=== PATIENT | female | born 1985 | race Asian ===

== ENCOUNTER 2017-05-01 14:06 | Inpatient (IN) | payer OTHER ==
[~2017-05-01] VITALS: Ht 180.3 cm; Wt 81.4 kg
[~2017-05-01 14:06] MED LIST: AGM875T PO; BUTA1TAB55 PO; CARV25TA PO; DIVA250T2 PO; FLT05NA16 NSEACH; LISI20TA PO; LISI40TA PO; METH4TAB PO; TRAM50TA2 PO
--- NOTE | 2017-05-01 14:46 | Physical Therapy Evaluation ---
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 Prior/Core FIM Prior Level of Function Functional [place] Measure 0=Not Assessed/NA 4=Minimal Assistance 1=Total Assistance 5=Supervision or Setup 2=Maximal Assistance 6=Modified [place] 3=Moderate Assistance 7=Complete [place] Bed Mobility: 7 Transfers (B,C,W/C) (FIM): 7 Gait: 7 Medical record indicates that she was indep with all mobility at [facility]. PT Evaluation-Current Subjective Whispers. Agrees to PT. Does report that she is tired. Denies pain. Limited conversation this visit. Pain Numeric Pain Scale: 0-No Pain Location: No Pain Reported Objective Patient Orientation: Person, Confused Problem Solving: Fair difficult to understand; unsure of her orientation at this time; her answers were inconsistent at times. ROM/Strength ROM Lower Extremities Left LE AROM is WNL Right LE AAROM is WNL. Strenght Lower Extremities Left LE strength is 5/5 throughout Right LE: hip flexion 2/5, hip ext 2/5, quads 2/5, hamstrings 2/5; DF 1/5; hip abd 2/5, hip add 2/5 Integumentary/Posture Integumentary Refer to nursing notes. Bowel Incontinence: Yes Bladder Incontinence: Yes Posture Normal and symmetrical Neuromuscular (Tone, Coordination, Reflexes) No noted increased tone at this time; coordination is impaired; unable to elicit reflexes. All on the L LE Right LE is WNL> Sensory Hearing: Functional Hand Dominance: Right Sensation Right Lower Extremit: Impaired Sensation Left Lower Extremity: Intact Transfers Functional [place] Measure 0=Not Assessed/NA 4=Minimal Assistance 1=Total Assistance 5=Supervision or Setup 2=Maximal Assistance 6=Modified [place] 3=Moderate Assistance 7=Complete IndependenceIRFPAI Quality Coding Scale 6 Independent with activity with or without an assistive device 5 Patient requires set up or clean up by helper. Patient completes activity by themselves 4 Supervision or touching assist (CGA). [place] provide cues , steadying assist 3 The helper provides less than half the effort to complete the activity 2 The helper provides more than half the effort to complete the activity 1 Dependent. The helper does all the effort to complete an activity 7 Patient refused to complete or attempt activity 9 The patient did not perform the activity before the current illness or injury 88 Not attempted due to Medical conditions or safety concerns Transfers (B, C, W/C) (FIM): 2 Scootin Rollin Roll Left to Right (QC): 3 Supine to/from Sit: 3 Sit to/from Stand: 2 bed t/f WC(FIM only if WC use): 2 Sit to Lying (QC): 2 Lying to Sitting/Side of Bed(Q: 2 Sit to Stand (QC): 2 Chair/Rcg-yt-Rtgyy Xfer(QC): 2 Car Transfer (QC): 2 Pt is slightly impulsive with transfers. She is able to use her left side effectively to participate in all transfers and is able to initiate the task. She reaches with her left hand to perform a SPT from left to right, she does minimally WB on the right LE in standing but primarily just turns her hips to sit, and is unsafe at times. Pt performed SPT to the left x 6 reps this visit. Gait Does the Patient Walk?: No and Walking Goal IS indicated Mode of Locomotion: Both Anticipated Mode of Locomotion: Walk Gait (FIM): 0 (unable at this time. ) Distance (FIM): 0=does not occure Walk 10 feet (QC): 88 (unable) Walk 50 ft with 2 Turns(QC): 88 (unable) Walk 150 ft (QC): 88 Walking 10ft/uneven surface-QC: 88 Comments/Gait Description Pt unable to advance left LE or attempt to take a step at this time. Wheelchair Training Does the Pt Use a Wheelchair?: Yes Wheelchair (FIM): 2 Wheelchair Distance (FIM): 6=431-63 ft Distance: 50 ft Wheelchair Level of Assist: 3 Wheel 50 ft with 2 turns (QC): 3 Wheel 150 ft (QC): 88 Type of Wheelchair: Manual Pt able to use her left UE to propel the wheelchair forward; needed mod assist to guide the chair. Stairs Stairs (FIM): 0 (unable ) 1 Step (curb) (QC): 88 4 Steps (QC): 88 12 Steps (QC): 88 If not tested on admit;explain Unable to take steps or stand effectively to attempt stairs. Balance Sitting Static: Fair Sitting Dynamic: Fair Standing Static: Fair Standing Dynamic: Fair Picking up an Object (QC): 88 (unsafe to attempt) Treatment Worked on functional transfers. Worked on seated balance at EOB; worked on WC mobility to maneuver in koo and in room/bathroom. Co treat with OT part of treatment, PT addressed the functional transfer and mobility as OT addressed UE positioning and placement as well as sequencing with tasks. Required 2 skilled clinicians to effectively cue and assist pt to reach optimum outcome. Assessment/Needs Post CVA with right side hemiparesis. She is able to activate her R LE and assist with transfers, but still needs much assist. She engages in therapy and does initiate transfers and mobility and able to follow cues well. She is slightly impulsive which may pose a fall risk but follows cues well and is able to change her pattern for increased safety. She is able to WB through the R LE but unable to effectively take a step to walk or to transfer. Her seated and standing balance is impaired as well but she is able to right herself with cues. She whispers to communicate and her answers do not seem reliable always. Her PLOF was indep and feel that she has potential to make functional gains. Rehab Potential: Good PT Short Term Goals Short Term Goals Time Frame: May 15, 2017 Transfers (B,C,W/C) (FIM): 4 Gait (FIM): 2 Distance (FIM): 9=337-45 ft Gait Distance Comment: 50 ft Gait Assistive Device: Walker Charly Wheelchair (FIM): 4 PT Senior Living Goals Commercial Project Manager Goals PT Senior Living Goals Time Frame: May 29, 2017 Transfers (B,C,W/C) (FIM): 6 Sit to Lying (QC): 6 Lying-Sitting on Side/Bed(QC): 6 Sit to Stand (QC): 6 Roll Left to Right (QC): 6 Chair/Jpb-my-Feehs Xfer(QC): 6 Car Transfer (QC): 6 Does the Patient Walk: No and Walking Goal NOT indicated Gait (FIM): 6 Gait distance (FIM): 3=150 ft Walk 10 feet (QC): 6 Walk 10ft-Uneven Surface(QC): 6 Walk 50ft with 2 Turns (QC): 6 Walk 150 ft (QC): 6 Gait Level of Assist: 6 Gait Assistive Device: Walker Charly Does the Pt use WC or Scooter?: Yes Wheelchair (FIM): 6 Wheelchair distance (FIM): 3=150 ft Wheel 50 feet with 2 turns (QC: 6 Stairs (FIM): 5 # of Steps: 8 1 Step (curb) (QC): 5 4 Steps (QC): 5 12 Steps (QC): 88 Picking up an Object (QC): 4 PT Plan Problem List Problem List: Activity Tolerance, Functional Strength, Safety, Balance, Gait, Transfer, Bed Mobility Treatment/Plan Treatment Plan: Continue Plan of Care Treatment Plan: Bed Mobility, Education, Functional Activity Masoud, Functional Strength, Group Therapy, Gait, Safety, Therapeutic Exercise, Transfers, Other Treatment Duration: May 22, 2017 Frequency: Modified Program (IRF) Estimated Hrs Per Day: 1.5 hours per day Patient and/or Family Agrees t: Yes Safety Risks/Education Patient Education: Safety Issues Teaching Recipient: Patient Teaching Methods: Discussion Response to Teaching: Reinforcement Needed Time/GCodes Time In: 1455 Time Out: 1505 (1505 to 1540 co [id number] to 1550 treat indiv) Total Billed Treatment Time: 55 Total Billed Treatment visit EVM 10 Co treat 2521-2590 (35 FA) individual treat [id number] (FA) MARIAN VALENCIA PT May 01, 2017 14:46
[2017-05-01 15:02] VITALS: BP 101/69
--- NOTE | 2017-05-01 16:04 | Occupational Therapy Eval ---
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 Unsure of living situation. ADL-Prior Level of Function ADL PLOF Comments Pt has difficulty providing information regarding PLOF. Provides inconsistent answers. Pt does state she was independent prior to CVA OT Current Status Subjective Pt agreeable to therapy this pm. No c/o pain. Pt whispers and speech is difficult to understand at times. Pt does state that she is fatigued this pm Mental Status/Objective Patient Orientation: Person Current Glasses/Contacts: No Hearing Aids: No Hand Dominance: Right Upper Extremity ROM Right UE PROM is functional Left UE WFL Upper Extremity Coordination Impaired right UE Left UE grossly WFL Upper Extremity Sensation Impaired right UE Upper Extremity Strength Right UE. Pt has trace elevation, but no other active movement noted. Left UE Grossly functional ADL-Treatment ADL-Current Pt in bed, was incontinent of urine. Total assist for hygiene and to change brief. Pt rolled with mod assist for task. Supine to sit with mod assist to right side. Pt sat EOB with fair balance. Pt able to stand with max assist. Unable to advance right LE to take steps at this time. Stand pivot transfer to left side with max assist. Pt impulsive with transfers and requires cues for safety. Pt used left UE to perform w/c mobility. Requires mod assist. Pt sat at sink to complete grooming tasks. Pt requires assist to open toothpaste and place on toothbrush. Pt then able to brush teeth using left UE. Pt washes face with SBA using left UE. Functional [place] Measure 0=Not Assessed/NA 4=Minimal Assistance 1=Total Assistance 5=Supervision or Setup 2=Maximal Assistance 6=Modified [place] 3=Moderate Assistance 7=Complete IndependenceIRFPAI Quality Coding Scale 6 Independent with activity with or without an assistive device 5 Patient requires set up or clean up by helper. Patient completes activity by themselves 4 Supervision or touching assist (CGA). [place] provide cues , steadying assist 3 The helper provides less than half the effort to complete the activity 2 The helper provides more than half the effort to complete the activity 1 Dependent. The helper does all the effort to complete an activity 7 Patient refused to complete or attempt activity 9 The patient did not perform the activity before the current illness or injury 88 Not attempted due to Medical conditions or safety concerns Co-treat with PT this pm. OT focusing on ADLs, right UE management and safety. PT focusing on transfers, LE management and safety. Education OT Patient Education: Rehab process Teaching Recipient: Patient Teaching Methods: Discussion OT Short Term Goals Short Term Goals Time Frame: May 15, 2017 Grooming(FIM): 5 Upper Body Dressing(FIM): 4 Lower Body Dressing(FIM): 3 Toileting(FIM): 3 Toilet/Commode Transfer(FIM): 4 Shower Transfer(FIM): 3 Additional Short Term Goals: 2-Verbalize Understanding, 3-ImproveStrength/Masoud 1=Demonstrate adherence to instructed precautions during ADL tasks. 2=Patient will verbalize/demonstrate understanding of assistive devices/ modifications for ADL. 3=Patient will improve strength/tolerance for activity to enable patient to perform ADL's. OT Group Home Goals Airfield Engineer Officer Goals Time Frame: May 29, 2017 Eating (FIM): 6 Eating (QC): 6 Groomin Oral Hygiene (QC): 6 Bathing(FIM): 5 Shower/Bathe Self (QC): 5 Upper Body Dressing(FIM): 6 Upper Body Dressing (QC): 6 Lower Body Dressing(FIM): 5 Lower Body Dressing (QC): 5 On/Off Footwear (QC): 5 Toileting(FIM): 6 Toileting Hygiene (QC): 6 Toilet/Commode Transfer(FIM): 6 Toilet/Commode Transfer (QC): 6 Shower Transfer(FIM): 5 Additional Goals: 2-Verbalize Understanding, 3-ImproveStrength/Masoud 1=Demonstrate adherence to instructed precautions during ADL tasks. 2=Patient will verbalize/demonstrate understanding of assistive devices/ modifications for ADL. 3=Patient will improve strength/tolerance for activity to enable patient to perform ADL's. OT Education/Plan Problem List/Assessment Assessment: Decreased Activ Tolerance, Decreased UE Strength, Dependent Transfers, Impaired Bed Mobility, Impaired Coordination, Impaired Funct Balance , Impaired I ADL's, Impaired Self-Care Skills, Restricted Funct UE ROM Pt s/p CVA with right side deficits. Pt demonstrates decreased mobility, strength, coordination, activity tolerance, and ADL functioning. Pt to benefit from skilled OT intervention for ADL training, transfers, strengthening, and safety education to increase level of independence and allow safe discharge plan. Discharge Recommendations Plan/Recommendations: Continue POC Treatment Plan/Plan of Care Treatment,Training & Education: Yes Patient would benefit from OT for education, treatment and training to promote independence in ADL's, mobility, safety and/or upper extremity function for ADL' s. Plan of Care: ADL Retraining, Functional Mobility, Group Exercise/Act as Ind, UE Funct Exercise/Act, UE Neuromus Re-Ed/Coord Treatment Duration: May 29, 2017 Frequency: Modified Program (IRF) (15/09) Estimated Hrs Per Day: 1.5 hours per day Agreement: Yes Rehab Potential: Good Time/GCodes Start Time: 14:45 Stop Time: 14:55 Total Time Billed (hr/min): 45 Billed Treatment Time 1, visit EVM(10minutes) [id number] ADL(15minutes), FA(20minutes) Co-treat with PT [id number] CELSO MIGUEL OT May 01, 2017 16:04
--- OUTSIDE RECORDS SUMMARY | 2017-05-01 16:05 | XMS REPORT | Continuity of Care Document ---
Author Author [facility] Address Unknown Phone Unavailable Allergies Active Description Code Type Severity Reaction Onset Reported/Identified Relationship to Patient Clinical Status Yes No Known Drug Allergies [id number] Drug Allergy Unknown N/A 02/12/2011 Medications There is no data. Problems Date Dx Coded Attending Type Code Diagnosis Diagnosed By 02/05/2011 PETEY RIOS MD 300.00 ANXIETY STATE UNSPECIFIED 02/05/2011 PETEY RIOS MD 346.90 MIGRAINE UNSPECIFIED WITHOUT MENTION OF INTRACTABLE MIGRAINE WITHOUT MENTION OF STATUS MIGRAINOSUS 02/05/2011 PETEY RIOS MD 401.1 HYPERTENSION, BENIGN ESSENTIAL 02/05/2011 PETEY RIOS MD V58.69 LONG-TERM (CURRENT) USE OF OTHER MEDICATIONS 02/12/2011 Ot 784.0 02/26/2011 Ot 461.9 02/26/2011 Ot 786.2 05/21/2011 Ot 346.90 05/21/2011 Ot 784.0 07/21/2011 Ot 784.0 09/24/2013 PETEY RIOS MD Ot 346.90 09/24/2013 PETEY RIOS MD Ot 401.9 Procedures There is no data. Results There is no data. Encounters ACCT No. Visit Date/Time Discharge Status Pt. Type Provider Facility Loc./Unit Complaint [id number] 02/12/2011 14:17:00 02/12/2011 23:59:59 CLS Outpatient PETEY RIOS MD [id number] 03/07/2014 14:35:00 03/07/2014 15:58:00 DIS Emergency SANDOR LINO MD [facility] [id number] 09/23/2013 22:14:00 09/24/2013 00:41:00 DIS Emergency PETEY RIOS MD [facility] [id number] 07/20/2011 23:38:00 Document Registration [id number] 05/21/2011 17:55:00 Document Registration [id number] 02/26/2011 11:54:00 Document Registration [id number] 02/12/2011 18:58:00 Document Registration
--- OUTSIDE RECORDS SUMMARY | 2017-05-01 16:05 | XMS REPORT | Continuity of Care Document ---
Author Author [employer] [facility] Address Unknown Phone Unavailable Care Team Providers Care Branch Specialist Name Role Phone [employer] Unavailable Unavailable Problems Medications Allergies, Adverse Reactions, Alerts Immunizations Results Vital Signs Encounters Location Location Details Encounter Type Encounter Number Reason For Visit Attending Provider ADM Date DC Date Status Source O 04/19/2017 04/19/2017 Active [facility] INPATIENT [id number] [facility] 04/19/20172017 Active [facility] Procedures Plan of Care Social History Assessment and Plan Family History Advance Directives Functional Status
--- NOTE | 2017-05-01 16:21 | ST Cognitive Linguistic Eval ---
Speech Evaluation-General Medical Diagnosis CVA- Right Thalamic Hemorrhagic Onset Date: Apr 19, 2017 Therapy Diagnosis Therapy Diagnosis: Severe Expressive Aphasia- Broca's Type Precautions Precautions/Isolations: Aspiration, Fall Prevention, Standard Precautions Referral Referring Physician: Dr. Marin Bo Reason for Referral: Evaluation/Treatment Speech and Language Evaluation Medical History Pertinent Medical History: HTN Reviewed History: Yes Social History Current Living Status: Friend Speech PLF-Current Status Prior Level of Function The patient was unable to provide prior level of function information due to severe aphasia. Subjective The patient was laying in bed upon entrance. The patient made eye contact with the clinician upon entrance and was able to state her name. Language Eval: Auditory Comprehends Simple Yes/No Ques: Moderate (The patient responds well and accurately to simple, personal yes and no questions. The patient's accuracy decreases significantly with fatigue, as well as, with complexity. The patient will self-correct and demonstrate frustration with an erroneous answer.) Indent/Objects Multiple Guevara: Functional Ident/Pics in Multiple Guevara: Functional Follows 1-Step Commands: Functional Follows Complex Directions: Moderate Follows General Conversations: Moderate Language Eval: Verbal Language Completes Spontaneous Greeting: Functional Produces Auto, Serial Info: Moderate (The patient states name and city. The patient continues to state the wrong .) Imitates Simple Words/Phrases: Functional Word Finding: Severe Requests Basic Needs: Moderate States Basic Personal Info: Moderate Expresses Complex Ideas: Severe Language Evaluation: Reading Comprehends Single Nouns: Functional Language Evaluation: Writing Writes Personal Information: Mild (First name, only.) Cognitive Patient Orientation The patient was able to state her name. The patient was unable to state the month or year. The patient was unable to identify the month of year with yes and no responses. Objective Cognitive Domain Due to lack of functional communication, the patient's cognition level was unable to assess at this time. Objective Oral Motor/Speech Production The patient demonstrates a left facial droop at rest. Lingual protrusion at midline. Impression The patient demonstrated moderate to severe expressive aphasia, however, comprehension appears mostly intact. At this time, the patient demonstrates whole word and single syllable paraphasia. Communication/Social Cognition Comprehension: 3 Expression: 1 Social Interaction: 3 Speech Patient Assess Expression of Ideas/Wants: Rarely/Never (1) Understanding [place] Content: Usually Understands (3) Brief Interview-Mental Status: Yes Repetition of Three Words: Three (3) Temporal Orientation: Year: No answer (0) Temporal Orientation: Month: No answer (0) Temporal Orientation: Day: Incorrect or No Answer(0) Recall : Wear to say "Sock": No, could not recall (0) Recall : Color: No, could not recall (0) Recall : Bed: No, could not recall (0) Speech Short Term Goals Short Term Goals Short Term Goals 1. The patient will demonstrate 70% accuracy with confrontational naming of ADL objects with minimal clinician cueing. 2. The patient will repeat short phrases with 70% accuracy and mild clinician verbal cueing. 3. The patient will respond to yes and now questions with 80% accuracy, independently. 4. The patient will be demonstrate simple orientation information with 100% accuracy. Time Frame-STG: Two Weeks Speech Filling [place] Goals Long-Term Goals 1. The patient will demonstrate improved expressive and receptive communication for increased safety and function with ADL's. Time Frame: Six Weeks Comprehension: 4 Expression: 3 Social Interaction: 4 Speech-Plan Treatment Plan Speech Therapy Treatment Plan: Continue Plan of Care Continue skilled speech pathology to target functional expressive communication. Treatment Duration: Jun 13, 2017 Frequency: 5 times per week Estimated Hrs Per Day: .5 hour per day Rehab Potential: Guarded Safety Risks/Education Teaching Recipient: Patient Teaching Methods: Discussion Response to Teaching: Reinforcement Needed Education Topics Provided: Results, Recommendations, Plan of Care Time Speech Therapy Time In: 15:50 Speech Therapy Time Out: 16:08 Total Billed Time: 18 Billed Treatment Time 1, JJ WELSHSAULO ST May 01, 2017 16:21
--- NOTE | 2017-05-01 17:14 | PM&R Post Admission Assessment ---
Post Admission Physician Asses The preadmission screen agrees with the post admission assessment that the patient is a good candidate for inpatient rehabilitation. The patient will have a comprehensive program of inpatient rehabilitation with a goal of maximizing level of functional independence prior to discharge home with roommate and HHC. The patient will have PT/OT ninety minutes per day, each discipline, five days a week for gait, strengthening, conditioning, balance , ADLs, any patient/family/caregiver training as necessary. Speech therapy to do cognitive,sppech and swallow assessment and treat as indicated 3-5 times a week for 30-45 min per session for 2 weeks. Rehabilitation nursing to assist with bowel, bladder, skin, medication administration, pain management. Buncher Operator to assist with discharge planning, community reentry and f/u re Medicaid [place]. SCD's for DVT prophylaxis. She appears to be well motivated to participate in three hours of therapy a day. She should be able to tolerate three hours of therapy a day from a medical standpoint. She should benefit from the three hours of therapy a day. She has a reasonable discharge plan, reasonable discharge rehabilitation goals and a supportive family. She has various comorbidities that need to be closely monitored with medications and treatments adjusted on a daily basis as needed. These include: HTN Illicit drug use Barriers to discharge for this patient who had been independent prior to this are for her to be modified independent to supervision for ADLs and mobility skills prior to discharge home with roommate and HHC, so as to lessen the burden of the caregivers. Risks for this patient include: 1. Fall 2. Fracture 3. DVT 4. Pulmonary embolism 5. Poorly controlled HTN 6. Skin breakdown 7. Contractures 8. Poorly controlled pain 9. Urinary retention 10. UTI 11. Respiratory infection 12. Aspiration 13. Reactive depression Estimated Length of Stay: 21 days Prognosis: Rehab prognosis appears good for goal of discharge home with roommate and HHC supervision to min assist for ADLs and mobility skills. MARGO MALIK MD May 01, 2017 17:14
--- NOTE | 2017-05-01 17:58 | HISTORY AND PHYSICAL ---
DATE OF SERVICE: CHIEF COMPLAINT: Difficulty with walking. HISTORY OF PRESENT ILLNESS: The patient is a 31-year-old female with past medical history significant for substance abuse who was admitted to [facility] due to hypertensive crisis associated with subcortical hemorrhage of the left cerebral hemisphere. Blood pressure was brought under control. The patient was initially evaluated outside facility. She had been independent and living with a friend in [place], but I believe she is unemployed and has no medical insurance. Currently, she has right hemiparesis. She is on a mechanical soft diet. She is quite fatigued. Speech therapy notes that she was unable to answer simple yes/no questions earlier today. She had some incontinence of urine. She is total assist for hygiene and to change brief. She is mod to max assist for bed mobility, max assist for stand pivot transfers to the left side. She has some impulsivity. She is mod to max assist for transfers from wheelchair to bed. She is nonambulatory at this time. She is mod assist for wheelchair propulsion. She fatigues easily. She has limited endurance. PAST MEDICAL HISTORY: Substance abuse, methamphetamine, ecstasy, hypertension. PAST SURGICAL HISTORY: Noncontributory. ALLERGIES: No known medication allergies. FAMILY HISTORY: Noncontributory. SOCIAL HISTORY: Essentially as per above. [facility] is listed as her primary care provider. REVIEW OF SYSTEMS: A 10-point review of systems is significant for fatigue, right-sided weakness. MEDICATIONS: Norvasc 5 mg p.o. daily, Prozac 20 mg p.o. daily, lisinopril 40 mg p.o. daily, Coreg 25 mg p.o. b.i.d. PHYSICAL EXAMINATION: GENERAL: Significant for a female appearing her stated age, lying in bed, somewhat somnolent, in no acute distress. VITAL SIGNS: She is afebrile, pulse is 74, respirations 18, blood pressure 101/69, O2 sat 97% on room air. HEENT: Vision, speech, hearing appear grossly intact. She has a mild dysphagia and on modified diet as per above. No oral lesion is noted. NECK: Supple without mass. HEART: Regular rhythm. CHEST: Clear. ABDOMEN: Soft, nontender, bowel sounds present. EXTREMITIES: No leg edema noted. No calf tenderness. MUSCULOSKELETAL: She has functional passive range of motion of all 4 extremities. NEUROLOGIC: She is able to squeeze my hand with her left hand. Follows simple command, but again somewhat fatigued, She has trace movement in the right upper limb. Sensation is impaired to touch on the right. Strength, left lower extremity is 5/5. Right lower extremity at the hip 2/5, quads 2/5, Hamstrings 2/5, dorsiflexors 1/5. Coordination is impaired on the right. IMPRESSION: 1. Ambulatory dysfunction secondary to hypertensive crisis associated with nontraumatic subcortical hemorrhage with left cerebral hemorrhage with resulting RT HP. 2. Hypertension, controlled with medication. 3. Illicit drug use, currently abstaining. PLAN: The patient will have a comprehensive program of inpatient rehabilitation with goal of maximizing level of function independence prior to discharge home hopefully with home health care and her roommate. Social work to assist with discharge planning, community reentry and follow up regarding the status of her Medicaid application. The patient will have PT, OT 90 minutes per day each discipline, 5 days a week 90 minutes per session for gait, strengthening, conditioning, balance, ADLs, any patient family caregiver training necessary, adaptive equipment training necessary. Speech therapy to do cognitive, swallow, and speech assessment and treat as indicated 3 to 5 times a week for 30 to 45 minutes per day for 2 weeks. Rehabilitation nursing assist with bowel, bladder, skin care, medication administration, pain management. [facility] to see and followup as per their schedule. Recheck admission labs. Therapy with cardiac and fall precautions. ESTIMATED LENGTH OF STAY: 21 days. PROGNOSIS: Rehab prognosis appears fair for goal of discharging home with home health and roommate, hopefully at min assist to supervision or better for ADLs and mobility skills. DIET: Mechanical soft with thin liquids. CODE STATUS: Full code. Job ID: [id number] DocumentID: [id number] Dictated Date: 05/01/2017 17:10:13 Rn Picu Date: 05/01/2017 17:57:43 Dictated By: MARGO MALIK MD [facility]
[2017-05-01 18:22] VITALS: BP 99/58
[2017-05-01 20:50] VITALS: BP 86/58
[2017-05-01] MEDS: CARVEDILOL 12.5 MG (COREG) TABLET PO SCH (21:12)
[2017-05-01 23:45] VITALS: BP 87/55
[2017-05-02 05:32] VITALS: BP 90/55
[2017-05-02 05:41] LABS: BASOPHILS % (AUTO) 0 % (0-10); EOSINOPHILS # (AUTO) 0.2 10^3/uL (0.0-0.3); EOSINOPHILS % (AUTO) 2 % (0-10); HEMATOCRIT 41 % (35-52); HEMOGLOBIN 13.4 G/DL (11.5-16.0); LYMPHOCYTES # (AUTO) 1.8 X 10^3 (1.0-4.0); LYMPHOCYTES % (AUTO) 17 % (12-44); MEAN CORPUSCULAR HEMOGLOBIN 30 PG (25-34); MEAN CORPUSCULAR HGB CONC 33 G/DL (32-36); MEAN CORPUSCULAR VOLUME 91 FL (80-99); MEAN PLATELET VOLUME 11.2 FL (7.4-10.4); MONOCYTES # (AUTO) 1.4 X 10^3 (0.0-1.0); MONOCYTES % (AUTO) 13 % (0-12); NEUTROPHILS # (AUTO) 7.2 X 10^3 (1.8-7.8); NEUTROPHILS % (AUTO) 68 % (42-75); PLATELET COUNT 412 10^3/uL (130-400); RED BLOOD COUNT 4.44 10^6/uL (4.35-5.85); RED CELL DISTRIBUTION WIDTH 13.3 % (10.0-14.5); WHITE BLOOD COUNT 10.6 10^3/uL (4.3-11.0)
[2017-05-02 06:07] LABS: ALBUMIN 3.8 GM/DL (3.2-4.5); BILIRUBIN,TOTAL 0.5 MG/DL (0.1-1.0); CALCIUM 9.6 MG/DL (8.5-10.1); CREATININE SERUM 1.06 MG/DL (0.60-1.30); TOTAL PROTEIN 7.2 GM/DL (6.4-8.2)
[2017-05-02] MEDS ORDERED: INFLUENZA TRIvalent 2017-2018 0.5 ML/45 MCG SYR IM ONE (07:15)
[2017-05-02] MEDS: FLUoxetine HCL 20 MG (PROzac) CAP PO SCH (09:02)
[2017-05-02] MEDS: CARVEDILOL 12.5 MG (COREG) TABLET PO SCH ×2 (09:04→19:55)
[2017-05-02] MEDS: amLODIPine 5 MG (NORVASC) TAB PO SCH (09:04)
[2017-05-02] MEDS: lisINopril 20 MG (PRINIVIL) TABLET PO SCH (09:05)
[2017-05-02 09:06] VITALS: BP 90/55
--- NOTE | 2017-05-02 09:33 | PM & R (SOAP) Progress Note ---
Subjective Time Seen by Provider: 07:40 Subjective/Events-last exam Patient was seen in her room this AM with her roommate Discussed case with RN last evening and this AM Blood pressure runiing low Antihypertensives on hold.Adjusting weel to unit,Patient Mod to max assist for transfers.Current labs norted Objective Exam Last Set of Vital Signs Vital Signs Date Time Temp Pulse Resp B/P (MAP) Pulse Ox O2 Delivery O2 Flow Rate FiO2 05/02/17 09:06 75 90/55 (67) 05/02/17 05:32 97.4 16 96 Room Air Capillary Refill : I&O Intake and Output 05/02/17 00:00 Intake Total 200 ml Balance 200 ml Intake Oral 200 ml # Urine Diapers 1 Daily Weight Change Unsure General: Alert, Oriented X3, Cooperative, No Acute Distress HEENT: Atraumatic, PERRLA, EOMI Neck: Supple, No JVD Lungs: Clear to Auscultation Heart: Regular Rate Abdomen: Normal Bowel Sounds, Soft, No Tenderness Extremities: No Edema Neuro: Other (RT HP with impaired sensation to touch) Results Lab Laboratory Tests 05/02/17 05:15: White Blood Count 10.6, Red Blood Count 4.44, Hemoglobin 13.4, Hematocrit 41, Mean Corpuscular Volume 91, Mean Corpuscular Hemoglobin 30, Mean Corpuscular Hemoglobin Concent 33, Red Cell Distribution Width 13.3, Platelet Count 412H, Mean Platelet Volume 11.2H, Neutrophils (%) (Auto) 68, Lymphocytes (%) (Auto) 17 , Monocytes (%) (Auto) 13H, Eosinophils (%) (Auto) 2, Basophils (%) (Auto) 0, Neutrophils # (Auto) 7.2, Lymphocytes # (Auto) 1.8, Monocytes # (Auto) 1.4H, Eosinophils # (Auto) 0.2, Basophils # (Auto) 0.0, Sodium Level 137, Potassium Level 5.0, Chloride Level 101, Carbon Dioxide Level 21, Anion Gap 15H, Blood Urea Nitrogen 51H, Creatinine 1.06, Estimat Glomerular Filtration Rate 60, BUN/ Creatinine Ratio 48, Glucose Level 101, Calcium Level 9.6, Total Bilirubin 0.5, Aspartate Amino Transf (AST/SGOT) 18, Alanine Aminotransferase (ALT/SGPT) 67H, Alkaline Phosphatase 92, Total Protein 7.2, Albumin 3.8 Assessment/Plan Assessment Left ICB due to hypertensive crisis most likely due to substance abuse with resulting RT HP and dysphagia-ST assessment pending Hypotension -Antihypertensives on hold Substance abuse currently abstaining Plan Continue PT/OT/ST [facility] Physician to see Hold antihypertensives for now and monitor for orthostasis SW to followup re status of [place] Fele[place] at some point MARGO MALIK MD May 02, 2017 09:32
--- NOTE | 2017-05-02 11:29 | Individualized Plan of Care ---
Individualized Plan of Care Rehab Nursing IPOC Order Admission Date May 01, 2017 at 15:58 Current Orders Orders Follow-Up Appointment (05/01/17 14:38) Dys2 Mechanically Altered (05/01/17 Lunch) Amlodipine Tablet (Norvasc Tablet) (05/02/17 09:00) Carvedilol Tablet (Coreg Tablet) (05/01/17 21:00) Fluoxetine Capsule (Prozac Capsule) (05/02/17 09:00) Lisinopril Tablet (Zestril Tablet) (05/02/17 09:00) Admission (Physician Order) (05/01/17 15:51) Code/Resuscitation (05/01/17 15:51) Initiate Admission Nursing Pro .admission (05/01/17 15:51) Isolation Central Supply Req (05/01/17 15:51) Patient Visit (05/01/17 ) Pt Eval Moderate Complexity (05/01/17 ) Functional Activities, Ea 15 (05/01/17 ) Patient Visit (05/01/17 ) Speech Sound Lang Comp (05/01/17 ) Admission-Acute Rehab Unit (05/01/17 16:47) Vital Signs: Routine 08,16,00 (05/01/17 16:47) Sequential Compression Device 08,20 (05/01/17 16:47) Metal Forger'S Assistant-Inpt Rehab (05/01/17 16:47) Rehab Nursing Orders-Ipoc (05/01/17 16:47) Physical Therapy Rehab Orders (05/01/17 16:47) Occupational Therapy Rehab Ord (05/01/17 16:47) Speech Therapy Rehab Orders (05/01/17 16:47) Turn And Reposition Q2HR (05/01/17 16:47) Intake & Output 06,14,22 (05/01/17 16:47) Precautions (Aru) (05/01/17 16:47) Weekly Weight (Lbs) WEEK (05/01/17 16:47) Cbc With Automated Diff (05/02/17 06:00) Comprehensive Metabolic Panel (05/02/17 06:00) Ambulate TID (05/01/17 17:19) Sequential Compression Device 08,20 (05/01/17 17:19) Dvt/Vte Risk - Notifiy Physici 08 (05/01/17 17:19) Automatic Tray (05/01/17 19:39) Influenza Trivalent [id number] (Afluria (05/02/17 07:15) Consult Physician (05/02/17 10:30) Rehab Nursing Orders: Diseage Management, Edu in Press Rel Techn, Hydration Management, Nutrition Management, Pain Management Patient Education On: Monitor for any signs or symptoms of swallow disorder Other Nursing Orders: Monitor for urinary retention and constipation PT IPOC Problem List: Activity Tolerance, Functional Strength, Safety, Balance, Gait, Transfer, Bed Mobility Treatment Plan: Continue Plan of Care Bed Mobility, Education, Functional Activity Masoud, Functional Strength, Group Therapy, Gait, Safety, Therapeutic Exercise, Transfers, Other Treatment Duration: May 22, 2017 Frequency: Modified Program (IRF) Estimated Hrs Per Day: 1.5 hours per day OT IPOC Problems: Decreased Activ Tolerance, Decreased UE Strength, Dependent Transfers , Impaired Bed Mobility, Impaired Coordination, Impaired Funct Balance, Impaired I ADL's, Impaired Self-Care Skills, Restricted Funct UE ROM OT Treatment, Training and Edu: Yes OT Problems Pt s/p CVA with right side deficits. Pt demonstrates decreased mobility, strength, coordination, activity tolerance, and ADL functioning. Pt to benefit from skilled OT intervention for ADL training, transfers, strengthening, and safety education to increase level of independence and allow safe discharge plan. Plan of Care: ADL Retraining, Functional Mobility, Group Exercise/Act as Ind, UE Funct Exercise/Act, UE Neuromus Re-Ed/Coord Treatment Duration: May 29, 2017 Frequency: Modified Program (IRF) (15/09) Estimated Hrs Per Day: 1.[address] IPOC Speech Therapy Treatment Plan: Continue Plan of Care Treatment Duration: Jun 13, 2017 Frequency: 5 times per week Estimated Hrs Per Day: .5 hour per day Metal Forger'S Assistant/Case Mgmt Metal Forger'S Assistant/Case Managemen: Discharge Planning, Patient/Family Counseling ( Sw to f/u re status of [place] medicaid beatriz as patient has no Medical insurance at this time) Physician IPOC Medical Issues being managed closely and that require the 24 hour availability of a physician: Medical Issues: Bowel/Bladder Function, DVT Prophylaxis, Falls Precautions, Fluid/Electrolyte/Nutrition Balance, Infection Protection, Pain Management, Swallowing Precautions, Other (List) Brief Synthesis of Preadmission Screen, Post-Admission Evaluation, and Therapy Evaluations: 31 yo female who had a hypertensive crisis as a result of Substance abue with resulting ICB with RT HP and dysphagia and expressive aphasia ,Antihypertensive meds currently on hold due to Hypotension Patient referred to IRU here from [facility] as she lives in [place] with a roommate No Current Medical Insurance SW to f/u re [place] Medicaid [facility] has declined patient Will ask Dr lazo to see re medical concerns while on IRU.Consult [facility] re substance abuse-Patient on Prozac.Had been Independent prior to this [facility] CODE 01.2 Etiologic DX Non traumatic Subcortical hemorrhage of left cerebral hemisphere Medical Prognosis: Good Anticipated Length of Stay: 18 Rehab Goals Maximize level of functional [place] prior to discharge to home with room mate who presents to unit this AM Anticipated discharge destinat: Home with C, roommate and friend if possible MARGO MALIK MD May 02, 2017 11:29
--- NOTE | 2017-05-02 11:34 | Occupational Ther Daily Note ---
OT Current Status-Daily Note Subjective Pt seen in room, up in bed, agreeable to OT. No pain mentioned. Appearance Sleepy but easily awakened. Softspoken. Mental Status/Objective Functional [place]aines Measure 0=Not Assessed/NA 4=Minimal Assistance 1=Total Assistance 5=Supervision or Setup 2=Maximal Assistance 6=Modified Gaines 3=Moderate Assistance 7=Complete Gaines ADL-Treatment Pt was incontinent of urine and needed total assist to change paper briefs. Sponge bath done in bed and at EOB. Foot splint applied at end of tx. Pt tends top externally rotate R hip so leg positioned in extension, with pillow supporting neutral position. Pt left in bed with 4 rails up, all needs met Functional Gaines Measure 0=Not Assessed/NA 4=Minimal Assistance 1=Total Assistance 5=Supervision or Setup 2=Maximal Assistance 6=Modified Gaines 3=Moderate Assistance 7=Complete IndependenceIRFPAI Quality Coding Scale 6 Independent with activity with or without an assistive device 5 Patient requires set up or clean up by helper. Patient completes activity by themselves 4 Supervision or touching assist (CGA). [place] provide cues , steadying assist 3 The helper provides less than half the effort to complete the activity 2 The helper provides more than half the effort to complete the activity 1 Dependent. The helper does all the effort to complete an activity 7 Patient refused to complete or attempt activity 9 The patient did not perform the activity before the current illness or injury 88 Not attempted due to Medical conditions or safety concerns Eating (FIM): 4 (Per nursing, pt needs setup and occasional skilled cues or assist to feed herself. Is on mechanical soft diet. Nursing reported that she was able to find food on the right side of her tray) Eating (QC): 3 Grooming (FIM): 3 (Max assist to brush hair (it is heavily tangled in back but she did not attempt to brush it out). Setup to brush teeth, seated at EOB. Able to rinse mouth with min assist to hold basin. Washed face with setup. Washed R hand with cues, unable to wash L hand. ) Oral Hygiene (QC): 3 (min assist) Bathing (FIM): 3 (Sponge bath done in bed. Pt was able to wash [place] in front with initiation cues. Sat EOB with close supervision and occas CGA. ) Bathing Location: R Arm (cues), L Upper Leg, L Lower Leg (including foot), Chest, Abdomen, Perineal Area Shower/Bathe Self (QC): 3 Upper Body (FIM): 3 (Mod assist, help with dressing R arm, pulling shirt down) Upper Body Dressing (QC): 3 Lower Body Dressing (FIM): 2 (Mod assist to roll side to side. Pt helped bridge and pulled pants up over hips on L side. Dressed in bed, supine) Lower Body Dressing (QC): 2 On/Off Footwear (QC): 2 (Helped pull sock up on L once started) Toileting (FIM): 1 (Total care for hygiene and clothing management. She is incontinent of urine and stool and, according to nursing, does not seem aware of need to toilet) Toileting Hygiene (QC): 1 Toilet/Commode Transfer (FIM): 0 (Pt has been incontinent and not doig toilet transfers) Toilet Transfer (QC): 88 (Unsafe on BSC) Pt needed mod assist to sit to edge of bed but was able to maintain sitting without loss of balance. She also needed mod assist to get back into bed and was able to assist with pulling herself up in bed. Education OT Patient Education: Modified ADL techniques, Progress toward Goal/Update tx plan, Purpose of tx/functional activities, Safety issues Teaching Recipient: Patient Teaching Methods: Demonstration, Discussion Response to Teaching: Return Demonstration, Reinforcement Needed OT Short Term Goals Short Term Goals Time Frame: May 15, 2017 Grooming(FIM): 5 Upper Body Dressing(FIM): 4 Lower Body Dressing(FIM): 3 Toileting(FIM): 3 Transfers (B,C,W/C) (FIM): 4 Toilet/Commode Transfer(FIM): 4 Shower Transfer(FIM): 3 Additional Short Term Goals: 2-Verbalize Understanding, 3-ImproveStrength/Masoud 1=Demonstrate adherence to instructed precautions during ADL tasks. 2=Patient will verbalize/demonstrate understanding of assistive devices/ modifications for ADL. 3=Patient will improve strength/tolerance for activity to enable patient to perform ADL's. OT [facility] Goals [facility] Goals Time Frame: May 29, 2017 Eating (FIM): 6 Eating (QC): 6 Groomin Oral Hygiene (QC): 6 Bathing(FIM): 5 Shower/Bathe Self (QC): 5 Upper Body Dressing(FIM): 6 Upper Body Dressing (QC): 6 Lower Body Dressing(FIM): 5 Lower Body Dressing (QC): 5 On/Off Footwear (QC): 5 Toileting(FIM): 6 Toileting Hygiene (QC): 6 Toilet/Commode Transfer(FIM): 6 Toilet/Commode Transfer (QC): 6 Shower Transfer(FIM): 5 Comprehension(FIM): 4 Expression (FIM): 3 Social Interaction(FIM): 4 Additional Goals: 2-Verbalize Understanding, 3-ImproveStrength/Masoud 1=Demonstrate adherence to instructed precautions during ADL tasks. 2=Patient will verbalize/demonstrate understanding of assistive devices/ modifications for ADL. 3=Patient will improve strength/tolerance for activity to enable patient to perform ADL's. OT Education/Plan Problem List/Assessment Pt s/p CVA with right side deficits. Pt demonstrates decreased mobility, strength, coordination, activity tolerance, and ADL functioning. Pt to benefit from skilled OT intervention for ADL training, transfers, strengthening, and safety education to increase level of independence and allow safe discharge plan. Discharge Recommendations Plan/Recommendations: Continue POC Treatment Plan/Plan of Care Patient would benefit from OT for education, treatment and training to promote independence in ADL's, mobility, safety and/or upper extremity function for ADL' s. Plan of Care: ADL Retraining, Functional Mobility, Group Exercise/Act as Ind, UE Funct Exercise/Act, UE Neuromus Re-Ed/Coord Treatment Duration: May 29, 2017 Frequency: Modified Program (IRF) (15/09) Estimated Hrs Per Day: 1.5 hours per day Agreement: Yes Rehab Potential: Guarded Time/GCodes Start Time: 10:30 Stop Time: 11:25 Total Time Billed (hr/min): 55 Billed Treatment Time visit, 55 minutes ADL SOPHIA CERVANTES OT May 02, 2017 11:34
--- NOTE | 2017-05-02 11:40 | Speech Therapy Daily Note ---
Speech Daily Progress Note Subjective Date Seen by Provider: May 02, 2017 Time Seen by Provider: 09:00 The patient was laying in bed upon entrance. The patient made eye contact with the clinician and was agreeable to participation in the speech and language treatment. To note, the patient remained involved in treatment for approximately 15 minutes. Following 15 minutes, the patient did appear to lose interest or become less participatory. The patient's significant other was seated at bedside. Objective The patient was able to state her name. The patient was unable to identify the month or year with yes and no responses. Per patient, she is unable to read the white-board in the room without her glasses, therefore, the clinician requested her significant other bring her glasses to aid in recall of orientation information. Yes/No: The patient demonstrated increased inconsistency with yes and no questions (simple) on this date. The patient seems to demonstrate self- awareness of errors, as she frequently shakes her head and says "no" after an wrong answer. Aphonia: The patient continues to demonstrate aphonia. Due to the patient's extended intubation, the clinician will request a referral to ENT for further evaluation of vocal fold function. Confrontational Naming: The patient demonstrated high accuracy with confrontational naming, however, did demonstrate paraphasia (whole word). With initial phone cueing, the patient was able to improve response accuracy. Assessment Assessment Current Status: Fair Progress Treatment Plan Continue Plan of Care Communication Comprehension: 3 Expression: 1 Social Cognition Social Interaction: 3 Problem Solvin Memory: 1 Speech Short Term Goals Short Term Goals Short Term Goals 1. The patient will demonstrate 70% accuracy with confrontational naming of ADL objects with minimal clinician cueing. 2. The patient will repeat short phrases with 70% accuracy and mild clinician verbal cueing. 3. The patient will respond to yes and now questions with 80% accuracy, independently. 4. The patient will be demonstrate simple orientation information with 100% accuracy. Time Frame-STG: Two Weeks Speech Alf Goals Alf Goals 1. The patient will demonstrate improved expressive and receptive communication for increased safety and function with ADL's. Time Frame: Six Weeks Comprehension: 4 Expression: 3 Social Interaction: 4 Speech-Plan Treatment Plan Speech Therapy Treatment Plan: Continue Plan of Care Continue skilled speech pathology to target functional expressive communication. Treatment Duration: Jun 13, 2017 Frequency: 5 times per week Estimated Hrs Per Day: .5 hour per day Rehab Potential: Guarded Safety Risks/Education Teaching Recipient: Patient, Significant Other Teaching Methods: Discussion Response to Teaching: Verbalize Understanding (Significant Other) Education Topics Provided: Practice Exercises, Language Immersion, Importance of Repetition, Education re: Aphasia Time Speech Therapy Time In: 09:00 Speech Therapy Time Out: 09:30 Total Billed Time: 30 Billed Treatment Time 1ADRIANA ELIZABETH May 02, 2017 11:40
--- NOTE | 2017-05-02 12:45 | Physical Therapy Daily Note ---
PT Daily Note-Current Subjective Pt laying Supine in bed upon arrival. Pt has friend that answers a lot for pt since she is vocalizing minimally. Pt agrees to PT. Pain Location: No Pain Reported Mental Status Patient Orientation: Person Attachments: Other-See Comments (R foot boot to prevent foot drop) Transfers Functional [place] Measure 0=Not Assessed/NA 4=Minimal Assistance 1=Total Assistance 5=Supervision or Setup 2=Maximal Assistance 6=Modified [place] 3=Moderate Assistance 7=Complete IndependenceIRFPAI Quality Coding Scale 6 Independent with activity with or without an assistive device 5 Patient requires set up or clean up by helper. Patient completes activity by themselves 4 Supervision or touching assist (CGA). [place] provide cues , steadying assist 3 The helper provides less than half the effort to complete the activity 2 The helper provides more than half the effort to complete the activity 1 Dependent. The helper does all the effort to complete an activity 7 Patient refused to complete or attempt activity 9 The patient did not perform the activity before the current illness or injury 88 Not attempted due to Medical conditions or safety concerns Scootin Rollin Roll Left to Right (QC): 2 Supine to/from Sit: 2 Sit to Lying (QC): 2 Sit to Stand (QC): 2 Weight Bearing Right Lower Extremity: Right Weight Bearing/Tolerated Left Lower Extremity: Left Full Weight Bearing Exercises Supine Ex: Ankle pumps, Quad Set, Heel Slides, Straight leg raise, Hip abd/add Supine Reps: 15 Seated Therapy Exercises: Long arc quads, Hip flexion, Kicking activity Seated Reps: 10 (All were PROM-AAR completed to work on sitting balance.) Treatments Pt completes Supine Ex in bed with RLE completed at [facility]. Pt has several rest breaks. Pt transfers to EOB at Mod-Max A to work on Static Seated Balance then completes Seated Ex at EOB with [facility] PROM for Dynamic Seated Balance. Pt returns to Supine in bed to rest at Mod-Max A. Pt resting at end of tx with all needs met. Assessment Current Status: Good Progress Pt has no feeling (pressure, pain, etc) in RLE. Pt gets slight movement to assist with some Supine Ex at this time. Pt is very fatigued. PT Short Term Goals Short Term Goals Time Frame: May 15, 2017 Transfers (B,C,W/C) (FIM): 4 Gait (FIM): 2 Distance (FIM): 6=458-27 ft Gait Distance Comment: 50 ft Gait Assistive Device: Walker Charly Wheelchair (FIM): 4 Wheelchair Distance: 50 ft PT Exchange Operator Goals Exchange Operator Goals PT Exchange Operator Goals Time Frame: May 29, 2017 Transfers (B,C,W/C) (FIM): 6 Sit to Lying (QC): 6 Lying-Sitting on Side/Bed(QC): 6 Sit to Stand (QC): 6 Rollin Roll Left to Right (QC): 6 Chair/Sio-sc-Sdwcg Xfer(QC): 6 Car Transfer (QC): 6 Does the Patient Walk: No and Walking Goal NOT indicated Gait (FIM): 6 Gait distance (FIM): 3=150 ft Walk 10 feet (QC): 6 Walk 10ft-Uneven Surface(QC): 6 Walk 50ft with 2 Turns (QC): 6 Walk 150 ft (QC): 6 Gait Level of Assist: 6 Gait Assistive Device: Walker Charly Does the Pt use WC or Scooter?: Yes Wheelchair (FIM): 6 Wheelchair distance (FIM): 3=150 ft Wheel 50 feet with 2 turns (QC: 6 Stairs (FIM): 5 # of Steps: 8 1 Step (curb) (QC): 5 4 Steps (QC): 5 12 Steps (QC): 88 Picking up an Object (QC): 4 PT Plan Problem List Problem List: Activity Tolerance, Functional Strength, Safety, Balance, Gait, Transfer, Bed Mobility, ROM Treatment/Plan Treatment Plan: Continue Plan of Care Treatment Plan: Bed Mobility, Education, Functional Activity Masoud, Functional Strength, Group Therapy, Gait, Safety, Therapeutic Exercise, Transfers, Other Treatment Duration: May 22, 2017 Frequency: Modified Program (IRF) Estimated Hrs Per Day: 1.5 hours per day Patient and/or Family Agrees t: Yes Safety Risks/Education Patient Education: Transfer Techniques, Correct Positioning, Disease Process, Safety Issues Teaching Recipient: Patient Teaching Methods: Discussion Response to Teaching: Verbalize Understanding Time/GCodes Time In: 815 Time Out: 900 Total Billed Treatment Time: 45 Total Billed Treatment 1, FA (15m) & EX x2 (30m) LI TA PTA May 02, 2017 12:45
--- NOTE | 2017-05-02 16:03 | Occupational Ther Daily Note ---
OT Current Status-Daily Note Subjective Pt seen inroom, up in bed, agreeable to OT. No pain mentioned Appearance Drowsy but easily awakened Mental Status/Objective Functional [place] Measure 0=Not Assessed/NA 4=Minimal Assistance 1=Total Assistance 5=Supervision or Setup 2=Maximal Assistance 6=Modified [place] 3=Moderate Assistance 7=Complete [place] ADL-Treatment Functional [place] Measure 0=Not Assessed/NA 4=Minimal Assistance 1=Total Assistance 5=Supervision or Setup 2=Maximal Assistance 6=Modified [place] 3=Moderate Assistance 7=Complete IndependenceIRFPAI Quality Coding Scale 6 Independent with activity with or without an assistive device 5 Patient requires set up or clean up by helper. Patient completes activity by themselves 4 Supervision or touching assist (CGA). [place] provide cues , steadying assist 3 The helper provides less than half the effort to complete the activity 2 The helper provides more than half the effort to complete the activity 1 Dependent. The helper does all the effort to complete an activity 7 Patient refused to complete or attempt activity 9 The patient did not perform the activity before the current illness or injury 88 Not attempted due to Medical conditions or safety concerns Other Treatment Pt sat up in bed long sitting and needed less help to swing R leg over to sit EOB. She was able to maintain sitting for entire treatment, with no LOB. Skilled facilitation techniques and cues used for weight bearing and working on functional movement of R UE. Pt demonstrated R shoulder elevation, a little retraction, some depression, a little internal rotation. She was able to lift r hand from side of bed to place it on thigh with mod assistance. Almost no elbow flex and ext on request or with gravity eliminated but elbow flex noted when lifting hand. She demonstrated visible finger flex, umberto in ring and little fingers, when asked to "squeeze my finger" but not able to do it to request to "make a fist". Pt pleased with progress. Able to assist in getting back into bed and helped pull herself part fo the way up in bed. pt left up in bed, foot splint on and leg positioned in extension and neutral rotation, 4 rails up, all needs met. Education OT Patient Education: Purpose of tx/functional activities Teaching Recipient: Patient Teaching Methods: Demonstration, Discussion Response to Teaching: Return Demonstration OT Short Term Goals Short Term Goals Time Frame: May 15, 2017 Grooming(FIM): 5 Upper Body Dressing(FIM): 4 Lower Body Dressing(FIM): 3 Toileting(FIM): 3 Transfers (B,C,W/C) (FIM): 4 Toilet/Commode Transfer(FIM): 4 Shower Transfer(FIM): 3 Additional Short Term Goals: 2-Verbalize Understanding, 3-ImproveStrength/Masoud 1=Demonstrate adherence to instructed precautions during ADL tasks. 2=Patient will verbalize/demonstrate understanding of assistive devices/ modifications for ADL. 3=Patient will improve strength/tolerance for activity to enable patient to perform ADL's. OT Pegger Dobby Looms Goals Pegger Dobby Looms Goals Time Frame: May 29, 2017 Eating (FIM): 6 Eating (QC): 6 Groomin Oral Hygiene (QC): 6 Bathing(FIM): 5 Shower/Bathe Self (QC): 5 Upper Body Dressing(FIM): 6 Upper Body Dressing (QC): 6 Lower Body Dressing(FIM): 5 Lower Body Dressing (QC): 5 On/Off Footwear (QC): 5 Toileting(FIM): 6 Toileting Hygiene (QC): 6 Toilet/Commode Transfer(FIM): 6 Toilet/Commode Transfer (QC): 6 Shower Transfer(FIM): 5 Comprehension(FIM): 4 Expression (FIM): 3 Social Interaction(FIM): 4 Additional Goals: 2-Verbalize Understanding, 3-ImproveStrength/Masoud 1=Demonstrate adherence to instructed precautions during ADL tasks. 2=Patient will verbalize/demonstrate understanding of assistive devices/ modifications for ADL. 3=Patient will improve strength/tolerance for activity to enable patient to perform ADL's. OT Education/Plan Problem List/Assessment Pt s/p CVA with right side deficits. Pt demonstrates decreased mobility, strength, coordination, activity tolerance, and ADL functioning. Pt to benefit from skilled OT intervention for ADL training, transfers, strengthening, and safety education to increase level of independence and allow safe discharge plan. Discharge Recommendations Plan/Recommendations: Continue POC Treatment Plan/Plan of Care Patient would benefit from OT for education, treatment and training to promote independence in ADL's, mobility, safety and/or upper extremity function for ADL' s. Plan of Care: ADL Retraining, Functional Mobility, Group Exercise/Act as Ind, UE Funct Exercise/Act, UE Neuromus Re-Ed/Coord Treatment Duration: May 29, 2017 Frequency: Modified Program (IRF) (15/09) Estimated Hrs Per Day: 1.5 hours per day Agreement: Yes Rehab Potential: Guarded Time/GCodes Start Time: 13:45 Stop Time: 14:20 Total Time Billed (hr/min): 35 Billed Treatment Time visit, 35 minutes neuromotor SOPHIA CERVANTES OT May 02, 2017 16:03
--- NOTE | 2017-05-02 16:32 | Physical Therapy Daily Note ---
PT Daily Note-Current Subjective Pt laying Supine in bed upon arrival. Pt agrees to PT. Pain Location: No Pain Reported Mental Status Patient Orientation: Person, Place Attachments: Other-See Comments Transfers Functional [place] Measure 0=Not Assessed/NA 4=Minimal Assistance 1=Total Assistance 5=Supervision or Setup 2=Maximal Assistance 6=Modified [place] 3=Moderate Assistance 7=Complete IndependenceIRFPAI Quality Coding Scale 6 Independent with activity with or without an assistive device 5 Patient requires set up or clean up by helper. Patient completes activity by themselves 4 Supervision or touching assist (CGA). [place] provide cues , steadying assist 3 The helper provides less than half the effort to complete the activity 2 The helper provides more than half the effort to complete the activity 1 Dependent. The helper does all the effort to complete an activity 7 Patient refused to complete or attempt activity 9 The patient did not perform the activity before the current illness or injury 88 Not attempted due to Medical conditions or safety concerns Rollin Roll Left to Right (QC): 2 Weight Bearing Right Lower Extremity: Right Weight Bearing/Tolerated Left Lower Extremity: Left Full Weight Bearing Exercises Supine Ex: Ankle pumps, Quad Set, Glut sets, Heel Slides, Straight leg raise, Hip abd/add Treatments Pt completes Supine Ex in bed (15 reps of each with several short rest breaks). Pt completes Supine Ex at AAROM-PROM on RLE & AROM on LLE. Pt needs brief change so Nurse & PARKING LOT SUPERVISOR assist pt in rolling back and forth to don & doff brief and shorts. Pt rests at end of tx with all needs met. Assessment Current Status: Fair Progress Pt has limited movement on RLE. PT Short Term Goals Short Term Goals Time Frame: May 15, 2017 Transfers (B,C,W/C) (FIM): 4 Gait (FIM): 2 Distance (FIM): 3=070-85 ft Gait Distance Comment: 50 ft Gait Assistive Device: Walker Charly Wheelchair (FIM): 4 Wheelchair Distance: 50 ft PT Architectural Engineer Goals Architectural Engineer Goals PT Group Home Goals Time Frame: May 29, 2017 Transfers (B,C,W/C) (FIM): 6 Sit to Lying (QC): 6 Lying-Sitting on Side/Bed(QC): 6 Sit to Stand (QC): 6 Rollin Roll Left to Right (QC): 6 Chair/Uod-mx-Dgzgq Xfer(QC): 6 Car Transfer (QC): 6 Does the Patient Walk: No and Walking Goal NOT indicated Gait (FIM): 6 Gait distance (FIM): 3=150 ft Walk 10 feet (QC): 6 Walk 10ft-Uneven Surface(QC): 6 Walk 50ft with 2 Turns (QC): 6 Walk 150 ft (QC): 6 Gait Level of Assist: 6 Gait Assistive Device: Walker Charly Does the Pt use WC or Scooter?: Yes Wheelchair (FIM): 6 Wheelchair distance (FIM): 3=150 ft Wheel 50 feet with 2 turns (QC: 6 Stairs (FIM): 5 # of Steps: 8 1 Step (curb) (QC): 5 4 Steps (QC): 5 12 Steps (QC): 88 Picking up an Object (QC): 4 PT Plan Problem List Problem List: Activity Tolerance, Functional Strength, Safety, Balance, Gait, Transfer, Bed Mobility, ROM Treatment/Plan Treatment Plan: Continue Plan of Care Treatment Plan: Bed Mobility, Education, Functional Activity Masoud, Functional Strength, Group Therapy, Gait, Safety, Therapeutic Exercise, Transfers, Other Treatment Duration: May 22, 2017 Frequency: Modified Program (IRF) Estimated Hrs Per Day: 1.5 hours per day Patient and/or Family Agrees t: Yes Safety Risks/Education Patient Education: Transfer Techniques, Correct Positioning, Safety Issues Teaching Methods: Discussion Response to Teaching: Reinforcement Needed Time/GCodes Time In: 1245 Time Out: 1330 Total Billed Treatment Time: 45 Total Billed Treatment 1, EX (20m) & FA x2 (25m) LI TA PTA May 02, 2017 16:32
[2017-05-02 18:04] VITALS: BP 114/78
[2017-05-03 05:15] VITALS: BP 124/82
--- NOTE | 2017-05-03 07:54 | Consultation ---
History of Present Illness History of Present Illness Patient Consulted On(eulalio/time) 05/03/17 07:50 Time Seen by Provider: 07:45 History of Present Illness Patient does not know the veterinary virus serum inspector or the year. Patient does not know where she is at. Patient doesn't know what 2+2 is. Patient had a stroke on the right side. Patient had hemiparesis. Patient has a history of substance abuse with methylphenidate to see. Patient is able to move her right leg. Patient denies having any surgeries. Allergies and Home Medications Allergies Coded Allergies: No Known Drug Allergies (Unverified , 02/12/11) Home Medications No Active Prescriptions or Reported Meds Patient Home Medication List Home Medication List Reviewed: Yes Past Ohhsfuc-Qrdkdw-Zhiakm Hx Patient Social History Alcohol Use: Past History Recreational Drug Use: Yes Drug of Choice: Drug screen positive for Amphetamines andEcstacy Smoking Status: Unknown if Ever Smoked Recent Foreign Travel: No Contact w/Someone Who Travel: No Recent Infectious Disease Expo: No Cardiovascular History of Cardiac Disorders: Yes Cardiac Disorders: Hypertension Neurological Neurological Disorders: Headaches /Migraines Review of Systems-General Constitutional: weakness EENTM: no symptoms reported Respiratory: no symptoms reported Cardiovascular: no symptoms reported Gastrointestinal: no symptoms reported Genitourinary: no symptoms reported Physical Exam-General Problems Physical Exam Vital Signs Vital Signs - First Documented 05/01/17 15:02 Temp 98.7 Pulse 74 Resp 18 B/P (MAP) 101/69 (80) Pulse Ox 97 O2 Delivery Room Air Capillary Refill : General Appearance: WD/WN, other (Unable to move right side of body. Can move right leg) Eyes: Bilateral Eye Normal Inspection HEENT: other (Drooping right side of mouth) Neck: non-tender, full range of motion, normal inspection Respiratory: chest non-tender, lungs clear, no respiratory distress, no accessory muscle use Cardiovascular: regular rate, rhythm, no murmur Gastrointestinal: non tender, soft Assessment/Plan Assessment/Plan Admission Diagnosis/Plan CVA on right. History of meth abuse. Decrease cognitive function Clinical Quality Measures DVT/VTE Risk/Contraindication: Risk Factor Score Per Nursin RFS Level Per Nursing on Admit: 2=Moderate FLACO RUIZ DO May 03, 2017 07:54
[2017-05-03] MEDS: amLODIPine 5 MG (NORVASC) TAB PO SCH (08:58)
[2017-05-03] MEDS: CARVEDILOL 12.5 MG (COREG) TABLET PO SCH ×2 (08:58→19:57)
[2017-05-03] MEDS: FLUoxetine HCL 20 MG (PROzac) CAP PO SCH (08:58)
[2017-05-03] MEDS: lisINopril 20 MG (PRINIVIL) TABLET PO SCH (08:58)
--- NOTE | 2017-05-03 11:03 | Occupational Ther Daily Note ---
OT Current Status-Daily Note Subjective Pt seen in room, up in bed, agreeable to OT. No pain mentioned. Appearance Alert, cooperative Mental Status/Objective Functional [place] Measure 0=Not Assessed/NA 4=Minimal Assistance 1=Total Assistance 5=Supervision or Setup 2=Maximal Assistance 6=Modified [place] 3=Moderate Assistance 7=Complete [place] ADL-Treatment Co-tx with PT for shower and dressing, with PT working on LE function, balance, transfers and OT working on R UE function, ADL techniques. Pt has matting in hair on back of head and most of it came out with using conditioner and washing her hair. Pt continues incontinent and shook her head that she didn't know when she needed to go to the bathroom. Functional [place] Measure 0=Not Assessed/NA 4=Minimal Assistance 1=Total Assistance 5=Supervision or Setup 2=Maximal Assistance 6=Modified [place] 3=Moderate Assistance 7=Complete IndependenceIRFPAI Quality Coding Scale 6 Independent with activity with or without an assistive device 5 Patient requires set up or clean up by helper. Patient completes activity by themselves 4 Supervision or touching assist (CGA). [place] provide cues , steadying assist 3 The helper provides less than half the effort to complete the activity 2 The helper provides more than half the effort to complete the activity 1 Dependent. The helper does all the effort to complete an activity 7 Patient refused to complete or attempt activity 9 The patient did not perform the activity before the current illness or injury 88 Not attempted due to Medical conditions or safety concerns Bathing (FIM): 3 (Using shower chair, hand held shower.) Bathing Location: R Arm (with assist), L Upper Leg, R Upper Leg, Chest, Abdomen , Perineal Area Upper Body (FIM): 3 (More neglect of R UE observed during UE dressing. Pt educ modified technique) Lower Body Dressing (FIM): 2 (Pt was able to crab picker both feet to place them in pants and roll side to side to pull them up over hips on both sides. Dependant with putting on tape-on briefs. Helped pull sock up on L side) Shower Transfer(FIM): 1 (Two person max assist transfer from bed to R side into wheeled shower chair. transported to shower room) Education OT Patient Education: Modified ADL techniques, Purpose of tx/functional activities, Transfer techniques Teaching Recipient: Patient Teaching Methods: Demonstration, Discussion Response to Teaching: Reinforcement Needed OT Short Term Goals Short Term Goals Time Frame: May 15, 2017 Grooming(FIM): 5 Upper Body Dressing(FIM): 4 Lower Body Dressing(FIM): 3 Toileting(FIM): 3 Transfers (B,C,W/C) (FIM): 4 Toilet/Commode Transfer(FIM): 4 Shower Transfer(FIM): 3 Additional Short Term Goals: 2-Verbalize Understanding, 3-ImproveStrength/[place] 1=Demonstrate adherence to instructed precautions during ADL tasks. 2=Patient will verbalize/demonstrate understanding of assistive devices/ modifications for ADL. 3=Patient will improve strength/tolerance for activity to enable patient to perform ADL's. OT Fdc Goals Clean Room Technician Goals Time Frame: May 29, 2017 Eating (FIM): 6 Eating (QC): 6 Groomin Oral Hygiene (QC): 6 Bathing(FIM): 5 Shower/Bathe Self (QC): 5 Upper Body Dressing(FIM): 6 Upper Body Dressing (QC): 6 Lower Body Dressing(FIM): 5 Lower Body Dressing (QC): 5 On/Off Footwear (QC): 5 Toileting(FIM): 6 Toileting Hygiene (QC): 6 Toilet/Commode Transfer(FIM): 6 Toilet/Commode Transfer (QC): 6 Shower Transfer(FIM): 5 Comprehension(FIM): 4 Expression (FIM): 3 Social Interaction(FIM): 4 Additional Goals: 2-Verbalize Understanding, 3-ImproveStrength/Masoud 1=Demonstrate adherence to instructed precautions during ADL tasks. 2=Patient will verbalize/demonstrate understanding of assistive devices/ modifications for ADL. 3=Patient will improve strength/tolerance for activity to enable patient to perform ADL's. OT Education/Plan Problem List/Assessment Pt s/p CVA with right side deficits. Pt demonstrates decreased mobility, strength, coordination, activity tolerance, and ADL functioning. Pt to benefit from skilled OT intervention for ADL training, transfers, strengthening, and safety education to increase level of independence and allow safe discharge plan. Discharge Recommendations Plan/Recommendations: Continue POC Treatment Plan/Plan of Care Patient would benefit from OT for education, treatment and training to promote independence in ADL's, mobility, safety and/or upper extremity function for ADL' s. Plan of Care: ADL Retraining, Functional Mobility, Group Exercise/Act as Ind, UE Funct Exercise/Act, UE Neuromus Re-Ed/Coord Treatment Duration: May 29, 2017 Frequency: Modified Program (IRF) (15/09) Estimated Hrs Per Day: 1.5 hours per day Agreement: Yes Rehab Potential: Guarded Time/GCodes Start Time: 09:30 Stop Time: 10:30 Total Time Billed (hr/min): 60 Billed Treatment Time visit, 60 minutes ADL co-tx with PT SOPHIA CERVANTES OT May 03, 2017 11:03
--- NOTE | 2017-05-03 13:09 | Speech Therapy Daily Note ---
Speech Daily Progress Note Subjective Date Seen by Provider: May 03, 2017 Time Seen by Provider: 09:00 The patient was laying in bed, with significant other, sleeping upon entrance. The patient was difficult to rouse, as she kept closing her eyes, yawning and turning away from the clinician. The clinician requested the patient open eyes, sit up, and participate. Following third prompt, the patient's significant other removed herself from the bed and helped encourage the patient's participation. Objective To note, the patient requires prompting throughout the session to participate. Confrontational Naming: The patient presents with less than 50% accuracy with confrontational naming, displaying consistent paraphasia throughout the task. The patient's accuracy increases (however, remains less than 50%) with initial phoneme prompting. Reading Aloud: The patient was able to read a children's story book aloud with increased accuracy. The patient continues to demonstrate paraphasia throughout reading, however, consistently catches her error, shakes head, and re-corrects ( accurately). Assessment Assessment Current Status: Fair Progress Treatment Plan Continue Plan of Care Communication Comprehension: 3 Expression: 1 Social Cognition Social Interaction: 3 Problem Solvin Memory: 1 Speech Short Term Goals Short Term Goals Short Term Goals 1. The patient will demonstrate 70% accuracy with confrontational naming of ADL objects with minimal clinician cueing. 2. The patient will repeat short phrases with 70% accuracy and mild clinician verbal cueing. 3. The patient will respond to yes and now questions with 80% accuracy, independently. 4. The patient will be demonstrate simple orientation information with 100% accuracy. Time Frame-STG: Two Weeks Speech Rice Farmer Goals Mcc Goals 1. The patient will demonstrate improved expressive and receptive communication for increased safety and function with ADL's. Time Frame: Six Weeks Comprehension: 4 Expression: 3 Social Interaction: 4 Speech-Plan Treatment Plan Speech Therapy Treatment Plan: Continue Plan of Care Continue skilled speech pathology to target functional expressive communication. Treatment Duration: Jun 13, 2017 Frequency: 5 times per week Estimated Hrs Per Day: .5 hour per day Rehab Potential: Guarded Safety Risks/Education Teaching Recipient: Patient Teaching Methods: Discussion Response to Teaching: Reinforcement Needed Education Topics Provided: Importance of Participation and Repetition Time Speech Therapy Time In: 09:00 Speech Therapy Time Out: 09:30 Total Billed Time: 30 Billed Treatment Time 1, SAULO HOWELL May 03, 2017 13:09
--- NOTE | 2017-05-03 15:01 | Physical Therapy Daily Note ---
PT Daily Note-Current Subjective Pt. in bed upon arrival. Co Rx with OT for TRF, balance and ADL safety. Pt. does communicate with nods and whispers and is appropriate , seems fatigued and listless. Pain Numeric Pain Scale: 0-No Pain Mental Status Patient Orientation: Eyes Open, Mumbles (whispers), Listless Transfers Functional [place] Measure 0=Not Assessed/NA 4=Minimal Assistance 1=Total Assistance 5=Supervision or Setup 2=Maximal Assistance 6=Modified [place] 3=Moderate Assistance 7=Complete IndependenceIRFPAI Quality Coding Scale 6 Independent with activity with or without an assistive device 5 Patient requires set up or clean up by helper. Patient completes activity by themselves 4 Supervision or touching assist (CGA). [place] provide cues , steadying assist 3 The helper provides less than half the effort to complete the activity 2 The helper provides more than half the effort to complete the activity 1 Dependent. The helper does all the effort to complete an activity 7 Patient refused to complete or attempt activity 9 The patient did not perform the activity before the current illness or injury 88 Not attempted due to Medical conditions or safety concerns Transfers (B, C, W/C) (FIM): 3 Scootin Rollin Supine to/from Sit: 3 Sit to/from Stand: 3 Weight Bearing Right Lower Extremity: Right Weight Bearing/Tolerated Left Lower Extremity: Left Full Weight Bearing Gait Training Does the Patient Walk?: No and Walking Goal IS indicated pt. takes 3-4 side step scoots left Exercises Supine Ex: Bridging, Ankle pumps, Quad Set, Rolling, Glut sets, Heel Slides, Short Arc Quads, Scooting, Straight leg raise (assist), Hip abd/add Supine Reps: 12 Seated Therapy Exercises: Ankle pumps, Sit to stand, Long arc quads, Hip flexion Seated Reps: 10 Treatments co RX w OT for bath/shower, TRF to from, facilitating seated scooting for safety while wet in shower Assessment Current Status: Good Progress spoke at length with pt. RE: giving full effort and utilizing her time with therapies PT Short Term Goals Short Term Goals Time Frame: May 15, 2017 Transfers (B,C,W/C) (FIM): 4 Gait (FIM): 2 Distance (FIM): 8=154-38 ft Gait Distance Comment: 50 ft Gait Assistive Device: Walker Charly Wheelchair (FIM): 4 Wheelchair Distance: 50 ft PT Correction Goals Correction Goals PT Correction Goals Time Frame: May 29, 2017 Transfers (B,C,W/C) (FIM): 6 Sit to Lying (QC): 6 Lying-Sitting on Side/Bed(QC): 6 Sit to Stand (QC): 6 Rollin Roll Left to Right (QC): 6 Chair/Bzh-xp-Ukvgv Xfer(QC): 6 Car Transfer (QC): 6 Does the Patient Walk: No and Walking Goal NOT indicated Gait (FIM): 6 Gait distance (FIM): 3=150 ft Walk 10 feet (QC): 6 Walk 10ft-Uneven Surface(QC): 6 Walk 50ft with 2 Turns (QC): 6 Walk 150 ft (QC): 6 Gait Level of Assist: 6 Gait Assistive Device: Walker Charly Does the Pt use WC or Scooter?: Yes Wheelchair (FIM): 6 Wheelchair distance (FIM): 3=150 ft Wheel 50 feet with 2 turns (QC: 6 Stairs (FIM): 5 # of Steps: 8 1 Step (curb) (QC): 5 4 Steps (QC): 5 12 Steps (QC): 88 Picking up an Object (QC): 4 PT Plan Treatment/Plan Treatment Plan: Continue Plan of Care Treatment Plan: Bed Mobility, Education, Functional Activity Masoud, Functional Strength, Group Therapy, Gait, Safety, Therapeutic Exercise, Transfers, Other Treatment Duration: May 22, 2017 Frequency: Modified Program (IRF) Estimated Hrs Per Day: 1.5 hours per day Patient and/or Family Agrees t: Yes Safety Risks/Education Patient Education: Transfer Techniques, Correct Positioning, W/C Management, Disease Process, Safety Issues Teaching Recipient: Patient Teaching Methods: Demonstration, Discussion Response to Teaching: Unable to Return Demonstration, Reinforcement Needed Time/GCodes Time In: 930 Time Out: 1030 Total Billed Treatment Time: 60 Total Billed Treatment 1,EX20m,FA40m G Codes Necessary: EDGARD Sheehan PHOTOGRAPHIC ENGINEER May 03, 2017 15:01
--- NOTE | 2017-05-03 15:16 | Therapy Group Daily Note ---
Therapy Daily Group Note Patient Education Topic Other List Below (memory strategies) Exercises LE Seated Exercise, UE Exercise Other/Notes Pt. attended group PT OT session this date. Pt. came and went via w/c and required assist several times during group to maintain good sitting in w/c as pt. slumps low in chair. Pt. introduced self with assistance as she whispers and enjoyed jokes told by others. Pts. enjoyed a display of "punny toys" ( wooden toys with funny pun meanings). Pts. each identified various object apraxia situations via a photo image they were shown. Importance of memory and ways to facilitate lasting memory were shared. Pts. all participated in image matching memory game. Pt. to room after group via w/c and mod to max assist to bed . monica at hand, visitor present Start Time: 13:00 Stop Time: 14:30 Total Billed Treatment Time: 90 Total Billed Treatment 1,GRP EDGARD SÁNCHEZ [employer] ARCHITECT May 03, 2017 15:16
[2017-05-03 18:02] VITALS: BP 131/87
[2017-05-04 06:02] VITALS: BP 114/69
[2017-05-04] MEDS: FLUoxetine HCL 20 MG (PROzac) CAP PO SCH (09:49)
[2017-05-04] MEDS: amLODIPine 5 MG (NORVASC) TAB PO SCH (09:49)
[2017-05-04] MEDS: CARVEDILOL 12.5 MG (COREG) TABLET PO SCH ×2 (09:49→21:51)
[2017-05-04] MEDS: lisINopril 20 MG (PRINIVIL) TABLET PO SCH (09:49)
--- NOTE | 2017-05-04 09:50 | Physical Therapy Daily Note ---
PT Daily Note-Current Subjective Pt. in bed upon arrival. Appears she has eaten approx 75% of breakfast. Minimal response when asked questions. Appears to ignore this SUPERVISOR URANIUM PROCESSING. Discussed with pt. that therapies are her chance to et better. This SUPERVISOR URANIUM PROCESSING encouraging pt. to participate Pain Location: No Pain Reported Mental Status Patient Orientation: Eyes Open Transfers Functional [place] Measure 0=Not Assessed/NA 4=Minimal Assistance 1=Total Assistance 5=Supervision or Setup 2=Maximal Assistance 6=Modified [place] 3=Moderate Assistance 7=Complete IndependenceIRFPAI Quality Coding Scale 6 Independent with activity with or without an assistive device 5 Patient requires set up or clean up by helper. Patient completes activity by themselves 4 Supervision or touching assist (CGA). [place] provide cues , steadying assist 3 The helper provides less than half the effort to complete the activity 2 The helper provides more than half the effort to complete the activity 1 Dependent. The helper does all the effort to complete an activity 7 Patient refused to complete or attempt activity 9 The patient did not perform the activity before the current illness or injury 88 Not attempted due to Medical conditions or safety concerns Transfers (B, C, W/C) (FIM): 3 Scootin Rollin (to left) Supine to/from Sit: 5 Sit to/from Stand: 3 Bed to/from Chair: 3 SPTs improving Weight Bearing Right Lower Extremity: Right Weight Bearing/Tolerated Left Lower Extremity: Left Full Weight Bearing Exercises Supine Ex: Bridging, Ankle pumps (HC stretch x 20 s x3), Quad Set, Rolling, Glut sets, Heel Slides, Short Arc Quads, Scooting, Straight leg raise (assist), Hip abd/add Supine Reps: 12 Seated Therapy Exercises: Sit to stand, Long arc quads Seated Reps: 12 Treatments up in w/c with pillow support for arm and leg rest insitu, anderson at left hand Assessment Current Status: Good Progress PT Short Term Goals Short Term Goals Time Frame: May 15, 2017 Transfers (B,C,W/C) (FIM): 4 Gait (FIM): 2 Distance (FIM): 5=597-02 ft Gait Distance Comment: 50 ft Gait Assistive Device: Walker Charly Wheelchair (FIM): 4 Wheelchair Distance: 50 ft PT Child Care Assistant Goals Residential Goals PT Child Care Assistant Goals Time Frame: May 29, 2017 Transfers (B,C,W/C) (FIM): 6 Sit to Lying (QC): 6 Lying-Sitting on Side/Bed(QC): 6 Sit to Stand (QC): 6 Rollin Roll Left to Right (QC): 6 Chair/Bix-wu-Ojnws Xfer(QC): 6 Car Transfer (QC): 6 Does the Patient Walk: No and Walking Goal NOT indicated Gait (FIM): 6 Gait distance (FIM): 3=150 ft Walk 10 feet (QC): 6 Walk 10ft-Uneven Surface(QC): 6 Walk 50ft with 2 Turns (QC): 6 Walk 150 ft (QC): 6 Gait Level of Assist: 6 Gait Assistive Device: Walker Charly Does the Pt use WC or Scooter?: Yes Wheelchair (FIM): 6 Wheelchair distance (FIM): 3=150 ft Wheel 50 feet with 2 turns (QC: 6 Stairs (FIM): 5 # of Steps: 8 1 Step (curb) (QC): 5 4 Steps (QC): 5 12 Steps (QC): 88 Picking up an Object (QC): 4 PT Plan Treatment/Plan Treatment Plan: Continue Plan of Care Treatment Plan: Bed Mobility, Education, Functional Activity Masoud, Functional Strength, Group Therapy, Gait, Safety, Therapeutic Exercise, Transfers, Other Treatment Duration: May 22, 2017 Frequency: Modified Program (IRF) Estimated Hrs Per Day: 1.5 hours per day Patient and/or Family Agrees t: Yes Safety Risks/Education Patient Education: Transfer Techniques, Correct Positioning, Safety Issues Teaching Recipient: Patient Teaching Methods: Demonstration, Discussion Response to Teaching: Verbalize Understanding, Return Demonstration, Reinforcement Needed Time/GCodes Time In: 815 Time Out: 835 Total Billed Treatment Time: 20 Total Billed Treatment 1,FA20m G Codes Necessary: EDGARD Sheehna PTA May 04, 2017 09:50
[2017-05-04 10:08] VITALS: BP 129/85
[2017-05-04 11:15] VITALS: BP 121/78
[2017-05-04 19:17] VITALS: BP 98/63
[2017-05-05 04:10] VITALS: BP 101/62
[2017-05-05 10:11] VITALS: BP 98/63
[2017-05-05] MEDS: amLODIPine 5 MG (NORVASC) TAB PO SCH (10:13)
[2017-05-05] MEDS: lisINopril 20 MG (PRINIVIL) TABLET PO SCH (10:13)
[2017-05-05] MEDS: CARVEDILOL 12.5 MG (COREG) TABLET PO SCH ×2 (10:14→20:36)
[2017-05-05] MEDS: FLUoxetine HCL 20 MG (PROzac) CAP PO SCH (10:17)
[2017-05-05 18:55] VITALS: BP 105/67
[2017-05-06 05:27] VITALS: BP 114/76
[2017-05-06 08:00] VITALS: BP 121/83
[2017-05-06] MEDS: FLUoxetine HCL 20 MG (PROzac) CAP PO SCH (08:14)
[2017-05-06] MEDS: lisINopril 20 MG (PRINIVIL) TABLET PO SCH (08:14)
[2017-05-06] MEDS: CARVEDILOL 12.5 MG (COREG) TABLET PO SCH ×2 (08:15→19:56)
[2017-05-06] MEDS: amLODIPine 5 MG (NORVASC) TAB PO SCH (08:15)
[2017-05-06 08:16] VITALS: BP 121/83
--- NOTE | 2017-05-06 08:44 | Progress Note (SOAP) ---
Subjective Time Seen by Provider: 08:40 Subjective/Events-last exam Patient wants to eat. Patient moving her right leg. Speech is improving. CVA Objective Exam Vital Signs Date Time Temp Pulse Resp B/P (MAP) Pulse Ox O2 Delivery O2 Flow Rate FiO2 05/06/17 08:16 98.1 72 18 121/83 (96) 98 Room Air 05/06/17 05:27 98.0 78 18 114/76 (89) 98 Room Air 05/05/17 20:20 Room Air 05/05/17 18:55 98.1 68 18 105/67 (80) 98 Room Air 05/05/17 10:11 98.6 73 18 98/63 (75) 99 Room Air 05/05/17 08:41 Room Air I & O 05/06/17 07:00 Intake Total 1360 ml Balance 1360 ml Capillary Refill : General Appearance: No Apparent Distress, WD/WN Assessment/Plan Assessment/Plan Assess & Plan/Chief Complaint CVA on right. History of meth abuse. Decrease cognitive function. . 05/06/17. CVA on right. Aphasia. Patient wants to eat food. Clinical Quality Measures DVT/VTE Risk/Contraindication: Risk Factor Score Per Nursin RFS Level Per Nursing on Admit: 2=Moderate FLACO RUIZ DO May 06, 2017 08:44
--- NOTE | 2017-05-06 11:00 | Physical Therapy Daily Note ---
PT Daily Note-Current Subjective Smiles; agrees to PT. Whispers when she talks but answers questions appropriately. Pain Numeric Pain Scale: 0-No Pain Location: No Pain Reported Transfers Functional [place] Measure 0=Not Assessed/NA 4=Minimal Assistance 1=Total Assistance 5=Supervision or Setup 2=Maximal Assistance 6=Modified [place] 3=Moderate Assistance 7=Complete IndependenceIRFPAI Quality Coding Scale 6 Independent with activity with or without an assistive device 5 Patient requires set up or clean up by helper. Patient completes activity by themselves 4 Supervision or touching assist (CGA). [place] provide cues , steadying assist 3 The helper provides less than half the effort to complete the activity 2 The helper provides more than half the effort to complete the activity 1 Dependent. The helper does all the effort to complete an activity 7 Patient refused to complete or attempt activity 9 The patient did not perform the activity before the current illness or injury 88 Not attempted due to Medical conditions or safety concerns Transfers (B, C, W/C) (FIM): 3 Rollin Roll Left to Right (QC): 3 (SBa to roll to her right and and mod assist to roll to her left. ) Supine to/from Sit: 3 (mod assit to sit up) Sit to Stand (QC): 4 Chair/Pub-wp-Skgdg Xfer(QC): 3 (blocking of her right LE) Pt requires skilled cues to sequence and problem solve the transfer the first attempt but has good carryover of the instruction. Weight Bearing Right Lower Extremity: Right Weight Bearing/Tolerated Left Lower Extremity: Left Full Weight Bearing Gait Training Gait (FIM): 2 6 ft x 4 in // bars with mod assist. Initially, needed assist to advance R LE but then was able to do so herself; decreased coordinated movement but effective with taking steps. AFO in place for gait. Prior to ambulation, worked on weight shift left and right as well and TKE on the right. Wheelchair Training Does the Pt Use a Wheelchair?: Yes Wheelchair (FIM): 4 Type of Wheelchair: Manual 150 ft x 2 and 50 ft x 2; able to maneuver in room and into the gym. 1 episode of right neglect and ran into the door frame, after cueing and education, did not do this again. Exercises Seated Therapy Exercises: Long arc quads, Hip flexion, Hamstring Curls Seated Reps: 10 Assessment Current Status: Good Progress Pt was incont of bowel when this PT initiated treatment. Pt able to participate in bed mobility and transfers effectively and amb in // bars this visit and did very well. Right UE still limited mm activity and unable to hold the bar on the right. But, able to advance her right LE during walking. PT Short Term Goals Short Term Goals Time Frame: May 15, 2017 Transfers (B,C,W/C) (FIM): 4 Gait (FIM): 2 Distance (FIM): 4=068-61 ft Gait Distance Comment: 50 ft Gait Assistive Device: Walker Charly Wheelchair (FIM): 4 Wheelchair Distance: 50 ft PT Master Black Belt Goals Master Black Belt Goals PT Group Home Goals Time Frame: May 29, 2017 Transfers (B,C,W/C) (FIM): 6 Sit to Lying (QC): 6 Lying-Sitting on Side/Bed(QC): 6 Sit to Stand (QC): 6 Rollin (to left) Roll Left to Right (QC): 6 Chair/Pbq-zi-Lcwqo Xfer(QC): 6 Car Transfer (QC): 6 Does the Patient Walk: No and Walking Goal NOT indicated Gait (FIM): 6 Gait distance (FIM): 3=150 ft Walk 10 feet (QC): 6 Walk 10ft-Uneven Surface(QC): 6 Walk 50ft with 2 Turns (QC): 6 Walk 150 ft (QC): 6 Gait Level of Assist: 6 Gait Assistive Device: Walker Charly Does the Pt use WC or Scooter?: Yes Wheelchair (FIM): 6 Wheelchair distance (FIM): 3=150 ft Wheel 50 feet with 2 turns (QC: 6 Stairs (FIM): 5 # of Steps: 8 1 Step (curb) (QC): 5 4 Steps (QC): 5 12 Steps (QC): 88 Picking up an Object (QC): 4 PT Plan Problem List Problem List: Activity Tolerance, Functional Strength, Safety, Balance, Gait, Transfer, Bed Mobility Treatment/Plan Treatment Plan: Continue Plan of Care Treatment Plan: Bed Mobility, Education, Functional Activity Masoud, Functional Strength, Group Therapy, Gait, Safety, Therapeutic Exercise, Transfers, Other Treatment Duration: May 22, 2017 Frequency: Modified Program (IRF) Estimated Hrs Per Day: 1.5 hours per day Patient and/or Family Agrees t: Yes Safety Risks/Education Patient Education: Gait Training, Transfer Techniques, Safety Issues Teaching Recipient: Patient Teaching Methods: Demonstration, Discussion Response to Teaching: Return Demonstration, Reinforcement Needed Time/GCodes Time In: 920 Time Out: 1020 Total Billed Treatment Time: 60 Total Billed Treatment visit GT 25 FA 15 WC 20 MARIAN VAELNCIA PT May 06, 2017 11:00
--- NOTE | 2017-05-06 11:34 | ST Dysphagia Evaluation ---
Speech Evaluation-General Medical Diagnosis CVA- Right Thalamic Hemorrhagic Onset Date: Apr 19, 2017 Therapy Diagnosis Therapy Diagnosis: Oropharyngeal Swallow WNL Precautions Precautions/Isolations: Seizure, Fall Prevention, Standard Precautions Referral Referring Physician: Dr. Knowles Reason for Referral: Evaluation/Treatment Clinical Bedside Swallowing Medical History Pertinent Medical History: HTN Reviewed History: Yes Social History Current Living Status: Friend Speech PLF/Current-Dysphagia Prior Level of Function The patient denied swallowing difficulties prior to her CVA. Per patient, she consumed a regular diet with thin liquids at home. Subjective The patient was seated upright in bed. The patient requested an evaluation of her swallowing function to see if she would be able to advance to solid consistencies. The patient's significant other stated the patient was placed on a mechanical soft diet at the outside facility due to discomfort she experienced while swallowing post intubation (odynophagia). Due to the patient' s request, the physician would like a formal evaluation prior to upgrading. Cognitive Status Patient Orientation: Person, Place, Time, Situation Oral Motor Skills Dentition: Natural Current Food Consistancy: Mechanical Soft, Thin Liquids Ability to Follow Directions: Good Oral Expression Ability: Moderate Impairment Voice Voice Phonatory-Based Quality: [place]ph[place] Voice Pitch: Normal Voice Loudness: Severely Soft/Quiet Face Facial Symmetry: Asymmetrical (Right facial droop.) Oral-Facial Assessment Oral-Facial Dentition: Normal Labial Seal Description: Droops Right Smile: Droops Right Puff Cheeks: Reduced Strength (Right.) Lingual Protrusion: Normal Lingual ROM: Normal Lingual Strength: Normal Pharynx Velopharyngeal Move.: Normal Volitional Dry Swallow: Yes Voluntary Cough: Yes Can Clear Throat Volitionally: Yes Productive Cough: Yes Productive Throat Clear: Yes Dysphagia Evaluation Consistencies Presented: Regular, Thin Liquid - No oral phase impairments were noted throughout the evaluation. - No pharyngeal impairments were noted throughout the evaluation. - No signs/symptoms of aspiration were demonstrated throughout the evaluation. The patient's vocal quality remained aphonic, however, clear. Dietary Recommendations: Regular Liquid Recommendations: Thin Swallowing Precautions: Small Bites and Sips, Sitting Upright 90 Degrees Dysphagia Evaluation Summary The patient demonstrated an oropharyngeal swallow function WNL. Speech Short Term Goals Short Term Goals Short Term Goals 1. The patient will demonstrate 70% accuracy with confrontational naming of ADL objects with minimal clinician cueing. 2. The patient will repeat short phrases with 70% accuracy and mild clinician verbal cueing. 3. The patient will respond to yes and now questions with 80% accuracy, independently. 4. The patient will be demonstrate simple orientation information with 100% accuracy. Time Frame-STG: Two Weeks Speech Crew Attendant Goals Crew Attendant Goals 1. The patient will demonstrate improved expressive and receptive communication for increased safety and function with ADL's. Time Frame: Six Weeks Comprehension: 4 Expression: 3 Social Interaction: 4 Speech-Plan Treatment Plan Speech Therapy Treatment Plan: Discontinue ST Evaluation, only. The patient will continue to receive speech and language services. Treatment Duration: Jun 13, 2017 Frequency: 5 times per week Estimated Hrs Per Day: .5 hour per day Rehab Potential: Guarded Safety Risks/Education Teaching Recipient: Patient Teaching Methods: Discussion Response to Teaching: Verbalize Understanding Education Topics Provided: Results, Recommendations, Plan of Care Time Speech Therapy Time In: 08:30 Speech Therapy Time Out: 08:45 Total Billed Time: 15 Billed Treatment Time 1, SAULO AUGUST May 06, 2017 11:34
--- NOTE | 2017-05-06 11:40 | Speech Therapy Daily Note ---
Speech Daily Progress Note Subjective Date Seen by Provider: May 06, 2017 Time Seen by Provider: 08:45 The patient was laying in bed upon entrance. The patient greeted the clinician via eye contact and was agreeable to participation in speech and language therapy. Objective Confrontational Naming: The patient demonstrated 100% accuracy with confrontational naming of ADL objects on this date. This is a large improvement to her previous session, where the patient demonstrated less than 50% accuracy. One-Step Directions: The patient demonstrated 100% accuracy with one-step directions, independently. Orientation: The patient demonstrated fair accuracy with orientation information , requiring moderate verbal prompting to identify month and year. Automatics: The patient stated the months of the year, the days of the week, and counted to 10. The patient required one initial phoneme prompt to initiate the days of the week accurately. To note, the patient demonstrated increased participation and motivation on this date. Additionally, the patient's conversational exchanges with the clinician improved through yes and no questions, as well as, smiling and laughing. Assessment Assessment Current Status: Good Progress Treatment Plan Continue Plan of Care Communication Comprehension: 3 Expression: 2 Social Cognition Social Interaction: 4 Problem Solvin Memory: 3 Speech Short Term Goals Short Term Goals Short Term Goals 1. The patient will demonstrate 70% accuracy with confrontational naming of ADL objects with minimal clinician cueing. 2. The patient will repeat short phrases with 70% accuracy and mild clinician verbal cueing. 3. The patient will respond to yes and now questions with 80% accuracy, independently. 4. The patient will be demonstrate simple orientation information with 100% accuracy. Time Frame-STG: Two Weeks Speech Care Home Goals Meteorological Equipment Repairer Goals 1. The patient will demonstrate improved expressive and receptive communication for increased safety and function with ADL's. Time Frame: Six Weeks Comprehension: 4 Expression: 3 Social Interaction: 4 Speech-Plan Treatment Plan Speech Therapy Treatment Plan: Continue Plan of Care Continue skilled speech pathology to target functional expressive communication. Treatment Duration: Jun 13, 2017 Frequency: 5 times per week Estimated Hrs Per Day: .5 hour per day Rehab Potential: Guarded Safety Risks/Education Teaching Recipient: Patient Teaching Methods: Discussion Response to Teaching: Verbalize Understanding Education Topics Provided: Object Naming, Reading Aloud (Recommendations for Language Practice) Time Speech Therapy Time In: 08:45 Speech Therapy Time Out: 09:00 Total Billed Time: 15 Billed Treatment Time 1, SAULO HOWELL May 06, 2017 11:40
--- NOTE | 2017-05-06 13:00 | Occupational Ther Daily Note ---
OT Current Status-Daily Note Subjective Pt seen in room, up in recliner, agreeable to OT. No pain mentioned. Appearance Alert, cooperative, more verbal today but still soft-spoken Mental Status/Objective Functional [place] Measure 0=Not Assessed/NA 4=Minimal Assistance 1=Total Assistance 5=Supervision or Setup 2=Maximal Assistance 6=Modified [place] 3=Moderate Assistance 7=Complete [place] ADL-Treatment Diet had been increased today to regular diet. Pt was able to feed herself a hamburger, chips and get drink from glass, with setup. Appeared to chew food adequately and no choking observed. Pt was able to find food on the right side of her tray. Pt also worked on dressing. Skilled cues need to take shirt off and to undress R UE. Assist needed to put R arm in shirt, pull it up on R side and pull shirt down in back. Dressed impulsively. Cues to dress R LE and help to get L leg in pants. Help to pull pants up to thighs. One person assist sit to stand with valente walker for balance, with OT pulling pants up over hips. Help to put shoes on and tie them. Functional [place] Measure 0=Not Assessed/NA 4=Minimal Assistance 1=Total Assistance 5=Supervision or Setup 2=Maximal Assistance 6=Modified [place] 3=Moderate Assistance 7=Complete IndependenceIRFPAI Quality Coding Scale 6 Independent with activity with or without an assistive device 5 Patient requires set up or clean up by helper. Patient completes activity by themselves 4 Supervision or touching assist (CGA). [place] provide cues , steadying assist 3 The helper provides less than half the effort to complete the activity 2 The helper provides more than half the effort to complete the activity 1 Dependent. The helper does all the effort to complete an activity 7 Patient refused to complete or attempt activity 9 The patient did not perform the activity before the current illness or injury 88 Not attempted due to Medical conditions or safety concerns Other Treatment In recliner, used skilled facilitation techniques to work on R UE movement. Pt demonstrated fair R scapular retraction and trace R shoulder elevation. Pt was able to lift R hand from beside her thigh to on her thigh with assistance but no other shoulder, elbow, forearm or wrist movement elicited. She showed a little R gross finger flexion x 2 sets but was unable to duplicate movement. pt left up in recliner, chair alarm on, all needs met. Education OT Patient Education: Modified ADL techniques, Progress toward Goal/Update tx plan, Purpose of tx/functional activities, Safety issues, Transfer techniques, Use of adapted equipment Teaching Recipient: Patient Teaching Methods: Demonstration, Discussion Response to Teaching: Verbalize Understanding, Reinforcement Needed OT Short Term Goals Short Term Goals Time Frame: May 15, 2017 Grooming(FIM): 5 Upper Body Dressing(FIM): 4 Lower Body Dressing(FIM): 3 Toileting(FIM): 3 Transfers (B,C,W/C) (FIM): 4 Toilet/Commode Transfer(FIM): 4 Shower Transfer(FIM): 3 Additional Short Term Goals: 2-Verbalize Understanding, 3-ImproveStrength/Masoud 1=Demonstrate adherence to instructed precautions during ADL tasks. 2=Patient will verbalize/demonstrate understanding of assistive devices/ modifications for ADL. 3=Patient will improve strength/tolerance for activity to enable patient to perform ADL's. OT Court Security Officer Goals Court Security Officer Goals Time Frame: May 29, 2017 Eating (FIM): 6 Eating (QC): 6 Groomin Oral Hygiene (QC): 6 Bathing(FIM): 5 Shower/Bathe Self (QC): 5 Upper Body Dressing(FIM): 6 Upper Body Dressing (QC): 6 Lower Body Dressing(FIM): 5 Lower Body Dressing (QC): 5 On/Off Footwear (QC): 5 Toileting(FIM): 6 Toileting Hygiene (QC): 6 Toilet/Commode Transfer(FIM): 6 Toilet/Commode Transfer (QC): 6 Shower Transfer(FIM): 5 Comprehension(FIM): 4 Expression (FIM): 3 Social Interaction(FIM): 4 Additional Goals: 2-Verbalize Understanding, 3-ImproveStrength/Masoud 1=Demonstrate adherence to instructed precautions during ADL tasks. 2=Patient will verbalize/demonstrate understanding of assistive devices/ modifications for ADL. 3=Patient will improve strength/tolerance for activity to enable patient to perform ADL's. OT Education/Plan Problem List/Assessment Pt s/p CVA with right side deficits. Pt demonstrates decreased mobility, strength, coordination, activity tolerance, and ADL functioning. Pt to benefit from skilled OT intervention for ADL training, transfers, strengthening, and safety education to increase level of independence and allow safe discharge plan. Discharge Recommendations Plan/Recommendations: Continue POC Treatment Plan/Plan of Care Patient would benefit from OT for education, treatment and training to promote independence in ADL's, mobility, safety and/or upper extremity function for ADL' s. Plan of Care: ADL Retraining, Functional Mobility, Group Exercise/Act as Ind, UE Funct Exercise/Act, UE Neuromus Re-Ed/Coord Treatment Duration: May 29, 2017 Frequency: Modified Program (IRF) (15/09) Estimated Hrs Per Day: 1.5 hours per day Agreement: Yes Rehab Potential: Guarded Time/GCodes Start Time: 11:30 Stop Time: 12:15 Total Time Billed (hr/min): 45 Billed Treatment Time visit, 25 minutes ADL, 20 minutes neuromotor SOPHIA CERVANTES OT May 06, 2017 13:00
--- NOTE | 2017-05-06 14:31 | Therapy Group Daily Note ---
Therapy Daily Group Note Patient Education Topic Home Safety Exercises LE Seated Exercise, UE Exercise Other/Notes Pt transported via w/c to therapy gym for OT/PT group. Group consisted of introductions (name, place living, favorite word), socialization, seated UE/LE exercises, home safety education and home safety jeopardy. Pt was able to appropriately introduce self and actively listened to peers. Voice is getting stronger since last group session. Pt listened to education and was able to answer questions about home safety. Pt described ways that she would use safety techniques in her home. Pt was able to answer questions on home safety jeopardy quiz. Pt was able to complete R UE/LE seated exercises without difficulty. After group, pt transported with w/c to room. Pt transferred to bed with mod A, call light/phone in reach. All needs met in room. Start Time: 13:00 Stop Time: 14:10 Total Billed Treatment Time: 70 Total Billed Treatment 1-GRP MARIAN LUONG May 06, 2017 14:31
[2017-05-06] MEDS ORDERED: LIDOCAINE TOPICAL 4% 50 ML BTL TP NR (15:30)
[2017-05-06] MEDS ORDERED: PHENYLEPHRINE 0.5% NASAL SPR (NEO-SYNEPHRINE) REG NR (15:30)
--- NOTE | 2017-05-06 17:36 | Consultation ---
History of Present Illness History of Present Illness Patient Consulted On(eulalio/time) 05/06/17 17:29 Date Seen by Provider: May 06, 2017 Time Seen by Provider: 17:29 Reason for Visit: decreased voice projection after intubation History of Present Illness 31 yo female that is currently in rehab unit after hypertensive crisis and subcortical hemorrhage of the left cerebral hemisphere. Speech Therapy requested consult due to pt voice whisper now after intubation at Allergies and Home Medications Allergies Coded Allergies: No Known Drug Allergies (Unverified , 02/12/11) Home Medications No Active Prescriptions or Reported Meds Patient Home Medication List Home Medication List Reviewed: Yes Past Mkciikw-Pfmdfv-Eiveqd Hx Patient Social History Alcohol Use: Past History Recreational Drug Use: Yes Drug of Choice: Drug screen positive for Amphetamines andEcstacy Smoking Status: Unknown if Ever Smoked Recent Foreign Travel: No Contact w/Someone Who Travel: No Recent Infectious Disease Expo: No Cardiovascular History of Cardiac Disorders: Yes Cardiac Disorders: Hypertension Neurological Neurological Disorders: Headaches /Migraines Review of Systems-General EENTM: hoarseness Physical Exam-General Problems Physical Exam Vital Signs Vital Signs - First Documented 05/01/17 15:02 Temp 98.7 Pulse 74 Resp 18 B/P (MAP) 101/69 (80) Pulse Ox 97 O2 Delivery Room Air Capillary Refill : HEENT: other (nasopharynx and larynx eval with fiberoptic scope after lidocaine and beto-synephrine spray administered to both nares. scope advanced through the left nare. no masses or lesion seen in nasopharynx, vocal cords with slight swelling but no nodules or masses, vocal cords with good movment meeting midline. no pooling of secretion. epiglotis, base of tongue normal without masses or lesions. Pt tolerated well discussed with pt and Ludy RN nothing to eat or drink for 20 -30 minutes due to decreased gag reflex and to keep in upright sitting position they both verbalized understanding ) Assessment/Plan Assessment/Plan Admission Diagnosis/Plan DX: change in voice quality / hoarseness post intubation at Plan: Nasopharynx and Larynx examined with fiber optic scope vocal cords had good movement and normal exam, slight swelling noted Prednisone Taper : Prednisone 10mg 3 tabs daily qam x 3 days then 2 tabs daily qam x 3 days then 1 tab daily qam x 3 days could be ordered by attending physician to help with swelling around vocal cords to see if this may help voice quality if not contraindicated Continue Speech Therapy Admission Status: Inpatient Order (span 2 midnights) Clinical Quality Measures DVT/VTE Risk/Contraindication: Risk Factor Score Per Nursin RFS Level Per Nursing on Admit: 2=Moderate LIONEL LI CATERING ATTENDANT May 06, 2017 17:36
[2017-05-06 17:38] VITALS: BP 107/72
[2017-05-07 05:05] VITALS: BP 102/68
[2017-05-07] MEDS: amLODIPine 5 MG (NORVASC) TAB PO SCH (08:18)
[2017-05-07] MEDS: FLUoxetine HCL 20 MG (PROzac) CAP PO SCH (08:18)
[2017-05-07] MEDS: CARVEDILOL 12.5 MG (COREG) TABLET PO SCH ×2 (08:18→21:16)
[2017-05-07] MEDS: lisINopril 20 MG (PRINIVIL) TABLET PO SCH (08:19)
--- NOTE | 2017-05-07 08:27 | Progress Note (SOAP) ---
Subjective Time Seen by Provider: 08:25 Subjective/Events-last exam CVA. Patient speaking better. Recreational drugs Objective Exam Vital Signs Date Time Temp Pulse Resp B/P (MAP) Pulse Ox O2 Delivery O2 Flow Rate FiO2 05/07/17 05:05 97.1 63 20 102/68 (79) 99 Room Air 05/06/17 21:00 Room Air 05/06/17 17:38 97.6 74 18 107/72 (84) 97 Room Air 05/06/17 09:00 Room Air I & O 05/07/17 07:00 Intake Total 800 ml Balance 800 ml Capillary Refill : General Appearance: No Apparent Distress, WD/WN Assessment/Plan Assessment/Plan Assess & Plan/Chief Complaint CVA on right. History of meth abuse. Decrease cognitive function. . 05/06/17. CVA on right. Aphasia. Patient wants to eat food.. . 05/07/17. CVA in right. A fascia talking better. Patient needing foot Clinical Quality Measures DVT/VTE Risk/Contraindication: Risk Factor Score Per Nursin RFS Level Per Nursing on Admit: 2=Moderate FLACO RUIZ DO May 07, 2017 8:27 am
--- NOTE | 2017-05-07 08:38 | PM & R (SOAP) Progress Note ---
Subjective Time Seen by Provider: 08:10 Subjective/Events-last exam Patient was seen in her room this AM Appreciate ENT note re swollen vocal cords which may be contributing to hoarseness-will start low dose steroid taper Appreciate ST note Aphasia improving. Review of Systems HEENT: Other (hoarseness) Objective Exam Last Set of Vital Signs Vital Signs Date Time Temp Pulse Resp B/P (MAP) Pulse Ox O2 Delivery O2 Flow Rate FiO2 05/07/17 05:05 97.1 63 20 102/68 (79) 99 Room Air Capillary Refill : I&O Intake and Output 05/07/17 00:00 Intake Total 1050 ml Balance 1050 ml Intake Oral 1050 ml # Urine Diapers 8 # Bowel Movements 2 General: Alert, Oriented X3, Cooperative, No Acute Distress HEENT: Atraumatic, PERRLA, EOMI Neck: Supple, No JVD Lungs: Clear to Auscultation Heart: Regular Rate Abdomen: Normal Bowel Sounds, Soft, No Tenderness Extremities: No Edema Neuro: Other (RT HP with impaired sensation to touch) Assessment/Plan Assessment Left ICB due to hypertensive crisis most likely due to substance abuse with resulting RT HP and dysphagia-ST assessment pending Hypotension -Antihypertensives on hold Substance abuse currently abstaining Aphasia improving Hoarseness Plan Continue PT/OT/ST [facility] Physician declined patient Dr lazo assisting Hold antihypertensives for now and monitor for orthostasis SW to followup re status of [place] at some point Appreciate ENT note and recs See orders Team Conference tomorrow 05-08-17 MARGO MALIK MD May 07, 2017 08:38
[2017-05-07] MEDS: predniSONE 10 MG TAB PO SCH (09:35)
--- NOTE | 2017-05-07 10:43 | Physical Therapy Daily Note ---
PT Daily Note-Current Subjective Smiles, greets this therapist. Ready for PT. Significant other present throughout treatment and encourages along the way. Pain Numeric Pain Scale: 0-No Pain Location: No Pain Reported Transfers Functional [place] Measure 0=Not Assessed/NA 4=Minimal Assistance 1=Total Assistance 5=Supervision or Setup 2=Maximal Assistance 6=Modified [place] 3=Moderate Assistance 7=Complete IndependenceIRFPAI Quality Coding Scale 6 Independent with activity with or without an assistive device 5 Patient requires set up or clean up by helper. Patient completes activity by themselves 4 Supervision or touching assist (CGA). [place] provide cues , steadying assist 3 The helper provides less than half the effort to complete the activity 2 The helper provides more than half the effort to complete the activity 1 Dependent. The helper does all the effort to complete an activity 7 Patient refused to complete or attempt activity 9 The patient did not perform the activity before the current illness or injury 88 Not attempted due to Medical conditions or safety concerns Transfers (B, C, W/C) (FIM): 4 Roll Left to Right (QC): 4 Sit to Lying (QC): 4 (from hospital bed and from mat in the gym) Sit to Stand (QC): 4 (CGA and cues for safety) Chair/Meo-ie-Qduoe Xfer(QC): 4 (to the left and reaches with her left hand. Twists and pivots) SPT performed multiple times during the treatment. Weight Bearing Right Lower Extremity: Right Weight Bearing/Tolerated Left Lower Extremity: Left Full Weight Bearing Gait Training Does the Patient Walk?: Yes Gait (FIM): 2 6 ft x 1 in // bars with min assist. 20 ft x 5 in koo holding rail with min assist. Pt able to advance right LE, some coordination deficits but did not need placement assist. AFO used for gait. Wheelchair Training Does the Pt Use a Wheelchair?: Yes Wheelchair (FIM): 5 (cues to attend to the right, she does tend to run into obstacles on the right; corrects with cues. uses left U/LE) Stair Training Stair Training: Handrails/: 1 handrail Stairs (FIM): 2 #of Steps: 4 UP/down 4 steps with skilled cues for sequencing and mod assist to complete. Exercises Supine Ex: Bridging, Ankle pumps, Quad Set, Glut sets, Heel Slides, Short Arc Quads, Straight leg raise, Hip abd/add Supine Reps: 15 (Right; to facilitate LE control and functional strength for gait and transfer progression. ) Assessment Current Status: Good Progress Pt progressing well. Her transfers and gait are improving. She is slightly impulsive but corrects easily and has carryover with her skills. PT Short Term Goals Short Term Goals Time Frame: May 15, 2017 Transfers (B,C,W/C) (FIM): 4 (met) Gait (FIM): 2 Distance (FIM): 0=876-87 ft Gait Distance Comment: 50 ft Gait Assistive Device: Walker Charly Wheelchair (FIM): 4 Wheelchair Distance: 50 ft PT Senior Care Goals Agency Trainer Goals PT Senior Care Goals Time Frame: May 29, 2017 Transfers (B,C,W/C) (FIM): 6 Sit to Lying (QC): 6 Lying-Sitting on Side/Bed(QC): 6 Sit to Stand (QC): 6 Rollin Roll Left to Right (QC): 6 Chair/Ghp-xf-Dijxh Xfer(QC): 6 Car Transfer (QC): 6 Does the Patient Walk: No and Walking Goal NOT indicated Gait (FIM): 6 Gait distance (FIM): 3=150 ft Walk 10 feet (QC): 6 Walk 10ft-Uneven Surface(QC): 6 Walk 50ft with 2 Turns (QC): 6 Walk 150 ft (QC): 6 Gait Level of Assist: 6 Gait Assistive Device: Walker Charly Does the Pt use WC or Scooter?: Yes Wheelchair (FIM): 6 Wheelchair distance (FIM): 3=150 ft Wheel 50 feet with 2 turns (QC: 6 Stairs (FIM): 5 # of Steps: 8 1 Step (curb) (QC): 5 4 Steps (QC): 5 12 Steps (QC): 88 Picking up an Object (QC): 4 PT Plan Problem List Problem List: Activity Tolerance, Functional Strength, Safety, Balance, Gait, Transfer, Bed Mobility Treatment/Plan Treatment Plan: Continue Plan of Care Treatment Plan: Bed Mobility, Education, Functional Activity Masoud, Functional Strength, Group Therapy, Gait, Safety, Therapeutic Exercise, Transfers, Other Treatment Duration: May 22, 2017 Frequency: Modified Program (IRF) Estimated Hrs Per Day: 1.5 hours per day Patient and/or Family Agrees t: Yes Safety Risks/Education Patient Education: Transfer Techniques, Safety Issues Teaching Recipient: Patient, Significant Other Teaching Methods: Demonstration, Discussion Response to Teaching: Verbalize Understanding, Return Demonstration, Reinforcement Needed Time/GCodes Time In: 830 Time Out: 930 Total Billed Treatment Time: 60 Total Billed Treatment visit 10 GT 30 EX 20 MARIAN VALENCIA PT May 07, 2017 10:43
--- NOTE | 2017-05-07 11:11 | Speech Therapy Daily Note ---
Speech Daily Progress Note Subjective Date Seen by Provider: May 07, 2017 Time Seen by Provider: 10:30 The patient was seated upright in recliner upon entrance. The patient greeted the clinician appropriately and was agreeable to participation in the speech and language treatment session. The patient's significant other was present at bedside. Objective Yes/No Reliability: The session on this date focused on reliability of yes and no responses, as the patient frequently communicates in this fashion. The patient demonstrated 72% accuracy with simple yes and no responses. When prompted to re-assess her response, the patient consistently corrected to the accurate response. The patient was asked to spend additional time thinking of responses prior to verbalizations. Orientation: The patient used the in-room white board to provide the clinician with the day of week, month, day of week (paraphasia resulted in statement of "14th," however, the patient self-corrected to 6), and year. The patient's glasses are now present. The clinician encouraged the patient to wear glasses for each therapy. Assessment Assessment Current Status: Good Progress Treatment Plan Continue Plan of Care Communication Comprehension: 3 Expression: 2 Social Cognition Social Interaction: 4 Problem Solvin Memory: 3 Speech Short Term Goals Short Term Goals Short Term Goals 1. The patient will demonstrate 70% accuracy with confrontational naming of ADL objects with minimal clinician cueing. 2. The patient will repeat short phrases with 70% accuracy and mild clinician verbal cueing. 3. The patient will respond to yes and now questions with 80% accuracy, independently. 4. The patient will be demonstrate simple orientation information with 100% accuracy. Time Frame-STG: Two Weeks Speech Senior Living Goals Senior Living Goals 1. The patient will demonstrate improved expressive and receptive communication for increased safety and function with ADL's. Time Frame: Six Weeks Comprehension: 4 Expression: 3 Social Interaction: 4 Speech-Plan Treatment Plan Speech Therapy Treatment Plan: Continue Plan of Care Continue skilled speech pathology to target functional expressive communication. Treatment Duration: Jun 13, 2017 Frequency: 5 times per week Estimated Hrs Per Day: .5 hour per day Rehab Potential: Guarded Safety Risks/Education Teaching Recipient: Patient Teaching Methods: Discussion Response to Teaching: Verbalize Understanding Education Topics Provided: Yes/No Reliability Time Speech Therapy Time In: 10:30 Speech Therapy Time Out: 11:00 Total Billed Time: 30 Billed Treatment Time JoseADRIANA ELIZABETH ST May 07, 2017 11:11
--- NOTE | 2017-05-07 11:52 | Occupational Ther Daily Note ---
OT Current Status-Daily Note Subjective Pt seen in room, up in w/c after PT, agreeable to OT. No pain mentioned. Pt indicated that she wanted to shower. Appearance Alert, cooperative Mental Status/Objective Functional [place] Measure 0=Not Assessed/NA 4=Minimal Assistance 1=Total Assistance 5=Supervision or Setup 2=Maximal Assistance 6=Modified [place] 3=Moderate Assistance 7=Complete [place] ADL-Treatment W/c was positioned by shower bench for transfer. Min assist transferring to her L side, mod assist transferring to R side, using grab bar for pulling up and pivoting. Assist for positioning feet for transfer. Pt was able to maintain her balance on bench for entire shower. Once back in w/c, she dressed and transferred mod assist to her L from w/c to recliner, having to clear recliner arm. Pt left up in recliner, all needs met, friend present, chair alarm on. Friend participated in ADLs, with patient permission, since she will be helping with care on discharge. Functional [place] Measure 0=Not Assessed/NA 4=Minimal Assistance 1=Total Assistance 5=Supervision or Setup 2=Maximal Assistance 6=Modified [place] 3=Moderate Assistance 7=Complete IndependenceIRFPAI Quality Coding Scale 6 Independent with activity with or without an assistive device 5 Patient requires set up or clean up by helper. Patient completes activity by themselves 4 Supervision or touching assist (CGA). [place] provide cues , steadying assist 3 The helper provides less than half the effort to complete the activity 2 The helper provides more than half the effort to complete the activity 1 Dependent. The helper does all the effort to complete an activity 7 Patient refused to complete or attempt activity 9 The patient did not perform the activity before the current illness or injury 88 Not attempted due to Medical conditions or safety concerns Bathing (FIM): 3 (60%. Pt needed skilled cues to wash and dry different parts and for thoroughness. help to position R leg and hold R arm for washing/drying. CGA to mainain stnding to wash bottom. Shower bench, grab bars, hand held shower. Assist to wash hair. her friend braided hair to keep it fom getting tangled) Bathing Location: R Arm (with assistnace and cues), L Upper Leg, R Upper Leg, L Lower Leg (including foot), R Lower Leg (including foot) (with assistance and cues), Chest, Abdomen, Perineal Area Upper Body (FIM): 3 (Pt educ on modified technique. Help to dress R arm and pull shirt down over R shoulder and in back) Lower Body Dressing (FIM): 1 (Two people needed to stand her and pull pants up because she is using tape-on briefs. Pt educ modifid technique for dressing. Assisted pt to get feet into pants, she helped pull them up to thighs. Min-mod assist to stand, balancing with valente walker on L side. pt able to get socks on but help needed for shoes) Transfers (B, C, W/C) (FIM): 3 Education OT Patient Education: Modified ADL techniques, Progress toward Goal/Update tx plan, Purpose of tx/functional activities, Safety issues, Transfer techniques Teaching Recipient: Patient, Significant Other Teaching Methods: Demonstration, Discussion Response to Teaching: Verbalize Understanding, Return Demonstration, Reinforcement Needed OT Short Term Goals Short Term Goals Time Frame: May 15, 2017 Grooming(FIM): 5 Upper Body Dressing(FIM): 4 Lower Body Dressing(FIM): 3 Toileting(FIM): 3 Transfers (B,C,W/C) (FIM): 4 Toilet/Commode Transfer(FIM): 4 Shower Transfer(FIM): 3 Additional Short Term Goals: 2-Verbalize Understanding, 3-ImproveStrength/Masoud 1=Demonstrate adherence to instructed precautions during ADL tasks. 2=Patient will verbalize/demonstrate understanding of assistive devices/ modifications for ADL. 3=Patient will improve strength/tolerance for activity to enable patient to perform ADL's. OT Warehouse Laborer Goals Warehouse Laborer Goals Time Frame: May 29, 2017 Eating (FIM): 6 Eating (QC): 6 Groomin Oral Hygiene (QC): 6 Bathing(FIM): 5 Shower/Bathe Self (QC): 5 Upper Body Dressing(FIM): 6 Upper Body Dressing (QC): 6 Lower Body Dressing(FIM): 5 Lower Body Dressing (QC): 5 On/Off Footwear (QC): 5 Toileting(FIM): 6 Toileting Hygiene (QC): 6 Toilet/Commode Transfer(FIM): 6 Toilet/Commode Transfer (QC): 6 Shower Transfer(FIM): 5 Comprehension(FIM): 4 Expression (FIM): 3 Social Interaction(FIM): 4 Additional Goals: 2-Verbalize Understanding, 3-ImproveStrength/Masoud 1=Demonstrate adherence to instructed precautions during ADL tasks. 2=Patient will verbalize/demonstrate understanding of assistive devices/ modifications for ADL. 3=Patient will improve strength/tolerance for activity to enable patient to perform ADL's. OT Education/Plan Problem List/Assessment Pt s/p CVA with right side deficits. Pt demonstrates decreased mobility, strength, coordination, activity tolerance, and ADL functioning. Pt to benefit from skilled OT intervention for ADL training, transfers, strengthening, and safety education to increase level of independence and allow safe discharge plan. Discharge Recommendations Plan/Recommendations: Continue POC Treatment Plan/Plan of Care Patient would benefit from OT for education, treatment and training to promote independence in ADL's, mobility, safety and/or upper extremity function for ADL' s. Plan of Care: ADL Retraining, Functional Mobility, Group Exercise/Act as Ind, UE Funct Exercise/Act, UE Neuromus Re-Ed/Coord Treatment Duration: May 29, 2017 Frequency: Modified Program (IRF) (15/09) Estimated Hrs Per Day: 1.5 hours per day Agreement: Yes Rehab Potential: Guarded Time/GCodes Start Time: 09:30 Stop Time: 10:30 Total Time Billed (hr/min): 60 Billed Treatment Time visit, 60 minutes ADL SOPHIA CERVANTES OT May 07, 2017 11:52
--- NOTE | 2017-05-07 12:19 | Physical Therapy Daily Note ---
PT Daily Note-Current Subjective Agreeable. no complaints. Denies pain Pain Numeric Pain Scale: 0-No Pain Location: No Pain Reported Transfers Functional [place] Measure 0=Not Assessed/NA 4=Minimal Assistance 1=Total Assistance 5=Supervision or Setup 2=Maximal Assistance 6=Modified [place] 3=Moderate Assistance 7=Complete IndependenceIRFPAI Quality Coding Scale 6 Independent with activity with or without an assistive device 5 Patient requires set up or clean up by helper. Patient completes activity by themselves 4 Supervision or touching assist (CGA). [place] provide cues , steadying assist 3 The helper provides less than half the effort to complete the activity 2 The helper provides more than half the effort to complete the activity 1 Dependent. The helper does all the effort to complete an activity 7 Patient refused to complete or attempt activity 9 The patient did not perform the activity before the current illness or injury 88 Not attempted due to Medical conditions or safety concerns Weight Bearing Right Lower Extremity: Right Weight Bearing/Tolerated Left Lower Extremity: Left Full Weight Bearing Treatments SPT x 4 reps to the left each time with min assist. Pt rode Nu Step with leg supported on level 4 x 10 minutes to address CV function and functional act tolerance. Pt in room in chair with chair alarm activiated after treatment with needs met. Assessment Tolerated treatment well. Engaged in treatement. PT Short Term Goals Short Term Goals Time Frame: May 15, 2017 Transfers (B,C,W/C) (FIM): 4 Gait (FIM): 2 Distance (FIM): 7=511-09 ft Gait Distance Comment: 50 ft Gait Assistive Device: Walker Charly Wheelchair (FIM): 4 Wheelchair Distance: 50 ft PT Fpc Goals Fpc Goals PT Vest Maker Goals Time Frame: May 29, 2017 Transfers (B,C,W/C) (FIM): 6 Sit to Lying (QC): 6 Lying-Sitting on Side/Bed(QC): 6 Sit to Stand (QC): 6 Rollin Roll Left to Right (QC): 6 Chair/Kwy-xj-Tmmcm Xfer(QC): 6 Car Transfer (QC): 6 Does the Patient Walk: No and Walking Goal NOT indicated Gait (FIM): 6 Gait distance (FIM): 3=150 ft Walk 10 feet (QC): 6 Walk 10ft-Uneven Surface(QC): 6 Walk 50ft with 2 Turns (QC): 6 Walk 150 ft (QC): 6 Gait Level of Assist: 6 Gait Assistive Device: Walker Charly Does the Pt use WC or Scooter?: Yes Wheelchair (FIM): 6 Wheelchair distance (FIM): 3=150 ft Wheel 50 feet with 2 turns (QC: 6 Stairs (FIM): 5 # of Steps: 8 1 Step (curb) (QC): 5 4 Steps (QC): 5 12 Steps (QC): 88 Picking up an Object (QC): 4 PT Plan Problem List Problem List: Activity Tolerance, Functional Strength, Safety Treatment/Plan Treatment Plan: Continue Plan of Care Treatment Plan: Bed Mobility, Education, Functional Activity Masoud, Functional Strength, Group Therapy, Gait, Safety, Therapeutic Exercise, Transfers, Other Treatment Duration: May 22, 2017 Frequency: Modified Program (IRF) Estimated Hrs Per Day: 1.5 hours per day Patient and/or Family Agrees t: Yes Time/GCodes Time In: 1152 Time Out: 1215 Total Billed Treatment Time: 23 Total Billed Treatment visit EX 10 FA 13 MARIAN VALENCIA PT May 07, 2017 12:19
--- NOTE | 2017-05-07 13:31 | Occupational Ther Daily Note ---
OT Current Status-Daily Note Subjective Pt seen in room, up in recliner, agreeable to OT. No pain mentioned. Appearance Alert, cooperative Mental Status/Objective Functional [place] Measure 0=Not Assessed/NA 4=Minimal Assistance 1=Total Assistance 5=Supervision or Setup 2=Maximal Assistance 6=Modified [place] 3=Moderate Assistance 7=Complete [place] ADL-Treatment Functional [place] Measure 0=Not Assessed/NA 4=Minimal Assistance 1=Total Assistance 5=Supervision or Setup 2=Maximal Assistance 6=Modified [place] 3=Moderate Assistance 7=Complete IndependenceIRFPAI Quality Coding Scale 6 Independent with activity with or without an assistive device 5 Patient requires set up or clean up by helper. Patient completes activity by themselves 4 Supervision or touching assist (CGA). [place] provide cues , steadying assist 3 The helper provides less than half the effort to complete the activity 2 The helper provides more than half the effort to complete the activity 1 Dependent. The helper does all the effort to complete an activity 7 Patient refused to complete or attempt activity 9 The patient did not perform the activity before the current illness or injury 88 Not attempted due to Medical conditions or safety concerns Other Treatment Pt was sliding down in recliner and unable to push herself back up. Two person assist required. Chair alarm was in place. Recommended to nursing for staff to check on her periodically because she has done this before. Skilled facilitation techniques used to increase functional use R UE. Worked on grasping and placing cones and trace movement observable and palpable at R shoulder and elbow. After tx, pt left up in recliner, chair alarm on, nursing notified Education OT Patient Education: Purpose of tx/functional activities, Safety issues Teaching Recipient: Patient Teaching Methods: Discussion Response to Teaching: Verbalize Understanding OT Short Term Goals Short Term Goals Time Frame: May 15, 2017 Grooming(FIM): 5 Upper Body Dressing(FIM): 4 Lower Body Dressing(FIM): 3 Toileting(FIM): 3 Transfers (B,C,W/C) (FIM): 4 Toilet/Commode Transfer(FIM): 4 Shower Transfer(FIM): 3 Additional Short Term Goals: 2-Verbalize Understanding, 3-ImproveStrength/[place] 1=Demonstrate adherence to instructed precautions during ADL tasks. 2=Patient will verbalize/demonstrate understanding of assistive devices/ modifications for ADL. 3=Patient will improve strength/tolerance for activity to enable patient to perform ADL's. OT Care Home Goals Director Visual Goals Time Frame: May 29, 2017 Eating (FIM): 6 Eating (QC): 6 Groomin Oral Hygiene (QC): 6 Bathing(FIM): 5 Shower/Bathe Self (QC): 5 Upper Body Dressing(FIM): 6 Upper Body Dressing (QC): 6 Lower Body Dressing(FIM): 5 Lower Body Dressing (QC): 5 On/Off Footwear (QC): 5 Toileting(FIM): 6 Toileting Hygiene (QC): 6 Toilet/Commode Transfer(FIM): 6 Toilet/Commode Transfer (QC): 6 Shower Transfer(FIM): 5 Comprehension(FIM): 4 Expression (FIM): 3 Social Interaction(FIM): 4 Additional Goals: 2-Verbalize Understanding, 3-ImproveStrength/[place] 1=Demonstrate adherence to instructed precautions during ADL tasks. 2=Patient will verbalize/demonstrate understanding of assistive devices/ modifications for ADL. 3=Patient will improve strength/tolerance for activity to enable patient to perform ADL's. OT Education/Plan Problem List/Assessment Pt s/p CVA with right side deficits. Pt demonstrates decreased mobility, strength, coordination, activity tolerance, and ADL functioning. Pt to benefit from skilled OT intervention for ADL training, transfers, strengthening, and safety education to increase level of independence and allow safe discharge plan. Discharge Recommendations Plan/Recommendations: Continue POC Treatment Plan/Plan of Care Patient would benefit from OT for education, treatment and training to promote independence in ADL's, mobility, safety and/or upper extremity function for ADL' s. Plan of Care: ADL Retraining, Functional Mobility, Group Exercise/Act as Ind, UE Funct Exercise/Act, UE Neuromus Re-Ed/Coord Treatment Duration: May 29, 2017 Frequency: Modified Program (IRF) (15/09) Estimated Hrs Per Day: 1.5 hours per day Agreement: Yes Rehab Potential: Guarded Time/GCodes Start Time: 13:00 Stop Time: 13:16 Total Time Billed (hr/min): 16 Billed Treatment Time visit, 16 minutes neuromotor SPOHIA CERVANTES OT May 07, 2017 13:30
[2017-05-07 18:21] VITALS: BP 114/72
[2017-05-07 21:10] VITALS: BP 111/63
[2017-05-08 06:00] VITALS: BP 114/78
[2017-05-08] MEDS: predniSONE 10 MG TAB PO SCH (07:26)
--- NOTE | 2017-05-08 08:23 | Progress Note (SOAP) ---
Subjective Time Seen by Provider: 08:20 Subjective/Events-last exam CVA. A fascia. Meth history. Patient talking better and speaking slightly louder Objective Exam Vital Signs Date Time Temp Pulse Resp B/P (MAP) Pulse Ox O2 Delivery O2 Flow Rate FiO2 05/08/17 06:00 96.9 68 16 114/78 (90) 96 Room Air 05/07/17 21:10 111/63 (79) 05/07/17 20:15 Room Air 05/07/17 18:21 97.6 77 16 114/72 (86) 98 Room Air 05/07/17 09:00 Room Air I & O 05/08/17 07:00 Intake Total 780 ml Balance 780 ml Capillary Refill : General Appearance: No Apparent Distress, WD/WN Assessment/Plan Assessment/Plan Assess & Plan/Chief Complaint CVA on right. History of meth abuse. Decrease cognitive function. . 05/06/17. CVA on right. Aphasia. Patient wants to eat food.. . 05/07/17. CVA in right. A fascia talking better. Patient needing foot. . 05/08/17. CVA in right. Aphasia talking better. Patient on prednisone Clinical Quality Measures DVT/VTE Risk/Contraindication: Risk Factor Score Per Nursin RFS Level Per Nursing on Admit: 2=Moderate FLACO RUIZ DO May 08, 2017 08:23
[2017-05-08] MEDS: CARVEDILOL 12.5 MG (COREG) TABLET PO SCH ×2 (08:35→20:26)
[2017-05-08] MEDS: FLUoxetine HCL 20 MG (PROzac) CAP PO SCH (08:35)
[2017-05-08] MEDS: lisINopril 20 MG (PRINIVIL) TABLET PO SCH (08:35)
[2017-05-08] MEDS: amLODIPine 5 MG (NORVASC) TAB PO SCH (08:35)
--- NOTE | 2017-05-08 09:32 | PM & R (SOAP) Progress Note ---
Subjective Time Seen by Provider: 08:30 Subjective/Events-last exam Patient was seen on unit this AM Patient self propels w/c with supervision.Toleeeerating Prednisone for treatment of hoarsness with mildly swollen Vocal cords Objective Exam Last Set of Vital Signs Vital Signs Date Time Temp Pulse Resp B/P (MAP) Pulse Ox O2 Delivery O2 Flow Rate FiO2 05/08/17 06:00 96.9 68 16 114/78 (90) 96 Room Air Capillary Refill : I&O Intake and Output 05/08/17 00:00 Intake Total 980 ml Balance 980 ml Intake Oral 980 ml # Voids 1 # Urine Diapers 3 General: Alert, Oriented X3, Cooperative, No Acute Distress HEENT: Atraumatic, PERRLA, EOMI Neck: Supple, No JVD Lungs: Clear to Auscultation Heart: Regular Rate Abdomen: Normal Bowel Sounds, Soft, No Tenderness Extremities: No Edema Neuro: Other (RT HP with impaired sensation to touch) Assessment/Plan Assessment Left ICB due to hypertensive crisis most likely due to substance abuse with resulting RT HP and dysphagia-ST assessment pending Hypotension -Antihypertensives on hold Substance abuse currently abstaining Aphasia improving Hoarseness Plan Continue PT/OT/ST [facility] Physician declined patient Dr lazo assisting Hold antihypertensives for now and monitor for orthostasis SW to followup re status of [place] at some point Appreciate ENT note and recs See orders-patient tolerating well Team Conference later today-See report for full functional update and POC and MARGO PINEDA MD May 08, 2017 09:32
--- NOTE | 2017-05-08 09:59 | Physical Therapy Daily Note ---
PT Daily Note-Current Subjective Agreeable to PT. Has just ordered breakfast. Agreeable to start therapy and will break for breakfast and then return. Smiling. Transfers Functional [place] Measure 0=Not Assessed/NA 4=Minimal Assistance 1=Total Assistance 5=Supervision or Setup 2=Maximal Assistance 6=Modified [place] 3=Moderate Assistance 7=Complete IndependenceIRFPAI Quality Coding Scale 6 Independent with activity with or without an assistive device 5 Patient requires set up or clean up by helper. Patient completes activity by themselves 4 Supervision or touching assist (CGA). [place] provide cues , steadying assist 3 The helper provides less than half the effort to complete the activity 2 The helper provides more than half the effort to complete the activity 1 Dependent. The helper does all the effort to complete an activity 7 Patient refused to complete or attempt activity 9 The patient did not perform the activity before the current illness or injury 88 Not attempted due to Medical conditions or safety concerns Transfers (B, C, W/C) (FIM): 4 Supine to/from Sit: 4 Sit to Stand (QC): 4 Pt able to transfer supine to EOB with bed rail and she used technique to hook her right leg with her left. Sat EOB with fair (+) balance while shoes and socks donned. Sit to stand with charly walker to pull her pants up. Pt performed SPT x 2 with min assist using charly walker. Sit to stand training reps in // bars with focus on pushing up and reaching back as well as controlled descent to sit x 5 reps. Weight Bearing Right Lower Extremity: Right Weight Bearing/Tolerated Left Lower Extremity: Left Full Weight Bearing Gait Training Does the Patient Walk?: Yes Gait (FIM): 2 Distance (FIM): 1=up to 49 ft 20 ft at koo handrail with min assist; 15 ft and 25 ft with hemiwalker with mod assist. Pt able to advance her right LE and had AFO in place. Tends to lean forward and would fall without mod assist. She does have a balance response when she does lose her balance. Wheelchair Training Does the Pt Use a Wheelchair?: Yes Wheelchair (FIM): 4 Wheelchair Distance: 3=150 ft Type of Wheelchair: Manual Improved awareness of obstacles, working on mobility in room that entails turning and backing, still has some difficulty in small spaces. Does well in the the open. Also working on use of the brakes and placed a brake tube turner on the right. Exercises Seated Therapy Exercises: Sit to stand, Long arc quads, Hip flexion, Hamstring Curls Seated Reps: 20 Assessment Current Status: Good Progress Unsteady with hemiwalker gait but able to do so. Expect she will progress quickly. Seated balance improved as well and continues to carry over previously learned techniques. PT Short Term Goals Short Term Goals Time Frame: May 15, 2017 Transfers (B,C,W/C) (FIM): 4 Gait (FIM): 2 Distance (FIM): 3=820-60 ft Gait Distance Comment: 50 ft Gait Assistive Device: Walker Charly Wheelchair (FIM): 4 Wheelchair Distance: 50 ft PT Deputy Insurance Commissioner Goals Halfway Goals PT Deputy Insurance Commissioner Goals Time Frame: May 29, 2017 Transfers (B,C,W/C) (FIM): 6 Sit to Lying (QC): 6 Lying-Sitting on Side/Bed(QC): 6 Sit to Stand (QC): 6 Rollin Roll Left to Right (QC): 6 Chair/Ccv-cm-Ttsbf Xfer(QC): 6 Car Transfer (QC): 6 Does the Patient Walk: No and Walking Goal NOT indicated Gait (FIM): 6 Gait distance (FIM): 3=150 ft Walk 10 feet (QC): 6 Walk 10ft-Uneven Surface(QC): 6 Walk 50ft with 2 Turns (QC): 6 Walk 150 ft (QC): 6 Gait Level of Assist: 6 Gait Assistive Device: Walker Charly Does the Pt use WC or Scooter?: Yes Wheelchair (FIM): 6 Wheelchair distance (FIM): 3=150 ft Wheel 50 feet with 2 turns (QC: 6 Stairs (FIM): 5 # of Steps: 8 1 Step (curb) (QC): 5 4 Steps (QC): 5 12 Steps (QC): 88 Picking up an Object (QC): 4 PT Plan Problem List Problem List: Activity Tolerance, Functional Strength, Safety, Balance, Gait, Transfer, Bed Mobility Treatment/Plan Treatment Plan: Continue Plan of Care Treatment Plan: Bed Mobility, Education, Functional Activity Mas[place], Functional Strength, Group Therapy, Gait, Safety, Therapeutic Exercise, Transfers, Other Treatment Duration: May 22, 2017 Frequency: Modified Program (IRF) Estimated Hrs Per Day: 1.5 hours per day Patient and/or Family Agrees t: Yes Safety Risks/Education Patient Education: Safety Issues Teaching Recipient: Patient Teaching Methods: Discussion Response to Teaching: Reinforcement Needed Time/GCodes Time In: 830 (900) Time Out: 853 (930) Total Billed Treatment Time: 53 Total Billed Treatment visit FA 18 GT 25 EX 10 MARIAN VALENCIA PT May 08, 2017 09:59
--- NOTE | 2017-05-08 10:49 | Speech Therapy Daily Note ---
Speech Daily Progress Note Subjective Date Seen by Provider: May 08, 2017 Time Seen by Provider: 10:15 The patient was seated upright in wheelchair upon entrance. The patient greeted the clinician and was agreeable to participation in the speech and language treatment session. Objective Orientation: The patient was able to state the day of the week, the month, and year with the use of the in-room white board. - Yes/No: The patient demonstrated a slight improved of yes and no responses on this date, displaying 77% accuracy in comparison to 72% accuracy the day prior. The patient self-corrected two times and was able to provide the accurate answer with self-correction. - Confrontational Naming (Black and White Photographs): The patient demonstrated 25% accuracy with confrontational naming of black and white photographs. Moderate clinician cueing was provided. The patient's accuracy increased with initial phoneme prompts. Assessment Assessment Current Status: Fair Progress Treatment Plan Continue Plan of Care Communication Comprehension: 3 Expression: 1 Social Cognition Social Interaction: 4 Problem Solvin Memory: 2 Speech Short Term Goals Short Term Goals Short Term Goals 1. The patient will demonstrate 70% accuracy with confrontational naming of ADL objects with minimal clinician cueing. 2. The patient will repeat short phrases with 70% accuracy and mild clinician verbal cueing. 3. The patient will respond to yes and now questions with 80% accuracy, independently. 4. The patient will be demonstrate simple orientation information with 100% accuracy. Time Frame-STG: Two Weeks Speech Senior Data Warehouse Architect Goals Prison Goals 1. The patient will demonstrate improved expressive and receptive communication for increased safety and function with ADL's. Time Frame: Six Weeks Comprehension: 4 Expression: 3 Social Interaction: 4 Speech-Plan Treatment Plan Speech Therapy Treatment Plan: Continue Plan of Care Continue skilled speech pathology to target functional expressive communication. Treatment Duration: Jun 13, 2017 Frequency: 5 times per week Estimated Hrs Per Day: .5 hour per day Rehab Potential: Guarded Safety Risks/Education Teaching Recipient: Patient Teaching Methods: Discussion Response to Teaching: Verbalize Understanding Education Topics Provided: Confrontational Naming of Objects Time Speech Therapy Time In: 10:15 Speech Therapy Time Out: 10:45 Total Billed Time: 30 Billed Treatment Time ADRIANA Garcia [facility] May 08, 2017 10:49
--- NOTE | 2017-05-08 11:55 | Occupational Ther Daily Note ---
OT Current Status-Daily Note Subjective Pt seen in room, up in w/c, agreeable to OT. No pain mentioned. Appearance Alert, cooperative Mental Status/Objective Functional [place] Measure 0=Not Assessed/NA 4=Minimal Assistance 1=Total Assistance 5=Supervision or Setup 2=Maximal Assistance 6=Modified [place] 3=Moderate Assistance 7=Complete [place] ADL-Treatment Functional [place] Measure 0=Not Assessed/NA 4=Minimal Assistance 1=Total Assistance 5=Supervision or Setup 2=Maximal Assistance 6=Modified [place] 3=Moderate Assistance 7=Complete IndependenceIRFPAI Quality Coding Scale 6 Independent with activity with or without an assistive device 5 Patient requires set up or clean up by helper. Patient completes activity by themselves 4 Supervision or touching assist (CGA). [place] provide cues , steadying assist 3 The helper provides less than half the effort to complete the activity 2 The helper provides more than half the effort to complete the activity 1 Dependent. The helper does all the effort to complete an activity 7 Patient refused to complete or attempt activity 9 The patient did not perform the activity before the current illness or injury 88 Not attempted due to Medical conditions or safety concerns Other Treatment Pt declined ADLs. Pt was transported to gym per w/c. Skilled facilitation techniques used, including e-stim, to work on R wrist extension, R finger flexion and R elbow extension, to help with transfers and ADLs. She responded well to e-stim. pt also demonstrated some increase tone R UE this morning, moving int flexor pattern when yawning. No active movement observed during and after facilitation pt seemed pleased with progress. Pt returned to room, left up in w/c, per her request, all needs met. Education OT Patient Education: Progress toward Goal/Update tx plan, Purpose of tx/ functional activities, Other (facililtation techniques) Teaching Recipient: Patient Teaching Methods: Discussion Response to Teaching: Verbalize Understanding OT Short Term Goals Short Term Goals Time Frame: May 15, 2017 Grooming(FIM): 5 Upper Body Dressing(FIM): 4 Lower Body Dressing(FIM): 3 Toileting(FIM): 3 Transfers (B,C,W/C) (FIM): 4 Toilet/Commode Transfer(FIM): 4 Shower Transfer(FIM): 3 Additional Short Term Goals: 2-Verbalize Understanding, 3-ImproveStrength/[place] 1=Demonstrate adherence to instructed precautions during ADL tasks. 2=Patient will verbalize/demonstrate understanding of assistive devices/ modifications for ADL. 3=Patient will improve strength/tolerance for activity to enable patient to perform ADL's. OT Residential Goals Sand Mill Operator Goals Time Frame: May 29, 2017 Eating (FIM): 6 Eating (QC): 6 Groomin Oral Hygiene (QC): 6 Bathing(FIM): 5 Shower/Bathe Self (QC): 5 Upper Body Dressing(FIM): 6 Upper Body Dressing (QC): 6 Lower Body Dressing(FIM): 5 Lower Body Dressing (QC): 5 On/Off Footwear (QC): 5 Toileting(FIM): 6 Toileting Hygiene (QC): 6 Toilet/Commode Transfer(FIM): 6 Toilet/Commode Transfer (QC): 6 Shower Transfer(FIM): 5 Comprehension(FIM): 4 Expression (FIM): 3 Social Interaction(FIM): 4 Additional Goals: 2-Verbalize Understanding, 3-ImproveStrength/[place] 1=Demonstrate adherence to instructed precautions during ADL tasks. 2=Patient will verbalize/demonstrate understanding of assistive devices/ modifications for ADL. 3=Patient will improve strength/tolerance for activity to enable patient to perform ADL's. OT Education/Plan Problem List/Assessment Pt s/p CVA with right side deficits. Pt demonstrates decreased mobility, strength, coordination, activity tolerance, and ADL functioning. Pt to benefit from skilled OT intervention for ADL training, transfers, strengthening, and safety education to increase level of independence and allow safe discharge plan. Discharge Recommendations Plan/Recommendations: Continue POC Treatment Plan/Plan of Care Patient would benefit from OT for education, treatment and training to promote independence in ADL's, mobility, safety and/or upper extremity function for ADL' s. Plan of Care: ADL Retraining, Functional Mobility, Group Exercise/Act as Ind, UE Funct Exercise/Act, UE Neuromus Re-Ed/Coord Treatment Duration: May 29, 2017 Frequency: Modified Program (IRF) (15/09) Estimated Hrs Per Day: 1.5 hours per day Agreement: Yes Rehab Potential: Guarded Time/GCodes Start Time: 09:30 Stop Time: 10:15 Total Time Billed (hr/min): 45 Billed Treatment Time visit, 45 minutes neuromotor SOPHIA CERVANTES OT May 08, 2017 11:55
--- NOTE | 2017-05-08 15:14 | Therapy Group Daily Note ---
Therapy Daily Group Note Patient Education Topic Other List Below (nutrition) Exercises LE Seated Exercise, UE Exercise Other/Notes Pt transported via w/c to OT/PT group. Group consisted of introductions (name, place living, favorite food), socialization, education for healthy eating and UE /LE seated exercises. Pt voice continues to improve. Pt introduced self appropriately and actively listened to peers introduce themselves. Pt was able to complete UE/LE seated exercises, LE's without difficulty, used self ROM technique for UE's. Pt attentively listened to educational topic of healthy eating and was able to answer questions and give examples. Pt contributed to conversation and discussed with peers. After therapy, pt transported via w/c to room. All needs met. Start Time: 13:00 Stop Time: 14:15 Total Billed Treatment Time: 75 Total Billed Treatment 1-MARIAN MAJANO May 08, 2017 15:14
[2017-05-08 18:17] VITALS: BP 117/72
[2017-05-09 05:12] VITALS: BP 119/79
[2017-05-09] MEDS: predniSONE 10 MG TAB PO SCH (06:41)
[2017-05-09 08:06] VITALS: BP 103/48
[2017-05-09] MEDS: amLODIPine 5 MG (NORVASC) TAB PO SCH (08:07)
[2017-05-09] MEDS: FLUoxetine HCL 20 MG (PROzac) CAP PO SCH (08:07)
[2017-05-09] MEDS: CARVEDILOL 12.5 MG (COREG) TABLET PO SCH ×3 (08:07→20:41)
[2017-05-09] MEDS: lisINopril 20 MG (PRINIVIL) TABLET PO SCH (08:07)
--- NOTE | 2017-05-09 08:34 | Progress Note (SOAP) ---
Subjective Time Seen by Provider: 08:32 Subjective/Events-last exam Patient has no complaints. Patient talking louder. No aphasia. Patient improving with the right leg but no with the right arm area Patient not complaining of anything Objective Exam Vital Signs Date Time Temp Pulse Resp B/P (MAP) Pulse Ox O2 Delivery O2 Flow Rate FiO2 05/09/17 08:06 78 103/48 (66) 05/09/17 05:12 98.1 64 16 119/79 (92) 100 Room Air 05/08/17 20:15 Room Air 05/08/17 18:17 97.5 88 14 117/72 (87) 96 Room Air 05/08/17 09:00 Room Air I & O 05/09/17 07:00 Intake Total 1140 ml Balance 1140 ml Capillary Refill : General Appearance: No Apparent Distress, WD/WN Assessment/Plan Assessment/Plan Assess & Plan/Chief Complaint CVA on right. History of meth abuse. Decrease cognitive function. . 05/06/17. CVA on right. Aphasia. Patient wants to eat food.. . 05/07/17. CVA in right. A fascia talking better. Patient needing foot. . 05/08/17. CVA in right. Aphasia talking better. Patient on prednisone. . . CVA on right. A fascia talking better. Clinical Quality Measures DVT/VTE Risk/Contraindication: Risk Factor Score Per Nursin RFS Level Per Nursing on Admit: 2=Moderate FLACO RUIZ DO May 09, 2017 08:34
--- NOTE | 2017-05-09 09:02 | PM & R (SOAP) Progress Note ---
Subjective Time Seen by Provider: 08:05 Subjective/Events-last exam Patient was seen in her room this AM Hoarseness improving with steroids po Patient dependent for Lower body dressing Mod assist for upper body dressing and transfers Patient has a very supportive SO. Objective Exam Last Set of Vital Signs Vital Signs Date Time Temp Pulse Resp B/P (MAP) Pulse Ox O2 Delivery O2 Flow Rate FiO2 05/09/17 08:06 78 103/48 (66) 05/09/17 05:12 98.1 16 100 Room Air Capillary Refill : I&O Intake and Output 05/09/17 00:00 Intake Total 700 ml Balance 700 ml Intake Oral 700 ml # Urine Diapers 2 General: Alert, Oriented X3, Cooperative, No Acute Distress HEENT: Atraumatic, PERRLA, EOMI Neck: Supple, No JVD Lungs: Clear to Auscultation Heart: Regular Rate Abdomen: Normal Bowel Sounds, Soft, No Tenderness Extremities: No Edema Neuro: Other (RT HP with impaired sensation to touch) Assessment/Plan Assessment Left ICB due to hypertensive crisis most likely due to substance abuse with resulting RT HP and dysphagia-ST assessment pending Hypotension -Antihypertensives on hold Substance abuse currently abstaining Aphasia improving Hoarseness Plan Continue PT/OT/ST [facility] Physician declined patient Dr lazo assisting Hold antihypertensives for now and monitor for orthostasis SW to followup re status of [place] at some point Appreciate ENT note and recs See orders-patient tolerating steroid taper well Team Conference held yesterday-See report for full functional update and POC and MARGO PINEDA MD May 09, 2017 09:01
--- NOTE | 2017-05-09 09:18 | Physical Therapy Daily Note ---
PT Daily Note-Current Subjective Agreeable to PT. Smiles often. Asks about a day pass sometime soon. Pain Numeric Pain Scale: 0-No Pain Location: No Pain Reported Transfers Functional [place] Measure 0=Not Assessed/NA 4=Minimal Assistance 1=Total Assistance 5=Supervision or Setup 2=Maximal Assistance 6=Modified [place] 3=Moderate Assistance 7=Complete IndependenceIRFPAI Quality Coding Scale 6 Independent with activity with or without an assistive device 5 Patient requires set up or clean up by helper. Patient completes activity by themselves 4 Supervision or touching assist (CGA). [place] provide cues , steadying assist 3 The helper provides less than half the effort to complete the activity 2 The helper provides more than half the effort to complete the activity 1 Dependent. The helper does all the effort to complete an activity 7 Patient refused to complete or attempt activity 9 The patient did not perform the activity before the current illness or injury 88 Not attempted due to Medical conditions or safety concerns Transfers (B, C, W/C) (FIM): 4 Supine to/from Sit: 4 Sit to/from Stand: 4 Bed to/from Chair: 4 (with the hemiwalker and with reaching acrosss.) She is impulsive at times and drops into her chair 50% of the time. Weight Bearing Right Lower Extremity: Right Weight Bearing/Tolerated Left Lower Extremity: Left Full Weight Bearing Gait Training Does the Patient Walk?: Yes Gait (FIM): 2 Distance: 48 ft and 50 ft Gait Assistive Device: Walker Charly min assist for the first 48 ft; then required mod assist for the 50 ft; more difficulty advancing R LE the second bout and increased toe drag. Wheelchair Training Does the Pt Use a Wheelchair?: Yes Wheelchair (FIM): 5 Wheelchair Distance: 3=150 ft Distance: 150 ft x 3 Wheelchair Level of Assist: 5 Type of Wheelchair: Manual Stair Training Stair Training: Handrails/: 1 handrail Stairs: Pattern: Step to up/down 4 steps using handrail for her left UE; requires min-mod assist for balance and skilled cues for sequencing. Exercises Supine Ex: Bridging, Ankle pumps (tactile facilitation), Heel Slides, Short Arc Quads, Straight leg raise, Hip abd/add Supine Reps: 15 (for LE strength to improve transfers and gait. ) Assessment Current Status: Good Progress Pt continues to make good functional progress and her gait is improveing. Transfers improving as well, but still unsafe at times. PT Short Term Goals Short Term Goals Time Frame: May 15, 2017 Transfers (B,C,W/C) (FIM): 4 Gait (FIM): 2 Distance (FIM): 6=671-19 ft Gait Distance Comment: 50 ft Gait Assistive Device: Walker Charly Wheelchair (FIM): 4 Wheelchair Distance: 50 ft PT Skilled Nursing Goals Oil And Gas Superintendent Goals PT Oil And Gas Superintendent Goals Time Frame: May 29, 2017 Transfers (B,C,W/C) (FIM): 6 Sit to Lying (QC): 6 Lying-Sitting on Side/Bed(QC): 6 Sit to Stand (QC): 6 Rollin Roll Left to Right (QC): 6 Chair/Spo-jg-Ndhxh Xfer(QC): 6 Car Transfer (QC): 6 Does the Patient Walk: No and Walking Goal NOT indicated Gait (FIM): 6 Gait distance (FIM): 3=150 ft Walk 10 feet (QC): 6 Walk 10ft-Uneven Surface(QC): 6 Walk 50ft with 2 Turns (QC): 6 Walk 150 ft (QC): 6 Gait Level of Assist: 6 Gait Assistive Device: Walker Charly Does the Pt use WC or Scooter?: Yes Wheelchair (FIM): 6 Wheelchair distance (FIM): 3=150 ft Wheel 50 feet with 2 turns (QC: 6 Stairs (FIM): 5 # of Steps: 8 1 Step (curb) (QC): 5 4 Steps (QC): 5 12 Steps (QC): 88 Picking up an Object (QC): 4 PT Plan Problem List Problem List: Activity Tolerance, Functional Strength, Safety, Balance, Gait, Transfer, Bed Mobility Treatment/Plan Treatment Plan: Continue Plan of Care Treatment Plan: Bed Mobility, Education, Functional Activity Masoud, Functional Strength, Group Therapy, Gait, Safety, Therapeutic Exercise, Transfers, Other Treatment Duration: May 22, 2017 Frequency: Modified Program (IRF) Estimated Hrs Per Day: 1.5 hours per day Patient and/or Family Agrees t: Yes Safety Risks/Education Patient Education: Safety Issues Teaching Recipient: Patient, Significant Other Teaching Methods: Demonstration, Discussion Response to Teaching: Verbalize Understanding, Reinforcement Needed Time/GCodes Time In: 810 Time Out: 910 Total Billed Treatment Time: 60 Total Billed Treatment visit FA 35 EX 25 MARIAN VALENCIA PT May 09, 2017 09:18
--- NOTE | 2017-05-09 10:50 | Speech Therapy Daily Note ---
Speech Daily Progress Note Subjective Date Seen by Provider: May 09, 2017 Time Seen by Provider: 09:15 The patient was seated upright in wheelchair upon entrance. The patient's significant other is at bedside. The patient was agreeable to participation in the speech and language treatment session. The patient stated, "I want to go home" at the initiation of the session. Per patient's significant other, the patient is to discharge "next Saturday." To provide clarification, the clinician asked if she would be discharged or re- evaluated. The patient responded with re-evaluated. The process of re- evaluation was discussed, as well as, the recommendation from therapy (and potential recommendation following re-evaluation next Saturday) for the patient to remain in ARU for continued therapy due to the intensive nature ARU can provide. With this information, the patient stated, "I want to go home." The clinician additionally clarified if the patient wanted to "go home" regardless of the recommendation from ARU staff to remain in attempt to provide increased function and safety prior to returning home. The patient stated, "yes , I'm ready to go home." The patient's significant other appeared hesitant with the patient's request to go home and was initially agreeing with the clinician. However, following the patient's multiple requests to "go home" the significant other agreed to begin conversations towards transitioning home. Due to this, social work was updated with the above information. Objective - Confrontational Naming: Due to the patient's difficulty with confrontational naming of black and white photographs the day prior, the clinician reduced difficulty to objects on this date. The patient demonstrated 80% accuracy with confrontational naming of objects, with one self-corrected response. - Text Messaging (Functional Communication): The patient stated she communicates mostly through text. As the patient is requesting to return home, the clinician would like to address possible barriers to this return, most notably, emergency communication. The patient was asked to open phone, locate messages, and send a message to her significant other. The patient was able to enter her pass code, locate messages, and initiate a message. While the patient could type a brief message, "hi," the patient struggled with more complex messages (requesting something from the store). The patient's documented right neglect may be negatively impacting this ability as she slightly misses the letter she intends to use to the left. With increased time, the patient was able to construct a message. The patient was encouraged to practice this function as a means to communicate swiftly and efficiently in emergency situations. Assessment Assessment Current Status: Good Progress Treatment Plan Continue Plan of Care Communication Comprehension: 3 Expression: 2 Social Cognition Social Interaction: 4 Problem Solvin Memory: 2 Speech Short Term Goals Short Term Goals Short Term Goals 1. The patient will demonstrate 70% accuracy with confrontational naming of ADL objects with minimal clinician cueing. 2. The patient will repeat short phrases with 70% accuracy and mild clinician verbal cueing. 3. The patient will respond to yes and now questions with 80% accuracy, independently. 4. The patient will be demonstrate simple orientation information with 100% accuracy. Time Frame-STG: Two Weeks Speech Custodial Goals Analytical Consultant Goals 1. The patient will demonstrate improved expressive and receptive communication for increased safety and function with ADL's. Time Frame: Six Weeks Comprehension: 4 Expression: 3 Social Interaction: 4 Speech-Plan Treatment Plan Speech Therapy Treatment Plan: Continue Plan of Care Continue skilled speech pathology to target functional expressive communication. Treatment Duration: Jun 13, 2017 Frequency: 5 times per week Estimated Hrs Per Day: .5 hour per day Rehab Potential: Guarded Safety Risks/Education Teaching Recipient: Patient, Significant Other Teaching Methods: Discussion Response to Teaching: Reinforcement Needed Education Topics Provided: Therapy Recommendations of ARU Stay, Texting Homework (functional practice) Time Speech Therapy Time In: 09:15 Speech Therapy Time Out: 09:45 Total Billed Time: 30 Billed Treatment Time 1, SAULO HOWELL May 09, 2017 10:50
--- NOTE | 2017-05-09 12:27 | Physical Therapy Daily Note ---
PT Daily Note-Current Subjective Agreeable. Pt smiles at this therapist when it is brought up that she is insistent on leaving next Saturday. Transfers Functional [place] Measure 0=Not Assessed/NA 4=Minimal Assistance 1=Total Assistance 5=Supervision or Setup 2=Maximal Assistance 6=Modified [place] 3=Moderate Assistance 7=Complete IndependenceIRFPAI Quality Coding Scale 6 Independent with activity with or without an assistive device 5 Patient requires set up or clean up by helper. Patient completes activity by themselves 4 Supervision or touching assist (CGA). [place] provide cues , steadying assist 3 The helper provides less than half the effort to complete the activity 2 The helper provides more than half the effort to complete the activity 1 Dependent. The helper does all the effort to complete an activity 7 Patient refused to complete or attempt activity 9 The patient did not perform the activity before the current illness or injury 88 Not attempted due to Medical conditions or safety concerns Weight Bearing Right Lower Extremity: Right Weight Bearing/Tolerated Left Lower Extremity: Left Full Weight Bearing Treatments Pt propels self to from the gym in wheelchair with SBA. SPT x 3 reps to the right each time with CG-min assist and skilled cues for sequencing and safety. Nu step x 15 minutes on level 5 to promote CV endurance and functional LE strength. Pt in room in recliner with legs elevated and chair alarm activitate after treatmeht. Assessment Upon arrival to pt room she was in bed with her right leg out of the bed and foot on the floor, looked as though she could easily slide out. Decreased functional safety awareness noted. Pt's transfers are improving but still needs light assist and cues. PT Short Term Goals Short Term Goals Time Frame: May 15, 2017 Transfers (B,C,W/C) (FIM): 4 Gait (FIM): 2 Distance (FIM): 8=455-69 ft Gait Distance Comment: 50 ft Gait Assistive Device: Walker Charly Wheelchair (FIM): 4 Wheelchair Distance: 150 ft x 3 PT Side Piece Coverer Goals Longterm Goals PT Longterm Goals Time Frame: May 29, 2017 Transfers (B,C,W/C) (FIM): 6 Sit to Lying (QC): 6 Lying-Sitting on Side/Bed(QC): 6 Sit to Stand (QC): 6 Rollin Roll Left to Right (QC): 6 Chair/Hvy-ty-Hregg Xfer(QC): 6 Car Transfer (QC): 6 Does the Patient Walk: No and Walking Goal NOT indicated Gait (FIM): 6 Gait distance (FIM): 3=150 ft Walk 10 feet (QC): 6 Walk 10ft-Uneven Surface(QC): 6 Walk 50ft with 2 Turns (QC): 6 Walk 150 ft (QC): 6 Gait Level of Assist: 6 Gait Assistive Device: Walker Charly Does the Pt use WC or Scooter?: Yes Wheelchair (FIM): 6 Wheelchair distance (FIM): 3=150 ft Wheel 50 feet with 2 turns (QC: 6 Stairs (FIM): 5 # of Steps: 8 1 Step (curb) (QC): 5 4 Steps (QC): 5 12 Steps (QC): 88 Picking up an Object (QC): 4 PT Plan Problem List Problem List: Activity Tolerance, Functional Strength, Safety Treatment/Plan Treatment Plan: Continue Plan of Care Treatment Plan: Bed Mobility, Education, Functional Activity Masoud, Functional Strength, Group Therapy, Gait, Safety, Therapeutic Exercise, Transfers, Other Treatment Duration: May 22, 2017 Frequency: Modified Program (IRF) Estimated Hrs Per Day: 1.5 hours per day Patient and/or Family Agrees t: Yes Safety Risks/Education Patient Education: Safety Issues Teaching Recipient: Patient Teaching Methods: Discussion Response to Teaching: Reinforcement Needed Discussed the benefits of staying longer versus shorter on ARU. She acknowledges the benefit but is hesistant to agree to longer stay. She does say it is "negotiable". Time/GCodes Time In: 1145 Time Out: 1210 Total Billed Treatment Time: 25 Total Billed Treatment visit FA 10 EX 15 MARIAN VALENCIA PT May 09, 2017 12:27
--- NOTE | 2017-05-09 12:58 | Occupational Ther Daily Note ---
OT Current Status-Daily Note Subjective Pt seen in room, up in bed, agreeable to OT. She had slid down in bed and attempted to get up to EOB while bed rail was up. No pain mentioned Appearance Alert, cooperative Mental Status/Objective Functional [place] Measure 0=Not Assessed/NA 4=Minimal Assistance 1=Total Assistance 5=Supervision or Setup 2=Maximal Assistance 6=Modified [place] 3=Moderate Assistance 7=Complete [place] ADL-Treatment Pt did not need help to sit EOB and was able to scoot to edge of bed. She transferred with min-CGA with SPT to w/c, moving to her L side. She propelled w/ c to bathroom for ADLs and needed skilled cues to attend to R foot on the floor. She needed help to position w/c for shower transfer and is impulsive, attempting to transfer before w/c brakes were locked. Shower transfer min assist to L, more mod assist coming back to R side. She also had more difficulty scooting to her R side on the bench. She maintained her balance well during shower. After bathing, she dressed in w/c and was left up in chair, all needs met, waiting for speech therapy. Functional [place] Measure 0=Not Assessed/NA 4=Minimal Assistance 1=Total Assistance 5=Supervision or Setup 2=Maximal Assistance 6=Modified [place] 3=Moderate Assistance 7=Complete IndependenceIRFPAI Quality Coding Scale 6 Independent with activity with or without an assistive device 5 Patient requires set up or clean up by helper. Patient completes activity by themselves 4 Supervision or touching assist (CGA). [place] provide cues , steadying assist 3 The helper provides less than half the effort to complete the activity 2 The helper provides more than half the effort to complete the activity 1 Dependent. The helper does all the effort to complete an activity 7 Patient refused to complete or attempt activity 9 The patient did not perform the activity before the current illness or injury 88 Not attempted due to Medical conditions or safety concerns Grooming (FIM): 5 (SHe brushed her teeth, sitting in w/c at sink. She was able to put toothpaste on toothbrush herself. Washed face and hands in shower) Bathing (FIM): 3 (70%. Shower bench, grab bars, hand held shower. Help to wash back and assist to hold R arm up for washing) Bathing Location: R Arm (with help), L Upper Leg, R Upper Leg, L Lower Leg ( including foot), R Lower Leg (including foot), Chest, Abdomen, Perineal Area Upper Body (FIM): 4 (Skilled cues and min assist to dress R arm. Cues to pull shirt down in back and over shoulder) Lower Body Dressing (FIM): 3 (Help to get feet into pullup briefs and pants, then she pulled pants up to thighs. Min assist sit to stand and help to pull pants up over hips, using grab bar for support. She doffed and donned slipper socks with setup) Shower Transfer(FIM): 3 (Shower bench, grab bars) Pt's partner reported that they are planning on going home next Saturday Education OT Patient Education: Modified ADL techniques, Progress toward Goal/Update tx plan, Purpose of tx/functional activities Teaching Recipient: Patient Teaching Methods: Discussion Response to Teaching: Verbalize Understanding, Return Demonstration, Reinforcement Needed OT Short Term Goals Short Term Goals Time Frame: May 15, 2017 Grooming(FIM): 5 Upper Body Dressing(FIM): 4 Lower Body Dressing(FIM): 3 Toileting(FIM): 3 Transfers (B,C,W/C) (FIM): 4 Toilet/Commode Transfer(FIM): 4 Shower Transfer(FIM): 3 Additional Short Term Goals: 2-Verbalize Understanding, 3-ImproveStrength/[place] 1=Demonstrate adherence to instructed precautions during ADL tasks. 2=Patient will verbalize/demonstrate understanding of assistive devices/ modifications for ADL. 3=Patient will improve strength/tolerance for activity to enable patient to perform ADL's. OT Jazz Singer Goals Correction Goals Time Frame: May 29, 2017 Eating (FIM): 6 Eating (QC): 6 Groomin Oral Hygiene (QC): 6 Bathing(FIM): 5 Shower/Bathe Self (QC): 5 Upper Body Dressing(FIM): 6 Upper Body Dressing (QC): 6 Lower Body Dressing(FIM): 5 Lower Body Dressing (QC): 5 On/Off Footwear (QC): 5 Toileting(FIM): 6 Toileting Hygiene (QC): 6 Toilet/Commode Transfer(FIM): 6 Toilet/Commode Transfer (QC): 6 Shower Transfer(FIM): 5 Comprehension(FIM): 4 Expression (FIM): 3 Social Interaction(FIM): 4 Additional Goals: 2-Verbalize Understanding, 3-ImproveStrength/[place] 1=Demonstrate adherence to instructed precautions during ADL tasks. 2=Patient will verbalize/demonstrate understanding of assistive devices/ modifications for ADL. 3=Patient will improve strength/tolerance for activity to enable patient to perform ADL's. OT Education/Plan Problem List/Assessment Pt s/p CVA with right side deficits. Pt demonstrates decreased mobility, strength, coordination, activity tolerance, and ADL functioning. Pt to benefit from skilled OT intervention for ADL training, transfers, strengthening, and safety education to increase level of independence and allow safe discharge plan. Discharge Recommendations Plan/Recommendations: Continue POC Treatment Plan/Plan of Care Patient would benefit from OT for education, treatment and training to promote independence in ADL's, mobility, safety and/or upper extremity function for ADL' s. Plan of Care: ADL Retraining, Functional Mobility, Group Exercise/Act as Ind, UE Funct Exercise/Act, UE Neuromus Re-Ed/Coord Treatment Duration: May 29, 2017 Frequency: Modified Program (IRF) (15/09) Estimated Hrs Per Day: 1.5 hours per day Agreement: Yes Rehab Potential: Guarded Time/GCodes Start Time: 10:30 Stop Time: 11:25 Total Time Billed (hr/min): 55 Billed Treatment Time visit, 55 minutes ADL SOPHIA CERVANTES OT May 09, 2017 12:58
--- NOTE | 2017-05-09 16:39 | Occupational Ther Daily Note ---
OT Current Status-Daily Note Subjective Pt seen inroom, up in recliner, agreeable to OT. Pt had slid down and needed two person assist to get back up, although she helped with her L leg. Mental Status/Objective Functional [place] Measure 0=Not Assessed/NA 4=Minimal Assistance 1=Total Assistance 5=Supervision or Setup 2=Maximal Assistance 6=Modified [place] 3=Moderate Assistance 7=Complete [place] ADL-Treatment Functional [place] Measure 0=Not Assessed/NA 4=Minimal Assistance 1=Total Assistance 5=Supervision or Setup 2=Maximal Assistance 6=Modified [place] 3=Moderate Assistance 7=Complete IndependenceIRFPAI Quality Coding Scale 6 Independent with activity with or without an assistive device 5 Patient requires set up or clean up by helper. Patient completes activity by themselves 4 Supervision or touching assist (CGA). [place] provide cues , steadying assist 3 The helper provides less than half the effort to complete the activity 2 The helper provides more than half the effort to complete the activity 1 Dependent. The helper does all the effort to complete an activity 7 Patient refused to complete or attempt activity 9 The patient did not perform the activity before the current illness or injury 88 Not attempted due to Medical conditions or safety concerns Other Treatment Skilled facilitation techniques used to increase functional use R UE. E stip was helpful for eliciting R wrist and finger extension and R wrist and finger flexion. After facilitation techniques, she was able to actively flex R elbow in mid range to lift forearm on to thigh and bring it across her lap. Pt pleased with progress. Pt left up in recliner, partner present, all needs met. Education OT Patient Education: Progress toward Goal/Update tx plan, Purpose of tx/ functional activities Teaching Recipient: Patient, Significant Other Teaching Methods: Demonstration Response to Teaching: Verbalize Understanding, Return Demonstration OT Short Term Goals Short Term Goals Time Frame: May 15, 2017 Grooming(FIM): 5 Upper Body Dressing(FIM): 4 Lower Body Dressing(FIM): 3 Toileting(FIM): 3 Transfers (B,C,W/C) (FIM): 4 Toilet/Commode Transfer(FIM): 4 Shower Transfer(FIM): 3 Additional Short Term Goals: 2-Verbalize Understanding, 3-ImproveStrength/[place] 1=Demonstrate adherence to instructed precautions during ADL tasks. 2=Patient will verbalize/demonstrate understanding of assistive devices/ modifications for ADL. 3=Patient will improve strength/tolerance for activity to enable patient to perform ADL's. OT Half-Way Goals Forestry Technical Officer Goals Time Frame: May 29, 2017 Eating (FIM): 6 Eating (QC): 6 Groomin Oral Hygiene (QC): 6 Bathing(FIM): 5 Shower/Bathe Self (QC): 5 Upper Body Dressing(FIM): 6 Upper Body Dressing (QC): 6 Lower Body Dressing(FIM): 5 Lower Body Dressing (QC): 5 On/Off Footwear (QC): 5 Toileting(FIM): 6 Toileting Hygiene (QC): 6 Toilet/Commode Transfer(FIM): 6 Toilet/Commode Transfer (QC): 6 Shower Transfer(FIM): 5 Comprehension(FIM): 4 Expression (FIM): 3 Social Interaction(FIM): 4 Additional Goals: 2-Verbalize Understanding, 3-ImproveStrength/[place] 1=Demonstrate adherence to instructed precautions during ADL tasks. 2=Patient will verbalize/demonstrate understanding of assistive devices/ modifications for ADL. 3=Patient will improve strength/tolerance for activity to enable patient to perform ADL's. OT Education/Plan Problem List/Assessment Pt s/p CVA with right side deficits. Pt demonstrates decreased mobility, strength, coordination, activity tolerance, and ADL functioning. Pt to benefit from skilled OT intervention for ADL training, transfers, strengthening, and safety education to increase level of independence and allow safe discharge plan. Discharge Recommendations Plan/Recommendations: Continue POC Treatment Plan/Plan of Care Patient would benefit from OT for education, treatment and training to promote independence in ADL's, mobility, safety and/or upper extremity function for ADL' s. Plan of Care: ADL Retraining, Functional Mobility, Group Exercise/Act as Ind, UE Funct Exercise/Act, UE Neuromus Re-Ed/Coord Treatment Duration: May 29, 2017 Frequency: Modified Program (IRF) (15/09) Estimated Hrs Per Day: 1.5 hours per day Agreement: Yes Rehab Potential: Guarded Time/GCodes Start Time: 14:00 Stop Time: 14:30 Total Time Billed (hr/min): 30 Billed Treatment Time visit, 30 minutes neuromotor SOPHIA CERVANTES OT May 09, 2017 16:39
[2017-05-09 18:00] VITALS: BP 110/69
[2017-05-10 05:05] VITALS: BP 111/71
[2017-05-10] MEDS: predniSONE 10 MG TAB PO SCH (06:27)
--- NOTE | 2017-05-10 08:58 | Physical Therapy Daily Note ---
PT Daily Note-Current Subjective Patient in bed pre tx, agrees to PT, no complaints of pain. Patient needs to get dressed lowers, which she does with max assist. Appearance Patient in recliner post tx with nurse call, phone, tray, all needs met. Visitor in the room with her. Mental Status Patient Orientation: Person, Place, Situation Transfers Functional [place] Measure 0=Not Assessed/NA 4=Minimal Assistance 1=Total Assistance 5=Supervision or Setup 2=Maximal Assistance 6=Modified [place] 3=Moderate Assistance 7=Complete IndependenceIRFPAI Quality Coding Scale 6 Independent with activity with or without an assistive device 5 Patient requires set up or clean up by helper. Patient completes activity by themselves 4 Supervision or touching assist (CGA). [place] provide cues , steadying assist 3 The helper provides less than half the effort to complete the activity 2 The helper provides more than half the effort to complete the activity 1 Dependent. The helper does all the effort to complete an activity 7 Patient refused to complete or attempt activity 9 The patient did not perform the activity before the current illness or injury 88 Not attempted due to Medical conditions or safety concerns Transfers (B, C, W/C) (FIM): 4 Scootin Sit to/from Stand: 4 Bed to/from Chair: 4 Car Transfer (QC): 4 Patient performs a stand pivot transfer with CGA to the left and min assist to the right side. She performs a car transfer with min assist to both sides and cues for positioning, more assist going to the right but not mod assist. Weight Bearing Right Lower Extremity: Right Weight Bearing/Tolerated Left Lower Extremity: Left Full Weight Bearing Gait Training Gait (FIM): 2 Distance: 70', 50' Gait Level of Assist: 4 Gait Persons Needed: 1 Gait Assistive Device: Walker Charly Patient needs min assist for weight shifting and trunk control, she is able to advance her right leg without assist if she has assist with her weight shifting. Patient uses a right AFO. Exercises NuStep Minutes: 15 NuStep Workload: 5 Treatments bed mobility and transfers, dressing, ambulation, functional strengthening Assessment Current Status: Fair Progress improving endurance and ambulation PT Short Term Goals Short Term Goals Time Frame: May 15, 2017 Transfers (B,C,W/C) (FIM): 4 Gait (FIM): 2 Distance (FIM): 6=655-65 ft Gait Distance Comment: 50 ft Gait Assistive Device: Walker Charly Wheelchair (FIM): 4 Wheelchair Distance: 150 ft x 3 PT Light Armored Vehicle Officer Goals Light Armored Vehicle Officer Goals PT Light Armored Vehicle Officer Goals Time Frame: May 29, 2017 Transfers (B,C,W/C) (FIM): 6 Sit to Lying (QC): 6 Lying-Sitting on Side/Bed(QC): 6 Sit to Stand (QC): 6 Rollin Roll Left to Right (QC): 6 Chair/Ztc-or-Lnqeg Xfer(QC): 6 Car Transfer (QC): 6 Does the Patient Walk: No and Walking Goal NOT indicated Gait (FIM): 6 Gait distance (FIM): 3=150 ft Walk 10 feet (QC): 6 Walk 10ft-Uneven Surface(QC): 6 Walk 50ft with 2 Turns (QC): 6 Walk 150 ft (QC): 6 Gait Level of Assist: 6 Gait Assistive Device: Walker Charly Does the Pt use WC or Scooter?: Yes Wheelchair (FIM): 6 Wheelchair distance (FIM): 3=150 ft Wheel 50 feet with 2 turns (QC: 6 Stairs (FIM): 5 # of Steps: 8 1 Step (curb) (QC): 5 4 Steps (QC): 5 12 Steps (QC): 88 Picking up an Object (QC): 4 PT Plan Problem List Problem List: Activity Tolerance, Functional Strength, Safety, Balance, Gait, Transfer, Bed Mobility Treatment/Plan Treatment Plan: Continue Plan of Care Treatment Plan: Bed Mobility, Education, Functional Activity Mas[place], Functional Strength, Group Therapy, Gait, Safety, Therapeutic Exercise, Transfers, Other Treatment Duration: May 22, 2017 Frequency: Modified Program (IRF) Estimated Hrs Per Day: 1.5 hours per day Patient and/or Family Agrees t: Yes Safety Risks/Education Patient Education: Gait Training, Transfer Techniques, Correct Positioning, Reviewed Don/Doff Brace, Safety Issues Teaching Recipient: Patient Teaching Methods: Demonstration, Discussion Response to Teaching: Reinforcement Needed Time/GCodes Time In: 800 Time Out: 900 Total Billed Treatment Time: 60 Total Billed Treatment 1 visit GT 30' EX 15' FA 15' GAETANO FRANK PT May 10, 2017 08:58
[2017-05-10 09:03] VITALS: BP 126/80
[2017-05-10] MEDS: lisINopril 40 MG (PRINIVIL) TABLET PO SCH (09:04)
[2017-05-10] MEDS: FLUoxetine HCL 20 MG (PROzac) CAP PO SCH (09:04)
[2017-05-10] MEDS: CARVEDILOL 12.5 MG (COREG) TABLET PO SCH ×2 (09:04→20:36)
[2017-05-10] MEDS: amLODIPine 5 MG (NORVASC) TAB PO SCH (09:04)
--- NOTE | 2017-05-10 11:13 | Speech Therapy Daily Note ---
Speech Daily Progress Note Subjective Date Seen by Provider: May 10, 2017 Time Seen by Provider: 09:00 The patient was sitting upright in recliner upon entrance. The patient greeted the clinician and was agreeable to participation in the speech and language evaluation. The patient is extremely excited regarding his day-pass for Saturday. The patient was encouraged to evaluate her home environment over the weekend and attempt to problem solve ways to modify her home environment to make it safer and more functional for use. Objective - Yes and No: The patient demonstrates 100% accuracy with yes and no questions, independently. - Phrase Completion: The patient demonstrates 100% accuracy with phrase completion on this date, independently. - Confrontational Naming (Black and White Photographs): The patient demonstrated 70% accuracy with confrontational naming of black and white photographs. The patient continues to demonstrate whole word paraphasias and require moderate clinician cueing in the form of initial phoneme prompt. The patient communicated appropriate responses (verbally) in correlation to conversational exchanges and questions (informal). Assessment Assessment Current Status: Good Progress Treatment Plan Continue Plan of Care Communication Comprehension: 3 Expression: 2 Social Cognition Social Interaction: 4 Problem Solvin Memory: 2 Speech Short Term Goals Short Term Goals Short Term Goals 1. The patient will demonstrate 70% accuracy with confrontational naming of ADL objects with minimal clinician cueing. 2. The patient will repeat short phrases with 70% accuracy and mild clinician verbal cueing. 3. The patient will respond to yes and now questions with 80% accuracy, independently. 4. The patient will be demonstrate simple orientation information with 100% accuracy. Time Frame-STG: Two Weeks Speech Alf Goals Dinkey Engineer Goals 1. The patient will demonstrate improved expressive and receptive communication for increased safety and function with ADL's. Time Frame: Six Weeks Comprehension: 4 Expression: 3 Social Interaction: 4 Speech-Plan Treatment Plan Speech Therapy Treatment Plan: Continue Plan of Care Continue skilled speech pathology to target functional expressive communication. Treatment Duration: Jun 13, 2017 Frequency: 5 times per week Estimated Hrs Per Day: .5 hour per day Rehab Potential: Guarded Safety Risks/Education Teaching Recipient: Patient, Significant Other Teaching Methods: Discussion Response to Teaching: Verbalize Understanding Education Topics Provided: Confrontational Naming of Pictures, Picture Description Time Speech Therapy Time In: 09:00 Speech Therapy Time Out: 09:30 Total Billed Time: 30 Billed Treatment Time 1ADRIANA ELIZABETH ST May 10, 2017 11:13
--- NOTE | 2017-05-10 11:37 | Occupational Ther Daily Note ---
OT Current Status-Daily Note Subjective Pt seen in room, up in bed, agreeable to OT. No pain mentioned. Appearance Alert, cooperative Mental Status/Objective Functional [place] Measure 0=Not Assessed/NA 4=Minimal Assistance 1=Total Assistance 5=Supervision or Setup 2=Maximal Assistance 6=Modified [place] 3=Moderate Assistance 7=Complete [place] ADL-Treatment Pt taken back to room and agreed to toilet transfer. She said she was last changed about half hour before tx and did not feel as if she needed to go. Sit to stand with grab bar and transfer to L side onto toilet with min assist. Mod assist transferring back to w/c to her right side - R leg appeared to buckle a little. Help needed to manage clothing. Pt transferred to recliner with CGA, chair alarm on, all needs met. Functional [place] Measure 0=Not Assessed/NA 4=Minimal Assistance 1=Total Assistance 5=Supervision or Setup 2=Maximal Assistance 6=Modified [place] 3=Moderate Assistance 7=Complete IndependenceIRFPAI Quality Coding Scale 6 Independent with activity with or without an assistive device 5 Patient requires set up or clean up by helper. Patient completes activity by themselves 4 Supervision or touching assist (CGA). [place] provide cues , steadying assist 3 The helper provides less than half the effort to complete the activity 2 The helper provides more than half the effort to complete the activity 1 Dependent. The helper does all the effort to complete an activity 7 Patient refused to complete or attempt activity 9 The patient did not perform the activity before the current illness or injury 88 Not attempted due to Medical conditions or safety concerns Toilet/Commode Transfer (FIM): 3 Other Treatment Pt transferred from bed to w/c with CGA, transferring to L side. She propelled chair to gym and locked brakes safely. Skilled facilitation techniques including e-stim to work on increasing functional use R UE. Worked on wrist extension and finger extension, finger flex, elbow extension. pt was able to slowly picker / packer R hand from side and placed it on her lap, with min assist. On tabletop, she was able to demonstrate elbow flexion and trace extension, shoulder movement to move a cone on tabletop. Unable to grasp cone intentionally. Cont with flexion synergy when yawning. Education OT Patient Education: Modified ADL techniques, Purpose of tx/functional activities, Transfer techniques Teaching Recipient: Patient Teaching Methods: Demonstration, Discussion Response to Teaching: Reinforcement Needed OT Short Term Goals Short Term Goals Time Frame: May 15, 2017 Grooming(FIM): 5 Upper Body Dressing(FIM): 4 Lower Body Dressing(FIM): 3 Toileting(FIM): 3 Transfers (B,C,W/C) (FIM): 4 Toilet/Commode Transfer(FIM): 4 Shower Transfer(FIM): 3 Additional Short Term Goals: 2-Verbalize Understanding, 3-ImproveStrength/[place] 1=Demonstrate adherence to instructed precautions during ADL tasks. 2=Patient will verbalize/demonstrate understanding of assistive devices/ modifications for ADL. 3=Patient will improve strength/tolerance for activity to enable patient to perform ADL's. OT Loading Unit Operator Goals Loading Unit Operator Goals Time Frame: May 29, 2017 Eating (FIM): 6 Eating (QC): 6 Groomin Oral Hygiene (QC): 6 Bathing(FIM): 5 Shower/Bathe Self (QC): 5 Upper Body Dressing(FIM): 6 Upper Body Dressing (QC): 6 Lower Body Dressing(FIM): 5 Lower Body Dressing (QC): 5 On/Off Footwear (QC): 5 Toileting(FIM): 6 Toileting Hygiene (QC): 6 Toilet/Commode Transfer(FIM): 6 Toilet/Commode Transfer (QC): 6 Shower Transfer(FIM): 5 Comprehension(FIM): 4 Expression (FIM): 3 Social Interaction(FIM): 4 Additional Goals: 2-Verbalize Understanding, 3-ImproveStrength/[place] 1=Demonstrate adherence to instructed precautions during ADL tasks. 2=Patient will verbalize/demonstrate understanding of assistive devices/ modifications for ADL. 3=Patient will improve strength/tolerance for activity to enable patient to perform ADL's. OT Education/Plan Problem List/Assessment Pt s/p CVA with right side deficits. Pt demonstrates decreased mobility, strength, coordination, activity tolerance, and ADL functioning. Pt to benefit from skilled OT intervention for ADL training, transfers, strengthening, and safety education to increase level of independence and allow safe discharge plan. Discharge Recommendations Plan/Recommendations: Continue POC Treatment Plan/Plan of Care Patient would benefit from OT for education, treatment and training to promote independence in ADL's, mobility, safety and/or upper extremity function for ADL' s. Plan of Care: ADL Retraining, Functional Mobility, Group Exercise/Act as Ind, UE Funct Exercise/Act, UE Neuromus Re-Ed/Coord Treatment Duration: May 29, 2017 Frequency: Modified Program (IRF) (15/09) Estimated Hrs Per Day: 1.5 hours per day Agreement: Yes Rehab Potential: Guarded Time/GCodes Start Time: 10:40 Stop Time: 11:30 Total Time Billed (hr/min): 50 Billed Treatment Time visit, 40 minutes neuromotor, 10 minutes ADL SOPHIA CERVANTES OT May 10, 2017 11:37
--- NOTE | 2017-05-10 12:47 | Progress Note (SOAP) ---
Subjective Time Seen by Provider: 12:46 Subjective/Events-last exam CVA. Aphagia. Patient doing better. Patient talking better Objective Exam Vital Signs Date Time Temp Pulse Resp B/P (MAP) Pulse Ox O2 Delivery O2 Flow Rate FiO2 05/10/17 09:03 73 126/80 (95) 05/10/17 09:00 Room Air 05/10/17 05:05 98.5 63 18 111/71 (84) 98 Room Air 05/09/17 20:50 Room Air 05/09/17 18:00 97.8 73 17 110/69 (83) 99 Room Air I & O 05/10/17 07:00 Intake Total 850 ml Balance 850 ml Capillary Refill : General Appearance: No Apparent Distress, WD/WN Assessment/Plan Assessment/Plan Assess & Plan/Chief Complaint CVA on right. History of meth abuse. Decrease cognitive function. . 05/06/17. CVA on right. Aphasia. Patient wants to eat food.. . 05/07/17. CVA in right. A fascia talking better. Patient needing foot. . 05/08/17. CVA in right. Aphasia talking better. Patient on prednisone. . . CVA on right. A fascia talking better. . 05/10/17 CVA on right. Talking better. Patient seems happy Clinical Quality Measures DVT/VTE Risk/Contraindication: Risk Factor Score Per Nursin RFS Level Per Nursing on Admit: 2=Moderate FLACO RUIZ DO May 10, 2017 12:47
--- NOTE | 2017-05-10 14:24 | Therapy Group Daily Note ---
Therapy Daily Group Note Patient Education Topic Other List Below (balance and fall prevention) Exercises LE Seated Exercise, UE Exercise Other/Notes Pt maneuvered w/c to OT/PT group. Group consisted of introductions (name, place living, best date), socialization, UE/LE seated exercises and education on balance and fall prevention. Pt was able to appropriately introduce self and actively listen to peers introduce themselves. Pt voice continues to get stronger. Pt then demonstrated cognitive ability to read exercises card and lead group in exercises. Pt listened attentively to education and gave examples that demonstrated knowledge and understanding of educational topic. Pt maneuvered w/c to room and attempted to transfer self to bed. Pt lying on stomach on bed, VILLA assisted pt to positioned. Safety measures in place, nrsg notified. Call light/phone in reach. All needs met in room. Start Time: 13:00 Stop Time: 14:00 Total Billed Treatment Time: 60 Total Billed Treatment 1-GRP MARIAN LUONG May 10, 2017 14:24
[2017-05-10 18:02] VITALS: BP 114/68
[2017-05-11 06:08] VITALS: BP 119/77
[2017-05-11] MEDS: predniSONE 10 MG TAB PO SCH (06:08)
[2017-05-11 08:21] VITALS: BP 119/74
[2017-05-11] MEDS: amLODIPine 5 MG (NORVASC) TAB PO SCH (08:22)
[2017-05-11] MEDS: CARVEDILOL 12.5 MG (COREG) TABLET PO SCH (08:22)
[2017-05-11] MEDS: lisINopril 40 MG (PRINIVIL) TABLET PO SCH (08:22)
[2017-05-11] MEDS: FLUoxetine HCL 20 MG (PROzac) CAP PO SCH (08:22)
--- NOTE | 2017-05-11 13:04 | Physical Therapy Daily Note ---
PT Daily Note-Current Subjective Pt agreeable to work with PT. Transfers Functional [place] Measure 0=Not Assessed/NA 4=Minimal Assistance 1=Total Assistance 5=Supervision or Setup 2=Maximal Assistance 6=Modified [place] 3=Moderate Assistance 7=Complete IndependenceIRFPAI Quality Coding Scale 6 Independent with activity with or without an assistive device 5 Patient requires set up or clean up by helper. Patient completes activity by themselves 4 Supervision or touching assist (CGA). [place] provide cues , steadying assist 3 The helper provides less than half the effort to complete the activity 2 The helper provides more than half the effort to complete the activity 1 Dependent. The helper does all the effort to complete an activity 7 Patient refused to complete or attempt activity 9 The patient did not perform the activity before the current illness or injury 88 Not attempted due to Medical conditions or safety concerns Weight Bearing Right Lower Extremity: Right Weight Bearing/Tolerated Left Lower Extremity: Left Full Weight Bearing Gait Training Gait (FIM): 2 Distance (FIM): 4=426-87 ft Distance: 100 Gait Level of Assist: 4 Gait Persons Needed: 1 Gait Assistive Device: Walker Charly series of short walks using a hemiwalker with education on sequence and device placement. Worked approach to chairs with right and left hand 180 deg turns to sit. Pt has tendency to have excessive forward lean during gait. Exercises utilized right arm and leg attachment on nustep to allow reciprocal motion in the upper and lower extremities. Encouraged pushoff with right leg. NuStep Minutes: 10 NuStep Workload: 5 PT Short Term Goals Short Term Goals Time Frame: May 15, 2017 Transfers (B,C,W/C) (FIM): 4 Gait (FIM): 2 Distance (FIM): 2=650-07 ft Gait Distance Comment: 50 ft Gait Assistive Device: Walker Charly Wheelchair (FIM): 4 Wheelchair Distance: 150 ft x 3 PT Halfway Goals Academic Guidance Specialist Goals PT Halfway Goals Time Frame: May 29, 2017 Transfers (B,C,W/C) (FIM): 6 Sit to Lying (QC): 6 Lying-Sitting on Side/Bed(QC): 6 Sit to Stand (QC): 6 Rollin Roll Left to Right (QC): 6 Chair/Hqp-bn-Viejg Xfer(QC): 6 Car Transfer (QC): 6 Does the Patient Walk: No and Walking Goal NOT indicated Gait (FIM): 6 Gait distance (FIM): 3=150 ft Walk 10 feet (QC): 6 Walk 10ft-Uneven Surface(QC): 6 Walk 50ft with 2 Turns (QC): 6 Walk 150 ft (QC): 6 Gait Level of Assist: 6 Gait Assistive Device: Walker Charly Does the Pt use WC or Scooter?: Yes Wheelchair (FIM): 6 Wheelchair distance (FIM): 3=150 ft Wheel 50 feet with 2 turns (QC: 6 Stairs (FIM): 5 # of Steps: 8 1 Step (curb) (QC): 5 4 Steps (QC): 5 12 Steps (QC): 88 Picking up an Object (QC): 4 PT Plan Treatment/Plan Treatment Plan: Continue Plan of Care Treatment Plan: Bed Mobility, Education, Functional Activity Masoud, Functional Strength, Group Therapy, Gait, Safety, Therapeutic Exercise, Transfers, Other Treatment Duration: May 22, 2017 Frequency: Modified Program (IRF) Estimated Hrs Per Day: 1.5 hours per day Patient and/or Family Agrees t: Yes Time/GCodes Time In: 1235 Time Out: 1310 Total Billed Treatment Time: 30 Total Billed Treatment visit, gait 20min, ex 10 min ALON CHU PT May 11, 2017 13:04
[2017-05-12 00:10] VITALS: BP 158/95
[2017-05-12] MEDS: CARVEDILOL 12.5 MG (COREG) TABLET PO SCH ×3 (00:15→20:18)
[2017-05-12 06:00] VITALS: BP 121/78
[2017-05-12] MEDS: predniSONE 10 MG TAB PO SCH (06:29)
--- NOTE | 2017-05-12 06:54 | Progress Note-Standard ---
Standard Progress Note Progress Notes/Assess & Plan Date Seen by Provider: May 12, 2017 Time Seen by Provider: 06:30 Progress/Assessment & Plan ENT-Joseph Patient not available when past to see her on sat If there are further or continuing speech concerns please call our office and we will be happy to see again review fo the speech notes showed proression in her sppech Let us know if we can do anything else or need to follow up and we shi arrange it thanks AMANDA FAN MD May 12, 2017 6:54 am
[2017-05-12 08:37] VITALS: BP 134/83
[2017-05-12] MEDS: FLUoxetine HCL 20 MG (PROzac) CAP PO SCH (08:37)
[2017-05-12] MEDS: amLODIPine 5 MG (NORVASC) TAB PO SCH (08:38)
[2017-05-12] MEDS: lisINopril 40 MG (PRINIVIL) TABLET PO SCH (08:38)
[2017-05-12 17:00] VITALS: BP 112/53
[2017-05-13 05:39] VITALS: BP 116/74
[2017-05-13] MEDS: predniSONE 10 MG TAB PO SCH (06:03)
[2017-05-13 08:16] VITALS: BP 132/83
[2017-05-13] MEDS: lisINopril 40 MG (PRINIVIL) TABLET PO SCH (08:16)
[2017-05-13] MEDS: CARVEDILOL 12.5 MG (COREG) TABLET PO SCH ×2 (08:17→20:14)
[2017-05-13] MEDS: amLODIPine 5 MG (NORVASC) TAB PO SCH (08:17)
[2017-05-13] MEDS: FLUoxetine HCL 20 MG (PROzac) CAP PO SCH (08:17)
--- NOTE | 2017-05-13 10:35 | Speech Therapy Daily Note ---
Speech Daily Progress Note Subjective Date Seen by Provider: May 13, 2017 Time Seen by Provider: 09:15 The patient was seated upright in recliner upon entrance. The patient greeted the clinician upon entrance. The patient was agreeable to participation in the speech and language session. The patient demonstrates improved vocal quality on this date. While the patient' s quality remains somewhat breathy, she is able to increase vocal intensity at this time. Objective As the patient's language improves, the speech pathologist is interested in assessing cognitive function. Due to this, the [place] Cognitive Assessment was provided with the following results: - Naming: The patient demonstrated 100% accuracy with naming black and white photographs. While the patient stated one occurrence of paraphasia, she was able to self-correct to an accurate response. - Attention: The patient demonstrated difficulty with backwards repetition and serial subtraction. The patient was able to identify a specific letter in a string of letters. - Language: The patient was able to repeat short phrases, however, could not complete word finding or find similarities between two items. - Memory: The patient was able to recall five items immediately and zero items following five minutes. - Orientation: The patient was oriented to date, month, year, day, and city ( independently). The patient demonstrated a result of +13/25 correlating to a moderate cognitive deficit. Assessment Assessment Current Status: Fair Progress Treatment Plan Continue Plan of Care Communication Comprehension: 3 Expression: 2 Social Cognition Social Interaction: 4 Problem Solvin Memory: 2 Speech Short Term Goals Short Term Goals Short Term Goals 1. The patient will demonstrate 70% accuracy with confrontational naming of ADL objects with minimal clinician cueing. 2. The patient will repeat short phrases with 70% accuracy and mild clinician verbal cueing. 3. The patient will respond to yes and now questions with 80% accuracy, independently. 4. The patient will be demonstrate simple orientation information with 100% accuracy. Time Frame-STG: Two Weeks Speech Cadastral Surveyor Goals Cadastral Surveyor Goals 1. The patient will demonstrate improved expressive and receptive communication for increased safety and function with ADL's. Time Frame: Six Weeks Comprehension: 4 Expression: 3 Social Interaction: 4 Speech-Plan Treatment Plan Speech Therapy Treatment Plan: Continue Plan of Care Continue skilled speech pathology to target functional expressive communication. Treatment Duration: Jun 13, 2017 Frequency: 5 times per week Estimated Hrs Per Day: .5 hour per day Rehab Potential: Guarded Safety Risks/Education Teaching Recipient: Patient Teaching Methods: Discussion Response to Teaching: Verbalize Understanding Education Topics Provided: Word Finding Strategies Time Speech Therapy Time In: 09:15 Speech Therapy Time Out: 09:45 Total Billed Time: 30 Billed Treatment Time 1ADRIANA ELIZABETH ST May 13, 2017 10:35
--- NOTE | 2017-05-13 11:35 | Physical Therapy Daily Note ---
PT Daily Note-Current Subjective Pt waves and says gabrielle as this therapist enters the door. Reports she went on a home pass this weekend and it went well. Reports she is willing to stay a bit longer to get stronger and safer. Mental Status Patient Orientation: Person, Place, Time, Situation Transfers Functional [place] Measure 0=Not Assessed/NA 4=Minimal Assistance 1=Total Assistance 5=Supervision or Setup 2=Maximal Assistance 6=Modified [place] 3=Moderate Assistance 7=Complete IndependenceIRFPAI Quality Coding Scale 6 Independent with activity with or without an assistive device 5 Patient requires set up or clean up by helper. Patient completes activity by themselves 4 Supervision or touching assist (CGA). [place] provide cues , steadying assist 3 The helper provides less than half the effort to complete the activity 2 The helper provides more than half the effort to complete the activity 1 Dependent. The helper does all the effort to complete an activity 7 Patient refused to complete or attempt activity 9 The patient did not perform the activity before the current illness or injury 88 Not attempted due to Medical conditions or safety concerns Transfers (B, C, W/C) (FIM): 4 Supine to/from Sit: 5 Sit to/from Stand: 4 (CGA for safety) Sit to Lying (QC): 5 Sit to Stand (QC): 4 Chair/Dct-pu-Onjtg Xfer(QC): 4 (skilled cues for hand placement and positioning. ) Weight Bearing Right Lower Extremity: Right Weight Bearing/Tolerated Left Lower Extremity: Left Full Weight Bearing Gait Training Does the Patient Walk?: Yes Gait (FIM): 4 Distance (FIM): 3=150 ft Distance: 150 ft x 2 and 75 ft x 2 Walk 10 feet (QC): 4 Walk 50 ft with 2 Turns(QC): 4 Walk 150 ft (QC): 4 Gait Assistive Device: Walker Charly Pt used AFO part of the time and did not use it part of th etime. Her toe clearance is the same with/without the AFO but it also provided ankle stability as her foot wants to invert but as she steps she is able to activitly control and hit foot flat. Feel for training and ankle strengthening purposes, will try to walk without the AFO in a controlled situation. However, if she has trouble with it rolling will use the AFO. Wheelchair Training Does the Pt Use a Wheelchair?: Yes Wheelchair (FIM): 5 Wheelchair Distance: 3=150 ft Type of Wheelchair: Manual Stair Training Stair Training: Handrails/: 1 handrail Stairs (FIM): 2 #of Steps: 8 1 Step (curb) (QC): 4 4 Steps (QC): 4 Stairs: Pattern: Step to Education and rationale provided as to why the sequencing is important. She voiced understanding. Exercises Supine Ex: Bridging, Ankle pumps, Quad Set, Glut sets, Heel Slides, Short Arc Quads, Straight leg raise, Hip abd/add Supine Reps: 15 (LE strength for improved gait and transfers. ) Assessment Current Status: Good Progress Gait and transfers continue to improve. As she fatigues, her balance diminishes and may need steadying assist but no noted LOB this visit. Pt reports her home visit went well. Pt continues to make significant gains and will beneift from continued skilled Intervention to progress her indep at home. PT Short Term Goals Short Term Goals Time Frame: May 15, 2017 Transfers (B,C,W/C) (FIM): 4 Gait (FIM): 2 (me) Distance (FIM): 7=183-62 ft Gait Distance Comment: 50 ft Gait Assistive Device: Walker Charly Wheelchair (FIM): 4 (met) Wheelchair Distance: 150 ft x 3 PT Half-Way Goals Half-Way Goals PT Half-Way Goals Time Frame: May 29, 2017 Transfers (B,C,W/C) (FIM): 6 Sit to Lying (QC): 6 Lying-Sitting on Side/Bed(QC): 6 Sit to Stand (QC): 6 Rollin Roll Left to Right (QC): 6 Chair/Zrx-hv-Lgbyh Xfer(QC): 6 Car Transfer (QC): 6 Does the Patient Walk: No and Walking Goal NOT indicated Gait (FIM): 6 Gait distance (FIM): 3=150 ft Walk 10 feet (QC): 6 Walk 10ft-Uneven Surface(QC): 6 Walk 50ft with 2 Turns (QC): 6 Walk 150 ft (QC): 6 Gait Level of Assist: 6 Gait Assistive Device: Walker Charly Does the Pt use WC or Scooter?: Yes Wheelchair (FIM): 6 Wheelchair distance (FIM): 3=150 ft Wheel 50 feet with 2 turns (QC: 6 Stairs (FIM): 5 # of Steps: 8 1 Step (curb) (QC): 5 4 Steps (QC): 5 12 Steps (QC): 88 Picking up an Object (QC): 4 PT Plan Problem List Problem List: Activity Tolerance, Functional Strength, Safety, Balance, Gait, Transfer, Bed Mobility Treatment/Plan Treatment Plan: Continue Plan of Care Treatment Plan: Bed Mobility, Education, Functional Activity Masoud, Functional Strength, Group Therapy, Gait, Safety, Therapeutic Exercise, Transfers, Other Treatment Duration: May 22, 2017 Frequency: Modified Program (IRF) Estimated Hrs Per Day: 1.5 hours per day Patient and/or Family Agrees t: Yes Safety Risks/Education Patient Education: Safety Issues Teaching Recipient: Patient Teaching Methods: Demonstration, Discussion Response to Teaching: Reinforcement Needed Time/GCodes Time In: 815 Time Out: 915 Total Billed Treatment Time: 60 Total Billed Treatment visit EX 15 GT 30 WC 15 MARIAN VALENCIA PT May 13, 2017 11:35
--- NOTE | 2017-05-13 13:03 | Occupational Ther Daily Note ---
OT Current Status-Daily Note Subjective Pt seen in room, up in recliner, agreeable to OT. Said pass went well except for toileting. Appearance Alert, cooperative. Mental Status/Objective Functional [place] Measure 0=Not Assessed/NA 4=Minimal Assistance 1=Total Assistance 5=Supervision or Setup 2=Maximal Assistance 6=Modified [place] 3=Moderate Assistance 7=Complete [place] ADL-Treatment Pt transferred to w/c to her L with CGA. She propelled herself to bathroom and positioned w/c for shower transfer, with cues to lock brakes. Transfer to L to shower bench with CGA, using grab bar, skilled cues to check R foot placement. Pt was unable to shower due to unavailability of hot enough water but did do sponge bath in shower. transferred with min assist back to w/c to her R side. Pt used grab bars by toilet for standing for lower body dressing. For both dressing and shower transfers, R hand placed on grab bar to be in position to help with stability. Unable to grasp bar and hold on without help. Pt transferred to bed at end of tx, 4 rails up, all needs met. Functional [place] Measure 0=Not Assessed/NA 4=Minimal Assistance 1=Total Assistance 5=Supervision or Setup 2=Maximal Assistance 6=Modified [place] 3=Moderate Assistance 7=Complete IndependenceIRFPAI Quality Coding Scale 6 Independent with activity with or without an assistive device 5 Patient requires set up or clean up by helper. Patient completes activity by themselves 4 Supervision or touching assist (CGA). [place] provide cues , steadying assist 3 The helper provides less than half the effort to complete the activity 2 The helper provides more than half the effort to complete the activity 1 Dependent. The helper does all the effort to complete an activity 7 Patient refused to complete or attempt activity 9 The patient did not perform the activity before the current illness or injury 88 Not attempted due to Medical conditions or safety concerns Grooming (FIM): 5 (brushed teeth with setup at sink, w/c level. ) Bathing (FIM): 4 (Shower bench, grab bar.) Bathing Location: L Arm, L Upper Leg, R Upper Leg, L Lower Leg (including foot) , R Lower Leg (including foot), Chest, Abdomen, Perineal Area Upper Body (FIM): 4 (Recalled modified technique. A little help to get R hand in shirt but she got it over her head and pulled down) Lower Body Dressing (FIM): 3 (Able to get feet into briefs but a little help needed with pants. Min assist to stand, wth OT pulling pants up. She could put socks on but needed help with shoes. pt interested in elastic shoe laces for shoes) Transfers (B, C, W/C) (FIM): 4 Shower Transfer(FIM): 4 Pt is interested in staying longer and not discharging on Saturday, which would be helpful to her Education OT Patient Education: Modified ADL techniques, Progress toward Goal/Update tx plan, Purpose of tx/functional activities, Safety issues, Transfer techniques Teaching Recipient: Patient Teaching Methods: Demonstration, Discussion Response to Teaching: Verbalize Understanding, Return Demonstration, Reinforcement Needed OT Short Term Goals Short Term Goals Time Frame: May 15, 2017 Grooming(FIM): 5 Upper Body Dressing(FIM): 4 Lower Body Dressing(FIM): 3 Toileting(FIM): 3 Transfers (B,C,W/C) (FIM): 4 Toilet/Commode Transfer(FIM): 4 Shower Transfer(FIM): 3 Additional Short Term Goals: 2-Verbalize Understanding, 3-ImproveStrength/Masoud 1=Demonstrate adherence to instructed precautions during ADL tasks. 2=Patient will verbalize/demonstrate understanding of assistive devices/ modifications for ADL. 3=Patient will improve strength/tolerance for activity to enable patient to perform ADL's. OT Mcc Goals Mcc Goals Time Frame: May 29, 2017 Eating (FIM): 6 Eating (QC): 6 Groomin Oral Hygiene (QC): 6 Bathing(FIM): 5 Shower/Bathe Self (QC): 5 Upper Body Dressing(FIM): 6 Upper Body Dressing (QC): 6 Lower Body Dressing(FIM): 5 Lower Body Dressing (QC): 5 On/Off Footwear (QC): 5 Toileting(FIM): 6 Toileting Hygiene (QC): 6 Toilet/Commode Transfer(FIM): 6 Toilet/Commode Transfer (QC): 6 Shower Transfer(FIM): 5 Comprehension(FIM): 4 Expression (FIM): 3 Social Interaction(FIM): 4 Additional Goals: 2-Verbalize Understanding, 3-ImproveStrength/Masoud 1=Demonstrate adherence to instructed precautions during ADL tasks. 2=Patient will verbalize/demonstrate understanding of assistive devices/ modifications for ADL. 3=Patient will improve strength/tolerance for activity to enable patient to perform ADL's. OT Education/Plan Problem List/Assessment Pt s/p CVA with right side deficits. Pt demonstrates decreased mobility, strength, coordination, activity tolerance, and ADL functioning. Pt to benefit from skilled OT intervention for ADL training, transfers, strengthening, and safety education to increase level of independence and allow safe discharge plan. Discharge Recommendations Plan/Recommendations: Continue POC Treatment Plan/Plan of Care Patient would benefit from OT for education, treatment and training to promote independence in ADL's, mobility, safety and/or upper extremity function for ADL' s. Plan of Care: ADL Retraining, Functional Mobility, Group Exercise/Act as Ind, UE Funct Exercise/Act, UE Neuromus Re-Ed/Coord Treatment Duration: May 29, 2017 Frequency: Modified Program (IRF) (15/09) Estimated Hrs Per Day: 1.5 hours per day Agreement: Yes Rehab Potential: Guarded Time/GCodes Start Time: 10:00 Stop Time: 10:45 Total Time Billed (hr/min): 30 Billed Treatment Time visit, 45 minutes ADL SOPHIA CERVANTES OT May 13, 2017 13:03
--- NOTE | 2017-05-13 14:59 | Physical Therapy Daily Note ---
PT Daily Note-Current Subjective Agrees. No complaints. Transfers Functional [place] Measure 0=Not Assessed/NA 4=Minimal Assistance 1=Total Assistance 5=Supervision or Setup 2=Maximal Assistance 6=Modified [place] 3=Moderate Assistance 7=Complete IndependenceIRFPAI Quality Coding Scale 6 Independent with activity with or without an assistive device 5 Patient requires set up or clean up by helper. Patient completes activity by themselves 4 Supervision or touching assist (CGA). [place] provide cues , steadying assist 3 The helper provides less than half the effort to complete the activity 2 The helper provides more than half the effort to complete the activity 1 Dependent. The helper does all the effort to complete an activity 7 Patient refused to complete or attempt activity 9 The patient did not perform the activity before the current illness or injury 88 Not attempted due to Medical conditions or safety concerns Weight Bearing Right Lower Extremity: Right Weight Bearing/Tolerated Left Lower Extremity: Left Full Weight Bearing Treatments Supine to sit EOB with SBA. Pt ambulated 10 ft x 5 reps with hemiwalker with CGA. Transferred on/off Nu step with CGA. Nu step x 15 minutes for LE strength and CV activitiy tolerance. Assessment Current Status: Good Progress Progressing with functional mobility. PT Short Term Goals Short Term Goals Time Frame: May 15, 2017 Transfers (B,C,W/C) (FIM): 4 Gait (FIM): 2 (me) Distance (FIM): 2=568-02 ft Gait Distance Comment: 50 ft Gait Assistive Device: Walker Charly Wheelchair (FIM): 4 (met) Wheelchair Distance: 150 ft x 3 PT Water Fitness Instructor Goals Halfway Goals PT Halfway Goals Time Frame: May 29, 2017 Transfers (B,C,W/C) (FIM): 6 Sit to Lying (QC): 6 Lying-Sitting on Side/Bed(QC): 6 Sit to Stand (QC): 6 Rollin Roll Left to Right (QC): 6 Chair/Gxv-kx-Thncw Xfer(QC): 6 Car Transfer (QC): 6 Does the Patient Walk: No and Walking Goal NOT indicated Gait (FIM): 6 Gait distance (FIM): 3=150 ft Walk 10 feet (QC): 6 Walk 10ft-Uneven Surface(QC): 6 Walk 50ft with 2 Turns (QC): 6 Walk 150 ft (QC): 6 Gait Level of Assist: 6 Gait Assistive Device: Walker Charly Does the Pt use WC or Scooter?: Yes Wheelchair (FIM): 6 Wheelchair distance (FIM): 3=150 ft Wheel 50 feet with 2 turns (QC: 6 Stairs (FIM): 5 # of Steps: 8 1 Step (curb) (QC): 5 4 Steps (QC): 5 12 Steps (QC): 88 Picking up an Object (QC): 4 PT Plan Problem List Problem List: Activity Tolerance, Functional Strength, Safety Treatment/Plan Treatment Plan: Continue Plan of Care Treatment Plan: Bed Mobility, Education, Functional Activity Masoud, Functional Strength, Group Therapy, Gait, Safety, Therapeutic Exercise, Transfers, Other Treatment Duration: May 22, 2017 Frequency: Modified Program (IRF) Estimated Hrs Per Day: 1.5 hours per day Patient and/or Family Agrees t: Yes Safety Risks/Education Patient Education: Transfer Techniques Teaching Recipient: Patient Teaching Methods: Discussion Response to Teaching: Return Demonstration Time/GCodes Time In: 1300 Time Out: 1325 Total Billed Treatment Time: 25 Total Billed Treatment visit EX 15 FA 10 MARIAN VALENCIA PT May 13, 2017 14:59
--- NOTE | 2017-05-13 16:32 | Occupational Ther Daily Note ---
OT Current Status-Daily Note Subjective Pt seen in room, up in recliner, agreeable to OT. SO discussed difficulty with pt standing at home for toileting, over weekend Mental Status/Objective Functional [place] Measure 0=Not Assessed/NA 4=Minimal Assistance 1=Total Assistance 5=Supervision or Setup 2=Maximal Assistance 6=Modified [place] 3=Moderate Assistance 7=Complete [place] ADL-Treatment Functional [place] Measure 0=Not Assessed/NA 4=Minimal Assistance 1=Total Assistance 5=Supervision or Setup 2=Maximal Assistance 6=Modified [place] 3=Moderate Assistance 7=Complete IndependenceIRFPAI Quality Coding Scale 6 Independent with activity with or without an assistive device 5 Patient requires set up or clean up by helper. Patient completes activity by themselves 4 Supervision or touching assist (CGA). [place] provide cues , steadying assist 3 The helper provides less than half the effort to complete the activity 2 The helper provides more than half the effort to complete the activity 1 Dependent. The helper does all the effort to complete an activity 7 Patient refused to complete or attempt activity 9 The patient did not perform the activity before the current illness or injury 88 Not attempted due to Medical conditions or safety concerns Other Treatment Pt demonstrating sit to stand with CGA and maintaining balance, using valente walker with L UE so that someone might assist her with managing clothing for toileting. SO verbalized understanding. pt transferred with CGA to L side to recliner. She propelled w/c to gym, needing skilled cues every 3-4 feet to move R foot to help with propelling. In gym, she was able to lift R hand from her side to place it on her lap. Trace finger flex observed. Skilled facilitation techniques including e stim to work on functional use R UE, especially wrist extension and finger flexion. Pt pleased with progress. Pt returned to room, transferred to bed CGA, 4 rails up, all needs met. Education OT Patient Education: Progress toward Goal/Update tx plan, Purpose of tx/ functional activities Teaching Recipient: Patient, Significant Other Teaching Methods: Demonstration, Discussion Response to Teaching: Verbalize Understanding, Return Demonstration, Reinforcement Needed OT Short Term Goals Short Term Goals Time Frame: May 15, 2017 Grooming(FIM): 5 Upper Body Dressing(FIM): 4 Lower Body Dressing(FIM): 3 Toileting(FIM): 3 Transfers (B,C,W/C) (FIM): 4 Toilet/Commode Transfer(FIM): 4 Shower Transfer(FIM): 3 Additional Short Term Goals: 2-Verbalize Understanding, 3-ImproveStrength/Masoud 1=Demonstrate adherence to instructed precautions during ADL tasks. 2=Patient will verbalize/demonstrate understanding of assistive devices/ modifications for ADL. 3=Patient will improve strength/tolerance for activity to enable patient to perform ADL's. OT Pulp Grinder And Blender Goals Usp Goals Time Frame: May 29, 2017 Eating (FIM): 6 Eating (QC): 6 Groomin Oral Hygiene (QC): 6 Bathing(FIM): 5 Shower/Bathe Self (QC): 5 Upper Body Dressing(FIM): 6 Upper Body Dressing (QC): 6 Lower Body Dressing(FIM): 5 Lower Body Dressing (QC): 5 On/Off Footwear (QC): 5 Toileting(FIM): 6 Toileting Hygiene (QC): 6 Toilet/Commode Transfer(FIM): 6 Toilet/Commode Transfer (QC): 6 Shower Transfer(FIM): 5 Comprehension(FIM): 4 Expression (FIM): 3 Social Interaction(FIM): 4 Additional Goals: 2-Verbalize Understanding, 3-ImproveStrength/Mas[place] 1=Demonstrate adherence to instructed precautions during ADL tasks. 2=Patient will verbalize/demonstrate understanding of assistive devices/ modifications for ADL. 3=Patient will improve strength/tolerance for activity to enable patient to perform ADL's. OT Education/Plan Problem List/Assessment Pt s/p CVA with right side deficits. Pt demonstrates decreased mobility, strength, coordination, activity tolerance, and ADL functioning. Pt to benefit from skilled OT intervention for ADL training, transfers, strengthening, and safety education to increase level of independence and allow safe discharge plan. Discharge Recommendations Plan/Recommendations: Continue POC Treatment Plan/Plan of Care Patient would benefit from OT for education, treatment and training to promote independence in ADL's, mobility, safety and/or upper extremity function for ADL' s. Plan of Care: ADL Retraining, Functional Mobility, Group Exercise/Act as Ind, UE Funct Exercise/Act, UE Neuromus Re-Ed/Coord Treatment Duration: May 29, 2017 Frequency: Modified Program (IRF) (15/09) Estimated Hrs Per Day: 1.5 hours per day Agreement: Yes Rehab Potential: Guarded Time/GCodes Start Time: 14:10 Stop Time: 14:40 Total Time Billed (hr/min): 30 Billed Treatment Time visit, 30 minutes neuromotor SOPHIA CERVANTES OT May 13, 2017 16:32
[2017-05-13 17:47] VITALS: BP 121/74
--- NOTE | 2017-05-13 18:02 | Progress Note (SOAP) ---
Subjective Time Seen by Provider: 18:00 Subjective/Events-last exam CVA. Meth use. Patient speaking clearly and better and louder Focused Exam Respiratory: Chest Non Tender, Normal Breath Sounds, No Accessory Muscle Use, No Respiratory Distress Cardiovascular: Regular Rate, Rhythm, No Murmur Objective Exam Vital Signs Date Time Temp Pulse Resp B/P (MAP) Pulse Ox O2 Delivery O2 Flow Rate FiO2 05/13/17 17:47 96.9 71 16 121/74 (90) 99 Room Air 05/13/17 09:00 Room Air 05/13/17 08:16 70 132/83 (99) 05/13/17 05:39 98.5 65 16 116/74 (88) 100 Room Air 05/12/17 20:20 Room Air I & O 05/13/17 07:00 Intake Total 982 ml Balance 982 ml Capillary Refill : General Appearance: No Apparent Distress, WD/WN HEENT: Normal ENT Inspection Neck: Full Range of Motion Respiratory: Chest Non Tender, No Accessory Muscle Use, No Respiratory Distress Cardiovascular: Regular Rate, Rhythm Gastrointestinal: non tender, soft Assessment/Plan Assessment/Plan Assess & Plan/Chief Complaint CVA on right. History of meth abuse. Decrease cognitive function. . 05/06/17. CVA on right. Aphasia. Patient wants to eat food.. . 05/07/17. CVA in right. A fascia talking better. Patient needing foot. . 05/08/17. CVA in right. Aphasia talking better. Patient on prednisone. . . CVA on right. A fascia talking better. . 05/10/17 CVA on right. Talking better. Patient seems happy. . 05/13/17. CVA on right. Patient talking better and latter. Right hand still a problem. Right leg improving Clinical Quality Measures DVT/VTE Risk/Contraindication: Risk Factor Score Per Nursin RFS Level Per Nursing on Admit: 2=Moderate FLACO RUIZ DO May 13, 2017 18:02
[2017-05-14 06:13] VITALS: BP 123/80
[2017-05-14] MEDS: predniSONE 10 MG TAB PO SCH (06:25)
[2017-05-14] MEDS: lisINopril 40 MG (PRINIVIL) TABLET PO SCH (08:14)
[2017-05-14] MEDS: FLUoxetine HCL 20 MG (PROzac) CAP PO SCH (08:14)
[2017-05-14] MEDS: CARVEDILOL 12.5 MG (COREG) TABLET PO SCH ×2 (08:14→20:22)
[2017-05-14] MEDS: amLODIPine 5 MG (NORVASC) TAB PO SCH (08:14)
--- NOTE | 2017-05-14 09:02 | Physical Therapy Daily Note ---
PT Daily Note-Current Subjective Patient in bed pre tx, agrees to PT, no complaints of pain. Patient needs to have her brief changed and dressed lowers before treatment. Appearance Patient in recliner with legs elevated post tx, has nurse call, phone, tray, chair alarm, visitor in the room. Mental Status Patient Orientation: Person, Place, Situation Transfers Functional [place] Measure 0=Not Assessed/NA 4=Minimal Assistance 1=Total Assistance 5=Supervision or Setup 2=Maximal Assistance 6=Modified [place] 3=Moderate Assistance 7=Complete IndependenceIRFPAI Quality Coding Scale 6 Independent with activity with or without an assistive device 5 Patient requires set up or clean up by helper. Patient completes activity by themselves 4 Supervision or touching assist (CGA). [place] provide cues , steadying assist 3 The helper provides less than half the effort to complete the activity 2 The helper provides more than half the effort to complete the activity 1 Dependent. The helper does all the effort to complete an activity 7 Patient refused to complete or attempt activity 9 The patient did not perform the activity before the current illness or injury 88 Not attempted due to Medical conditions or safety concerns Transfers (B, C, W/C) (FIM): 4 Scootin Rollin Supine to/from Sit: 5 Sit to/from Stand: 4 Bed to/from Chair: 4 CGA for sit to stand and transfers, needs cues when turning to the right and for hand placement and positioning. Weight Bearing Right Lower Extremity: Right Weight Bearing/Tolerated Left Lower Extremity: Left Full Weight Bearing Gait Training Gait (FIM): 4 Distance: 150'x2 Gait Level of Assist: 4 Gait Persons Needed: 1 Gait Assistive Device: Walker Charly min A, occasional assist for balance but was able to perform weight shifting much better. She ambulated without an AFO and her right ankle inverts but it did not roll with stepping. Exercises LAQ for 5 min right side with 2# ankle weight, balance activity stepping on cone x10, lunges in parallel bars right side [id number], step downs x10 Treatments dressing, changing brief, transfers, ambulation, functional strengthening, balance training Assessment Current Status: Fair Progress improving balance and weight shifting PT Short Term Goals Short Term Goals Time Frame: May 15, 2017 Transfers (B,C,W/C) (FIM): 4 Gait (FIM): 2 (me) Distance (FIM): 6=956-35 ft Gait Distance Comment: 50 ft Gait Assistive Device: Walker Charly Wheelchair (FIM): 4 (met) Wheelchair Distance: 150 ft x 3 PT Long-Term Goals Blood Bank Order Control Clerk Goals PT Long-Term Goals Time Frame: May 29, 2017 Transfers (B,C,W/C) (FIM): 6 Sit to Lying (QC): 6 Lying-Sitting on Side/Bed(QC): 6 Sit to Stand (QC): 6 Rollin Roll Left to Right (QC): 6 Chair/Ccb-fx-[id number] Xfer(QC): 6 Car Transfer (QC): 6 Does the Patient Walk: No and Walking Goal NOT indicated Gait (FIM): 6 Gait distance (FIM): 3=150 ft Walk 10 feet (QC): 6 Walk 10ft-Uneven Surface(QC): 6 Walk 50ft with 2 Turns (QC): 6 Walk 150 ft (QC): 6 Gait Level of Assist: 6 Gait Assistive Device: Walker Charly Does the Pt use WC or Scooter?: Yes Wheelchair (FIM): 6 Wheelchair distance (FIM): 3=150 ft Wheel 50 feet with 2 turns (QC: 6 Stairs (FIM): 5 # of Steps: 8 1 Step (curb) (QC): 5 4 Steps (QC): 5 12 Steps (QC): 88 Picking up an Object (QC): 4 PT Plan Problem List Problem List: Activity Tolerance, Functional Strength, Safety, Balance, Gait, Transfer, Bed Mobility, ROM Treatment/Plan Treatment Plan: Continue Plan of Care Treatment Plan: Bed Mobility, Education, Functional Activity Masoud, Functional Strength, Group Therapy, Gait, Safety, Therapeutic Exercise, Transfers, Other Treatment Duration: May 22, 2017 Frequency: Modified Program (IRF) Estimated Hrs Per Day: 1.5 hours per day Patient and/or Family Agrees t: Yes Safety Risks/Education Patient Education: Gait Training, Transfer Techniques, Correct Positioning, Safety Issues Teaching Recipient: Patient Teaching Methods: Demonstration, Discussion Response to Teaching: Reinforcement Needed Time/GCodes Time In: 800 Time Out: 900 Total Billed Treatment Time: 60 Total Billed Treatment 1 visit GT 30' EX 15' FA 15' GAETANO FRANK PT May 14, 2017 09:02
--- NOTE | 2017-05-14 09:47 | Speech Therapy Daily Note ---
Speech Daily Progress Note Subjective Date Seen by Provider: May 14, 2017 Time Seen by Provider: 09:00 The patient was seated upright in recliner upon entrance. The patient greeted the clinician appropriately and was agreeable to participation in the cognitive treatment session. While the patient continues to communicate in short phrases, with intermittent whole word paraphasias present, her ability to communicate with the clinician has improved significantly since admission. Objective Calendar Use: The patient was able to answer all calendar questions, including day of week, with 100% accuracy (independently). Analog Clock Use: The patient demonstrated ease with reading simple time on an analog clock. Once the time difficulty increased (45 minutes, 25 minutes, etc.) , the patient's accuracy reduced to 60% and the presence of paraphasias (with numbers) increased. The patient demonstrated frustration with this occurrence, therefore, a break was provided to allow the patient time to recollect her thought processes. Following the break, the patient's accuracy increased minimally. Orientation: The patient was independently oriented to self, date, and location. Assessment Assessment Current Status: Good Progress Treatment Plan Continue Plan of Care Communication Comprehension: 3 Expression: 2 Social Cognition Social Interaction: 4 Problem Solvin Memory: 2 Speech Short Term Goals Short Term Goals Short Term Goals 1. The patient will demonstrate 70% accuracy with confrontational naming of ADL objects with minimal clinician cueing. 2. The patient will repeat short phrases with 70% accuracy and mild clinician verbal cueing. 3. The patient will respond to yes and now questions with 80% accuracy, independently. 4. The patient will be demonstrate simple orientation information with 100% accuracy. Time Frame-STG: Two Weeks Speech Yarn Spooler Goals Fpc Goals 1. The patient will demonstrate improved expressive and receptive communication for increased safety and function with ADL's. Time Frame: Six Weeks Comprehension: 4 Expression: 3 Social Interaction: 4 Speech-Plan Treatment Plan Speech Therapy Treatment Plan: Continue Plan of Care Continue skilled speech pathology to target functional expressive communication. Treatment Duration: Jun 13, 2017 Frequency: 5 times per week Estimated Hrs Per Day: .5 hour per day Rehab Potential: Guarded Safety Risks/Education Teaching Recipient: Patient Teaching Methods: Handout, Discussion Response to Teaching: Verbalize Understanding Education Topics Provided: Analog Clock Practice Sheet Time Speech Therapy Time In: 09:00 Speech Therapy Time Out: 09:30 Total Billed Time: 30 Billed Treatment Time 1, SAULO HOWELL May 14, 2017 09:46
--- NOTE | 2017-05-14 10:37 | PM & R (SOAP) Progress Note ---
Subjective Time Seen by Provider: 10:30 Subjective/Events-last exam Patient was seen in her room this AM patient CGA for gait with valente-walker Strength improving meds rewumed last week for control of HTN with good results.Patient tolerating a reguolar consistency diet with thin liquids Objective Exam Last Set of Vital Signs Vital Signs Date Time Temp Pulse Resp B/P (MAP) Pulse Ox O2 Delivery O2 Flow Rate FiO2 05/14/17 08:19 Room Air 05/14/17 06:13 97.7 67 17 123/80 (94) 99 Capillary Refill : I&O Intake and Output 05/14/17 00:00 Intake Total 990 ml Balance 990 ml Intake Oral 990 ml # Urine Diapers 4 # Bowel Movements 1 General: Alert, Oriented X3, Cooperative, No Acute Distress HEENT: Atraumatic, PERRLA, EOMI Neck: Supple, No JVD Lungs: Clear to Auscultation Heart: Regular Rate Abdomen: Normal Bowel Sounds, Soft, No Tenderness Extremities: No Edema Neuro: Other (RT HP with impaired sensation to touch) Assessment/Plan Assessment Left ICB due to hypertensive crisis most likely due to substance abuse with resulting RT HP and dysphagia-ST assessment done improving in all domains Hypotension resolved HTN controlled with current meds Substance abuse currently abstaining Aphasia improving Hoarseness-improved with steroids Plan Continue PT/OT/ST [facility] Physician declined patient Dr lazo assisting Hold antihypertensives for now and monitor for orthostasis SW to followup re status of [place] at some point Appreciate ENT note and recs See orders-patient tolerating steroid taper well Next Team Conference tomorrow 05-15-17 MARGO MALIK MD May 14, 2017 10:37
--- NOTE | 2017-05-14 11:45 | Occupational Ther Daily Note ---
OT Current Status-Daily Note Subjective Pt seen in room, up in bed, agreeable to OT. No pain mentioned. Appearance Alert, cooperative Mental Status/Objective Functional [place] Measure 0=Not Assessed/NA 4=Minimal Assistance 1=Total Assistance 5=Supervision or Setup 2=Maximal Assistance 6=Modified [place] 3=Moderate Assistance 7=Complete [place] ADL-Treatment Functional [place] Measure 0=Not Assessed/NA 4=Minimal Assistance 1=Total Assistance 5=Supervision or Setup 2=Maximal Assistance 6=Modified [place] 3=Moderate Assistance 7=Complete IndependenceIRFPAI Quality Coding Scale 6 Independent with activity with or without an assistive device 5 Patient requires set up or clean up by helper. Patient completes activity by themselves 4 Supervision or touching assist (CGA). [place] provide cues , steadying assist 3 The helper provides less than half the effort to complete the activity 2 The helper provides more than half the effort to complete the activity 1 Dependent. The helper does all the effort to complete an activity 7 Patient refused to complete or attempt activity 9 The patient did not perform the activity before the current illness or injury 88 Not attempted due to Medical conditions or safety concerns Other Treatment Pt was able to get up to EOB without help and transferred to her L to w/c with CGA. Pt transported to gym and transferred to tx table with CGA. With R arm positioned in weightbearing, she was able to demonstrate R elbow extension x 20 reps and tracked counting reps herself. Used skilled facilitation techniques to work on wrist extension and finger flexion, as well as pron/sup. Pt very responsive to techniques and showed a little index flexion with tapping. Did bilat arm movements during functional activity and pt educ to place R hand to help with transferred when practical. Pt did sit to stand from w/c with R hand placed on arm rest of chair and was able to help with pushing up. Pt returned to her room and transferred to recliner, chair alarm on, all needs met. Education OT Patient Education: Progress toward Goal/Update tx plan, Purpose of tx/ functional activities, Transfer techniques Teaching Recipient: Patient Teaching Methods: Discussion Response to Teaching: Verbalize Understanding, Return Demonstration OT Short Term Goals Short Term Goals Time Frame: May 15, 2017 Grooming(FIM): 5 Upper Body Dressing(FIM): 4 Lower Body Dressing(FIM): 3 Toileting(FIM): 3 Transfers (B,C,W/C) (FIM): 4 Toilet/Commode Transfer(FIM): 4 Shower Transfer(FIM): 3 Additional Short Term Goals: 2-Verbalize Understanding, 3-ImproveStrength/[place] 1=Demonstrate adherence to instructed precautions during ADL tasks. 2=Patient will verbalize/demonstrate understanding of assistive devices/ modifications for ADL. 3=Patient will improve strength/tolerance for activity to enable patient to perform ADL's. OT Library Sales Consultant Goals Library Sales Consultant Goals Time Frame: May 29, 2017 Eating (FIM): 6 Eating (QC): 6 Groomin Oral Hygiene (QC): 6 Bathing(FIM): 5 Shower/Bathe Self (QC): 5 Upper Body Dressing(FIM): 6 Upper Body Dressing (QC): 6 Lower Body Dressing(FIM): 5 Lower Body Dressing (QC): 5 On/Off Footwear (QC): 5 Toileting(FIM): 6 Toileting Hygiene (QC): 6 Toilet/Commode Transfer(FIM): 6 Toilet/Commode Transfer (QC): 6 Shower Transfer(FIM): 5 Comprehension(FIM): 4 Expression (FIM): 3 Social Interaction(FIM): 4 Additional Goals: 2-Verbalize Understanding, 3-ImproveStrength/[place] 1=Demonstrate adherence to instructed precautions during ADL tasks. 2=Patient will verbalize/demonstrate understanding of assistive devices/ modifications for ADL. 3=Patient will improve strength/tolerance for activity to enable patient to perform ADL's. OT Education/Plan Problem List/Assessment Pt s/p CVA with right side deficits. Pt demonstrates decreased mobility, strength, coordination, activity tolerance, and ADL functioning. Pt to benefit from skilled OT intervention for ADL training, transfers, strengthening, and safety education to increase level of independence and allow safe discharge plan. Discharge Recommendations Plan/Recommendations: Continue POC Treatment Plan/Plan of Care Patient would benefit from OT for education, treatment and training to promote independence in ADL's, mobility, safety and/or upper extremity function for ADL' s. Plan of Care: ADL Retraining, Functional Mobility, Group Exercise/Act as Ind, UE Funct Exercise/Act, UE Neuromus Re-Ed/Coord Treatment Duration: May 29, 2017 Frequency: Modified Program (IRF) (15/09) Estimated Hrs Per Day: 1.5 hours per day Agreement: Yes Rehab Potential: Guarded Time/GCodes Start Time: 14:00 Stop Time: 14:30 Total Time Billed (hr/min): 30 Billed Treatment Time visit, 30 minutes neuromotor SOPHIA CERVANTES OT May 14, 2017 11:45
--- NOTE | 2017-05-14 13:24 | Physical Therapy Daily Note ---
PT Daily Note-Current Subjective Patient in bed pre tx, agrees to PT, no complaints of pain. Appearance Patient BTB post tx with nurse call, phone, tray, all needs met. Mental Status Patient Orientation: Person, Place, Situation Transfers Functional [place] Measure 0=Not Assessed/NA 4=Minimal Assistance 1=Total Assistance 5=Supervision or Setup 2=Maximal Assistance 6=Modified [place] 3=Moderate Assistance 7=Complete IndependenceIRFPAI Quality Coding Scale 6 Independent with activity with or without an assistive device 5 Patient requires set up or clean up by helper. Patient completes activity by themselves 4 Supervision or touching assist (CGA). [place] provide cues , steadying assist 3 The helper provides less than half the effort to complete the activity 2 The helper provides more than half the effort to complete the activity 1 Dependent. The helper does all the effort to complete an activity 7 Patient refused to complete or attempt activity 9 The patient did not perform the activity before the current illness or injury 88 Not attempted due to Medical conditions or safety concerns Transfers (B, C, W/C) (FIM): 4 Scootin Rollin Supine to/from Sit: 5 Sit to/from Stand: 4 Bed to/from Chair: 4 Weight Bearing Right Lower Extremity: Right Weight Bearing/Tolerated Left Lower Extremity: Left Full Weight Bearing Gait Training Gait (FIM): 4 Distance: 150'x2 Gait Level of Assist: 4 Gait Persons Needed: 1 Gait Assistive Device: Walker Charly only 1 LOB that needed therapist assist, no AFO Exercises Supine Ex: Bridging, Ankle pumps, Quad Set, Heel Slides, Short Arc Quads, Straight leg raise, Hip abd/add Supine Reps: 15 (right side) Treatments bed mobility and transfers, ambulation, functional strengthening Assessment Current Status: Fair Progress improving balance during ambulation PT Short Term Goals Short Term Goals Time Frame: May 15, 2017 Transfers (B,C,W/C) (FIM): 4 Gait (FIM): 2 (me) Distance (FIM): 3=233-33 ft Gait Distance Comment: 50 ft Gait Assistive Device: Walker Charly Wheelchair (FIM): 4 (met) Wheelchair Distance: 150 ft x 3 PT Fdc Goals Fdc Goals PT Solid Waste Management Engineer Goals Time Frame: May 29, 2017 Transfers (B,C,W/C) (FIM): 6 Sit to Lying (QC): 6 Lying-Sitting on Side/Bed(QC): 6 Sit to Stand (QC): 6 Rollin Roll Left to Right (QC): 6 Chair/Yjk-le-Nnaxz Xfer(QC): 6 Car Transfer (QC): 6 Does the Patient Walk: No and Walking Goal NOT indicated Gait (FIM): 6 Gait distance (FIM): 3=150 ft Walk 10 feet (QC): 6 Walk 10ft-Uneven Surface(QC): 6 Walk 50ft with 2 Turns (QC): 6 Walk 150 ft (QC): 6 Gait Level of Assist: 6 Gait Assistive Device: Walker Charly Does the Pt use WC or Scooter?: Yes Wheelchair (FIM): 6 Wheelchair distance (FIM): 3=150 ft Wheel 50 feet with 2 turns (QC: 6 Stairs (FIM): 5 # of Steps: 8 1 Step (curb) (QC): 5 4 Steps (QC): 5 12 Steps (QC): 88 Picking up an Object (QC): 4 PT Plan Problem List Problem List: Activity Tolerance, Functional Strength, Safety, Balance, Gait, Transfer, Bed Mobility, ROM Treatment/Plan Treatment Plan: Continue Plan of Care Treatment Plan: Bed Mobility, Education, Functional Activity [place], Functional Strength, Group Therapy, Gait, Safety, Therapeutic Exercise, Transfers, Other Treatment Duration: May 22, 2017 Frequency: Modified Program (IRF) Estimated Hrs Per Day: 1.5 hours per day Patient and/or Family Agrees t: Yes Safety Risks/Education Patient Education: Gait Training, Transfer Techniques, Correct Positioning, Safety Issues Teaching Recipient: Patient Teaching Methods: Demonstration, Discussion Response to Teaching: Reinforcement Needed Time/GCodes Time In: 1300 Time Out: 1330 Total Billed Treatment Time: 30 Total Billed Treatment 1 visit EX 15' GT 15' GAETANO FRNAK PT May 14, 2017 13:24
--- NOTE | 2017-05-14 14:47 | Occupational Ther Daily Note ---
OT Current Status-Daily Note Subjective Pt seen in room, up in bed, agreeable to OT. No pain mentioned. Appearance Alert, cooperative Mental Status/Objective Functional [place] Measure 0=Not Assessed/NA 4=Minimal Assistance 1=Total Assistance 5=Supervision or Setup 2=Maximal Assistance 6=Modified [place] 3=Moderate Assistance 7=Complete [place] ADL-Treatment Pt was able to transition from supine to sit EOB without assistance but did not use R UE to help with pushing up to sitting. Transferred to w/c with CGA and propelled self into bathroom for shower. Transferred to shower to her L with CGA and skilled cues for R foot placement and transferred back toward her R with min assist. Used grab bars for pivoting. Pt used valente walker for standing to pull pants up. Needed cues to extend R knee but she was able to maintain standing while OT pulled pants up. Pt was able to put shoes on herself once elastic shoe laces were put in her athletic shoes. Pt declined toileting but agreed that she needs to work on it for going home. Pt transferred to recliner with CGA and was left up in chair at end of tx, chair alarm on, all needs met. Functional [place] Measure 0=Not Assessed/NA 4=Minimal Assistance 1=Total Assistance 5=Supervision or Setup 2=Maximal Assistance 6=Modified [place] 3=Moderate Assistance 7=Complete IndependenceIRFPAI Quality Coding Scale 6 Independent with activity with or without an assistive device 5 Patient requires set up or clean up by helper. Patient completes activity by themselves 4 Supervision or touching assist (CGA). [place] provide cues , steadying assist 3 The helper provides less than half the effort to complete the activity 2 The helper provides more than half the effort to complete the activity 1 Dependent. The helper does all the effort to complete an activity 7 Patient refused to complete or attempt activity 9 The patient did not perform the activity before the current illness or injury 88 Not attempted due to Medical conditions or safety concerns Bathing (FIM): 4 (90% Just needed help washing and drying L arm - she was able to wash in armpit. Leaned side to side to wash bottom. Shower bench, grab bars, hand held shower. Pt helped to wash her long hair. ) Bathing Location: R Arm, L Upper Leg, R Upper Leg, L Lower Leg (including foot) , R Lower Leg (including foot), Chest, Abdomen, Buttocks, Perineal Area Upper Body (FIM): 5 (Supervision, cues for helping dress R arm and pulling shirt down but no physical assistance provided. ) Lower Body Dressing (FIM): 4 (Pt was able to recall modified technique. Donned briefs and pants over feet and pulled them up to thighs. Pt stood with valente cane while OT pulled pants up. She was able to put socks on and also athletic shoes with elastic shoe laces. ) Transfers (B, C, W/C) (FIM): 4 Shower Transfer(FIM): 4 (CGA to her left, min assist to her right, cues. Shower bench, grab bar) Education OT Patient Education: Modified ADL techniques, Progress toward Goal/Update tx plan, Purpose of tx/functional activities, Safety issues, Transfer techniques Teaching Recipient: Patient Teaching Methods: Discussion Response to Teaching: Verbalize Understanding, Return Demonstration, Reinforcement Needed OT Short Term Goals Short Term Goals Time Frame: May 15, 2017 Grooming(FIM): 5 Upper Body Dressing(FIM): 4 Lower Body Dressing(FIM): 3 Toileting(FIM): 3 Transfers (B,C,W/C) (FIM): 4 Toilet/Commode Transfer(FIM): 4 Shower Transfer(FIM): 3 Additional Short Term Goals: 2-Verbalize Understanding, 3-ImproveStrength/[place] 1=Demonstrate adherence to instructed precautions during ADL tasks. 2=Patient will verbalize/demonstrate understanding of assistive devices/ modifications for ADL. 3=Patient will improve strength/tolerance for activity to enable patient to perform ADL's. OT Long-Term Goals Long-Term Goals Time Frame: May 29, 2017 Eating (FIM): 6 Eating (QC): 6 Groomin Oral Hygiene (QC): 6 Bathing(FIM): 5 Shower/Bathe Self (QC): 5 Upper Body Dressing(FIM): 6 Upper Body Dressing (QC): 6 Lower Body Dressing(FIM): 5 Lower Body Dressing (QC): 5 On/Off Footwear (QC): 5 Toileting(FIM): 6 Toileting Hygiene (QC): 6 Toilet/Commode Transfer(FIM): 6 Toilet/Commode Transfer (QC): 6 Shower Transfer(FIM): 5 Comprehension(FIM): 4 Expression (FIM): 3 Social Interaction(FIM): 4 Additional Goals: 2-Verbalize Understanding, 3-ImproveStrength/[place] 1=Demonstrate adherence to instructed precautions during ADL tasks. 2=Patient will verbalize/demonstrate understanding of assistive devices/ modifications for ADL. 3=Patient will improve strength/tolerance for activity to enable patient to perform ADL's. OT Education/Plan Problem List/Assessment Pt s/p CVA with right side deficits. Pt demonstrates decreased mobility, strength, coordination, activity tolerance, and ADL functioning. Pt to benefit from skilled OT intervention for ADL training, transfers, strengthening, and safety education to increase level of independence and allow safe discharge plan. Discharge Recommendations Plan/Recommendations: Continue POC Treatment Plan/Plan of Care Patient would benefit from OT for education, treatment and training to promote independence in ADL's, mobility, safety and/or upper extremity function for ADL' s. Plan of Care: ADL Retraining, Functional Mobility, Group Exercise/Act as Ind, UE Funct Exercise/Act, UE Neuromus Re-Ed/Coord Treatment Duration: May 29, 2017 Frequency: Modified Program (IRF) (15/09) Estimated Hrs Per Day: 1.5 hours per day Agreement: Yes Rehab Potential: Guarded Time/GCodes Start Time: 10:40 Stop Time: 11:25 Total Time Billed (hr/min): 45 Billed Treatment Time visit, 45 minutes ADL SOPHIA CERVANTES OT May 14, 2017 14:47
[2017-05-14 17:31] VITALS: BP 129/80
[2017-05-15] MEDS: predniSONE 10 MG TAB PO SCH (06:29)
[2017-05-15 06:34] VITALS: BP 129/83
--- NOTE | 2017-05-15 09:02 | Physical Therapy Daily Note ---
PT Daily Note-Current Subjective Patient in bed pre tx, needs to get her brief changed and dressed lowers before tx. Patient has no complaints of pain. Appearance Patient in bed post tx with nurse call, phone, tray, all needs met. Mental Status Patient Orientation: Person, Place, Situation Transfers Functional [place] Measure 0=Not Assessed/NA 4=Minimal Assistance 1=Total Assistance 5=Supervision or Setup 2=Maximal Assistance 6=Modified [place] 3=Moderate Assistance 7=Complete IndependenceIRFPAI Quality Coding Scale 6 Independent with activity with or without an assistive device 5 Patient requires set up or clean up by helper. Patient completes activity by themselves 4 Supervision or touching assist (CGA). [place] provide cues , steadying assist 3 The helper provides less than half the effort to complete the activity 2 The helper provides more than half the effort to complete the activity 1 Dependent. The helper does all the effort to complete an activity 7 Patient refused to complete or attempt activity 9 The patient did not perform the activity before the current illness or injury 88 Not attempted due to Medical conditions or safety concerns Transfers (B, C, W/C) (FIM): 4 Scootin Rollin Supine to/from Sit: 5 Sit to/from Stand: 4 Bed to/from Chair: 4 Min assist transfers to the right side, cues for hand placement and safety. Weight Bearing Right Lower Extremity: Right Weight Bearing/Tolerated Left Lower Extremity: Left Full Weight Bearing Gait Training Gait (FIM): 4 Distance: 150'x3 Gait Level of Assist: 4 Gait Persons Needed: 1 Gait Assistive Device: Walker Charly Patient ambulated once with a hemiwalker with CGA/Loly and no AFO, the other 2 times she ambulated 150' with min assist using a small base quad cane. Stair Training Stair Training: Handrails/: 1 handrail Stairs (FIM): 4 #of Steps: 12 Stairs: Pattern: Step to Level of Assist: 4 min assist Balance Picking up an Object (QC): 4 (CGA) Exercises LAQ right side for 5 min with 2# ankle weights, balance activities stepping over objects and picking up cones Treatments transfers, ambulation, functional strengthening, balance training, stair training Assessment Current Status: Fair Progress improving balance, ambulation, transfers, endurance PT Short Term Goals Short Term Goals Time Frame: May 15, 2017 Transfers (B,C,W/C) (FIM): 4 Gait (FIM): 2 (me) Distance (FIM): 6=204-43 ft Gait Distance Comment: 50 ft Gait Assistive Device: Walker Charly Wheelchair (FIM): 4 (met) Wheelchair Distance: 150 ft x 3 PT Counseling Case Manager Goals Counseling Case Manager Goals PT Nursing Home Goals Time Frame: May 29, 2017 Transfers (B,C,W/C) (FIM): 6 Sit to Lying (QC): 6 Lying-Sitting on Side/Bed(QC): 6 Sit to Stand (QC): 6 Rollin Roll Left to Right (QC): 6 Chair/[id number] Xfer(QC): 6 Car Transfer (QC): 6 Does the Patient Walk: No and Walking Goal NOT indicated Gait (FIM): 6 Gait distance (FIM): 3=150 ft Walk 10 feet (QC): 6 Walk 10ft-Uneven Surface(QC): 6 Walk 50ft with 2 Turns (QC): 6 Walk 150 ft (QC): 6 Gait Level of Assist: 6 Gait Assistive Device: Walker Charly Does the Pt use WC or Scooter?: Yes Wheelchair (FIM): 6 Wheelchair distance (FIM): 3=150 ft Wheel 50 feet with 2 turns (QC: 6 Stairs (FIM): 5 # of Steps: 8 1 Step (curb) (QC): 5 4 Steps (QC): 5 12 Steps (QC): 88 Picking up an Object (QC): 4 PT Plan Problem List Problem List: Activity Tolerance, Functional Strength, Safety, Balance, Gait, Transfer, Bed Mobility Treatment/Plan Treatment Plan: Continue Plan of Care Treatment Plan: Bed Mobility, Education, Functional Activity [place], Functional Strength, Group Therapy, Gait, Safety, Therapeutic Exercise, Transfers, Other Treatment Duration: May 22, 2017 Frequency: Modified Program (IRF) Estimated Hrs Per Day: 1.5 hours per day Patient and/or Family Agrees t: Yes Safety Risks/Education Patient Education: Gait Training, Transfer Techniques, Correct Positioning, Safety Issues Teaching Recipient: Patient Teaching Methods: Demonstration, Discussion Response to Teaching: Reinforcement Needed Time/GCodes Time In: 800 Time Out: 900 Total Billed Treatment Time: 60 Total Billed Treatment 1 visit GT 30' EX 30' GAETANO FRANK PT May 15, 2017 09:02
[2017-05-15] MEDS: CARVEDILOL 12.5 MG (COREG) TABLET PO SCH ×2 (09:26→20:29)
[2017-05-15] MEDS: FLUoxetine HCL 20 MG (PROzac) CAP PO SCH (09:26)
[2017-05-15] MEDS: amLODIPine 5 MG (NORVASC) TAB PO SCH (09:26)
[2017-05-15] MEDS: lisINopril 40 MG (PRINIVIL) TABLET PO SCH (09:26)
--- NOTE | 2017-05-15 12:40 | Occupational Ther Daily Note ---
OT Current Status-Daily Note Subjective Pt seen in room, up in bed, agreeable to OT. No pain mentioned. Appearance Alert, cooperative Mental Status/Objective Functional [place] Measure 0=Not Assessed/NA 4=Minimal Assistance 1=Total Assistance 5=Supervision or Setup 2=Maximal Assistance 6=Modified [place] 3=Moderate Assistance 7=Complete [place] ADL-Treatment Pt transferred to her L side from bed to w/c with CGA. dressed in w/c. Pt declined need to toilet. Pt has quad cane in room and it is not quite as stable as valente walker to use for standing for clothing management - suggested to her that they take valente walker home for pass on weekend. After ADLs, pt helped with transporting to gym. Functional [place] Measure 0=Not Assessed/NA 4=Minimal Assistance 1=Total Assistance 5=Supervision or Setup 2=Maximal Assistance 6=Modified [place] 3=Moderate Assistance 7=Complete IndependenceIRFPAI Quality Coding Scale 6 Independent with activity with or without an assistive device 5 Patient requires set up or clean up by helper. Patient completes activity by themselves 4 Supervision or touching assist (CGA). [place] provide cues , steadying assist 3 The helper provides less than half the effort to complete the activity 2 The helper provides more than half the effort to complete the activity 1 Dependent. The helper does all the effort to complete an activity 7 Patient refused to complete or attempt activity 9 The patient did not perform the activity before the current illness or injury 88 Not attempted due to Medical conditions or safety concerns Grooming (FIM): 6 (Mod I to brush teeth and comb hair, w/c level, at sink. help to put it up in ponytail) Upper Body (FIM): 5 (Doffed and donned t shirt with setup, supervision. Skilled cues for problem-solving for sequencing) Lower Body Dressing (FIM): 4 (Min assist to stand to get pants up and down, using quad cane for balance. Skilled cues for R leg straightening during standing. Skilled cues for problem-solving for sequencing. Able to get socks and shoes on) Transfers (B, C, W/C) (FIM): 4 Other Treatment Worked on sit to stand and maintaining standing at bar, with OT placing and holding R hand on bar. Pt able to extend R elbow for weight bearing and also weight shifting. Cues for R knee extension. By end of tx, pt was able to safely stand for at least 30 seconds with R elbow and knee stability and was able to turn loose L hand as needed to help pull pants up and down (OT maintaining hand on bar and supervision) Pt demonstrated R elbow flex mid range and ext, gravity eliminated, for a few degrees. Also worked with skilled facilitation techniques including e stim for r wrist extension and finger flexion. Pt very pleased with progress. pt returned to room and up in recliner, chair alarm on, all needs met. Education OT Patient Education: Modified ADL techniques, Progress toward Goal/Update tx plan, Purpose of tx/functional activities, Safety issues, Transfer techniques Teaching Recipient: Patient Teaching Methods: Discussion Response to Teaching: Verbalize Understanding, Return Demonstration, Reinforcement Needed OT Short Term Goals Short Term Goals Time Frame: May 15, 2017 Grooming(FIM): 5 Upper Body Dressing(FIM): 4 Lower Body Dressing(FIM): 3 Toileting(FIM): 3 Transfers (B,C,W/C) (FIM): 4 Toilet/Commode Transfer(FIM): 4 Shower Transfer(FIM): 3 Additional Short Term Goals: 2-Verbalize Understanding, 3-ImproveStrength/[place] 1=Demonstrate adherence to instructed precautions during ADL tasks. 2=Patient will verbalize/demonstrate understanding of assistive devices/ modifications for ADL. 3=Patient will improve strength/tolerance for activity to enable patient to perform ADL's. OT Correction Goals Correction Goals Time Frame: May 29, 2017 Eating (FIM): 6 Eating (QC): 6 Groomin Oral Hygiene (QC): 6 Bathing(FIM): 5 Shower/Bathe Self (QC): 5 Upper Body Dressing(FIM): 6 Upper Body Dressing (QC): 6 Lower Body Dressing(FIM): 5 Lower Body Dressing (QC): 5 On/Off Footwear (QC): 5 Toileting(FIM): 6 Toileting Hygiene (QC): 6 Toilet/Commode Transfer(FIM): 6 Toilet/Commode Transfer (QC): 6 Shower Transfer(FIM): 5 Comprehension(FIM): 4 Expression (FIM): 3 Social Interaction(FIM): 4 Additional Goals: 2-Verbalize Understanding, 3-ImproveStrength/[place] 1=Demonstrate adherence to instructed precautions during ADL tasks. 2=Patient will verbalize/demonstrate understanding of assistive devices/ modifications for ADL. 3=Patient will improve strength/tolerance for activity to enable patient to perform ADL's. OT Education/Plan Problem List/Assessment Pt s/p CVA with right side deficits. Pt demonstrates decreased mobility, strength, coordination, activity tolerance, and ADL functioning. Pt to benefit from skilled OT intervention for ADL training, transfers, strengthening, and safety education to increase level of independence and allow safe discharge plan. Discharge Recommendations Plan/Recommendations: Continue POC Treatment Plan/Plan of Care Patient would benefit from OT for education, treatment and training to promote independence in ADL's, mobility, safety and/or upper extremity function for ADL' s. Plan of Care: ADL Retraining, Functional Mobility, Group Exercise/Act as Ind, UE Funct Exercise/Act, UE Neuromus Re-Ed/Coord Treatment Duration: May 29, 2017 Frequency: Modified Program (IRF) (15/09) Estimated Hrs Per Day: 1.5 hours per day Agreement: Yes Rehab Potential: Guarded Time/GCodes Start Time: 10:00 Stop Time: 11:15 Total Time Billed (hr/min): 75 Billed Treatment Time visit, 30 minutes ADL, 45 minutes neuromotor SOPHIA CERVANTES OT May 15, 2017 12:40
--- NOTE | 2017-05-15 13:28 | Physical Therapy Daily Note ---
PT Daily Note-Current Subjective Patient in recliner pre tx, agrees to PT, no complaints of pain. Appearance Patient in recliner post tx with nurse call, phone, tray, all needs met. Mental Status Patient Orientation: Person, Place, Situation Transfers Functional [place] Measure 0=Not Assessed/NA 4=Minimal Assistance 1=Total Assistance 5=Supervision or Setup 2=Maximal Assistance 6=Modified [place] 3=Moderate Assistance 7=Complete IndependenceIRFPAI Quality Coding Scale 6 Independent with activity with or without an assistive device 5 Patient requires set up or clean up by helper. Patient completes activity by themselves 4 Supervision or touching assist (CGA). [place] provide cues , steadying assist 3 The helper provides less than half the effort to complete the activity 2 The helper provides more than half the effort to complete the activity 1 Dependent. The helper does all the effort to complete an activity 7 Patient refused to complete or attempt activity 9 The patient did not perform the activity before the current illness or injury 88 Not attempted due to Medical conditions or safety concerns Transfers (B, C, W/C) (FIM): 4 Sit to/from Stand: 4 Weight Bearing Right Lower Extremity: Right Weight Bearing/Tolerated Left Lower Extremity: Left Full Weight Bearing Gait Training Gait (FIM): 4 Distance: 150'x2 Gait Level of Assist: 4 Gait Persons Needed: 1 Gait Assistive Device: Cane Small Base Quad No AFO, min assist for occasional LOB Exercises NuStep Minutes: 10 NuStep Workload: 5 Treatments transfers, ambulation, functional strengthening Assessment Current Status: Fair Progress improving ambulation and balance PT Short Term Goals Short Term Goals Time Frame: May 15, 2017 Transfers (B,C,W/C) (FIM): 4 Gait (FIM): 2 (me) Distance (FIM): 5=708-38 ft Gait Distance Comment: 50 ft Gait Assistive Device: Walker Charly Wheelchair (FIM): 4 (met) Wheelchair Distance: 150 ft x 3 PT Machine Stoppage Frequency Checker Goals Snf Goals PT Snf Goals Time Frame: May 29, 2017 Transfers (B,C,W/C) (FIM): 6 Sit to Lying (QC): 6 Lying-Sitting on Side/Bed(QC): 6 Sit to Stand (QC): 6 Rollin Roll Left to Right (QC): 6 Chair/[id number]-we-Kyvxt Xfer(QC): 6 Car Transfer (QC): 6 Does the Patient Walk: No and Walking Goal NOT indicated Gait (FIM): 6 Gait distance (FIM): 3=150 ft Walk 10 feet (QC): 6 Walk 10ft-Uneven Surface(QC): 6 Walk 50ft with 2 Turns (QC): 6 Walk 150 ft (QC): 6 Gait Level of Assist: 6 Gait Assistive Device: Walker Charly Does the Pt use WC or Scooter?: Yes Wheelchair (FIM): 6 Wheelchair distance (FIM): 3=150 ft Wheel 50 feet with 2 turns (QC: 6 Stairs (FIM): 5 # of Steps: 8 1 Step (curb) (QC): 5 4 Steps (QC): 5 12 Steps (QC): 88 Picking up an Object (QC): 4 PT Plan Problem List Problem List: Activity Tolerance, Functional Strength, Safety, Balance, Gait, Transfer, Bed Mobility Treatment/Plan Treatment Plan: Continue Plan of Care Treatment Plan: Bed Mobility, Education, Functional Activity [place], Functional Strength, Group Therapy, Gait, Safety, Therapeutic Exercise, Transfers, Other Treatment Duration: May 22, 2017 Frequency: Modified Program (IRF) Estimated Hrs Per Day: 1.5 hours per day Patient and/or Family Agrees t: Yes Safety Risks/Education Patient Education: Gait Training, Transfer Techniques, Correct Positioning, Safety Issues Teaching Recipient: Patient Teaching Methods: Demonstration, Discussion Response to Teaching: Reinforcement Needed Time/GCodes Time In: 1300 Time Out: 1330 Total Billed Treatment Time: 30 Total Billed Treatment 1 visit GT 20' EX 10' GAETANO FRANK PT May 15, 2017 13:28
--- NOTE | 2017-05-15 14:37 | Speech Therapy Daily Note ---
Speech Daily Progress Note Subjective Date Seen by Provider: May 15, 2017 Time Seen by Provider: 13:40 The patient was seated upright in recliner upon entrance. The patient greeted the clinician and was agreeable to participation in the cognitive treatment session. Objective Analog Clock Reading: The patient demonstrated improved accuracy with analog clock reading, displaying 100% accuracy following self-correction attempts. The patient would often revert to counting by fives to ensure the accurate response for the minutes. The patient's self-awareness continues to improve. Counting Money: The patient displayed no difficulty counting bills, however, displayed moderate difficulty counting coins. Each coin was initially presented by the clinician with a description of its amount. The patient was able to add small, like coins, but had difficulty adding different coins or large amounts. The patient was cued to separate like coins prior to calculating the final number. With this cue, the patient's accuracy increased. The clinician left the patient with coins to practice throughout the evening. Assessment Assessment Current Status: Good Progress Treatment Plan Continue Plan of Care Communication Comprehension: 3 Expression: 2 Social Cognition Social Interaction: 4 Problem Solvin Memory: 2 Speech Short Term Goals Short Term Goals Short Term Goals 1. The patient will demonstrate 70% accuracy with confrontational naming of ADL objects with minimal clinician cueing. 2. The patient will repeat short phrases with 70% accuracy and mild clinician verbal cueing. 3. The patient will respond to yes and now questions with 80% accuracy, independently. 4. The patient will be demonstrate simple orientation information with 100% accuracy. Time Frame-STG: Two Weeks Speech Senior Care Goals Senior Care Goals 1. The patient will demonstrate improved expressive and receptive communication for increased safety and function with ADL's. Time Frame: Six Weeks Comprehension: 4 Expression: 3 Social Interaction: 4 Speech-Plan Treatment Plan Speech Therapy Treatment Plan: Continue Plan of Care Continue skilled speech pathology to improve functional communication and cognition. Treatment Duration: Jun 13, 2017 Frequency: 5 times per week Estimated Hrs Per Day: .5 hour per day Rehab Potential: Guarded Safety Risks/Education Teaching Recipient: Patient Teaching Methods: Demonstration, Discussion Response to Teaching: Verbalize Understanding, Return Demonstration Education Topics Provided: Bill and [place] Time Speech Therapy Time In: 13:40 Speech Therapy Time Out: 14:10 Total Billed Time: 30 Billed Treatment Time JoseADRIANA ELIZABETH ST May 15, 2017 14:37
[2017-05-15 18:00] VITALS: BP 113/71
[2017-05-16 05:33] VITALS: BP 112/73
[2017-05-16] MEDS: predniSONE 10 MG TAB PO SCH (06:14)
[2017-05-16] MEDS: FLUoxetine HCL 20 MG (PROzac) CAP PO SCH (08:28)
[2017-05-16] MEDS: amLODIPine 5 MG (NORVASC) TAB PO SCH (08:28)
[2017-05-16] MEDS: CARVEDILOL 12.5 MG (COREG) TABLET PO SCH ×2 (08:28→20:23)
[2017-05-16] MEDS: lisINopril 40 MG (PRINIVIL) TABLET PO SCH (08:28)
--- NOTE | 2017-05-16 08:55 | Physical Therapy Daily Note ---
PT Daily Note-Current Subjective Patient sitting EOB with friend. Agrees to PT, no complaints of pain. Appearance Patient in recliner with legs elevated post tx, has nurse call, phone, tray, all needs met. Mental Status Patient Orientation: Person, Place, Situation Transfers Functional [place] Measure 0=Not Assessed/NA 4=Minimal Assistance 1=Total Assistance 5=Supervision or Setup 2=Maximal Assistance 6=Modified [place] 3=Moderate Assistance 7=Complete IndependenceIRFPAI Quality Coding Scale 6 Independent with activity with or without an assistive device 5 Patient requires set up or clean up by helper. Patient completes activity by themselves 4 Supervision or touching assist (CGA). [place] provide cues , steadying assist 3 The helper provides less than half the effort to complete the activity 2 The helper provides more than half the effort to complete the activity 1 Dependent. The helper does all the effort to complete an activity 7 Patient refused to complete or attempt activity 9 The patient did not perform the activity before the current illness or injury 88 Not attempted due to Medical conditions or safety concerns Transfers (B, C, W/C) (FIM): 4 Sit to/from Stand: 4 Bed to/from Chair: 4 CGA, cues for hand placement and safety Weight Bearing Right Lower Extremity: Right Weight Bearing/Tolerated Left Lower Extremity: Left Full Weight Bearing Gait Training Gait (FIM): 4 Distance: 200', 150'x2 Gait Level of Assist: 4 Gait Persons Needed: 1 Gait Assistive Device: Cane Small Base Quad Patient ambulated with a small base quad cane 150'x2, no AFO with min assist for occasional LOB or assist with weight shifting. She also ambulated 200' without an AD with min assist for the same. Exercises Standing: Hip Abduction, Hamstring curls, Heel/toe raises, Marching, Mini squats, Step-ups Standing Reps: 15 balance activities with stepping on cones, LAQ right side for 5 min Treatments transfers, ambulation, functional strengthening, balance training Assessment Current Status: Fair Progress Patient continues to improve with balance and ambulation PT Short Term Goals Short Term Goals Time Frame: May 15, 2017 Transfers (B,C,W/C) (FIM): 4 Gait (FIM): 2 (me) Distance (FIM): 0=667-09 ft Gait Distance Comment: 50 ft Gait Assistive Device: Walker Charly Wheelchair (FIM): 4 (met) Wheelchair Distance: 150 ft x 3 PT Usp Goals Usp Goals PT X Ray Service Engineer Goals Time Frame: May 29, 2017 Transfers (B,C,W/C) (FIM): 6 Sit to Lying (QC): 6 Lying-Sitting on Side/Bed(QC): 6 Sit to Stand (QC): 6 Rollin Roll Left to Right (QC): 6 Chair/Mwd-ij-Qpiyf Xfer(QC): 6 Car Transfer (QC): 6 Does the Patient Walk: No and Walking Goal NOT indicated Gait (FIM): 6 Gait distance (FIM): 3=150 ft Walk 10 feet (QC): 6 Walk 10ft-Uneven Surface(QC): 6 Walk 50ft with 2 Turns (QC): 6 Walk 150 ft (QC): 6 Gait Level of Assist: 6 Gait Assistive Device: Walker Charly Does the Pt use WC or Scooter?: Yes Wheelchair (FIM): 6 Wheelchair distance (FIM): 3=150 ft Wheel 50 feet with 2 turns (QC: 6 Stairs (FIM): 5 # of Steps: 8 1 Step (curb) (QC): 5 4 Steps (QC): 5 12 Steps (QC): 88 Picking up an Object (QC): 4 PT Plan Problem List Problem List: Activity Tolerance, Functional Strength, Safety, Balance, Gait, Transfer, Bed Mobility Treatment/Plan Treatment Plan: Continue Plan of Care Treatment Plan: Bed Mobility, Education, Functional Activity Masoud, Functional Strength, Group Therapy, Gait, Safety, Therapeutic Exercise, Transfers, Other Treatment Duration: May 22, 2017 Frequency: Modified Program (IRF) Estimated Hrs Per Day: 1.5 hours per day Patient and/or Family Agrees t: Yes Safety Risks/Education Patient Education: Gait Training, Transfer Techniques, Correct Positioning, Safety Issues Teaching Recipient: Patient Teaching Methods: Demonstration, Discussion Response to Teaching: Reinforcement Needed Time/GCodes Time In: 800 Time Out: 900 Total Billed Treatment Time: 60 Total Billed Treatment 1 visit GT 30' NM 15' EX 15' GAETANO FRANK PT May 16, 2017 08:55
--- NOTE | 2017-05-16 10:04 | PM & R (SOAP) Progress Note ---
Subjective Time Seen by Provider: 09:55 Subjective/Events-last exam Patient was seen in Gym and on unit this Am Patient min assist for gait with Hemiwalker.Patient able to self propel her w/c independently on unit. Review of Systems Neurological: Weakness Objective Exam Last Set of Vital Signs Vital Signs Date Time Temp Pulse Resp B/P (MAP) Pulse Ox O2 Delivery O2 Flow Rate FiO2 05/16/17 09:37 Room Air 05/16/17 05:33 98.9 69 18 112/73 (86) 96 Capillary Refill : I&O Intake and Output 05/16/17 00:00 Intake Total 1000 ml Balance 1000 ml Intake Oral 1000 ml # Urine Diapers 5 # Bowel Movements 1 General: Alert, Oriented X3, Cooperative, No Acute Distress HEENT: Atraumatic, PERRLA, EOMI Neck: Supple, No JVD Lungs: Clear to Auscultation Heart: Regular Rate Abdomen: Normal Bowel Sounds, Soft, No Tenderness Extremities: No Edema Neuro: Other (RT HP with impaired sensation to touch) Assessment/Plan Assessment Left ICB due to hypertensive crisis most likely due to substance abuse with resulting RT HP and dysphagia-ST assessment done improving in all domains Hypotension resolved HTN controlled with current meds Substance abuse currently abstaining Aphasia improving Hoarseness-improved with steroids Plan Continue PT/OT/ST [facility] Physician declined patient Dr lazo assisting Hold antihypertensives for now and monitor for orthostasis SW to followup re status of [place] at some point Appreciate ENT note and recs-hoarseness improved with decadron--patient tolerating steroid taper well Team Conference held yesterday 05-15-17--See report for full functional update and POC and ELOS Discharge set tentatively for 05/22/17 to home with MARGO PERALES MD May 16, 2017 10:04
--- NOTE | 2017-05-16 10:56 | Speech Therapy Daily Note ---
Speech Daily Progress Note Subjective Date Seen by Provider: May 16, 2017 Time Seen by Provider: 09:00 The patient was sitting upright in recliner upon entrance. The patient greeted the clinician and was agreeable to participation in the cognitive treatment session. The patient's conversational language and appropriateness continues to improve significantly. The patient greets the clinician and consistently converses ( informally) prior to the initiation of therapy tasks. Objective - Clock Reading: The patient displayed 100% accuracy with reading clock on an analog clock with numbers, michael numerals, and dashes. The patient intermittently displayed paraphasias with numbers, however, consistently self- corrected to the accurate response. - [place] Counting: The patient was able to state the names of each coin and bill, as well as, the amount each coin and bill were worth. The patient displayed 100 % accuracy with simple addition of coins and bills, however, did require moderate prompting with increased amounts. The patient is displaying excellent progress with this goal. - Orientation: The patient was oriented to month, year, day of week, date, and location with the use of the in-room white board (external). Assessment Assessment Current Status: Good Progress Treatment Plan Continue Plan of Care Communication Comprehension: 4 Expression: 3 Social Cognition Social Interaction: 4 Problem Solvin Memory: 3 Speech Short Term Goals Short Term Goals Short Term Goals 1. The patient will demonstrate 70% accuracy with confrontational naming of ADL objects with minimal clinician cueing. 2. The patient will repeat short phrases with 70% accuracy and mild clinician verbal cueing. 3. The patient will respond to yes and now questions with 80% accuracy, independently. 4. The patient will be demonstrate simple orientation information with 100% accuracy. Time Frame-STG: Two Weeks Speech Custodial Goals Custodial Goals 1. The patient will demonstrate improved expressive and receptive communication for increased safety and function with ADL's. Time Frame: Six Weeks Comprehension: 4 Expression: 3 Social Interaction: 4 Speech-Plan Treatment Plan Speech Therapy Treatment Plan: Continue Plan of Care Continue skilled speech pathology to target functional communication and problem solving. Treatment Duration: Jun 13, 2017 Frequency: 5 times per week Estimated Hrs Per Day: .5 hour per day Rehab Potential: Guarded Safety Risks/Education Teaching Recipient: Patient Teaching Methods: Demonstration, Discussion Response to Teaching: Verbalize Understanding, Return Demonstration Education Topics Provided: [place], Clock Reading Time Speech Therapy Time In: :00 Speech Therapy Time Out: 09:30 Total Billed Time: 30 Billed Treatment Time 1, SAULO HOWELL May 16, 2017 10:55
--- NOTE | 2017-05-16 12:55 | Occupational Ther Daily Note ---
OT Current Status-Daily Note Subjective Pt alert, sitting in recliner. Pt agreed to therapy. No c/o pain. Mental Status/Objective Patient Orientation: Person, Place, Time, Situation Functional [place] Measure 0=Not Assessed/NA 4=Minimal Assistance 1=Total Assistance 5=Supervision or Setup 2=Maximal Assistance 6=Modified [place] 3=Moderate Assistance 7=Complete [place] ADL-Treatment Pt declined taking shower or using rest room. Pt did agree to take sponge bath and change clothing. After set up, pt was able to complete upper body bathing by self. Pt stood and was able to balance to hike pants over hips with CGA. Pt was able to don/doff lower body clothing over feet after setup. Pt transferred from recliner to w/c with CGA. Mod I for grooming at w/c level. Functional [place] Measure 0=Not Assessed/NA 4=Minimal Assistance 1=Total Assistance 5=Supervision or Setup 2=Maximal Assistance 6=Modified [place] 3=Moderate Assistance 7=Complete IndependenceIRFPAI Quality Coding Scale 6 Independent with activity with or without an assistive device 5 Patient requires set up or clean up by helper. Patient completes activity by themselves 4 Supervision or touching assist (CGA). [place] provide cues , steadying assist 3 The helper provides less than half the effort to complete the activity 2 The helper provides more than half the effort to complete the activity 1 Dependent. The helper does all the effort to complete an activity 7 Patient refused to complete or attempt activity 9 The patient did not perform the activity before the current illness or injury 88 Not attempted due to Medical conditions or safety concerns Grooming (FIM): 6 Oral Hygiene (QC): 6 Upper Body (FIM): 5 Upper Body Dressing (QC): 5 Lower Body Dressing (FIM): 4 Lower Body Dressing (QC): 4 On/Off Footwear (QC): 5 Other Treatment Pt then maneuvered w/c to [facility] by self. Pt stood at tall table to complete R UE gross and fine motor tasks. Pt worked on wt bearing in standing with L UE through elbow while working on visual perceptual and cognitive tasks. Pt was able to stand for 10 min at a time leaning on L UE for stabilization without LOB. When pt sitting in w/c LUE APROM completed. Pt demonstrated minimal active movement with shldr elevation and retraction, forearm supination , bicep ext/flex and finger flexion. Pt demonstrated slight subluxation in L shldr and educated pt on exercises to strengthen shldr girdle. After therapy, pt transferred back to bed from w/c with CGA. Call light/phone in reach. All needs met in room. Safety measures in place. Education OT Patient Education: Purpose of tx/functional activities Teaching Recipient: Patient Teaching Methods: Demonstration, Discussion Response to Teaching: Return Demonstration, Reinforcement Needed OT Short Term Goals Short Term Goals Time Frame: May 15, 2017 Grooming(FIM): 5 Upper Body Dressing(FIM): 4 Lower Body Dressing(FIM): 3 Toileting(FIM): 3 Transfers (B,C,W/C) (FIM): 4 Toilet/Commode Transfer(FIM): 4 Shower Transfer(FIM): 3 Additional Short Term Goals: 2-Verbalize Understanding, 3-ImproveStrength/Masoud 1=Demonstrate adherence to instructed precautions during ADL tasks. 2=Patient will verbalize/demonstrate understanding of assistive devices/ modifications for ADL. 3=Patient will improve strength/tolerance for activity to enable patient to perform ADL's. OT Halfway Goals Halfway Goals Time Frame: May 29, 2017 Eating (FIM): 6 Eating (QC): 6 Groomin Oral Hygiene (QC): 6 Bathing(FIM): 5 Shower/Bathe Self (QC): 5 Upper Body Dressing(FIM): 6 Upper Body Dressing (QC): 6 Lower Body Dressing(FIM): 5 Lower Body Dressing (QC): 5 On/Off Footwear (QC): 5 Toileting(FIM): 6 Toileting Hygiene (QC): 6 Toilet/Commode Transfer(FIM): 6 Toilet/Commode Transfer (QC): 6 Shower Transfer(FIM): 5 Comprehension(FIM): 4 Expression (FIM): 3 Social Interaction(FIM): 4 Additional Goals: 2-Verbalize Understanding, 3-ImproveStrength/Masoud 1=Demonstrate adherence to instructed precautions during ADL tasks. 2=Patient will verbalize/demonstrate understanding of assistive devices/ modifications for ADL. 3=Patient will improve strength/tolerance for activity to enable patient to perform ADL's. OT Education/Plan Problem List/Assessment Pt s/p CVA with right side deficits. Pt demonstrates decreased mobility, strength, coordination, activity tolerance, and ADL functioning. Pt to benefit from skilled OT intervention for ADL training, transfers, strengthening, and safety education to increase level of independence and allow safe discharge plan. Discharge Recommendations Plan/Recommendations: Continue POC Treatment Plan/Plan of Care Patient would benefit from OT for education, treatment and training to promote independence in ADL's, mobility, safety and/or upper extremity function for ADL' s. Plan of Care: ADL Retraining, Functional Mobility, Group Exercise/Act as Ind, UE Funct Exercise/Act, UE Neuromus Re-Ed/Coord Treatment Duration: May 29, 2017 Frequency: Modified Program (IRF) (15/09) Estimated Hrs Per Day: 1.5 hours per day Agreement: Yes Rehab Potential: Guarded Time/GCodes Start Time: 09:30 Stop Time: 10:45 Total Time Billed (hr/min): 75 Billed Treatment Time 1 visit-ADL 3 (45 min) NM 2 (30 min) MARIAN LUONG May 16, 2017 12:55
--- NOTE | 2017-05-16 13:28 | Physical Therapy Daily Note ---
PT Daily Note-Current Subjective Patient in bed pre tx, agrees to PT, no complaints of pain. Appearance Patient in bed post tx with nurse call, phone, tray, all needs met. Mental Status Patient Orientation: Person, Place, Situation Transfers Functional [place] Measure 0=Not Assessed/NA 4=Minimal Assistance 1=Total Assistance 5=Supervision or Setup 2=Maximal Assistance 6=Modified [place] 3=Moderate Assistance 7=Complete IndependenceIRFPAI Quality Coding Scale 6 Independent with activity with or without an assistive device 5 Patient requires set up or clean up by helper. Patient completes activity by themselves 4 Supervision or touching assist (CGA). [place] provide cues , steadying assist 3 The helper provides less than half the effort to complete the activity 2 The helper provides more than half the effort to complete the activity 1 Dependent. The helper does all the effort to complete an activity 7 Patient refused to complete or attempt activity 9 The patient did not perform the activity before the current illness or injury 88 Not attempted due to Medical conditions or safety concerns Transfers (B, C, W/C) (FIM): 4 Scootin Rollin Supine to/from Sit: 5 Sit to/from Stand: 4 Bed to/from Chair: 4 Weight Bearing Right Lower Extremity: Right Weight Bearing/Tolerated Left Lower Extremity: Left Full Weight Bearing Gait Training Gait (FIM): 4 Distance: 150'x2 Gait Level of Assist: 4 Gait Persons Needed: 1 Gait Assistive Device: Cane Small Base Quad Patient did lean toward the right side but did not need assist with balance or weight shifting, CGA Exercises NuStep Minutes: 15 NuStep Workload: 5 Treatments bed mobility and transfers, ambulation, functional strengthening Assessment Current Status: Fair Progress improving balance PT Short Term Goals Short Term Goals Time Frame: May 15, 2017 Transfers (B,C,W/C) (FIM): 4 Gait (FIM): 2 (me) Distance (FIM): 6=583-13 ft Gait Distance Comment: 50 ft Gait Assistive Device: Walker Charly Wheelchair (FIM): 4 (met) Wheelchair Distance: 150 ft x 3 PT Chcf Goals Mosquito Sprayer Goals PT Mosquito Sprayer Goals Time Frame: May 29, 2017 Transfers (B,C,W/C) (FIM): 6 Sit to Lying (QC): 6 Lying-Sitting on Side/Bed(QC): 6 Sit to Stand (QC): 6 Rollin Roll Left to Right (QC): 6 Chair/Xap-wj-Hdvxv Xfer(QC): 6 Car Transfer (QC): 6 Does the Patient Walk: No and Walking Goal NOT indicated Gait (FIM): 6 Gait distance (FIM): 3=150 ft Walk 10 feet (QC): 6 Walk 10ft-Uneven Surface(QC): 6 Walk 50ft with 2 Turns (QC): 6 Walk 150 ft (QC): 6 Gait Level of Assist: 6 Gait Assistive Device: Walker Charly Does the Pt use WC or Scooter?: Yes Wheelchair (FIM): 6 Wheelchair distance (FIM): 3=150 ft Wheel 50 feet with 2 turns (QC: 6 Stairs (FIM): 5 # of Steps: 8 1 Step (curb) (QC): 5 4 Steps (QC): 5 12 Steps (QC): 88 Picking up an Object (QC): 4 PT Plan Problem List Problem List: Activity Tolerance, Functional Strength, Safety, Balance, Gait, Transfer, Bed Mobility, ROM Treatment/Plan Treatment Plan: Continue Plan of Care Treatment Plan: Bed Mobility, Education, Functional Activity Masoud, Functional Strength, Group Therapy, Gait, Safety, Therapeutic Exercise, Transfers, Other Treatment Duration: May 22, 2017 Frequency: Modified Program (IRF) Estimated Hrs Per Day: 1.5 hours per day Patient and/or Family Agrees t: Yes Safety Risks/Education Patient Education: Gait Training, Transfer Techniques, Correct Positioning, Safety Issues Teaching Recipient: Patient Teaching Methods: Demonstration, Discussion Response to Teaching: Reinforcement Needed Time/GCodes Time In: 1300 Time Out: 1330 Total Billed Treatment Time: 30 Total Billed Treatment 1 visit EX 15' GT 15' GAETANO FRANK PT May 16, 2017 13:28
[2017-05-16 16:51] VITALS: BP 117/77
[2017-05-17 05:10] VITALS: BP 116/72
[2017-05-17] MEDS: predniSONE 10 MG TAB PO SCH (06:50)
[2017-05-17] MEDS: CARVEDILOL 12.5 MG (COREG) TABLET PO SCH ×2 (08:56→20:09)
[2017-05-17] MEDS: amLODIPine 5 MG (NORVASC) TAB PO SCH (08:56)
[2017-05-17] MEDS: FLUoxetine HCL 20 MG (PROzac) CAP PO SCH (08:56)
[2017-05-17] MEDS: lisINopril 40 MG (PRINIVIL) TABLET PO SCH (08:56)
--- NOTE | 2017-05-17 09:10 | Physical Therapy Daily Note ---
PT Daily Note-Current Subjective Patient sitting EOB with friend pre tx, agrees to PT, no complaints of pain. Appearance Patient in recliner post tx with nurse call, phone, tray, all needs met. Mental Status Patient Orientation: Person, Place, Situation Transfers Functional [place] Measure 0=Not Assessed/NA 4=Minimal Assistance 1=Total Assistance 5=Supervision or Setup 2=Maximal Assistance 6=Modified [place] 3=Moderate Assistance 7=Complete IndependenceIRFPAI Quality Coding Scale 6 Independent with activity with or without an assistive device 5 Patient requires set up or clean up by helper. Patient completes activity by themselves 4 Supervision or touching assist (CGA). [place] provide cues , steadying assist 3 The helper provides less than half the effort to complete the activity 2 The helper provides more than half the effort to complete the activity 1 Dependent. The helper does all the effort to complete an activity 7 Patient refused to complete or attempt activity 9 The patient did not perform the activity before the current illness or injury 88 Not attempted due to Medical conditions or safety concerns Transfers (B, C, W/C) (FIM): 4 Sit to/from Stand: 4 Bed to/from Chair: 4 CGA, occasional cues for hand placement Weight Bearing Right Lower Extremity: Right Weight Bearing/Tolerated Left Lower Extremity: Left Full Weight Bearing Gait Training Gait (FIM): 4 Distance: 150'x2 Gait Level of Assist: 4 Gait Persons Needed: 1 Gait Assistive Device: Cane Small Base Quad min assist for occasional LOB, no AFO, patient is able to doriflex right foot but still drags a little on the floor, there is little change in this while using an AFO Exercises Supine Ex: Bridging, Ankle pumps, Quad Set, Glut sets, Heel Slides, Short Arc Quads, Straight leg raise, Hip abd/add Supine Reps: 20 LAQ for 5 min right side with 3# ankle weight NuStep Minutes: 10 NuStep Workload: 5 Neuromuscular balance activity, picking up cones Treatments transfers, ambulation, functional strengthening, balance activity Assessment Current Status: Fair Progress improving balance and ambulation PT Short Term Goals Short Term Goals Time Frame: May 15, 2017 Transfers (B,C,W/C) (FIM): 4 Gait (FIM): 2 (me) Distance (FIM): 3=153-00 ft Gait Distance Comment: 50 ft Gait Assistive Device: Walker Charly Wheelchair (FIM): 4 (met) Wheelchair Distance: 150 ft x 3 PT Pace Analyst Goals Pace Analyst Goals PT Snf Goals Time Frame: May 29, 2017 Transfers (B,C,W/C) (FIM): 6 Sit to Lying (QC): 6 Lying-Sitting on Side/Bed(QC): 6 Sit to Stand (QC): 6 Rollin Roll Left to Right (QC): 6 Chair/Oki-rw-Gjlch Xfer(QC): 6 Car Transfer (QC): 6 Does the Patient Walk: No and Walking Goal NOT indicated Gait (FIM): 6 Gait distance (FIM): 3=150 ft Walk 10 feet (QC): 6 Walk 10ft-Uneven Surface(QC): 6 Walk 50ft with 2 Turns (QC): 6 Walk 150 ft (QC): 6 Gait Level of Assist: 6 Gait Assistive Device: Walker Charly Does the Pt use WC or Scooter?: Yes Wheelchair (FIM): 6 Wheelchair distance (FIM): 3=150 ft Wheel 50 feet with 2 turns (QC: 6 Stairs (FIM): 5 # of Steps: 8 1 Step (curb) (QC): 5 4 Steps (QC): 5 12 Steps (QC): 88 Picking up an Object (QC): 4 PT Plan Problem List Problem List: Activity Tolerance, Functional Strength, Safety, Balance, Gait, Transfer Treatment/Plan Treatment Plan: Continue Plan of Care Treatment Plan: Bed Mobility, Education, Functional Activity Masoud, Functional Strength, Group Therapy, Gait, Safety, Therapeutic Exercise, Transfers, Other Treatment Duration: May 22, 2017 Frequency: Modified Program (IRF) Estimated Hrs Per Day: 1.5 hours per day Patient and/or Family Agrees t: Yes Safety Risks/Education Patient Education: Gait Training, Transfer Techniques, Correct Positioning, Safety Issues Teaching Recipient: Patient Teaching Methods: Demonstration, Discussion Response to Teaching: Reinforcement Needed Time/GCodes Time In: 800 Time Out: 845 Total Billed Treatment Time: 45 Total Billed Treatment 1 visit GT 15' EX 30' GAETANO FRANK PT May 17, 2017 09:10
--- NOTE | 2017-05-17 10:20 | Occupational Ther Daily Note ---
OT Current Status-Daily Note Subjective Pt seen in room, up in recliner, agreeable to OT. No pain mentioned. Appearance Alert, cooperative Mental Status/Objective Functional [place] Measure 0=Not Assessed/NA 4=Minimal Assistance 1=Total Assistance 5=Supervision or Setup 2=Maximal Assistance 6=Modified [place] 3=Moderate Assistance 7=Complete [place] ADL-Treatment Pt wanted to shower. Problem-solved shower transfer before she did it. Walked to bathroom with close CGA, quad cane, cues for pacing herself. Pt transferred into shower with min assist, sitting on end of shower bench and then scooting over. Stood CGA to push pants down, then completed undressing herself with SBA. Pt washed her hair and washed/dried all parts with setup, skilled cues for drying, help to wash her back. Pt walked back to recliner with CGA, quad cane. Pt educ technique for donning shirt so that R arm doesn't fall out before shirt was on. Pt able to put pants on over feet, pull them up to thighs, CGA, quad cane, skilled hues to extend R knee to stand and she helped pull pants up over hips. She donned socks and shoes. Pt left up in recliner, combing hair, all needs met, chair alarm on. Functional [place] Measure 0=Not Assessed/NA 4=Minimal Assistance 1=Total Assistance 5=Supervision or Setup 2=Maximal Assistance 6=Modified [place] 3=Moderate Assistance 7=Complete IndependenceIRFPAI Quality Coding Scale 6 Independent with activity with or without an assistive device 5 Patient requires set up or clean up by helper. Patient completes activity by themselves 4 Supervision or touching assist (CGA). [place] provide cues , steadying assist 3 The helper provides less than half the effort to complete the activity 2 The helper provides more than half the effort to complete the activity 1 Dependent. The helper does all the effort to complete an activity 7 Patient refused to complete or attempt activity 9 The patient did not perform the activity before the current illness or injury 88 Not attempted due to Medical conditions or safety concerns Bathing (FIM): 5 (Shower bench, grab bars, hand held shower) Upper Body (FIM): 5 Lower Body Dressing (FIM): 4 Lower Body Dressing (QC): 4 (CGA, help getting pants over hips) Education OT Patient Education: Modified ADL techniques, Progress toward Goal/Update tx plan, Purpose of tx/functional activities, Safety issues, Transfer techniques, Use of adapted equipment Teaching Recipient: Patient Teaching Methods: Demonstration, Discussion Response to Teaching: Verbalize Understanding, Return Demonstration, Reinforcement Needed OT Short Term Goals Short Term Goals Time Frame: May 15, 2017 Grooming(FIM): 5 Upper Body Dressing(FIM): 4 Lower Body Dressing(FIM): 3 Toileting(FIM): 3 Transfers (B,C,W/C) (FIM): 4 Toilet/Commode Transfer(FIM): 4 Shower Transfer(FIM): 3 Additional Short Term Goals: 2-Verbalize Understanding, 3-ImproveStrength/[place] 1=Demonstrate adherence to instructed precautions during ADL tasks. 2=Patient will verbalize/demonstrate understanding of assistive devices/ modifications for ADL. 3=Patient will improve strength/tolerance for activity to enable patient to perform ADL's. OT Jail Goals Fiberglass Container Winding Operator Goals Time Frame: May 29, 2017 Eating (FIM): 6 Eating (QC): 6 Groomin Oral Hygiene (QC): 6 Bathing(FIM): 5 Shower/Bathe Self (QC): 5 Upper Body Dressing(FIM): 6 Upper Body Dressing (QC): 6 Lower Body Dressing(FIM): 5 Lower Body Dressing (QC): 5 On/Off Footwear (QC): 5 Toileting(FIM): 6 Toileting Hygiene (QC): 6 Toilet/Commode Transfer(FIM): 6 Toilet/Commode Transfer (QC): 6 Shower Transfer(FIM): 5 Comprehension(FIM): 4 Expression (FIM): 3 Social Interaction(FIM): 4 Additional Goals: 2-Verbalize Understanding, 3-ImproveStrength/[place] 1=Demonstrate adherence to instructed precautions during ADL tasks. 2=Patient will verbalize/demonstrate understanding of assistive devices/ modifications for ADL. 3=Patient will improve strength/tolerance for activity to enable patient to perform ADL's. OT Education/Plan Problem List/Assessment Pt s/p CVA with right side deficits. Pt demonstrates decreased mobility, strength, coordination, activity tolerance, and ADL functioning. Pt to benefit from skilled OT intervention for ADL training, transfers, strengthening, and safety education to increase level of independence and allow safe discharge plan. Discharge Recommendations Plan/Recommendations: Continue POC Treatment Plan/Plan of Care Patient would benefit from OT for education, treatment and training to promote independence in ADL's, mobility, safety and/or upper extremity function for ADL' s. Plan of Care: ADL Retraining, Functional Mobility, Group Exercise/Act as Ind, UE Funct Exercise/Act, UE Neuromus Re-Ed/Coord Treatment Duration: May 29, 2017 Frequency: Modified Program (IRF) (15/09) Estimated Hrs Per Day: 1.5 hours per day Agreement: Yes Rehab Potential: Guarded Time/GCodes Start Time: 09:30 Stop Time: 10:15 Total Time Billed (hr/min): 45 Billed Treatment Time visit, 45 minutes ADL SOPHIA CERVANTES OT May 17, 2017 10:20
--- NOTE | 2017-05-17 11:15 | Speech Therapy Daily Note ---
Speech Daily Progress Note Subjective Date Seen by Provider: May 17, 2017 Time Seen by Provider: 09:00 The patient was seated upright in recliner upon entrance. The patient greeted the clinician and was agreeable to participation in the cognitive treatment session. To note, the patient holds and initiates appropriate conversational exchanges with the clinician with intermittent word-finding difficulty present. The patient's significant other was present at bedside. Objective - Sequencing: The patient reported to the clinician that she greatly enjoyed playing cards. When asked, the patient stated she likes and recalls the rules to Qnary, however, cannot recall the order of a specific magic trick she was thinking of. The patient shuffled the deck with her left hand and explained the rules of Qnary to the clinician. The patient sequenced the game appropriately and completed simple math throughout the session. The patient does experience intermittent word-finding errors and paraphasia, however, is consistently aware of errors and self-corrects. At time, the patient was able to use circumlocution (spontaneously) to provide a description to the clinician. Assessment Assessment Current Status: Good Progress Treatment Plan Continue Plan of Care Communication Comprehension: 4 Expression: 4 Social Cognition Social Interaction: 4 Problem Solvin Memory: 3 Speech Short Term Goals Short Term Goals Short Term Goals 1. The patient will demonstrate 70% accuracy with confrontational naming of ADL objects with minimal clinician cueing. 2. The patient will repeat short phrases with 70% accuracy and mild clinician verbal cueing. 3. The patient will respond to yes and now questions with 80% accuracy, independently. 4. The patient will be demonstrate simple orientation information with 100% accuracy. Time Frame-STG: Two Weeks Speech Halfway Goals Monkey Breeder Goals 1. The patient will demonstrate improved expressive and receptive communication for increased safety and function with ADL's. Time Frame: Six Weeks Comprehension: 4 Expression: 3 Social Interaction: 4 Speech-Plan Treatment Plan Speech Therapy Treatment Plan: Continue Plan of Care Continue skilled speech pathology to target functional communication and safety problem solving. Treatment Duration: Jun 13, 2017 Frequency: 5 times per week Estimated Hrs Per Day: .5 hour per day Rehab Potential: Guarded Safety Risks/Education Teaching Recipient: Patient, Significant Other Teaching Methods: Discussion Response to Teaching: Verbalize Understanding, Return Demonstration Education Topics Provided: Sequencing Tasks to Practice Time Speech Therapy Time In: 09:00 Speech Therapy Time Out: 09:30 Total Billed Time: 30 Billed Treatment Time 1, SAULO HOWELL May 17, 2017 11:15
--- NOTE | 2017-05-17 14:35 | Therapy Group Daily Note ---
Therapy Daily Group Note Other/Notes Each patient participated in group therapy in the common area of rehab. Each patient ambulated or was transported to the common area and everyone sat in a [place]. Each patient then had to introduce themselves, state where they were from and answer a question that involved memory and critical thinking. The group was oriented to rehab due to having a lot of new patients and each discipline was explained and the their daily rehab schedule. Then the group was educated, with encouraged patient interaction, about the senses and changes with aging and injury. Home safety and driving was also covered. Interaction between patients and therapist and other patients was encouraged. Patient performed a stereoagnosis activity at the end of therapy. Each patient then ambulated or was transported back to their room and placed in chair or bed with nurse call, phone, all needs met. Start Time: 13:00 Stop Time: 14:15 Total Billed Treatment Time: 75 Total Billed Treatment 1 visit GRP 75' GAETANO FRANK PT May 17, 2017 14:35
[2017-05-17 18:30] VITALS: BP 109/72
[2017-05-18 05:19] VITALS: BP 114/77
[2017-05-18] MEDS: predniSONE 10 MG TAB PO SCH (06:16)
[2017-05-18 08:20] VITALS: BP 111/70
[2017-05-18] MEDS: FLUoxetine HCL 20 MG (PROzac) CAP PO SCH (08:20)
[2017-05-18] MEDS: CARVEDILOL 12.5 MG (COREG) TABLET PO SCH ×2 (08:20→23:49)
[2017-05-18] MEDS: amLODIPine 5 MG (NORVASC) TAB PO SCH (08:20)
[2017-05-18] MEDS: lisINopril 40 MG (PRINIVIL) TABLET PO SCH (08:20)
--- NOTE | 2017-05-18 11:27 | Physical Therapy Daily Note ---
PT Daily Note-Current Subjective Pt. in bed , opens eyes and smiles, agrees to Rx. Very happy about her recovery. Pain Numeric Pain Scale: 0-No Pain Mental Status Patient Orientation: Normal For Age voice and communication continues to progress Transfers Functional [place] Measure 0=Not Assessed/NA 4=Minimal Assistance 1=Total Assistance 5=Supervision or Setup 2=Maximal Assistance 6=Modified [place] 3=Moderate Assistance 7=Complete IndependenceIRFPAI Quality Coding Scale 6 Independent with activity with or without an assistive device 5 Patient requires set up or clean up by helper. Patient completes activity by themselves 4 Supervision or touching assist (CGA). [place] provide cues , steadying assist 3 The helper provides less than half the effort to complete the activity 2 The helper provides more than half the effort to complete the activity 1 Dependent. The helper does all the effort to complete an activity 7 Patient refused to complete or attempt activity 9 The patient did not perform the activity before the current illness or injury 88 Not attempted due to Medical conditions or safety concerns Transfers (B, C, W/C) (FIM): 5 Scootin Rollin Supine to/from Sit: 6 Sit to/from Stand: 5 Weight Bearing Right Lower Extremity: Right Weight Bearing/Tolerated Left Lower Extremity: Left Full Weight Bearing Gait Training Does the Patient Walk?: Yes Gait (FIM): 4 Distance (FIM): 3=150 ft Gait Level of Assist: 4 Gait Persons Needed: 1 Gait Assistive Device: Cane Small Base Quad Needs many cues for DF on right, slow min to CGA Exercises Seated Therapy Exercises: Ankle pumps, Sit to stand, Long arc quads Seated Reps: 10 Assessment Current Status: Good Progress PT Short Term Goals Short Term Goals Time Frame: May 15, 2017 Transfers (B,C,W/C) (FIM): 4 Gait (FIM): 2 (me) Distance (FIM): 4=243-50 ft Gait Distance Comment: 50 ft Gait Assistive Device: Walker Charly Wheelchair (FIM): 4 (met) Wheelchair Distance: 150 ft x 3 PT [employer] Linux Administrator Goals [employer] Linux Administrator Goals PT [employer] Linux Administrator Goals Time Frame: May 29, 2017 Transfers (B,C,W/C) (FIM): 6 Sit to Lying (QC): 6 Lying-Sitting on Side/Bed(QC): 6 Sit to Stand (QC): 6 Rollin Roll Left to Right (QC): 6 Chair/Dke-at-Sgxfc Xfer(QC): 6 Car Transfer (QC): 6 Does the Patient Walk: No and Walking Goal NOT indicated Gait (FIM): 6 Gait distance (FIM): 3=150 ft Walk 10 feet (QC): 6 Walk 10ft-Uneven Surface(QC): 6 Walk 50ft with 2 Turns (QC): 6 Walk 150 ft (QC): 6 Gait Level of Assist: 6 Gait Assistive Device: Walker Charly Does the Pt use WC or Scooter?: Yes Wheelchair (FIM): 6 Wheelchair distance (FIM): 3=150 ft Wheel 50 feet with 2 turns (QC: 6 Stairs (FIM): 5 # of Steps: 8 1 Step (curb) (QC): 5 4 Steps (QC): 5 12 Steps (QC): 88 Picking up an Object (QC): 4 PT Plan Treatment/Plan Treatment Plan: Continue Plan of Care Treatment Plan: Bed Mobility, Education, Functional Activity Masoud, Functional Strength, Group Therapy, Gait, Safety, Therapeutic Exercise, Transfers, Other Treatment Duration: May 22, 2017 Frequency: Modified Program (IRF) Estimated Hrs Per Day: 1.5 hours per day Patient and/or Family Agrees t: Yes Safety Risks/Education Patient Education: Gait Training, Transfer Techniques Teaching Recipient: Patient Teaching Methods: Demonstration, Discussion Response to Teaching: Verbalize Understanding, Return Demonstration, Reinforcement Needed Time/GCodes Time In: 1015 Time Out: 1035 Total Billed Treatment Time: 20 Total Billed Treatment 1,GT20m G Codes Necessary: No EDGARD SÁNCHEZ PTA May 18, 2017 11:27
[2017-05-18 17:57] VITALS: BP 164/91
[2017-05-18 23:49] VITALS: BP 153/88
[2017-05-19 05:51] VITALS: BP 112/72
[2017-05-19] MEDS: predniSONE 10 MG TAB PO SCH (06:14)
[2017-05-19 08:17] VITALS: BP 108/68
[2017-05-19] MEDS: lisINopril 40 MG (PRINIVIL) TABLET PO SCH (08:20)
[2017-05-19] MEDS: FLUoxetine HCL 20 MG (PROzac) CAP PO SCH (08:20)
[2017-05-19] MEDS: CARVEDILOL 12.5 MG (COREG) TABLET PO SCH ×2 (08:20→23:56)
[2017-05-19] MEDS: amLODIPine 5 MG (NORVASC) TAB PO SCH (08:20)
[2017-05-20 00:07] VITALS: BP 122/74
[2017-05-20 05:16] VITALS: BP 101/66
[2017-05-20] MEDS: CARVEDILOL 12.5 MG (COREG) TABLET PO SCH ×2 (08:47→20:43)
[2017-05-20] MEDS: lisINopril 40 MG (PRINIVIL) TABLET PO SCH (08:47)
[2017-05-20] MEDS: amLODIPine 5 MG (NORVASC) TAB PO SCH (08:47)
[2017-05-20] MEDS: FLUoxetine HCL 20 MG (PROzac) CAP PO SCH (08:47)
--- NOTE | 2017-05-20 08:57 | Physical Therapy Daily Note ---
PT Daily Note-Current Subjective Patient sitting EOB pre tx, agrees to PT, no complaints of pain. Appearance Patient in recliner with legs elevated post tx with nurse call, phone, tray, all needs met. Mental Status Patient Orientation: Person, Place, Situation Transfers Functional [place] Measure 0=Not Assessed/NA 4=Minimal Assistance 1=Total Assistance 5=Supervision or Setup 2=Maximal Assistance 6=Modified [place] 3=Moderate Assistance 7=Complete IndependenceIRFPAI Quality Coding Scale 6 Independent with activity with or without an assistive device 5 Patient requires set up or clean up by helper. Patient completes activity by themselves 4 Supervision or touching assist (CGA). [place] provide cues , steadying assist 3 The helper provides less than half the effort to complete the activity 2 The helper provides more than half the effort to complete the activity 1 Dependent. The helper does all the effort to complete an activity 7 Patient refused to complete or attempt activity 9 The patient did not perform the activity before the current illness or injury 88 Not attempted due to Medical conditions or safety concerns Transfers (B, C, W/C) (FIM): 4 Sit to/from Stand: 4 Bed to/from Chair: 4 CGA, no LOB, patient performed a floor transfer with CGA, she did it easily with no LOB Weight Bearing Right Lower Extremity: Right Weight Bearing/Tolerated Left Lower Extremity: Left Full Weight Bearing Gait Training Gait (FIM): 4 Distance: 200', 150'x2 Gait Level of Assist: 4 Gait Persons Needed: 1 Gait Assistive Device: Cane Small Base Quad Patient ambulated 150'x2 with a quad cane with CGA, no LOB, her right foot drags slightly but has improved, no AFO. Patient also ambulated 200' without an assistive device with CGA, no LOB. Stair Training Stair Training: Handrails/: 1 handrail Stairs (FIM): 4 #of Steps: 12 Stairs: Pattern: Step to Level of Assist: 4 CGA, did not need cues for foot placement, no LOB Exercises LAQ with 3# ankle weight right side for 5 min NuStep Minutes: 15 NuStep Workload: 5 Treatments transfers, ambulation, functional strengthening, gait training Assessment Current Status: Fair Progress improving mobility and transfers, floor transfer PT Short Term Goals Short Term Goals Time Frame: May 15, 2017 Transfers (B,C,W/C) (FIM): 4 Gait (FIM): 2 (me) Distance (FIM): 0=016-72 ft Gait Distance Comment: 50 ft Gait Assistive Device: Walker Charly Wheelchair (FIM): 4 (met) Wheelchair Distance: 150 ft x 3 PT Skilled Nursing Goals Mechanical Handyman Goals PT Skilled Nursing Goals Time Frame: May 29, 2017 Transfers (B,C,W/C) (FIM): 6 Sit to Lying (QC): 6 Lying-Sitting on Side/Bed(QC): 6 Sit to Stand (QC): 6 Rollin Roll Left to Right (QC): 6 Chair/Usb-go-Ghrbo Xfer(QC): 6 Car Transfer (QC): 6 Does the Patient Walk: No and Walking Goal NOT indicated Gait (FIM): 6 Gait distance (FIM): 3=150 ft Walk 10 feet (QC): 6 Walk 10ft-Uneven Surface(QC): 6 Walk 50ft with 2 Turns (QC): 6 Walk 150 ft (QC): 6 Gait Level of Assist: 6 Gait Assistive Device: Walker Charly Does the Pt use WC or Scooter?: Yes Wheelchair (FIM): 6 Wheelchair distance (FIM): 3=150 ft Wheel 50 feet with 2 turns (QC: 6 Stairs (FIM): 5 # of Steps: 8 1 Step (curb) (QC): 5 4 Steps (QC): 5 12 Steps (QC): 88 Picking up an Object (QC): 4 PT Plan Problem List Problem List: Activity Tolerance, Functional Strength, Safety, Balance, Gait, Transfer Treatment/Plan Treatment Plan: Continue Plan of Care Treatment Plan: Bed Mobility, Education, Functional Activity Masoud, Functional Strength, Group Therapy, Gait, Safety, Therapeutic Exercise, Transfers, Other Treatment Duration: May 22, 2017 Frequency: Modified Program (IRF) Estimated Hrs Per Day: 1.5 hours per day Patient and/or Family Agrees t: Yes Safety Risks/Education Patient Education: Gait Training, Transfer Techniques, Correct Positioning, Safety Issues Teaching Recipient: Patient Teaching Methods: Demonstration, Discussion Response to Teaching: Reinforcement Needed Time/GCodes Time In: 800 Time Out: 900 Total Billed Treatment Time: 60 Total Billed Treatment 1 visit GT 30' EX 20' FA 10' GAETANO FRANK PT May 20, 2017 08:57
--- NOTE | 2017-05-20 09:43 | Speech Therapy Daily Note ---
Speech Daily Progress Note Subjective Date Seen by Provider: May 20, 2017 Time Seen by Provider: 09:00 The patient was seated upright in recliner upon entrance. The patient greeted the clinician appropriately and initiated a conversation. The patient's significant other was present for the close of the session. The patient is extremely excited regarding the possibility of returning home on Saturday, May 22. Due to the patient's increased mobility, the patient does not believe "much" will need to be modified in her residence. Objective The patient stated she continues to struggle with word-finding, as well as, whole word paraphasias. Due to this, the clinician discussed and reviewed word- finding strategies which included rest, synonyms, description, and returning to the topic at a later time. Structured Word Finding: The patient demonstrated good accuracy with word- finding exercises, as she was provided a specific category and letter and asked to provide a word that began with the letter and "fit into" the category. With moderate clinician cueing to implement word-finding strategies, the patient displayed 90% accuracy. Assessment Assessment Current Status: Excellent Progress Treatment Plan Continue Plan of Care Communication Comprehension: 4 Expression: 4 Social Cognition Social Interaction: 5 Problem Solvin Memory: 4 Speech Short Term Goals Short Term Goals Short Term Goals 1. The patient will demonstrate 70% accuracy with confrontational naming of ADL objects with minimal clinician cueing. 2. The patient will repeat short phrases with 70% accuracy and mild clinician verbal cueing. 3. The patient will respond to yes and now questions with 80% accuracy, independently. 4. The patient will be demonstrate simple orientation information with 100% accuracy. Time Frame-STG: Two Weeks Speech Prison Goals Pharmacy Intern Goals 1. The patient will demonstrate improved expressive and receptive communication for increased safety and function with ADL's. Time Frame: Six Weeks Comprehension: 4 Expression: 3 Social Interaction: 4 Speech-Plan Treatment Plan Speech Therapy Treatment Plan: Continue Plan of Care Continue skilled speech pathology to target functional communication and expressive language. Treatment Duration: Jun 13, 2017 Frequency: 5 times per week Estimated Hrs Per Day: .5 hour per day Rehab Potential: Guarded Safety Risks/Education Teaching Recipient: Patient, Significant Other Teaching Methods: Demonstration, Discussion Response to Teaching: Verbalize Understanding, Return Demonstration Education Topics Provided: Word-Finding Strategies Time Speech Therapy Time In: 09:00 Speech Therapy Time Out: 09:30 Total Billed Time: 30 Billed Treatment Time 1, SAULO HOWELL May 20, 2017 09:43
--- NOTE | 2017-05-20 11:34 | Occupational Ther Daily Note ---
OT Current Status-Daily Note Subjective Pt seen in room, up in recliner, agreeable to OT. Pt said passes went well over weekend and she was able to manage clothing and hygiene for toileting at home. Pt also reported that sometimes she took herself to the bathroom and she was encouraged to always have someone walk with her to prevent falls. Appearance Alert, cooperative Mental Status/Objective Functional [place] Measure 0=Not Assessed/NA 4=Minimal Assistance 1=Total Assistance 5=Supervision or Setup 2=Maximal Assistance 6=Modified [place] 3=Moderate Assistance 7=Complete [place] ADL-Treatment Functional [place] Measure 0=Not Assessed/NA 4=Minimal Assistance 1=Total Assistance 5=Supervision or Setup 2=Maximal Assistance 6=Modified [place] 3=Moderate Assistance 7=Complete IndependenceIRFPAI Quality Coding Scale 6 Independent with activity with or without an assistive device 5 Patient requires set up or clean up by helper. Patient completes activity by themselves 4 Supervision or touching assist (CGA). [place] provide cues , steadying assist 3 The helper provides less than half the effort to complete the activity 2 The helper provides more than half the effort to complete the activity 1 Dependent. The helper does all the effort to complete an activity 7 Patient refused to complete or attempt activity 9 The patient did not perform the activity before the current illness or injury 88 Not attempted due to Medical conditions or safety concerns Other Treatment Pt declined ADLs this morning. She walked to gym with CGA, quad cane, with cues to not salvador. She was able to get up and down from chair with arms with SBA. Skilled facilitation techniques used to work on R shoulder, elbow, forearm, wrist and hand function, including opening and closings hand and reaching for items in different planes. She was able to hold on to cones and stack two additional cones, with min assist, Able to make a complete fist but has difficulty extending fingers. Demonstrated thumb flex and ext but not abduction. Unable to isolate finger movements with intrinsics. Pt pleased with progress. Pt walked back to room and was left up in recliner with friend, all needs met. Education OT Patient Education: Exercise program, Progress toward Goal/Update tx plan, Purpose of tx/functional activities Teaching Recipient: Patient, Significant Other Teaching Methods: Demonstration, Discussion Response to Teaching: Verbalize Understanding, Return Demonstration, Reinforcement Needed OT Short Term Goals Short Term Goals Time Frame: May 15, 2017 Grooming(FIM): 5 Upper Body Dressing(FIM): 4 Lower Body Dressing(FIM): 3 Toileting(FIM): 3 Transfers (B,C,W/C) (FIM): 4 Toilet/Commode Transfer(FIM): 4 Shower Transfer(FIM): 3 Additional Short Term Goals: 2-Verbalize Understanding, 3-ImproveStrength/[place]oud 1=Demonstrate adherence to instructed precautions during ADL tasks. 2=Patient will verbalize/demonstrate understanding of assistive devices/ modifications for ADL. 3=Patient will improve strength/tolerance for activity to enable patient to perform ADL's. OT Kiln Firer Goals Kiln Firer Goals Time Frame: May 29, 2017 Eating (FIM): 6 Eating (QC): 6 Groomin Oral Hygiene (QC): 6 Bathing(FIM): 5 Shower/Bathe Self (QC): 5 Upper Body Dressing(FIM): 6 Upper Body Dressing (QC): 6 Lower Body Dressing(FIM): 5 Lower Body Dressing (QC): 5 On/Off Footwear (QC): 5 Toileting(FIM): 6 Toileting Hygiene (QC): 6 Toilet/Commode Transfer(FIM): 6 Toilet/Commode Transfer (QC): 6 Shower Transfer(FIM): 5 Comprehension(FIM): 4 Expression (FIM): 3 Social Interaction(FIM): 4 Additional Goals: 2-Verbalize Understanding, 3-ImproveStrength/[place] 1=Demonstrate adherence to instructed precautions during ADL tasks. 2=Patient will verbalize/demonstrate understanding of assistive devices/ modifications for ADL. 3=Patient will improve strength/tolerance for activity to enable patient to perform ADL's. OT Education/Plan Problem List/Assessment Pt s/p CVA with right side deficits. Pt demonstrates decreased mobility, strength, coordination, activity tolerance, and ADL functioning. Pt to benefit from skilled OT intervention for ADL training, transfers, strengthening, and safety education to increase level of independence and allow safe discharge plan. Discharge Recommendations Plan/Recommendations: Continue POC Treatment Plan/Plan of Care Patient would benefit from OT for education, treatment and training to promote independence in ADL's, mobility, safety and/or upper extremity function for ADL' s. Plan of Care: ADL Retraining, Functional Mobility, Group Exercise/Act as Ind, UE Funct Exercise/Act, UE Neuromus Re-Ed/Coord Treatment Duration: May 29, 2017 Frequency: Modified Program (IRF) (15/09) Estimated Hrs Per Day: 1.5 hours per day Agreement: Yes Rehab Potential: Guarded Time/GCodes Start Time: 10:45 Stop Time: 11:30 Total Time Billed (hr/min): 45 Billed Treatment Time visit, 45 minutes neuromotor SOPHIA CERVANTES OT May 20, 2017 11:34
--- NOTE | 2017-05-20 14:34 | Therapy Group Daily Note ---
Therapy Daily Group Note Other/Notes Each patient participated in group therapy in the common area of rehab. Each patient ambulated or was transported to the common area of rehab and seated in a [place]. Each patient had to introduce themselves, state where they were born and answer a question that required memory and critical thinking. The group was educated about adaptive equipment for showers, transfers, and dressing. Patients then participated in group lower extremity strengthening exercises. Each patient had to perform a car transfer and [place] performed it with CGA. Then each patient performed a matching game that involved memory, upper extremity strength, and manual dexterity. Patients were encouraged to participate and interact with each other to problem solve. Then, each patient ambulated or was transported back to their room and placed in bed or chair with nurse call, phone, and tray. Start Time: 13:00 Stop Time: 14:20 Total Billed Treatment Time: 80 Total Billed Treatment 1 visit GRP 80' GAETANO FRANK PT May 20, 2017 14:33
[2017-05-20 18:20] VITALS: BP 114/71
--- NOTE | 2017-05-20 19:15 | Progress Note (SOAP) ---
Subjective Time Seen by Provider: 19:10 Subjective/Events-last exam CVA. Meth abuse. Patient talking better. Patient feeling better. Patient moving right leg better. Patient able to move some of the right upper extremities Focused Exam Respiratory: Lungs Clear, No Accessory Muscle Use, No Respiratory Distress Cardiovascular: Regular Rate, Rhythm Objective Exam Vital Signs Date Time Temp Pulse Resp B/P (MAP) Pulse Ox O2 Delivery O2 Flow Rate FiO2 05/20/17 18:20 98.2 69 20 114/71 (85) 99 Room Air 05/20/17 08:55 Room Air 05/20/17 05:16 97.9 69 16 101/66 (78) 98 Room Air 05/20/17 00:08 Room Air 05/20/17 00:07 97.6 67 18 122/74 (90) 98 Room Air I & O 05/20/17 07:00 Intake Total 850 ml Balance 850 ml Capillary Refill : General Appearance: No Apparent Distress, WD/WN HEENT: Normal ENT Inspection Respiratory: Lungs Clear, No Accessory Muscle Use, No Respiratory Distress Assessment/Plan Assessment/Plan Assess & Plan/Chief Complaint CVA on right. History of meth abuse. Decrease cognitive function. . 05/06/17. CVA on right. Aphasia. Patient wants to eat food.. . 05/07/17. CVA in right. A fascia talking better. Patient needing foot. . 05/08/17. CVA in right. Aphasia talking better. Patient on prednisone. . . CVA on right. A fascia talking better. . 05/10/17 CVA on right. Talking better. Patient seems happy. . 05/13/17. CVA on right. Patient talking better and latter. Right hand still a problem. Right leg improving. . 05/20/17. CVA on right. Meth abuse. Patient moving right leg and starting to move right arm Clinical Quality Measures DVT/VTE Risk/Contraindication: Risk Factor Score Per Nursin RFS Level Per Nursing on Admit: 2=Moderate FLACO RUIZ DO May 20, 2017 19:14
[2017-05-21 07:03] VITALS: BP 104/69
--- NOTE | 2017-05-21 08:18 | Progress Note (SOAP) ---
Subjective Time Seen by Provider: 08:15 Subjective/Events-last exam CVA. Patient doing better. Patient walking better Objective Exam Vital Signs Date Time Temp Pulse Resp B/P (MAP) Pulse Ox O2 Delivery O2 Flow Rate FiO2 05/21/17 07:03 97.6 74 20 104/69 (81) 98 Room Air 05/21/17 06:00 Room Air 05/20/17 21:00 Room Air 05/20/17 18:20 98.2 69 20 114/71 (85) 99 Room Air 05/20/17 08:55 Room Air I & O 05/21/17 07:00 Intake Total 1350 ml Balance 1350 ml Capillary Refill : General Appearance: No Apparent Distress, WD/WN HEENT: Normal ENT Inspection Neck: Normal Inspection Respiratory: No Accessory Muscle Use, No Respiratory Distress Assessment/Plan Assessment/Plan Assess & Plan/Chief Complaint CVA on right. History of meth abuse. Decrease cognitive function. . 05/06/17. CVA on right. Aphasia. Patient wants to eat food.. . 05/07/17. CVA in right. A fascia talking better. Patient needing foot. . 05/08/17. CVA in right. Aphasia talking better. Patient on prednisone. . . CVA on right. A fascia talking better. . 05/10/17 CVA on right. Talking better. Patient seems happy.. . 05/21/17. Patient doing better. CVA on right. Talking good now. . 05/13/17. CVA on right. Patient talking better and latter. Right hand still a problem. Right leg improving. . 05/20/17. CVA on right. Meth abuse. Patient moving right leg and starting to move right arm Clinical Quality Measures DVT/VTE Risk/Contraindication: Risk Factor Score Per Nursin RFS Level Per Nursing on Admit: 2=Moderate FLACO RUIZ DO May 21, 2017 08:18
[2017-05-21 08:40] VITALS: BP 111/66
[2017-05-21] MEDS: FLUoxetine HCL 20 MG (PROzac) CAP PO SCH (08:40)
[2017-05-21] MEDS: CARVEDILOL 12.5 MG (COREG) TABLET PO SCH ×2 (08:40→20:37)
[2017-05-21] MEDS: amLODIPine 5 MG (NORVASC) TAB PO SCH (08:40)
[2017-05-21] MEDS: lisINopril 40 MG (PRINIVIL) TABLET PO SCH (08:40)
--- NOTE | 2017-05-21 08:42 | Physical Therapy Daily Note ---
PT Daily Note-Current Subjective Patient sitting EOB pre tx, agrees to PT, no complaints of pain. Patient is discharging from this facility tomorrow so she will be FIMed. Appearance Patient sitting in recliner post tx with nurse call, phone, tray, all needs met. Mental Status Patient Orientation: Person, Place, Situation Transfers Functional [place] Measure 0=Not Assessed/NA 4=Minimal Assistance 1=Total Assistance 5=Supervision or Setup 2=Maximal Assistance 6=Modified [place] 3=Moderate Assistance 7=Complete IndependenceIRFPAI Quality Coding Scale 6 Independent with activity with or without an assistive device 5 Patient requires set up or clean up by helper. Patient completes activity by themselves 4 Supervision or touching assist (CGA). [place] provide cues , steadying assist 3 The helper provides less than half the effort to complete the activity 2 The helper provides more than half the effort to complete the activity 1 Dependent. The helper does all the effort to complete an activity 7 Patient refused to complete or attempt activity 9 The patient did not perform the activity before the current illness or injury 88 Not attempted due to Medical conditions or safety concerns Transfers (B, C, W/C) (FIM): 4 Scootin Rollin Roll Left to Right (QC): 6 Supine to/from Sit: 6 Sit to/from Stand: 5 Sit to Lying (QC): 6 Sit to Stand (QC): 4 Chair/Nsg-ow-Qirhx Xfer(QC): 4 Bed to/from Chair: 4 Car Transfer (QC): 4 Patient performs bed mobility with mod I, sit to stand with SBA, transfers with CGA, car transfer with CGA. Weight Bearing Right Lower Extremity: Right Weight Bearing/Tolerated Left Lower Extremity: Left Full Weight Bearing Gait Training Gait (FIM): 4 Distance: 150', 250' Walk 10 feet (QC): 4 Walk 50 ft with 2 Turns(QC): 4 Walk 150 ft (QC): 4 Walking 10ft/uneven surface-QC: 4 Gait Level of Assist: 4 Gait Persons Needed: 1 Gait Assistive Device: Cane Small Base Quad Patient can ambulate 250' with a quad cane with CGA, including 50' with at least 2 turns of 90 degrees and 10' over an uneven surface. No AFO and no LOB, but she does occasionally have poor foot clearance on right side. Stair Training Stair Training: Handrails/: 1 handrail Stairs (FIM): 4 #of Steps: 12 1 Step (curb) (QC): 4 4 Steps (QC): 4 12 Steps (QC): 4 Stairs: Pattern: Step to Level of Assist: 4 Patient can go up and down 12 steps using 1 handrail with CGA. No cues needed for foot placement. Balance Picking up an Object (QC): 4 Exercises NuStep Minutes: 15 NuStep Workload: 5 Treatments bed mobility and transfers, ambulation, functional strengthening, gait training , stair training Assessment Current Status: Fair Progress improving balance and general mobility PT Short Term Goals Short Term Goals Time Frame: May 15, 2017 Transfers (B,C,W/C) (FIM): 4 Gait (FIM): 2 (me) Distance (FIM): 8=171-96 ft Gait Distance Comment: 50 ft Gait Assistive Device: Walker Charly Wheelchair (FIM): 4 (met) Wheelchair Distance: 150 ft x 3 PT Cpht Goals Prison Goals PT Prison Goals Time Frame: May 29, 2017 Transfers (B,C,W/C) (FIM): 6 Sit to Lying (QC): 6 (met) Lying-Sitting on Side/Bed(QC): 6 (met) Sit to Stand (QC): 6 Rollin (met) Roll Left to Right (QC): 6 (met) Chair/[id number]-Jibfx Xfer(QC): 6 Car Transfer (QC): 6 Does the Patient Walk: No and Walking Goal NOT indicated Gait (FIM): 6 Gait distance (FIM): 3=150 ft Walk 10 feet (QC): 6 Walk 10ft-Uneven Surface(QC): 6 Walk 50ft with 2 Turns (QC): 6 Walk 150 ft (QC): 6 Gait Level of Assist: 6 Gait Assistive Device: Walker Charly Does the Pt use WC or Scooter?: Yes Wheelchair (FIM): 6 Wheelchair distance (FIM): 3=150 ft Wheel 50 feet with 2 turns (QC: 6 Stairs (FIM): 5 # of Steps: 8 1 Step (curb) (QC): 5 4 Steps (QC): 5 12 Steps (QC): 88 Picking up an Object (QC): 4 PT Plan Problem List Problem List: Activity Tolerance, Functional Strength, Safety, Balance, Gait, Transfer, Bed Mobility Treatment/Plan Treatment Plan: Continue Plan of Care Treatment Plan: Bed Mobility, Education, Functional Activity Masoud, Functional Strength, Group Therapy, Gait, Safety, Therapeutic Exercise, Transfers, Other Treatment Duration: May 22, 2017 Frequency: Modified Program (IRF) Estimated Hrs Per Day: 1.5 hours per day Patient and/or Family Agrees t: Yes Safety Risks/Education Patient Education: Gait Training, Transfer Techniques, Steps, Correct Positioning, Safety Issues Teaching Recipient: Patient Teaching Methods: Demonstration, Discussion Response to Teaching: Reinforcement Needed Time/GCodes Time In: 800 Time Out: 845 Total Billed Treatment Time: 45 Total Billed Treatment 1 visit EX 15' GT 20' FA 10' GAETANO FRANK PT May 21, 2017 08:42
--- NOTE | 2017-05-21 12:55 | Occupational Ther Daily Note ---
OT Current Status-Daily Note Subjective Pt seen in room, up in bed, agreeable to OT. No pain mentioned. Appearance Alert, cooperative Mental Status/Objective Functional [place] Measure 0=Not Assessed/NA 4=Minimal Assistance 1=Total Assistance 5=Supervision or Setup 2=Maximal Assistance 6=Modified [place] 3=Moderate Assistance 7=Complete [place] ADL-Treatment Pt walked with CGA, quad cane to bathroom, toileted, showered, dressed, groomed and then ate lunch. Also walked with CGA, quad cane to shower room for education and practice using transfer tub bench for showering. SO Britt present as well. Both verbalized understanding of techniques and supervision. Functional [place] Measure 0=Not Assessed/NA 4=Minimal Assistance 1=Total Assistance 5=Supervision or Setup 2=Maximal Assistance 6=Modified [place] 3=Moderate Assistance 7=Complete IndependenceIRFPAI Quality Coding Scale 6 Independent with activity with or without an assistive device 5 Patient requires set up or clean up by helper. Patient completes activity by themselves 4 Supervision or touching assist (CGA). [place] provide cues , steadying assist 3 The helper provides less than half the effort to complete the activity 2 The helper provides more than half the effort to complete the activity 1 Dependent. The helper does all the effort to complete an activity 7 Patient refused to complete or attempt activity 9 The patient did not perform the activity before the current illness or injury 88 Not attempted due to Medical conditions or safety concerns Eating (FIM): 6 (Able to open packages, cut food, feed herself. Extra time needed) Eating (QC): 6 Grooming (FIM): 5 (SBA standing at sink to brush teeth. Washed face and hands in shower. Pt educ to use R UE as support at sink. Quad cane. Held toothbrush in R hand) Oral Hygiene (QC): 4 Bathing (FIM): 5 (SBA. Pt washed and dried all parts, sitting on shower bench or standing with SBA. Grab bar, hand held shower. Used R hand to help support and balance herself) Shower/Bathe Self (QC): 4 (SBA) Upper Body (FIM): 5 (Skilled cues to recall modified technique to don shirt and bra. Frustrated with bra because it rolled up on her. Doffed and donned t shirt with supervision) Upper Body Dressing (QC): 4 Lower Body Dressing (FIM): 4 (Needed just a little help to pull pants up on R hip. She doffed and donned pants and sock, as well as shoes with elastic shoe laces. Stood SBA with quad cane or grab bar) Lower Body Dressing (QC): 3 On/Off Footwear (QC): 5 (setup) Toileting (FIM): 4 (SBA to manage clothing and hygiene, with just a little help to get pants up over R hip. Tall toilet, grab bar. Wears depends but was not incontinent) Toileting Hygiene (QC): 3 Toilet/Commode Transfer (FIM): 5 (SBA getting on and off tall toilet, grab bar) Toilet Transfer (QC): 4 (SBA) Shower Transfer(FIM): 5 (SBA getting in and out of shower, on and off shower bench, Grab bar) Other Treatment Pt worked on active R shoulder movement, elbow flex and ext, wrist ext, finger flex and ext, thumb extension, with skilled facilitation techniques. Pt cont to be pleased with progress. Education OT Patient Education: Instructions to caregiver, Modified ADL techniques, Progress toward Goal/Update tx plan, Purpose of tx/functional activities, Transfer techniques Teaching Recipient: Patient Teaching Methods: Demonstration, Discussion Response to Teaching: Verbalize Understanding, Return Demonstration OT Short Term Goals Short Term Goals Time Frame: May 15, 2017 Grooming(FIM): 5 Upper Body Dressing(FIM): 4 Lower Body Dressing(FIM): 3 Toileting(FIM): 3 Transfers (B,C,W/C) (FIM): 4 Toilet/Commode Transfer(FIM): 4 Shower Transfer(FIM): 3 Additional Short Term Goals: 2-Verbalize Understanding, 3-ImproveStrength/[place] 1=Demonstrate adherence to instructed precautions during ADL tasks. 2=Patient will verbalize/demonstrate understanding of assistive devices/ modifications for ADL. 3=Patient will improve strength/tolerance for activity to enable patient to perform ADL's. OT Prison Goals Neon Technician Goals Time Frame: May 29, 2017 Eating (FIM): 6 (met 3-20-18) Eating (QC): 6 (met 3-20-18) Groomin (not met 3-20-18) Oral Hygiene (QC): 6 (not met 3-20-18) Bathing(FIM): 5 (met 3-20-18) Shower/Bathe Self (QC): 5 (not met 3-20-18) Upper Body Dressing(FIM): 6 (not met 3-20-18) Upper Body Dressing (QC): 6 (not met 3-20-18) Lower Body Dressing(FIM): 5 (not met 3-20-18) Lower Body Dressing (QC): 5 (not met 3-20-18) On/Off Footwear (QC): 5 (met 3-20-18) Toileting(FIM): 6 (not met 3-20-18) Toileting Hygiene (QC): 6 (not met 3-20-18) Toilet/Commode Transfer(FIM): 6 (not met 3-20-18) Toilet/Commode Transfer (QC): 6 (not met 3-20-18) Shower Transfer(FIM): 5 (met 3-20-18) Comprehension(FIM): 4 Expression (FIM): 3 Social Interaction(FIM): 4 Additional Goals: 2-Verbalize Understanding, 3-ImproveStrength/[place] 1=Demonstrate adherence to instructed precautions during ADL tasks. 2=Patient will verbalize/demonstrate understanding of assistive devices/ modifications for ADL. 3=Patient will improve strength/tolerance for activity to enable patient to perform ADL's. OT Education/Plan Problem List/Assessment Pt s/p CVA with right side deficits. Pt demonstrates decreased mobility, strength, coordination, activity tolerance, and ADL functioning. Pt to benefit from skilled OT intervention for ADL training, transfers, strengthening, and safety education to increase level of independence and allow safe discharge plan. Discharge Recommendations Plan/Recommendations: Continue POC Treatment Plan/Plan of Care Patient would benefit from OT for education, treatment and training to promote independence in ADL's, mobility, safety and/or upper extremity function for ADL' s. Plan of Care: ADL Retraining, Functional Mobility, Group Exercise/Act as Ind, UE Funct Exercise/Act, UE Neuromus Re-Ed/Coord Treatment Duration: May 29, 2017 Frequency: Modified Program (IRF) (15/09) Estimated Hrs Per Day: 1.5 hours per day Agreement: Yes Rehab Potential: Guarded Time/GCodes Start Time: 11:00 Stop Time: 12:00 Total Time Billed (hr/min): 60 Billed Treatment Time visit, 50 minutes ADL, 10 minutes neuromotor SOPHIA CERVANTES OT May 21, 2017 12:55
--- NOTE | 2017-05-21 13:36 | Speech Therapy Daily Note ---
Speech Daily Progress Note Subjective Date Seen by Provider: May 21, 2017 Time Seen by Provider: 08:45 The patient was sitting upright in recliner upon entrance. The patient greeted the clinician and was agreeable to participation in the cognitive treatment session. Objective Safety Problem Solving: The patient was provided pictures depicting common safety issues in a home environment. The patient was asked to identify the safety issue and provide an appropriate solution. The patient demonstrated high accuracy with this task, easily identifying the safety concern. Word-Finding: The patient continues to demonstrate mild word-finding errors and paraphasia (whole word) throughout conversational exchanges. The patient is highly aware of errors and does re-correct herself consistently. Word finding strategies were reviewed in detail on this date. Assessment Assessment Current Status: Excellent Progress Treatment Plan Continue Plan of Care Communication Comprehension: 5 Expression: 4 Social Cognition Social Interaction: 6 Problem Solvin Memory: 4 Speech Short Term Goals Short Term Goals Short Term Goals 1. The patient will demonstrate 70% accuracy with confrontational naming of ADL objects with minimal clinician cueing. 2. The patient will repeat short phrases with 70% accuracy and mild clinician verbal cueing. 3. The patient will respond to yes and now questions with 80% accuracy, independently. 4. The patient will be demonstrate simple orientation information with 100% accuracy. Time Frame-STG: Two Weeks Speech Detective And Intelligence Analyst Goals [facility] Goals 1. The patient will demonstrate improved expressive and receptive communication for increased safety and function with ADL's. Time Frame: Six Weeks Comprehension: 4 (MET) Expression: 3 (MET) Social Interaction: 4 (MET) Problem Solvin (MET) Memory: 4 (MET) Speech-Plan Treatment Plan Speech Therapy Treatment Plan: Discontinue ST At this time, the patient will discharge from inpatient rehabilitation. Treatment Duration: Jun 13, 2017 Frequency: 5 times per week Estimated Hrs Per Day: .5 hour per day Rehab Potential: Guarded Safety Risks/Education Teaching Recipient: Patient Teaching Methods: Discussion Response to Teaching: Verbalize Understanding Education Topics Provided: Word Finding Strategies Discharge Recommendations Speech Therapy Home Care, Speech Therapy Outpatient Time Speech Therapy Time In: 08:45 Speech Therapy Time Out: 09:15 Total Billed Time: 30 Billed Treatment Time 1ADRIANA ELIZABETH ST May 21, 2017 13:36
--- NOTE | 2017-05-21 13:38 | Therapy Team Discharge Summary ---
Therapy Discharge Summary Discharge Recommendations Date of Discharge Therapy D/C Recommendations: Speech Therapy Home Care, Speech Therapy Outpatient Occupational Therapy Decreased Activ Tolerance, Decreased UE Strength, Dependent Transfers, Impaired Bed Mobility, Impaired Coordination, Impaired Funct Balance, Impaired I ADL's, Impaired Self-Care Skills, Restricted Funct UE ROM Speech-Language Pathology The patient was admitted to [facility] following a right thalamic CVA. Upon admission, the patient displayed moderate to severe expressive aphasia. Skilled speech pathology has focused on word-finding strategies, safety problem solving, and confrontational naming. The patient has displayed excellent progress, meeting all speech and language goals placed by the clinician. At this time, the patient displays mild expressive aphasia. The patient will discharge from inpatient rehabilitation at this time. Home health speech versus outpatient speech services are recommended for the patient. PT Detention Goals Rehabilitation Services Director Goals PT Detention Goals Time Frame: May 29, 2017 Transfers (B,C,W/C) (FIM): 6 Roll Left to Right (QC): 6 (met) Sit to Lying (QC): 6 (met) Lying-Sitting on Side/Bed(QC): 6 (met) Sit to Stand (QC): 6 Chair/Gbt-zx-Bbekt Xfer(QC): 6 Car Transfer (QC): 6 Does the Patient Walk: No and Walking Goal NOT indicated Gait (FIM): 6 Gait distance (FIM): 3=150 ft Walk 10 feet (QC): 6 Walk 10ft-Uneven Surface(QC): 6 Walk 50ft with 2 Turns (QC): 6 Walk 150 ft (QC): 6 Gait Level of Assist: 6 Gait Assistive Device: Walker Charly Does the Pt use WC or Scooter?: Yes Wheelchair (FIM): 6 Wheelchair distance (FIM): 3=150 ft Wheel 50 feet with 2 turns (QC: 6 Stairs (FIM): 5 # of Steps: 8 1 Step (curb) (QC): 5 4 Steps (QC): 5 12 Steps (QC): 88 Picking up an Object (QC): 4 OT Detention Goals Rehabilitation Services Director Goals Time Frame: May 29, 2017 Eating (FIM): 6 Eating (QC): 6 Oral Hygiene (QC): 6 Grooming(FIM): 6 Bathing(FIM): 5 Shower/Bathe Self (QC): 5 Upper Body Dressing(FIM): 6 Upper Body Dressing (QC): 6 Lower Body Dressing(FIM): 5 Lower Body Dressing (QC): 5 On/Off Footwear (QC): 5 Toileting(FIM): 6 Toileting Hygiene (QC): 6 Toilet/Commode Transfer(FIM): 6 Toilet/Commode Transfer (QC): 6 Shower Transfer(FIM): 5 Comprehension(FIM): 4 (MET) Expression (FIM): 3 (MET) Social Interaction(FIM): 4 (MET) Problem Solving(FIM): 4 (MET) Memory(FIM): 4 (MET) Additional Goals: 2-Verbalize Understanding, 3-ImproveStrength/[place] 1=Demonstrate adherence to instructed precautions during ADL tasks. 2=Patient will verbalize/demonstrate understanding of assistive devices/ modifications for ADL. 3=Patient will improve strength/tolerance for activity to enable patient to perform ADL's. Speech Rehabilitation Services Director Goals Rehabilitation Services Director Goals 1. The patient will demonstrate improved expressive and receptive communication for increased safety and function with ADL's. Time Frame: Six Weeks Comprehension: 4 (MET) Expression: 3 (MET) Social Interaction: 4 (MET) Problem Solvin (MET) Memory: 4 (MET) SAULO WELSH May 21, 2017 13:38
--- NOTE | 2017-05-21 14:02 | Occupational Ther Daily Note ---
OT Current Status-Daily Note Subjective Pt seen in room, up in recliner, agreeable to OT. No pain mentioned. Appearance Alert, cooperative Mental Status/Objective Functional [place] Measure 0=Not Assessed/NA 4=Minimal Assistance 1=Total Assistance 5=Supervision or Setup 2=Maximal Assistance 6=Modified [place] 3=Moderate Assistance 7=Complete [place] ADL-Treatment Functional [place] Measure 0=Not Assessed/NA 4=Minimal Assistance 1=Total Assistance 5=Supervision or Setup 2=Maximal Assistance 6=Modified [place] 3=Moderate Assistance 7=Complete IndependenceIRFPAI Quality Coding Scale 6 Independent with activity with or without an assistive device 5 Patient requires set up or clean up by helper. Patient completes activity by themselves 4 Supervision or touching assist (CGA). [place] provide cues , steadying assist 3 The helper provides less than half the effort to complete the activity 2 The helper provides more than half the effort to complete the activity 1 Dependent. The helper does all the effort to complete an activity 7 Patient refused to complete or attempt activity 9 The patient did not perform the activity before the current illness or injury 88 Not attempted due to Medical conditions or safety concerns Other Treatment Pt education on home exercise program (written). Pt will have home health OT but it can't start until she sees her physician ([employer] [employer]) on June 03. Pt was able to demonstrate the ability to move at shoulder and elbow to get R hand to her mouth and reach to L to shoulder, elbow and hand, actively. Pt return demo exercises. Continues to progress with functional use R UE. Pt left up in recliner, all needs met, with written home program. Education OT Patient Education: Home exercise program, Instructions to caregiver, Purpose of tx/functional activities Teaching Recipient: Patient, Significant Other Teaching Methods: Demonstration, Discussion Response to Teaching: Verbalize Understanding, Return Demonstration OT Short Term Goals Short Term Goals Time Frame: May 15, 2017 Grooming(FIM): 5 Upper Body Dressing(FIM): 4 Lower Body Dressing(FIM): 3 Toileting(FIM): 3 Transfers (B,C,W/C) (FIM): 4 Toilet/Commode Transfer(FIM): 4 Shower Transfer(FIM): 3 Additional Short Term Goals: 2-Verbalize Understanding, 3-ImproveStrength/[place] 1=Demonstrate adherence to instructed precautions during ADL tasks. 2=Patient will verbalize/demonstrate understanding of assistive devices/ modifications for ADL. 3=Patient will improve strength/tolerance for activity to enable patient to perform ADL's. OT Human Resources Admin Goals Snf Goals Time Frame: May 29, 2017 Eating (FIM): 6 Eating (QC): 6 Groomin Oral Hygiene (QC): 6 Bathing(FIM): 5 Shower/Bathe Self (QC): 5 Upper Body Dressing(FIM): 6 Upper Body Dressing (QC): 6 Lower Body Dressing(FIM): 5 Lower Body Dressing (QC): 5 On/Off Footwear (QC): 5 Toileting(FIM): 6 Toileting Hygiene (QC): 6 Toilet/Commode Transfer(FIM): 6 Toilet/Commode Transfer (QC): 6 Shower Transfer(FIM): 5 Comprehension(FIM): 4 (MET) Expression (FIM): 3 (MET) Social Interaction(FIM): 4 (MET) Problem Solving(FIM): 4 (MET) Memory(FIM): 4 (MET) Additional Goals: 2-Verbalize Understanding, 3-ImproveStrength/[place] 1=Demonstrate adherence to instructed precautions during ADL tasks. 2=Patient will verbalize/demonstrate understanding of assistive devices/ modifications for ADL. 3=Patient will improve strength/tolerance for activity to enable patient to perform ADL's. OT Education/Plan Problem List/Assessment Pt s/p CVA with right side deficits. Pt demonstrates decreased mobility, strength, coordination, activity tolerance, and ADL functioning. Pt to benefit from skilled OT intervention for ADL training, transfers, strengthening, and safety education to increase level of independence and allow safe discharge plan. Discharge Recommendations Plan/Recommendations: Discharge/Goals Met (see tx plan for specifics) Treatment Plan/Plan of Care Patient would benefit from OT for education, treatment and training to promote independence in ADL's, mobility, safety and/or upper extremity function for ADL' s. Plan of Care: ADL Retraining, Functional Mobility, Group Exercise/Act as Ind, UE Funct Exercise/Act, UE Neuromus Re-Ed/Coord Treatment Duration: May 29, 2017 Frequency: Modified Program (IRF) (15/09) Estimated Hrs Per Day: 1.5 hours per day Agreement: Yes Rehab Potential: Guarded Time/GCodes Start Time: 13:00 Stop Time: 13:15 Total Time Billed (hr/min): 15 Billed Treatment Time visit, neuromotor 15 minutes SOPHIA CERVANTES OT May 21, 2017 14:02
--- NOTE | 2017-05-21 14:31 | Physical Therapy Daily Note ---
PT Daily Note-Current Subjective Patient in bed pre tx, agrees to PT, no complaints of pain. Appearance Patient in bed post tx with nurse call, phone, tray, all needs met. Mental Status Patient Orientation: Person, Place, Situation Transfers Functional [place] Measure 0=Not Assessed/NA 4=Minimal Assistance 1=Total Assistance 5=Supervision or Setup 2=Maximal Assistance 6=Modified [place] 3=Moderate Assistance 7=Complete IndependenceIRFPAI Quality Coding Scale 6 Independent with activity with or without an assistive device 5 Patient requires set up or clean up by helper. Patient completes activity by themselves 4 Supervision or touching assist (CGA). [place] provide cues , steadying assist 3 The helper provides less than half the effort to complete the activity 2 The helper provides more than half the effort to complete the activity 1 Dependent. The helper does all the effort to complete an activity 7 Patient refused to complete or attempt activity 9 The patient did not perform the activity before the current illness or injury 88 Not attempted due to Medical conditions or safety concerns Transfers (B, C, W/C) (FIM): 4 Scootin Rollin Supine to/from Sit: 5 Sit to/from Stand: 5 Bed to/from Chair: 4 Weight Bearing Right Lower Extremity: Right Weight Bearing/Tolerated Left Lower Extremity: Left Full Weight Bearing Gait Training Gait (FIM): 4 Distance: 150', 250' Gait Level of Assist: 4 Gait Persons Needed: 1 Gait Assistive Device: Cane Small Base Quad CGA, no LOB, no AFO Exercises Supine Ex: Bridging, Ankle pumps, Quad Set, Glut sets, Heel Slides, Short Arc Quads, Straight leg raise, Hip abd/add Supine Reps: 20 Seated Therapy Exercises: Long arc quads Seated Reps: 20 Treatments bed mobility and transfers, ambulation, functional strengthening Assessment Current Status: Fair Progress improved balance, endurance, and ambulation PT Short Term Goals Short Term Goals Time Frame: May 15, 2017 Transfers (B,C,W/C) (FIM): 4 Gait (FIM): 2 (me) Distance (FIM): 7=848-63 ft Gait Distance Comment: 50 ft Gait Assistive Device: Walker Charly Wheelchair (FIM): 4 (met) Wheelchair Distance: 150 ft x 3 PT Insurance Verify Rep Goals Insurance Verify Rep Goals PT Insurance Verify Rep Goals Time Frame: May 29, 2017 Transfers (B,C,W/C) (FIM): 6 Sit to Lying (QC): 6 (met) Lying-Sitting on Side/Bed(QC): 6 (met) Sit to Stand (QC): 6 Rollin (met) Roll Left to Right (QC): 6 (met) Chair/Wec-kh-Rxkyw Xfer(QC): 6 Car Transfer (QC): 6 Does the Patient Walk: No and Walking Goal NOT indicated Gait (FIM): 6 Gait distance (FIM): 3=150 ft Walk 10 feet (QC): 6 Walk 10ft-Uneven Surface(QC): 6 Walk 50ft with 2 Turns (QC): 6 Walk 150 ft (QC): 6 Gait Level of Assist: 6 Gait Assistive Device: Walker Charly Does the Pt use WC or Scooter?: Yes Wheelchair (FIM): 6 Wheelchair distance (FIM): 3=150 ft Wheel 50 feet with 2 turns (QC: 6 Stairs (FIM): 5 # of Steps: 8 1 Step (curb) (QC): 5 4 Steps (QC): 5 12 Steps (QC): 88 Picking up an Object (QC): 4 PT Plan Problem List Problem List: Activity Tolerance, Functional Strength, Safety, Balance, Gait, Transfer, Bed Mobility, ROM Treatment/Plan Treatment Plan: Continue Plan of Care Treatment Plan: Bed Mobility, Education, Functional Activity [place], Functional Strength, Group Therapy, Gait, Safety, Therapeutic Exercise, Transfers, Other Treatment Duration: May 22, 2017 Frequency: Modified Program (IRF) Estimated Hrs Per Day: 1.5 hours per day Patient and/or Family Agrees t: Yes Safety Risks/Education Patient Education: Gait Training, Transfer Techniques, Correct Positioning, Safety Issues Teaching Recipient: Patient Teaching Methods: Demonstration, Discussion Response to Teaching: Reinforcement Needed Time/GCodes Time In: 1400 Time Out: 1430 Total Billed Treatment Time: 30 Total Billed Treatment 1 visit GT 10' EX 20' GAETANO FRANK PT May 21, 2017 14:30
[2017-05-21] MEDS ORDERED: AMLO5TAB2 PO (16:56)
[2017-05-21] MEDS ORDERED: LISI40TA PO (16:56)
[2017-05-21] MEDS ORDERED: CARV12.53 PO (16:56)
[2017-05-21] MEDS ORDERED: FLUO20CA25 PO (16:56)
[2017-05-21 17:56] VITALS: BP 119/79
[2017-05-22 05:57] VITALS: BP 99/63
--- NOTE | 2017-05-22 08:36 | Progress Note (SOAP) ---
Subjective Time Seen by Provider: 08:34 Subjective/Events-last exam Patient feeling better. Patient be discharged today. Patient walking better Objective Exam Vital Signs Date Time Temp Pulse Resp B/P (MAP) Pulse Ox O2 Delivery O2 Flow Rate FiO2 05/22/17 05:57 96.6 74 17 99/63 (75) 97 Room Air 05/21/17 20:10 Room Air 05/21/17 17:56 98.0 77 16 119/79 (92) 97 Room Air 05/21/17 09:00 Room Air 05/21/17 08:40 71 111/66 (81) I & O 05/22/17 07:00 Intake Total 820 ml Balance 820 ml Capillary Refill : General Appearance: No Apparent Distress, WD/WN Assessment/Plan Assessment/Plan Assess & Plan/Chief Complaint CVA on right. History of meth abuse. Decrease cognitive function. . 05/06/17. CVA on right. Aphasia. Patient wants to eat food.. . 05/07/17. CVA in right. A fascia talking better. Patient needing foot. . 05/08/17. CVA in right. Aphasia talking better. Patient on prednisone. . . CVA on right. A fascia talking better. . 05/10/17 CVA on right. Talking better. Patient seems happy.. . 05/21/17. Patient doing better. CVA on right. Talking good now. . 05/13/17. CVA on right. Patient talking better and latter. Right hand still a problem. Right leg improving. . 05/20/17. CVA on right. Meth abuse. Patient moving right leg and starting to move right arm Final Diagnosis CVA on right. History of meth abuse. Patient talking good. Patient's thought processes better Clinical Quality Measures DVT/VTE Risk/Contraindication: Risk Factor Score Per Nursin RFS Level Per Nursing on Admit: 2=Moderate FLACO RUIZ DO May 22, 2017 08:36
--- NOTE | 2017-05-22 08:47 | PM & R (SOAP) Progress Note ---
Subjective Time Seen by Provider: 08:00 Subjective/Events-last exam Patient was seen in her room this AM Patient Min assist for transfers.All set for discharge Objective Exam Last Set of Vital Signs Vital Signs Date Time Temp Pulse Resp B/P (MAP) Pulse Ox O2 Delivery O2 Flow Rate FiO2 05/22/17 05:57 96.6 74 17 99/63 (75) 97 Room Air Capillary Refill : I&O Intake and Output 05/22/17 00:00 Intake Total 970 ml Balance 970 ml Intake Oral 970 ml # Voids 6 # Bowel Movements 1 General: Alert, Oriented X3, Cooperative, No Acute Distress HEENT: Atraumatic, PERRLA, EOMI Neck: Supple, No JVD Lungs: Clear to Auscultation Heart: Regular Rate Abdomen: Normal Bowel Sounds, Soft, No Tenderness Extremities: No Edema Neuro: Other (RT HP with impaired sensation to touch) Assessment/Plan Assessment Left ICB due to hypertensive crisis most likely due to substance abuse with resulting RT HP and dysphagia-ST assessment done improving in all domains Hypotension resolved HTN controlled with current meds Substance abuse currently abstaining Aphasia improving Hoarseness-improved with steroids Plan Discharge to home with SO today with C F/U with PCP Current meds reviewed See orders. MARGO MALIK MD May 22, 2017 08:47
--- NOTE | 2017-05-22 08:57 | Therapy Team Discharge Summary ---
Therapy Discharge Summary Discharge Recommendations Date of Discharge Therapy D/C Recommendations: Occupational Therapy Home Care, Speech Therapy Home Care, Speech Therapy Outpatient Occupational Therapy Pt was seen for skilled OT to increase her independence in basic self care after CVA with R hemiparesis. On admission she needed min assist for eating; mod assist with grooming, bathing, upper body dressing; max assist with lower body dressing and was dependant with toileting. By discharge she progressed to mod I for eating, SBA for grooming, bathing, upper body dressing and toilet transfers and min assist lower body dressing and toileting. She has increased use of R UE and is beginning to use it as an assist in ADLs. Home health OT is recommended but cannot begin until June. She has a home exercise program which she is able to do. Equipment used included shower bench, grab bars, hand held shower, quad cane. See tx plan for goals met. DC OT. Decreased Activ Tolerance, Decreased UE Strength, Dependent Transfers, Impaired Bed Mobility, Impaired Coordination, Impaired Funct Balance, Impaired I ADL's, Impaired Self-Care Skills, Restricted Funct UE ROM PT Adult Neuropsychologist Goals Adult Neuropsychologist Goals PT Adult Neuropsychologist Goals Time Frame: May 29, 2017 Transfers (B,C,W/C) (FIM): 6 Roll Left to Right (QC): 6 (met) Sit to Lying (QC): 6 (met) Lying-Sitting on Side/Bed(QC): 6 (met) Sit to Stand (QC): 6 Chair/Uth-xb-Scjhr Xfer(QC): 6 Car Transfer (QC): 6 Does the Patient Walk: No and Walking Goal NOT indicated Gait (FIM): 6 Gait distance (FIM): 3=150 ft Walk 10 feet (QC): 6 Walk 10ft-Uneven Surface(QC): 6 Walk 50ft with 2 Turns (QC): 6 Walk 150 ft (QC): 6 Gait Level of Assist: 6 Gait Assistive Device: Walker Charly Does the Pt use WC or Scooter?: Yes Wheelchair (FIM): 6 Wheelchair distance (FIM): 3=150 ft Wheel 50 feet with 2 turns (QC: 6 Stairs (FIM): 5 # of Steps: 8 1 Step (curb) (QC): 5 4 Steps (QC): 5 12 Steps (QC): 88 Picking up an Object (QC): 4 OT [facility] Goals Adult Neuropsychologist Goals Time Frame: May 29, 2017 Eating (FIM): 6 (met 3-20-18) Eating (QC): 6 (met 3-20-18) Oral Hygiene (QC): 6 (not met 3-20-18) Grooming(FIM): 6 (not met 3-20-18) Bathing(FIM): 5 (met 3-20-18) Shower/Bathe Self (QC): 5 (not met 3-20-18) Upper Body Dressing(FIM): 6 (not met 3-20-18) Upper Body Dressing (QC): 6 (not met 3-20-18) Lower Body Dressing(FIM): 5 (not met 3-20-18) Lower Body Dressing (QC): 5 (not met 3-20-18) On/Off Footwear (QC): 5 (met 3-20-18) Toileting(FIM): 6 (not met 3-20-18) Toileting Hygiene (QC): 6 (not met 3-20-18) Toilet/Commode Transfer(FIM): 6 (not met 3-20-18) Toilet/Commode Transfer (QC): 6 (not met 3-20-18) Shower Transfer(FIM): 5 (met 3-20-18) Comprehension(FIM): 4 (MET) Expression (FIM): 3 (MET) Social Interaction(FIM): 4 (MET) Problem Solving(FIM): 4 (MET) Memory(FIM): 4 (MET) Additional Goals: 2-Verbalize Understanding, 3-ImproveStrength/[place] 1=Demonstrate adherence to instructed precautions during ADL tasks. 2=Patient will verbalize/demonstrate understanding of assistive devices/ modifications for ADL. 3=Patient will improve strength/tolerance for activity to enable patient to perform ADL's. Speech [facility] Goals Adult Neuropsychologist Goals 1. The patient will demonstrate improved expressive and receptive communication for increased safety and function with ADL's. Time Frame: Six Weeks Comprehension: 4 (MET) Expression: 3 (MET) Social Interaction: 4 (MET) Problem Solvin (MET) Memory: 4 (MET) SOPHIA CERVANTES OT May 22, 2017 08:57
[2017-05-22] MEDS: lisINopril 40 MG (PRINIVIL) TABLET PO SCH (09:25)
[2017-05-22] MEDS: FLUoxetine HCL 20 MG (PROzac) CAP PO SCH (09:25)
[2017-05-22] MEDS: CARVEDILOL 12.5 MG (COREG) TABLET PO SCH (09:25)
[2017-05-22] MEDS: amLODIPine 5 MG (NORVASC) TAB PO SCH (09:25)
[2017-05-22 10:25] VITALS: BP 99/63
--- NOTE | 2017-05-22 12:05 | Therapy Team Discharge Summary ---
Therapy Discharge Summary Discharge Recommendations Date of Discharge May 22, 2017 at 10:25 Therapy D/C Recommendations: Occupational Therapy Home Care, Speech Therapy Home Care, Speech Therapy Outpatient Physical Therapy Patient came to rehab following a CVA. Upon evaluation patient performed bed mobility and transfers with mod to max assist, car transfer with mod to max assist, and could propel a manual wheelchair 50' with mod assist. Patient has been performing bed mobility and transfer training, balance and endurance training, functional strengthening, stair training, gait training, and education. Patient has made good progress but has not met any of her joint terminal attack controller goals. Now, patient performs bed mobility with mod I, sit to stand with SBA, transfers with CGA, car transfer with CGA, ambulates 250' with a quad cane with CGA, including 50' with at least 2 turns of 90 degrees and 10' over an uneven surface, can go up and down 12 steps using 1 handrail with CGA, and can cigar packer and picker an object from the floor with CGA. Patient was discharged from this facility this morning and will be discharged from PT at this time. Occupational Therapy Decreased Activ Tolerance, Decreased UE Strength, Dependent Transfers, Impaired Bed Mobility, Impaired Coordination, Impaired Funct Balance, Impaired I ADL's, Impaired Self-Care Skills, Restricted Funct UE ROM PT Radio Host Goals Radio Host Goals PT Assisted Goals Time Frame: May 29, 2017 Transfers (B,C,W/C) (FIM): 6 Roll Left to Right (QC): 6 (met) Sit to Lying (QC): 6 (met) Lying-Sitting on Side/Bed(QC): 6 (met) Sit to Stand (QC): 6 Chair/Ugd-ng-Iwkhh Xfer(QC): 6 Car Transfer (QC): 6 Does the Patient Walk: No and Walking Goal NOT indicated Gait (FIM): 6 Gait distance (FIM): 3=150 ft Walk 10 feet (QC): 6 Walk 10ft-Uneven Surface(QC): 6 Walk 50ft with 2 Turns (QC): 6 Walk 150 ft (QC): 6 Gait Level of Assist: 6 Gait Assistive Device: Walker Charly Does the Pt use WC or Scooter?: Yes Wheelchair (FIM): 6 Wheelchair distance (FIM): 3=150 ft Wheel 50 feet with 2 turns (QC: 6 Stairs (FIM): 5 # of Steps: 8 1 Step (curb) (QC): 5 4 Steps (QC): 5 12 Steps (QC): 88 Picking up an Object (QC): 4 OT Radio Host Goals Radio Host Goals Time Frame: May 29, 2017 Eating (FIM): 6 (met 3-20-18) Eating (QC): 6 (met 3-20-18) Oral Hygiene (QC): 6 (not met 3-20-18) Grooming(FIM): 6 (not met 3-20-18) Bathing(FIM): 5 (met 3-20-18) Shower/Bathe Self (QC): 5 (not met 3-20-18) Upper Body Dressing(FIM): 6 (not met 3-20-18) Upper Body Dressing (QC): 6 (not met 3-20-18) Lower Body Dressing(FIM): 5 (not met 3-20-18) Lower Body Dressing (QC): 5 (not met 3-20-18) On/Off Footwear (QC): 5 (met 3-20-18) Toileting(FIM): 6 (not met 3-20-18) Toileting Hygiene (QC): 6 (not met 3-20-18) Toilet/Commode Transfer(FIM): 6 (not met 3-20-18) Toilet/Commode Transfer (QC): 6 (not met 3-20-18) Shower Transfer(FIM): 5 (met 3-20-18) Comprehension(FIM): 4 (MET) Expression (FIM): 3 (MET) Social Interaction(FIM): 4 (MET) Problem Solving(FIM): 4 (MET) Memory(FIM): 4 (MET) Additional Goals: 2-Verbalize Understanding, 3-ImproveStrength/[place] 1=Demonstrate adherence to instructed precautions during ADL tasks. 2=Patient will verbalize/demonstrate understanding of assistive devices/ modifications for ADL. 3=Patient will improve strength/tolerance for activity to enable patient to perform ADL's. Speech Radio Host Goals Radio Host Goals 1. The patient will demonstrate improved expressive and receptive communication for increased safety and function with ADL's. Time Frame: Six Weeks Comprehension: 4 (MET) Expression: 3 (MET) Social Interaction: 4 (MET) Problem Solvin (MET) Memory: 4 (MET) GAETANO FRANK PT May 22, 2017 12:05
== END 2017-05-22 10:25 | disposition home health service (06) | DRG 57 ==
PROVIDERS: ADMIT Physical Medicine & Rehabilitation; ATTEND Physical Medicine & Rehabilitation
PROC: 0CJS8ZZ Inspection of Larynx, Via Natural or Artificial Opening Endoscopic (ICD-10-PCS; principal; 2017-05-06)
DX: I69.351 Hemiplegia and hemiparesis following cerebral infarction affecting right dominant side (principal); I69.391 Dysphagia following cerebral infarction; R13.10 Dysphagia, unspecified; R47.01 Aphasia; R32 Unspecified urinary incontinence; I10 Essential (primary) hypertension; I95.9 Hypotension, unspecified; F15.10 Other stimulant abuse, uncomplicated; R49.0 Dysphonia
CPT/HCPCS: 36415; 80053; 85025

== ENCOUNTER 2018-09-29 02:06 | Inpatient (IN) | payer SELFPAY ==
[~2018-09-29] VITALS: Ht 150.5 cm; Wt 70.5 kg
[2018-09-29] VITALS (21 sets, daily range): BP systolic 128–201; BP diastolic 75–139
[~2018-09-29 02:06] MED LIST changes: +AMLO5TAB9 PO; +CARV12.53 PO; +FLUO20CA25 PO
[2018-09-29] MEDS ORDERED: LACTATED RINGERS 1,000 ML IV ONE (02:18)
[2018-09-29 02:39] LABS: BASOPHILS % (AUTO) 1 % (0-10); EOSINOPHILS # (AUTO) 0.2 10^3/uL (0.0-0.3); EOSINOPHILS % (AUTO) 2 % (0-10); HEMATOCRIT 43 % (35-52); HEMOGLOBIN 14.2 G/DL (11.5-16.0); LYMPHOCYTES # (AUTO) 1.9 X 10^3 (1.0-4.0); LYMPHOCYTES % (AUTO) 22 % (12-44); MEAN CORPUSCULAR HEMOGLOBIN 29 PG (25-34); MEAN CORPUSCULAR HGB CONC 33 G/DL (32-36); MEAN CORPUSCULAR VOLUME 87 FL (80-99); MEAN PLATELET VOLUME 10.5 FL (7.4-10.4); MONOCYTES # (AUTO) 0.7 X 10^3 (0.0-1.0); MONOCYTES % (AUTO) 8 % (0-12); NEUTROPHILS # (AUTO) 5.9 X 10^3 (1.8-7.8); NEUTROPHILS % (AUTO) 68 % (42-75); PLATELET COUNT 319 10^3/uL (130-400); RED CELL DISTRIBUTION WIDTH 14.6 % (10.0-14.5); WHITE BLOOD COUNT 8.6 10^3/uL (4.3-11.0)
[2018-09-29 02:49] LABS: INR 0.9 (0.8-1.4); PROTHROMBIN TIME PATIENT 12.5 SEC (12.2-14.7)
[2018-09-29 02:58] LABS: ALANINE AMINOTRANSFERASE 12 U/L (0-55); ALBUMIN 3.7 GM/DL (3.2-4.5); ALKALINE PHOSPHATASE 71 U/L (40-136); BILIRUBIN,TOTAL 0.4 MG/DL (0.1-1.0); BUN/CREATININE RATIO 13; CALCIUM 9.2 MG/DL (8.5-10.1); CARBON DIOXIDE 20 MMOL/L (21-32); CHLORIDE 107 MMOL/L (98-107); CREATINE KINASE 37 U/L (29-168); CREATININE SERUM 0.64 MG/DL (0.60-1.30); GFR ESTIMATED > 60; GLUCOSE 106 MG/DL (70-105); MAGNESIUM 1.9 MG/DL (1.8-2.4); POTASSIUM 4.2 MMOL/L (3.6-5.0); SODIUM 139 MMOL/L (135-145); TOTAL PROTEIN 6.8 GM/DL (6.4-8.2)
[2018-09-29 02:59] LABS: ACETAMINOPHEN < 10 UG/ML (10-30)
[2018-09-29] MEDS ORDERED: meTOproloL SUCCINATE 50 MG (TOPROL XL) TAB PO ONE (03:02)
[2018-09-29] MEDS ORDERED: meTOprolol SUCCINATE 100 MG (TOPROL XL) TAB PO ONE (03:15)
[2018-09-29] MEDS ORDERED: meTOprolol 5 MG/5 ML (LOPRESSOR) VIAL IV ONE (03:15)
[2018-09-29 03:18] LABS: CREATINE KINASE MB 0.8 NG/ML (<6.6); TSH (THYROID ANALYZER) 0.39 UIU/ML (0.35-4.94)
[2018-09-29 03:33] LABS: BILIRUBIN,URINE NEGATIVE (NEGATIVE); CLARITY,URINE CLEAR; COLOR,URINE YELLOW; GLUCOSE, URINE (UA) NEGATIVE (NEGATIVE); KETONES,URINE NEGATIVE (NEGATIVE); LEUKOCYTE ESTERASE ,URINE NEGATIVE (NEGATIVE); NITRITE,URINE NEGATIVE (NEGATIVE); PH,URINE 8 (5-9); PROTEIN,URINE NEGATIVE (NEGATIVE); UROBILINOGEN,URINE 1 MG/DL (NORMAL)
[2018-09-29 03:38] LABS: BACTERIA,URINE TRACE /HPF
[2018-09-29 03:42] LABS: AMPHETAMINE SCREEN, URINE POSITIVE (NEGATIVE); BARBITURATE SCREEN URINE NEGATIVE (NEGATIVE); BENZODIAZEPINES SCREEN URINE NEGATIVE (NEGATIVE); CANNABINOID SCREEN, URINE NEGATIVE (NEGATIVE); COCAINE SCREEN URINE NEGATIVE (NEGATIVE); METHADONE STAT NEGATIVE (NEGATIVE); METHAMPHETAMINE SCREEN URINE S NEGATIVE (NEGATIVE); OPIATE SCREEN URINE NEGATIVE (NEGATIVE); OXYCODONE STAT NEGATIVE (NEGATIVE); PROPOXYPHENE STAT NEGATIVE (NEGATIVE); TRICYCLIC ANTIDEPRESSANTS SCRE NEGATIVE (NEGATIVE)
--- NOTE | 2018-09-29 04:02 | NUR ---
RETURNED FROM CT, BLANKET PROVIDED
[2018-09-29] MEDS ORDERED: hydrALAZINE (APESOLINE) 20 MG/ML VIAL IV ONE ×2 (04:15→05:15)
[2018-09-29] MEDS ORDERED: LABETALOL HCL 20 MG/4 ML VIAL IV ONE (04:45)
[2018-09-29] MEDS ORDERED: amLODIPine 5 MG (NORVASC) TAB PO ONE (04:45)
[2018-09-29] MEDS ORDERED: lisINopril 20 MG (PRINIVIL) TABLET PO ONE (04:45)
[2018-09-29] MEDS ORDERED: lisINopril 10 MG (PRINIVIL) TABLET ONE (05:00)
--- NOTE | 2018-09-29 05:00 | ED General ---
General Chief Complaint: Neurological Problems Stated Complaint: SLURRED SPEECH, WEAKNESS Nursing Triage Note: C/O SLURRED SPEECH AND HX OF STROKE Nursing Sepsis Screen: No Definite Risk Source of Information: Patient (DIFFICULTY SPEAKING) History of Present Illness Date Seen by Provider: Sep 29, 2018 Time Seen by Provider: 02:15 Initial Comments PT ARRIVES VIA POV FROM HOME STATES SHE HAS BEEN HAVING PROBLEMS TALKING SINCE SOMETIME YESTERDAY/SATURDAY PT HAD A STROKE IN APRIL 2017--HAS MINIMAL RESIDUAL RIGHT SIDE WEAKNESS NO HEADACHE NO VISION CHANGES NO NAUSEA/VOMITING NO PARESTHESIAS OR MOTOR DEFICITS NO DIZZINESS HAS SOME GENERALIZED WEAKNESS PT USES METH ON REGULAR BASIS--STATES SHE SMOKED IT TONIGHT AROUND 1999, BUT HAS USED IT IV IN THE PAST PT HAS LONGSTANDING HTN AND HISTORY OF NON-COMPLIANCE HAS BEEN OUT OF ALL OF HER MEDICATIONS FOR SEVERAL DAYS, AND STATES THEY WILL NOT GIVE HER REFILLS UNTIL SHE MAKES AN APPOINTMENT AND KEEPS IT SUPPOSED TO BE TAKING: PROZAC 20 MG DAILY COREG 25 MG BID LISINOPRIL 40 MG DAILY AMLODIPINE 5 DAILY ON REVIEW OF OLD ADMIT RECORD FROM 05/01/17-05/22/17, PT HAD CVA WITH RIGHT SIDE WEAKNESS, EXPRESSIVE APHASIA AND DYSPHAGIA--DUE TO HYPERTENSIVE CRISIS ASSOCIATED WITH SUBCORTICAL HEMORRHAGE OF LEFT CEREBRAL HEMISPHERE. INITIALLY TREATED AT , REQUIRING INTUBATION. SHE HAD MILD RESIDUAL EXPRESSIVE APHASIA, DYSPHAGIA AND MILD RIGHT SIDE WEAKNESS AT DISMISSAL. PCP: BHAVIN Allergies and Home Medications Allergies Coded Allergies: No Known Drug Allergies (Unverified , 02/12/11) Home Medications Amlodipine Besylate 5 Mg Tablet, 5 MG PO DAILY, (Reported) LAST DATE FILLED 04-01-2018 Atorvastatin Calcium 20 Mg Tablet, 20 MG PO HS Prescribed by: ALISON GANNON on 10/01/18 1016 Carvedilol 12.5 Mg Tablet, 12.5 MG PO BID, (Reported) LAST DATE FILLED 04-01-2018 Clopidogrel Bisulfate 75 Mg Tablet, 75 MG PO DAILY Prescribed by: ALISON GANNON on 10/01/18 1016 Ibuprofen 200 Mg Tablet, 400 MG PO Q6H PRN for PAIN-MILD, (Reported) Lisinopril 40 Mg Tablet, 40 MG PO DAILY, (Reported) LAST DATE FILLED 04-01-2018 Patient Home Medication List Home Medication List Reviewed: Yes Review of Systems Review of Systems Constitutional: no symptoms reported; No dizziness; other (NO RECENT ILLNESS) EENTM: no symptoms reported; No throat pain Respiratory: no symptoms reported; No cough, No short of breath Cardiovascular: no symptoms reported; No chest pain, No edema, No palpitations, No syncope Gastrointestinal: no symptoms reported; No nausea, No vomiting Genitourinary: no symptoms reported : No LMP: Aug 29, 2018 Musculoskeletal: no symptoms reported Skin: no symptoms reported Psychiatric/Neurological: See HPI; Denies Headache, Denies Numbness, Denies Paresthesia; Pre-Existing Deficit; Denies Seizure, Denies Tingling, Denies Tremors Hematologic/Lymphatic: No Symptoms Reported Immunological/Allergic: no symptoms reported Past Uehbdif-Ryeuly-Ojliec Hx Past Med/Social Hx: Reviewed and Corrections made Patient Social History Alcohol Use: Occasionally Uses Recreational Drug Use: Yes (+ IV METH USE, ALSO SMOKES IT, USES ECSTASY, OTHERS) Drug of Choice: + IV METH USE, ALSO SMOKES IT, ECSTASY USE, OTHERS Smoking Status: Current Everyday Smoker (1 PPD) Type Used: Cigarettes (1 PPD) 2nd Hand Smoke Exposure: No Recent Foreign Travel: No Contact w/Someone Who Travel: No Recent Infectious Disease Expo: No Recent Hopitalizations: No Physical Abuse: No Sexual Abuse: No Mistreated: No Fear: No Seasonal Allergies Seasonal Allergies: No Past Medical History Surgeries: Yes (RIGHT KNEE SURGERY X 3) Orthopedic Respiratory: Yes (INTUBATED AT [facility] 04/2017 WITH HEMORRHAGIC CVA) Cardiac: Yes Hypertension Neurological: Yes (LEFT SIDED CEREBRAL HEMORRHAGE DUE TO HYPERTENSIVE CRISIS, WITH RIGHT SIDE WEAKNESS, EXPRESSIVE APHASIA AND DYSPHAGIA. ) Headaches /Migraines, Stroke : No Reproductive Disorders: No Genitourinary: No Gastrointestinal: No Musculoskeletal: No Endocrine: No HEENT: Yes Dysphagia Cancer: No Psychosocial: Yes (POLYSUBSTANCE ABUSE) Integumentary: No Blood Disorders: No Physical Exam Vital Signs Vital Signs - First Documented 09/29/18 09/29/18 02:10 08:07 Temp 96.9 Pulse 96 Resp 20 B/P (MAP) 200/126 (150) Pulse Ox 99 O2 Delivery Room Air Capillary Refill : Less Than 3 Seconds Height, Weight, BMI Height: 4'11.25" Weight: 170lbs. 9.0oz. [id number]; 24.4 BMI Method:Stated General Appearance: No Apparent Distress, WD/WN, Other (PT IS SOMEWHAT DRAMATIC AND APPEARS ANXIOUS, VOICE VERY QUIET AND DOES NOT OPEN HER MOUTH AT ALL WHEN SHE TRIES TO TALK--DOES APPEAR TO HAVE EXPRESSIVE APHASIA, CAN GET OUT A FEW WORDS, BUT SPEECH IS NOT SLURRED. PT ALSO APPEARS TO BE UNDER THE INFLUENCE OF SOME SUBSTANCE. ) HEENT: PERRL/EOMI, Normal ENT Inspection, Pharynx Normal Neck: Full Range of Motion, Normal Inspection, Non Tender, Supple; No Carotid Bruit, No JVD Respiratory: Normal Breath Sounds, No Accessory Muscle Use, No Respiratory Distress Cardiovascular: Regular Rate, Rhythm, No Edema, No JVD, No Murmur, Normal Peripheral Pulses Gastrointestinal: Non Tender, Soft Back: No CVA Tenderness Extremity: Normal Capillary Refill, Normal Inspection, Normal Range of Motion, Non Tender, No Calf Tenderness, No Pedal Edema, Other (VERY EXTENSIVE SCARRING TO BILATERAL AC SPACES AND FOREARMS) Neurologic/Psychiatric: Alert, Oriented x3 (BUT APPEARS TO HAVE SOMEWHAT SLOWED MENTATION, AND SOMEWHAT CONFUSED--EXPRESSIVE APHASIA NOTED ABOVE--VERY DIFFICULT TO DETERMINE IF SHE IS COMPLETELY ORIENTED, SHE IS NOT TALKING MUCH--MOSTLY POINTS TO THINGS. PT IS ABLE TO FOLLOW COMMANDS. 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 ) Skin: Normal Color, Warm/Dry, Tattoos/Piercings (EXTENSIVE TATTOOS AND MULTIPLE PIERCINGS. ) Progress/Results/Core Measures Suspected Sepsis Recent Fever Within 48 Hours: No Infection Criteria Present: None New/Unexplained Altered Menta: No Sepsis Screen: No Definite Risk SIRS Temperature:96.9 Pulse: 80 Respiratory Rate: 20 Laboratory Tests 09/30/18 02:55: White Blood Count 7.8 10/01/18 03:15: White Blood Count 6.6 Blood Pressure 187 /106 Mean: 133 Laboratory Tests 09/30/18 02:55: Creatinine 0.68, Platelet Count 350, Total Bilirubin 0.4 10/01/18 03:15: Creatinine 0.63, Platelet Count 328 Results/Orders Lab Results Laboratory Tests Test 10/01/18 03:15 Range/Units White Blood Count 6.6 4.3-11.0 10^3/uL Red Blood Count 5.31 4.35-5.85 10^6/uL Hemoglobin 15.2 11.5-16.0 G/DL Hematocrit 46 35-52 % Mean Corpuscular Volume 87 80-99 FL Mean Corpuscular Hemoglobin 29 25-34 PG Mean Corpuscular Hemoglobin Concent 33 32-36 G/DL Red Cell Distribution Width 14.5 10.0-14.5 % Platelet Count 328 130-400 10^3/uL Mean Platelet Volume 10.5 H 7.4-10.4 FL Neutrophils (%) (Auto) 72 42-75 % Lymphocytes (%) (Auto) 20 12-44 % Monocytes (%) (Auto) 7 0-12 % Eosinophils (%) (Auto) 1 0-10 % Basophils (%) (Auto) 1 0-10 % Neutrophils # (Auto) 4.7 1.8-7.8 X 10^3 Lymphocytes # (Auto) 1.3 1.0-4.0 X 10^3 Monocytes # (Auto) 0.5 0.0-1.0 X 10^3 Eosinophils # (Auto) 0.1 0.0-0.3 10^3/uL Basophils # (Auto) 0.1 0.0-0.1 10^3/uL Sodium Level 140 135-145 MMOL/L Potassium Level 3.9 3.6-5.0 MMOL/L Chloride Level 107 98-107 MMOL/L Carbon Dioxide Level 22 21-32 MMOL/L Anion Gap 11 5-14 MMOL/L Blood Urea Nitrogen 8 7-18 MG/DL Creatinine 0.63 0.60-1.30 MG/DL Estimat Glomerular Filtration Rate > 60 BUN/Creatinine Ratio 13 Glucose Level 93 70-105 MG/DL Calcium Level 9.3 8.5-10.1 MG/DL Phosphorus Level 3.6 2.3-4.7 MG/DL Magnesium Level 2.0 1.8-2.4 MG/DL My Orders Medications Given in ED Vital Signs/I&O Capillary Refill : Less Than 3 Seconds Blood Pressure Mean: 133 Point of Care Testing Finger Stick Blood Glucose: 104 Progress Note : Progress Note GIVEN MULTIPLE MEDICATIONS TO LOWER BP PT SLEPT VERY SOUNDLY FOR MOST OF ER STAY PT DIFFICULT AND SLOW TO AWAKEN, BUT FEMALE FRIENDS STATE THAT IS VERY NORMAL FOR PT--ALWAYS VERY DIFFICULT TO WAKE UP, AND TAKES HER QUITE SOME TIME TO BE FULLY AWAKE AND ALERT. BP DOWN WITH MEDICATIONS, BUT PT STILL WITH SIGNIFICANT EXPRESSIVE APHASIA. DOES NOT APPEAR TO HAVE RECEPTIVE APHASIA SHE IS ABLE TO FOLLOW COMMANDS APPROPRIATELY, AND ANSWER QUESTIONS WITH NODDING HEAD YES/NO APPROPRIATELY. PT ABLE TO STAND AND WALK, WITH MINIMAL TO NO ASSIST, DOES APPEAR TO HAVE SOME RESIDUAL RIGHT SIDE WEAKNESS FROM PRIOR STROKE--FRIENDS STATE HER GAIT IS NORMAL, BUT PT IS WALKING AND MOVING SLOWLY, WITH SLIGHTLY UNSTEADY GAIT AND SLIGHT SWAYING ON STANDING STILL. PT WITH BLANK STARE MOSTLY/VERY FLAT AFFECT AND APPEARS VERY DROWSY--FRIENDS REPORT THAT IS NORMAL FOR PT WHEN SHE WAKES UP HOWEVER FRIENDS ALSO REPORT THAT SHE DOES APPEAR TO BE POSSIBLY SOMEWHAT CONFUSED AND DOES NOT APPEAR TO BE QUITE HERSELF. ECG Initial ECG Impression Date: Sep 29, 2018 Initial ECG Impression Time: 02:15 Initial ECG Rate: 97 Initial ECG Rhythm: Normal Sinus Diagnostic Imaging Comments CXR--NO ACUTE PROCESS, PENDING RADIOLOGIST REVIEW CT HEAD--NO ACUTE PROCESS, OLD LEFT SIDED INFARCT--PER [facility] RADIOLOGIST VIA PHONE AT 0307 CT ANGIOGRAM HEAD/NECK--NO ACUTE PROCESS, NO LARGE VESSEL OCCLUSION OR THROMBUS. LESS THAN 40% LEFT CAROTID BIFURCATION STENOSIS--PER [facility] RADIOLOGIST VIA PHONE AT [phone]--RECEIVED CALL FROM [place] RADIOLOGIST, WHO HAS REVIEWED CT STUDIES AND NOTES A SUSPECTED CHRONIC/STABLE APPEARING LEFT CAROTID DISSECTION WITH OLD- APPEARING INTRALUMINAL THROMBUS. ADVISES 3 MONTH FOLLOW UP STUDIES TO MONITOR IF THERE IS PROGRESSION. NO EVIDENCE OF ACUTE DISSECTION, ACUTE THROMBUS OR HEMORRHAGE. Reviewed: Reviewed by Me, Discussed w/Radiologist Departure Communication (Admissions) 0600--SPOKE WITH DR. MATHIS, SEWING MACHINE ASSEMBLER FOR [facility], ACCEPTS PT FOR ADMIT 0607--CALLED 0610--SPOKE WITH DR. DELGADO, NEUROLOGIST AT , HE ADVISES TO START PLAVIX OR ASPIRIN. DOES NOT ADVISE ANY ADDITIONAL STUDIES OR TREATMENTS AT THIS TIME, UNL ESS SYMPTOMS DO NOT IMPROVE AFTER A FEW HOURS AND IMPROVED BP CONTROL. Impression Primary Impression: Hypertensive crisis Additional Impressions: Hypertensive encephalopathy METHAMPHETAMINE USE/ABUSE Expressive aphasia Altered mental status Non-compliance Disposition: ADMITTED INPATIENT Condition: Stable Admissions Decision to Admit Reason: Admit from ER (General) Decision to Admit/Date: Sep 29, 2018 Time/Decision to Admit Time: 06:00 Departure-Patient Inst. Referrals: [facility] [place] (PCP/Family) Primary Care Physician Scripts Atorvastatin Calcium (Atorvastatin Calcium) 20 Mg Tablet 20 MG PO HS, #30 TAB Prov: ALISON GANNON DO 10/01/18 Clopidogrel Bisulfate (Clopidogrel) 75 Mg Tablet 75 MG PO DAILY, #30 TAB Prov: ALISON GANNON DO 10/01/18 SHAHRAM BEDOLLA DO Sep 29, 2018 05:00
--- NOTE | 2018-09-29 05:46 | Diagnostic Imaging Report ---
PROCEDURE: CT head wo r/o stroke. TECHNIQUE: Multiple contiguous axial images were obtained through the brain without the use of intravenous contrast. Auto Exposure Controls were utilized during the CT exam to meet ALARA standards for radiation dose reduction. INDICATION: Strokelike symptoms. COMPARISON: None. FINDINGS: The ventricles and cortical sulci are age-appropriate. There is no midline shift or mass-effect. No acute intracranial hemorrhage is seen. There is no CT evidence of acute territorial ischemia. Encephalomalacia is seen in the left basal ganglia and mcconnell radiata. No focal masses or collections are present. The calvarium is intact. The visualized paranasal sinuses are clear. IMPRESSION: 1. No hemorrhage or focal intra-axial mass. No CT evidence of large acute territorial ischemia. Agree with overnight report. 2. Encephalomalacia in the left basal ganglia and mcconnell radiata, representing prior infarct. Dictated by: Dictated on workstation # [id number]
--- NOTE | 2018-09-29 06:00 | NUR ---
NOTIFIED TRAINING DEVELOPMENT SPECIALIST CAROLYNE ROQUE OF NEED FOR ICU STEPDOWN BED FOR THIS PATIENT. AWAITING ROOM ASSIGNMENT
--- NOTE | 2018-09-29 06:30 | Diagnostic Imaging Report ---
PROCEDURE: CT angiography of the head and CT angiography of the neck with and without contrast. TECHNIQUE: Contiguous noncontrast images were obtained from the skull base through the vertex. After intravenous contrast administration, helical CT angiography of the neck was performed. Source data was reformatted into 3D MIP projections. Delayed post contrast acquisition was also obtained. Auto Exposure Controls were utilized during the CT exam to meet ALARA standards for radiation dose reduction. INDICATION: Stroke like symptoms. Comparison: CT head performed earlier the same date. FINDINGS: CTA Neck: The visualized portions of the aortic arch demonstrate no evidence of aneurysm or dissection. The origin of the left vertebral artery is noted to be directly off the aorta. The brachiocephalic artery is normal in course and caliber. The right and left common carotid origins are unremarkable. The origin of the left subclavian artery is patent. The common carotid arteries demonstrate a normal course and caliber. There is atherosclerotic plaque at the left carotid bulb with linear filling defect (image 249 series 3). No flow limiting stenosis is seen in the internal carotid arteries. The external carotid arteries are patent and unremarkable. The right vertebral artery is dominant. The origin of the right vertebral artery is seen and is unremarkable. The origin of the left vertebral artery is seen and is unremarkable. There is no focal stenosis seen within the neck. There is no dissection. The vertebral arteries are well visualized to up to the level of the basilar artery. The osseous structures of the cervical spine are unremarkable. Included views through the lung apices demonstrate no focal consolidation. CTA brain: The terminal internal carotid arteries have an unremarkable appearance without significant stenosis. No stenosis is seen in the bilateral anterior, middle, and posterior cerebral arteries. No evidence of aneurysm the point [place]. In the posterior circulation, both of the vertebral arteries demonstrate normal opacification. The right vertebral artery is dominant. Both the right and left PICA arteries are identified. The basilar artery is normal in course and caliber. The terminal branch vessels including the superior cerebellar arteries unremarkable. IMPRESSION: 1. 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 No flow limiting stenosis. This was not included on the overnight report. 2. No stenosis or aneurysm in the point [place]. Findings were discussed with Dr. Michelle Hartmann at 6:15 AM on 09/29/2018. Dictated by: Dictated on workstation # [id number]
--- NOTE | 2018-09-29 07:36 | Diagnostic Imaging Report ---
Patient History: Stroke like symptoms.. Technique: Single frontal view of the chest Comparison: None FINDINGS: The lung volumes are normal. No focal consolidation is seen. No large pleural effusion or pneumothorax is seen. The cardiomediastinal silhouette is normal in size and contour. No acute osseous abnormality is seen. IMPRESSION: No acute pulmonary abnormality seen. Dictated by: Dictated on workstation # [id number]
--- NOTE | 2018-09-29 08:10 | NUR ---
Pt arrived to ICU at this time. Pt speaks very few words but follows commands appropriately and answers yes and no questions appropriately. VSS. Significant other at bedside at this time. Will continue to monitor.
[2018-09-29] MEDS ORDERED: CATHETER FLUSH 10 ML SYR IV PRN (08:45)
--- NOTE | 2018-09-29 10:38 | History & Physical-Hospitalist ---
History of Present Illness HPI/Chief Complaint CC: Expressive Aphasia HPI: This is a 33yo female of [facility] who is known to me form prior stroke and when I took care of her girl friend in rehab for a stroke and both strokes on both ladies has been cause by methamphetamine use who presented to the ER with hypertensive crisis and expressive aphasia. At this current time pt is able to walk and having difficulty talking and evaluating for swallow evaluation by speech therapy. MRI will be obtained to confirmed an addition stroke and will need therapy to regain independent status. Meth was in her UDS. Source: patient Exam Limitations: other (expressive aphasia) Date Seen 09/29/18 Time Seen by a Provider: 09:30 Attending Physician Justice Nnuez MD [facility] [place] Referring Physician Date of Admission Sep 29, 2018 at 07:02 Home Medications & Allergies Home Medications Reviewed patient Home Medication Reconciliation performed by pharmacy medication reconciliations safety relief valve technician and/or nursing. Patients Allergies have been reviewed. Allergies Allergies Coded Allergies No Known Drug Allergies ([id number]/12/11) Past Tofurhc-Cddoqp-Kvuzjy Hx Past Med/Social Hx: Reviewed Nursing Past Med/Soc Hx, Reviewed and Corrections made Patient Social History Marrital Status: cohabiting Employed/Student: unemployed Alcohol Use: Occasionally Uses Recreational Drug Use: Yes (+ IV METH USE, ALSO SMOKES IT, USES ECSTASY, OTHERS) Drug of Choice: + IV METH USE, ALSO SMOKES IT, ECSTASY USE, OTHERS Smoking Status: Current Everyday Smoker (1 PPD) Type Used: Cigarettes (1 PPD) 2nd Hand Smoke Exposure: No Recent Foreign Travel: No Contact w/other who traveled: No Recent Hopitalizations: No Recent Infectious Disease Expo: No Seasonal Allergies Seasonal Allergies: No Past Medical History Surgeries: Orthopedic Cardiac: Hypertension Neurological: Headaches /Migraines, Stroke : No Reproductive: No HEENT: Dysphagia History of Blood Disorders: No Review of Systems Constitutional: see HPI, malaise, weakness EENTM: mouth pain Respiratory: no symptoms reported Cardiovascular: no symptoms reported Gastrointestinal: no symptoms reported Genitourinary: no symptoms reported Musculoskeletal: no symptoms reported Skin: no symptoms reported Psychiatric/Neurological: Pre-Existing Deficit, Other (unable to speak) Physical Exam Physical Exam Vital Signs Vital Signs - First Documented 09/29/18 09/29/18 02:10 08:07 Temp 96.9 Pulse 96 Resp 20 B/P (MAP) 200/126 (150) Pulse Ox 99 O2 Delivery Room Air Capillary Refill : Less Than 3 Seconds Height, Weight, BMI Height: 4'11.25" Weight: 170lbs. 9.0oz. 77.531564df; 24.4 BMI Method:Stated General Appearance: No Apparent Distress, WD/WN, Chronically ill, Other (expressive aphasic) Eyes: Right Eye Normal Inspection, Right Eye PERRL HEENT: PERRL/EOMI, Normal ENT Inspection, Pharynx Normal, Moist Mucous Membranes Neck: Full Range of Motion, Normal Inspection, Non Tender Respiratory: Chest Non Tender, Lungs Clear, Normal Breath Sounds, No Accessory Muscle Use, No Respiratory Distress Cardiovascular: Regular Rate, Rhythm, No Edema, No Gallop, No JVD, No Murmur, Normal Peripheral Pulses Gastrointestinal: Normal Bowel Sounds, No Organomegaly, No Pulsatile Mass, Non Tender, Soft Back: Normal Inspection, No CVA Tenderness, No Vertebral Tenderness Extremity: Normal Capillary Refill, Normal Inspection, Normal Range of Motion, Non Tender, No Calf Tenderness, No Pedal Edema Neurologic/Psychiatric: Alert, Oriented x3, No Motor/Sensory Deficits, Normal Mood/Affect, community health program coordinator II-XII Norm as Tested, Other (expressive aphasia) Skin: Normal Color, Warm/Dry Lymphatic: No Adenopathy Results Results/Procedures Labs Laboratory Tests 09/29/18 02:25 Patient resulted labs reviewed. Assessment/Plan Admission Diagnosis MRI results after rounds: small area of acute infarct involving the posterior limb of the internal capsule on the right Assessment: CVA subacute not a tPA candidate HTN malignant type h/o CVA in past 05/2017 required IRF Meth use Plan: BP control PT/OT/ST Monitor closely Drug use cessation Admission Status: Inpatient Order (span 2 midnights) Reason for Inpatient Admission: Confirmed CVA needs 3 days Diagnosis/Problems Diagnosis/Problems (1) Expressive aphasia Status: Acute (2) CVA (cerebral vascular accident) Status: Acute Qualifiers: CVA mechanism: unspecified Qualified Codes: I63.9 - Cerebral infarction, unspecified (3) Methamphetamine abuse Status: Chronic (4) Smoker Status: Chronic (5) Altered mental status Status: Resolved Resolution Date/Time: 09/29/18 @ 15:08 ALISON GANNON DO Sep 29, 2018 10:38
--- NOTE | 2018-09-29 11:15 | Physical Therapy Evaluation ---
PT Evaluation-General Medical Diagnosis Admission Date Sep 29, 2018 at 07:02 Medical Diagnosis: CVA/HTN crisis Onset Date: Sep 29, 2018 Therapy Diagnosis Therapy Diagnosis: debility Height/Weight Height (Feet): 4 Height (Inches): 11.25 Weight (Pounds): 170 Weight (Ounces): 9.0 Referral Physician: Ayaka Reason for Referral: Evaluation/Treatment Medical History Pertinent Medical History: CVA, HTN Additional Medical History polysubstance use Current History ER secondary to slurred speech/current meth use Reviewed History: Yes Social History Home: Single Level Current Living Status: Significant Other Prior/Core FIM Prior Level of Function Therapy Code Descriptions/Definitions Functional [place] Measure: 0=Not Assessed/NA 4=Minimal Assistance 1=Total Assistance 5=Supervision or Setup 2=Maximal Assistance 6=Modified [place] 3=Moderate Assistance 7=Complete [place] Therapy Quality Codes: 6 Independent with activity with or without an assistive device 5 Patient requires set up or clean up by helper. Patient completes activity by themselves 4 Supervision or touching assist (CGA). [place] provide cues , steadying assist 3 The helper provides less than half the effort to complete the activity 2 The helper provides more than half the effort to complete the activity 1 Dependent. The helper does all the effort to complete an activity 7 Patient refused to complete or attempt activity 9 The patient did not perform the activity before the current illness or injury 88 Not attempted due to Medical conditions or safety concerns Functional Abilities and Goals: Independent: Patient completed the activities by him/herself, with or without an assistive device, with no assistance from a helper. Needed Some Help: Patient needed partial assistance from another person to complete activities. Dependent: A helper completed the activities for the patient. Unknown: Not Applicable: Bed Mobility: 7 Transfers (B,C,W/C) (FIM): 7 Gait: 7 Stairs: 7 Indoor Mobility (Ambulation): Independent Stairs: Independent Prior Devices Use: None PT Evaluation-Current Subjective Patient agrees to PT. Continues to be aphasic. Objective Patient Orientation: Normal For Age Problem Solving: Good ROM/Strength ROM Lower Extremities bilateral LE WFL Strength Lower Extremities 4-/5 grossly right LE/left LE 5/5 Integumentary/Posture Bowel Incontinence: No Bladder Incontinence: No Posture WFL Neuromuscular (Tone, Coordination, Reflexes) grossly intact with noted focal deficit right side Sensory Vision: Functional Hearing: Functional Sensation Right Lower Extremit: Impaired Sensation Left Lower Extremity: Intact Transfers Therapy Code Descriptions/Definitions Functional [place] Measure: 0=Not Assessed/NA 4=Minimal Assistance 1=Total Assistance 5=Supervision or Setup 2=Maximal Assistance 6=Modified [place] 3=Moderate Assistance 7=Complete [place] Transfers (B, C, W/C) (FIM): 7 Scootin Rollin Supine to/from Sit: 7 Sit to/from Stand: 7 Gait Mode of Locomotion: Walk Anticipated Mode of Locomotion: Walk Gait (FIM): 7 Distance (FIM): 3=150 ft Distance: 425' Gait Level of Assist: 7 Gait Assistive Device: None Comments/Gait Description safe and functional Balance Sitting Static: Normal Sitting Dynamic: Normal Standing Static: Normal Standing Dynamic: Normal Assessment/Needs 33 y.o. female, is currently at [facility] with all gross motor skills and does not require skilled therapy intervention. Rehab Potential: Fair Post Rehab Potential-Barriers: drug use PT Plan Treatment/Plan Treatment Plan: Discontinue PT, goals met Treatment Plan: Other Treatment Duration: Sep 29, 2018 Frequency: 1 time per week Estimated Hrs Per Day: .5 hour per day Patient and/or Family Agrees t: Yes Discharge Recommendations Therapy D/C Recommendations: Home w/ Family Support Time/GCodes Time In: 1030 Time Out: 1045 Total Billed Treatment Time: 15 Total Billed Treatment 1 visit EVMod 15 min ALCIRA LOZADA PT Sep 29, 2018 11:15
--- NOTE | 2018-09-29 12:21 | NUR ---
Report called to Gabriella who will assume pt care on arrival to 4th floor. Pt currently in MRI at this time and will be placed in new room post scan. Personal belongings taken to new room by Nurse Quezada.
--- NOTE | 2018-09-29 12:40 | NUR ---
REC'D PER WC FROM ICU VIA MRI. SEE ASSESSMENT.
--- NOTE | 2018-09-29 12:53 | Diagnostic Imaging Report ---
PROCEDURE: MR imaging of the brain without contrast. TECHNIQUE: Multiplanar, multisequence MR imaging of the brain was performed without contrast. INDICATION: Difficulty speaking. FINDINGS: Diffusion-weighted images demonstrate a small area of diffusion restriction in the region of the posterior limb of the internal capsule on the right. No other areas of diffusion restriction are identified. Normal expected flow-voids within the carotid siphons are seen. Corpus callosum is unremarkable. Sella and parasellar structures are unremarkable. No acute intra-axial or extra-axial hemorrhage is seen. There are multiple foci of FLAIR and T2 signal in the periventricular and subcortical white matter consistent with chronic microvascular ischemia. IMPRESSION: 1. Findings consistent with a small area of acute infarct involving the posterior limb of the internal capsule on the right. No acute intracranial hemorrhage is detected. 2. Periventricular and subcortical white matter foci consistent with chronic microvascular ischemia. Dictated by: Dictated on workstation # [id number]
--- NOTE | 2018-09-29 13:00 | NUR ---
DR. GANNON NOTIFIED OF NO DIET ORDER AND ELEVATED BP. ORDERS REC'D.
--- NOTE | 2018-09-29 13:28 | NUR ---
IRF Evaluation Order received to evaluate patient for the ARU. Upon chart review, it was found patient is ambulating (475ft, no AD) and transferring with independence; therefore, patient does not require intensive therapies, at this time. Dr. Marley notified. Thank you for this referral.
[2018-09-29] MEDS ORDERED: amLODIPine 5 MG (NORVASC) TAB PO NR (13:30)
[2018-09-29] MEDS: cloNIDine 0.1 MG (CATAPRES) TAB PO PRN (13:44)
[2018-09-29] MEDS: CLOPIDOGREL 75 MG (PLAVIX) TABLET PO SCH (13:44)
[2018-09-29] MEDS: CATHETER FLUSH 10 ML SYR IV SCH ×2 (13:45→21:11)
--- NOTE | 2018-09-29 14:52 | Occupational Therapy Eval ---
OT Evaluation-General/PLF Medical Diagnosis Admission Date Sep 29, 2018 at 07:02 Medical Diagnosis: CVA/HTN crisis Onset Date: Sep 29, 2018 Therapy Diagnosis Therapy Diagnosis: impaired ADLS and mobility Height/Weight Height (Feet): 4 Height (Inches): 11.25 Weight (Pounds): 170 Weight (Ounces): 9.0 Precautions Precautions/Isolations: Fall Prevention, Standard Precautions Safety Interventions: Bed Exit Alarm Referral Physician: Ayaka Referral Reason: Activity Tolerance, Self Care, Evaluation/Treatment, Strengthening/ROM Medical History Pertinent Medical History: CVA, HTN Social History Home: Single Level Current Living Status: Significant Other ADL-Prior Level of Function Therapy Code Descriptions/Definitions Functional [place] Measure: 0=Not Assessed/NA 4=Minimal Assistance 1=Total Assistance 5=Supervision or Setup 2=Maximal Assistance 6=Modified [place] 3=Moderate Assistance 7=Complete [place] Therapy Quality Codes: 6 Independent with activity with or without an assistive device 5 Patient requires set up or clean up by helper. Patient completes activity by themselves 4 Supervision or touching assist (CGA). [place] provide cues , steadying assist 3 The helper provides less than half the effort to complete the activity 2 The helper provides more than half the effort to complete the activity 1 Dependent. The helper does all the effort to complete an activity 7 Patient refused to complete or attempt activity 9 The patient did not perform the activity before the current illness or injury 88 Not attempted due to Medical conditions or safety concerns Functional Abilities and Goals: Independent: Patient completed the activities by him/herself, with or without an assistive device, with no assistance from a helper. Needed Some Help: Patient needed partial assistance from another person to complete activities. Dependent: A helper completed the activities for the patient. Unknown: Not Applicable: Self Care: Independent Functional Cognition: Independent Drive Self: Yes OT Current Status Subjective pt laying in bed upon OT arrival. pt agreed to OT evaluation session. pt reports no pain. Mental Status/Objective Patient Orientation: Person, Place, Time, Situation Current Glasses/Contacts: Yes Hearing Aids: No Dentures/Partials: No Hand Dominance: Right Upper Extremity ROM WFL Upper Extremity Coordination WFL opposition WFL finger to nose test Upper Extremity Sensation WFL Upper Extremity Strength WFL ADL-Treatment Therapy Code Descriptions/Definitions Functional [place] Measure: 0=Not Assessed/NA 4=Minimal Assistance 1=Total Assistance 5=Supervision or Setup 2=Maximal Assistance 6=Modified [place] 3=Moderate Assistance 7=Complete [place] Therapy Quality Codes: 6 Independent with activity with or without an assistive device 5 Patient requires set up or clean up by helper. Patient completes activity by themselves 4 Supervision or touching assist (CGA). [place] provide cues , steadying assist 3 The helper provides less than half the effort to complete the activity 2 The helper provides more than half the effort to complete the activity 1 Dependent. The helper does all the effort to complete an activity 7 Patient refused to complete or attempt activity 9 The patient did not perform the activity before the current illness or injury 88 Not attempted due to Medical conditions or safety concerns OT Short Term Goals Short Term Goals 1=Demonstrate adherence to instructed precautions during ADL tasks. 2=Patient will verbalize/demonstrate understanding of assistive devices/modifications for ADL. 3=Patient will improve strength/tolerance for activity to enable patient to perform ADL's. OT Loin Trimmer Goals [facility] Goals 1=Demonstrate adherence to instructed precautions during ADL tasks. 2=Patient will verbalize/demonstrate understanding of assistive devices/modifications for ADL. 3=Patient will improve strength/tolerance for activity to enable patient to perform ADL's. OT Education/Plan Problem List/Assessment Assessment: No Skilled OT Needs ID'd pt demo independence with ADLs (UB dressing, LB dressing, toileting, dry shower transfers, grooming, and eating) and functional transfers (dry shower transfers, toilet transfers ) using no AD. noted aphasia that will be addressed by CANAL EQUIPMENT MECHANIC. OT services not indicate secondary to pt functioning at baseline. pt agrees she does not need OT services. d/c OT at this time. Discharge Recommendations Plan/Recommendations: Discontinue OT (eval only) Barriers to Progress drug use Treatment Plan/Plan of Care Treatment,Training & Education: Yes Treatment Duration: Sep 29, 2018 Frequency: 1 time per week (eval only) Estimated Hrs Per Day: Other (eval only) Rehab Potential: Fair Time/GCodes Start Time: 14:30 Stop Time: 14:50 Billed Treatment Time EVL 20 minutes CAROLYNE SHER OT Sep 29, 2018 14:52
--- NOTE | 2018-09-29 14:58 | NUR ---
CM/SS, respond to consult. Patient sleeping, interviewed patient's life partner, Britt Saunders. 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 Britt was at then [facility] 14 days, she is wheelchair bound but can transfer independently. Patient and Britt have a vehicle but not handicap accessible. Britt has [employer] and staff are confirming whether or not patient has that as well. Britt intends to stay with patient until her discharge. She indicates she is able to transfer independently from her wheelchair to recliner. When asked if she had someone to pick her up and assist her at home she replied that she did, but that she would not be leaving while patient is here. HHC: Discussed with Britt. PT has signed off, ST may be needed outpatient. Continue to explore. Patient and Britt address and phone numbers updated through Registration. Following patient progress as it pertains to post hospital care.
--- NOTE | 2018-09-29 15:55 | ST Cognitive Linguistic Eval ---
Speech Evaluation-General Medical Diagnosis CVA/HTN crisis Onset Date: Sep 29, 2018 Therapy Diagnosis Therapy Diagnosis: cognitive-communication Precautions Precautions: Fall Precautions/Isolations: Fall Prevention, Standard Precautions Referral Referring Physician: Dr. Marley Reason for Referral: Evaluation/Treatment Medical History Pertinent Medical History: CVA, HTN CVA, HTN Current History CVA, HTN Reviewed History: Yes Social History Home: Single Level Current Living Status: Significant Other Speech PLF-Current Status Prior Level of Function independent in daily tasks Subjective Patient was cooperative, but appeared drowsy during session. She opened eyes and verbally responded to questions. Language Eval: Auditory Comprehends Simple Yes/No Ques: Functional Follows 1-Step Commands: Functional Follows Complex Directions: Functional Follows General Conversations: Functional Language Eval: Verbal Language Completes Spontaneous Greeting: Functional Produces Auto, Serial Info: Mild Imitates Simple Words/Phrases: Mild Word Finding: Mild Requests Basic Needs: Mild States Basic Personal Info: Mild Expresses Complex Ideas: Moderate Cognitive Patient Orientation patient was oriented to day and state, but was unintelligible for the year Objective Cognitive Domain Attention: Moderate Memory: Moderate Problem Solving: Moderate Executive Functions: Moderate Visuospatial Skills: Moderate Composite Severity Rating: Moderate Clock Drawing Severity Rating: Mild Score: 13/30 Range: Dementia or moderate-severe cognitive impairment Objective Formal/Standardized Tests [facility] Mental Status ([facility]) Examination Results Patient scored 13/30 indicating a moderate-severe cognitive impairment. Patient was <50% intelligible during conversation which could have impacted her score. She demonstrated ability to name single items, comprehend spontaneous conversation, and follow 3 step directions. Patient reported effortful speech and had a low vocal volume. Oral Motor/Speech Production oral motor skills appear WNL, but patient's speech was effortful with low vocal volume. Patient had some slurring to words, but was intelligible on the single word level when given contextual cues. Articulation deficits can impact her overall intelligibility and expressive language skills. Impression Patient demonstrates moderate-severe cognitive-communication deficits. Communication/Social Cognition Comprehension: 7 Expression: 4 Social Interaction: 6 Problem Solvin Memory: 5 Speech Patient Assess Expression of Ideas/Wants: Frequently (2) Understanding Verbal Content: Understands (4) Brief Interview-Mental Status: Yes Repetition of Three Words: Three (3) Temporal Orientation: Year: No answer (0) Temporal Orientation: Month: No answer (0) Temporal Orientation: Day: Correct (1) Recall : Wear to say "Sock": Yes, no cue required (2) Recall : Color: Yes, after cueing (1) Recall : Bed: Yes,after cueing (1) Add-Enter 99 if pt cannot comp: 99 Memory/Recall Ability: Staff names and faces, That he or she is in a hsp/hsp unit Speech Short Term Goals Short Term Goals Short Term Goals Patient will demonstrate memory and problem solving skills with 80% accuracy with moderate cues Speech Inspector Assembly Goals Inspector Assembly Goals Patient will improve cognitive-communication skills for daily living tasks with moderate assist Speech-Plan Patient/Family Goals Patient/Family Goals: Patient plans to return home Treatment Plan Speech Therapy Treatment Plan: Continue Plan of Care Patient demonstrates moderate-severe cognitive-communication deficits and requ ires verbal cues for success. Patient would benefit from skilled ST services. Treatment Duration: Oct 13, 2018 Frequency: 3 times per week Estimated Hrs Per Day: .25 hour per day Rehab Potential: Fair Barriers to Learning: cognitive-communication Pt/Family Agrees to Plan: Yes Safety Risks/Education Teaching Recipient: Patient Teaching Methods: Discussion Response to Teaching: Verbalize Understanding Education Topics Provided: ST services and room safety Time Speech Therapy Time In: 13:30 Speech Therapy Time Out: 13:45 Total Billed Time: 15 Billed Treatment Time 1, AMBROCIO [place] Sep 29, 2018 15:55
[2018-09-29] MEDS: amLODIPine 5 MG (NORVASC) TAB PO SCH (21:11)
[2018-09-30] VITALS (7 sets, daily range): BP systolic 117–171; BP diastolic 78–111
[2018-09-30 03:23] LABS: BASOPHILS % (AUTO) 1 % (0-10); EOSINOPHILS # (AUTO) 0.1 10^3/uL (0.0-0.3); EOSINOPHILS % (AUTO) 2 % (0-10); HEMATOCRIT 45 % (35-52); HEMOGLOBIN 14.6 G/DL (11.5-16.0); LYMPHOCYTES # (AUTO) 2.1 X 10^3 (1.0-4.0); LYMPHOCYTES % (AUTO) 27 % (12-44); MEAN CORPUSCULAR HEMOGLOBIN 29 PG (25-34); MEAN CORPUSCULAR HGB CONC 32 G/DL (32-36); MEAN CORPUSCULAR VOLUME 88 FL (80-99); MEAN PLATELET VOLUME 10.6 FL (7.4-10.4); MONOCYTES # (AUTO) 0.6 X 10^3 (0.0-1.0); MONOCYTES % (AUTO) 8 % (0-12); NEUTROPHILS % (AUTO) 63 % (42-75); PLATELET COUNT 350 10^3/uL (130-400); WHITE BLOOD COUNT 7.8 10^3/uL (4.3-11.0)
[2018-09-30 03:53] LABS: ALANINE AMINOTRANSFERASE 11 U/L (0-55); ALBUMIN 3.6 GM/DL (3.2-4.5); ALKALINE PHOSPHATASE 66 U/L (40-136); BILIRUBIN,TOTAL 0.4 MG/DL (0.1-1.0); BUN/CREATININE RATIO 9; CALCIUM 9.3 MG/DL (8.5-10.1); CARBON DIOXIDE 21 MMOL/L (21-32); CHLORIDE 107 MMOL/L (98-107); CREATININE SERUM 0.68 MG/DL (0.60-1.30); GFR ESTIMATED > 60; GLUCOSE 97 MG/DL (70-105); MAGNESIUM 2.1 MG/DL (1.8-2.4); PHOSPHORUS 4.1 MG/DL (2.3-4.7); SODIUM 140 MMOL/L (135-145); TOTAL PROTEIN 6.5 GM/DL (6.4-8.2)
[2018-09-30] MEDS: CATHETER FLUSH 10 ML SYR IV SCH ×3 (05:51→22:07)
--- NOTE | 2018-09-30 07:13 | Diagnostic Imaging Report ---
INDICATION: Shortness of breath COMPARISON: 09/29/2018 FINDINGS: Single view the chest demonstrates clear lungs bilaterally. The heart size is normal. There is no pneumothorax. Osseous structures are normal. IMPRESSION: No acute findings. Normal chest. Dictated by: Dictated on workstation # [id number]
[2018-09-30] MEDS: amLODIPine 5 MG (NORVASC) TAB PO SCH (07:54)
[2018-09-30] MEDS: CLOPIDOGREL 75 MG (PLAVIX) TABLET PO SCH (07:54)
--- NOTE | 2018-09-30 09:44 | Progress Note - Hospitalist ---
Subjective HPI/CC On Admission Date Seen by Provider: Sep 30, 2018 Time Seen by Provider: 09:15 CC: Expressive Aphasia HPI: This is a 33yo female of [facility] who is known to me form prior stroke and when I took care of her girl friend in rehab for a stroke and both strokes on both ladies has been cause by methamphetamine use who presented to the ER with hypertensive crisis and expressive aphasia. At this current time pt is able to walk and having difficulty talking and evaluating for swallow evaluation by speech therapy. MRI will be obtained to confirmed an addition stroke and will need therapy to regain independent status. Meth was in her UDS. Subjective/Events-last exam Blood pressure is much improved on the [place] Will add aspirin therapy since this is a recurrent stroke and is non hemorrhagic Still with expressive aphasia Will review therapy notes Will consult social work regarding disposition Checked meds and labs Lipid profile will be checked also per stroke protocol Review of Systems General: Fatigue Neurological: Change in speech Objective Exam Vital Signs Vital Signs Date Time Temp Pulse Resp B/P (MAP) Pulse Ox O2 Delivery O2 Flow Rate FiO2 09/30/18 15:39 97.3 57 22 138/86 (103) 99 Room Air Capillary Refill : Less Than 3 SecondsLess Than 3 Seconds General Appearance: No Apparent Distress, WD/WN, Chronically ill, Other (expressive aphasic) HEENT: PERRL/EOMI, Normal ENT Inspection, Pharynx Normal, Moist Mucous Membranes Neck: Full Range of Motion, Normal Inspection, Non Tender Respiratory: Chest Non Tender, Lungs Clear, Normal Breath Sounds, No Accessory Muscle Use, No Respiratory Distress Cardiovascular: Regular Rate, Rhythm, No Edema, No Gallop, No JVD, No Murmur, Normal Peripheral Pulses Gastrointestinal: Normal Bowel Sounds, No Organomegaly, No Pulsatile Mass, Non Tender, Soft Back: Normal Inspection, No CVA Tenderness, No Vertebral Tenderness Extremity: Normal Capillary Refill, Normal Inspection, Normal Range of Motion, Non Tender, No Calf Tenderness, No Pedal Edema Neurologic/Psychiatric: Alert, Oriented x3, No Motor/Sensory Deficits, Normal Mood/Affect, head of sales and marketing II-XII Norm as Tested, Other (expressive aphasia) Skin: Normal Color, Warm/Dry Lymphatic: No Adenopathy Results/Procedures Lab Laboratory Tests 09/30/18 02:55 Patient resulted labs reviewed. Assessment/Plan Assessment and Plan Assess & Plan/Chief Complaint Assessment: CVA subacute not a tPA candidate Expressive aphasia HTN malignant type h/o CVA in past 05/2017 required IRF Meth use Plan: BP control PT/OT/ST Lipid panel reviewed Statin empirically ASA Monitor closely Drug use cessation Diagnosis/Problems Diagnosis/Problems (1) Expressive aphasia Status: Acute (2) CVA (cerebral vascular accident) Status: Acute Qualifiers: CVA mechanism: unspecified Qualified Codes: I63.9 - Cerebral infarction, u nspecified (3) Methamphetamine abuse Status: Chronic (4) Smoker Status: Chronic (5) Altered mental status Status: Resolved Resolution Date/Time: 09/29/18 @ 15:08 Clinical Quality Measures DVT/VTE Risk/Contraindication: Risk Factor Score Per Nursin RFS Level Per Nursing on Admit: 4+=Very High ALISON GANNON DO Sep 30, 2018 09:44
[2018-09-30] MEDS ORDERED: ASPIRIN 325 MG (5 GR) TABLET PO SCH (10:00)
[2018-09-30] MEDS ORDERED: CARV12.52 PO (10:07)
[2018-09-30] MEDS ORDERED: AMLO5TAB9 PO (10:07)
[2018-09-30] MEDS ORDERED: LISI40TA PO (10:07)
[2018-09-30] MEDS ORDERED: IBUP-2055 PO (10:08)
--- NOTE | 2018-09-30 10:10 | NUR ---
SPOKE WITH PT ( WELL HER PARTNER), WENT THRU THE EXT MED HIS, WELL CALLING [facility] AND [facility] TO COMPLETE MED REC. PATIENTS PARTNER SAID SHE IS ON 3 BLOOD PRESSURE MEDICATIONS (PT AGREED WHEN I ASKED HER), HOWEVER THEY HAVE NOT BEEN FILLED SINCE 04-01-2018 FOR 30 DAY SUPPLIES AT [facility]. THEY HAD FIRST TOLD ME [facility] (NOTHING FILLED SINCE ), THEN I ASKED IF PT RECIEVED ANYWHERE ELSE THEY INDICATED [facility] WAS THE MOST RECENT. OTC MEDS: IBUPROFEN 200M TABS Q 6 H PRN
[2018-09-30 10:12] LABS: CHOLESTEROL 178 MG/DL (< 200); HDL CHOLESTEROL 49 MG/DL (40-60); TRIGLYCERIDES 92 MG/DL (<150); VLDL CHOLESTEROL 18 MG/DL (5-40)
[2018-09-30] MEDS: ASPIRIN 81 MG CHEW (CHILDREN'S ASA) PO SCH (10:32)
--- NOTE | 2018-09-30 11:04 | NUR ---
CM/SS, additional referral and followup for discharge. Attempted to engage patient several times this a.m., including taking RN who performed light sternal rub to awaken her. Patient does not engage well, can not determine what is actual drowsiness vs choice to ignore. Patient and LP/Britt both asleep soundly this a.m. and Britt never did wake during the several times staff was in/out of room. ST is the only remaining therapy continuing to intervene at this time; PT/OT indicate patient is at her PLOF per their assessments. Discussed today's findings with Inpatient Computer Consultant, concerns are that patient does not exhibit convincing stability for return home. ST to continue to work with patient. Updated assigned RN's and recommend they walk patient today as much as possible to get her up and moving. What little patient did act upon conversation, she used hand gestures to indicate she would return home at discharge and that they would call someone to pick them up to take them there. When asked if she could manage at home for self and supposedly to resume care of Britt, patient shrugged her shoulders. Overall motivation and stability needs to be confirmed by staff intermittently increasing activity and wake time. Demographics indicate patient is uninsured, not confirmed, but this will impede follow through with some options for post hospital care. Long standing substance abuse problematic and anticipated to continue.
[2018-09-30] MEDS ORDERED: IBUPROFEN TABLET 200 MG TAB PO PRN (11:15)
--- NOTE | 2018-09-30 13:02 | Speech Therapy Daily Note ---
Speech Daily Progress Note Subjective Date Seen by Provider: Sep 30, 2018 Time Seen by Provider: 00:15 Patient had varying alertness throughout the session requiring tactile and verbal cues for alertness. Patient participated in session was cooperative and pleasant. Objective Patient participated in cognitive-communication tasks including naming and sentence completion activities with 50% success requiring moderate verbal cues and extra time to respond. Patient demonstrated groping during verbal expression of words and expressed speaking was effortful Assessment Assessment Current Status: Good Progress Treatment Plan Continue Plan of Care Communication Comprehension: 7 Expression: 4 Social Cognition Social Interaction: 6 Problem Solvin Memory: 5 Speech Short Term Goals Short Term Goals Short Term Goals Patient will demonstrate memory and problem solving skills with 80% accuracy with moderate cues Speech Cigarette Machine Operator Goals Senior Care Goals Patient will improve cognitive-communication skills for daily living tasks with moderate assist Speech-Plan Patient/Family Goals Patient/Family Goals: Improved verbal expression Treatment Plan Speech Therapy Treatment Plan: Continue Plan of Care Patient is making progress towards goals. Patient able to verbalize and is intelligible in context and imitation. Patient requires moderate verbal cues du ring cognitive-communication tasks. Treatment Duration: Oct 13, 2018 Frequency: 3 times per week Estimated Hrs Per Day: .25 hour per day Rehab Potential: Fair Barriers to Learning: alertness and cognitive-communication Pt/Family Agrees to Plan: Yes Safety Risks/Education Teaching Recipient: Patient Teaching Methods: Discussion Response to Teaching: Verbalize Understanding Education Topics Provided: room safety Time Speech Therapy Time In: 11:30 Speech Therapy Time Out: 11:45 Total Billed Time: 15 Billed Treatment Time 1 AMBROCIO Hunt Sep 30, 2018 13:02
[2018-09-30] MEDS: CARVEDILOL 12.5 MG (COREG) TABLET PO SCH (20:21)
[2018-09-30] MEDS: cloNIDine 0.1 MG (CATAPRES) TAB PO PRN (20:22)
[2018-09-30] MEDS ORDERED: ATORVASTATIN 20 MG (LIPITOR) TABLET PO SCH (21:00)
[2018-10-01 00:12] VITALS: BP 137/86
[2018-10-01 03:25] LABS: BASOPHILS # (AUTO) 0.1 10^3/uL (0.0-0.1); BASOPHILS % (AUTO) 1 % (0-10); EOSINOPHILS # (AUTO) 0.1 10^3/uL (0.0-0.3); EOSINOPHILS % (AUTO) 1 % (0-10); HEMATOCRIT 46 % (35-52); HEMOGLOBIN 15.2 G/DL (11.5-16.0); LYMPHOCYTES # (AUTO) 1.3 X 10^3 (1.0-4.0); LYMPHOCYTES % (AUTO) 20 % (12-44); MEAN CORPUSCULAR HEMOGLOBIN 29 PG (25-34); MEAN CORPUSCULAR HGB CONC 33 G/DL (32-36); MEAN CORPUSCULAR VOLUME 87 FL (80-99); MEAN PLATELET VOLUME 10.5 FL (7.4-10.4); MONOCYTES # (AUTO) 0.5 X 10^3 (0.0-1.0); MONOCYTES % (AUTO) 7 % (0-12); NEUTROPHILS # (AUTO) 4.7 X 10^3 (1.8-7.8); NEUTROPHILS % (AUTO) 72 % (42-75); PLATELET COUNT 328 10^3/uL (130-400); RED CELL DISTRIBUTION WIDTH 14.5 % (10.0-14.5); WHITE BLOOD COUNT 6.6 10^3/uL (4.3-11.0)
[2018-10-01 03:43] LABS: BUN/CREATININE RATIO 13; CALCIUM 9.3 MG/DL (8.5-10.1); CARBON DIOXIDE 22 MMOL/L (21-32); CHLORIDE 107 MMOL/L (98-107); CREATININE SERUM 0.63 MG/DL (0.60-1.30); GFR ESTIMATED > 60; GLUCOSE 93 MG/DL (70-105); PHOSPHORUS 3.6 MG/DL (2.3-4.7); POTASSIUM 3.9 MMOL/L (3.6-5.0); SODIUM 140 MMOL/L (135-145)
[2018-10-01 04:00] VITALS: BP 115/77
[2018-10-01] MEDS: CATHETER FLUSH 10 ML SYR IV SCH (06:07)
[2018-10-01 08:00] VITALS: BP 143/82
[2018-10-01] MEDS: ASPIRIN 81 MG CHEW (CHILDREN'S ASA) PO SCH (08:33)
[2018-10-01] MEDS: CLOPIDOGREL 75 MG (PLAVIX) TABLET PO SCH (08:33)
[2018-10-01] MEDS: CARVEDILOL 12.5 MG (COREG) TABLET PO SCH (08:34)
[2018-10-01] MEDS ORDERED: amLODIPine 5 MG (NORVASC) TAB PO SCH (09:00)
[2018-10-01] MEDS ORDERED: lisINopril 40 MG (PRINIVIL) TABLET PO SCH (09:00)
[2018-10-01] MEDS ORDERED: CLOP75TA28 PO (10:16)
[2018-10-01] MEDS ORDERED: ATOR20TA66 PO (10:16)
--- NOTE | 2018-10-01 10:18 | Discharge Summary ---
Diagnosis/Chief Complaint Date of Admission Sep 29, 2018 at 07:02 Date of Discharge Discharge Date: Oct 01, 2018 Admission Diagnosis MRI results after rounds: small area of acute infarct involving the posterior limb of the internal capsule on the right Assessment: CVA subacute not a tPA candidate HTN malignant type h/o CVA in past 05/2017 required IRF Meth use Plan: BP control PT/OT/ST Monitor closely Drug use cessation Discharge Diagnosis (1) Expressive aphasia Status: Acute (2) CVA (cerebral vascular accident) Status: Acute (3) Methamphetamine abuse Status: Chronic (4) Smoker Status: Chronic (5) Altered mental status Status: Resolved Discharge Summary Discharge Physical Exam Allergies: Coded Allergies: No Known Drug Allergies (Unverified , 02/12/11) Vitals & I&Os Vital Signs Date Time Temp Pulse Resp B/P (MAP) Pulse Ox O2 Delivery O2 Flow Rate FiO2 10/01/18 12:45 10/01/18 09:25 Room Air 10/01/18 08:00 97.9 61 18 99 General Appearance: No Apparent Distress, WD/WN, Chronically ill Respiratory: Chest Non Tender, Lungs Clear, Normal Breath Sounds, No Accessory Muscle Use, No Respiratory Distress Cardiovascular: Regular Rate, Rhythm, No Edema, No Gallop, No JVD, No Murmur, N ormal Peripheral Pulses Neurologic/Psychiatric: Alert, Oriented x3, No Motor/Sensory Deficits, Normal Mood/Affect, annealer II-XII Norm as Tested, Aphasia Hospital Course Was the Problem List Reviewed?: Yes Hospital course; Pt had an uneventful hospital course after she sustained another stroke after using meth became extremely hypertensive requiring ICU monitoring was not a TPA candidate multiple meds were added good BP control was obtained placed on Plavix, Aspirin, and statin therapy and was discharged home with close f/u with [facility] and will undergo speech therapy and an outpatient. Overall, prognosis guarded considering her lack of motivation and continue meth use. Labs (last 24 hrs) Laboratory Tests 10/01/18 03:15: White Blood Count 6.6, Red Blood Count 5.31, Hemoglobin 15.2, Hematocrit 46, Mean Corpuscular Volume 87, Mean Corpuscular Hemoglobin 29, Mean Corpuscular Hemoglobin Concent 33, Red Cell Distribution Width 14.5, Platelet Count 328, Mean Platelet Volume 10.5H, Neutrophils (%) (Auto) 72, Lymphocytes (%) (Auto) 20, Monocytes (%) (Auto) 7, Eosinophils (%) (Auto) 1, Basophils (%) (Auto) 1, Neutrophils # (Auto) 4.7, Lymphocytes # (Auto) 1.3, Monocytes # (Auto) 0.5, Eosinophils # (Auto) 0.1, Basophils # (Auto) 0.1, Sodium Level 140, Potassium Level 3.9, Chloride Level 107, Carbon Dioxide Level 22, Anion Gap 11, Blood Urea Nitrogen 8, Creatinine 0.63, Estimat Glomerular Filtration Rate > 60, BUN/Creatinine Ratio 13, Glucose Level 93, Calcium Level 9.3, Phosphorus Level 3.6, Magnesium Level 2.0 Patient resulted labs reviewed. Pending Labs Discussion & Recommendations Discharge Planning: <30 minutes discharge planning Discharge Home Medications: Active Scripts Active Atorvastatin Calcium 20 Mg Tablet 20 Mg PO HS Clopidogrel (Clopidogrel Bisulfate) 75 Mg Tablet 75 Mg PO DAILY Reported Ibuprofen 200 Mg Tablet 400 Mg PO Q6H PRN Coreg (Carvedilol) 12.5 Mg Tablet 12.5 Mg PO BID LAST DATE FILLED 04-01-2018 Lisinopril 40 Mg Tablet 40 Mg PO DAILY LAST DATE FILLED 04-01-2018 Amlodipine Besylate 5 Mg Tablet 5 Mg PO DAILY LAST DATE FILLED 04-01-2018 Instructions to patient/family Please see electronic discharge instructions given to patient. Clinical Quality Measures DVT/VTE Risk/Contraindication: Risk Factor Score Per Nursin RFS Level Per Nursing on Admit: 4+=Very High Problem Qualifiers (1) CVA (cerebral vascular accident): CVA mechanism: unspecified Qualified Codes: I63.9 - Cerebral infarction, unspecified ALISON GANNON DO Oct 01, 2018 10:18
--- NOTE | 2018-10-01 10:23 | NUR ---
CM/SS. Patient discharged to home today. OP ST: Outpatient speech therapy ordered, Unit RN will coordinate first available appointment with [facility] and patient can then make all subsequent appointments per her schedule.
--- NOTE | 2018-10-01 14:15 | Therapy Team Discharge Summary ---
Therapy Discharge Summary Discharge Recommendations Date of Discharge Oct 01, 2018 at 12:45 Therapy D/C Recommendations: Home w/ Family Support Occupational Therapy No Skilled OT Needs ID'd Speech-Language Pathology Patient presented with cognitive-communication deficits. Speech was effortful and slow with groping present. Speech targeted verbal expression including naming and simple memory tasks. Patient was unintelligible unless given context. PT Director Of Special Education Goals Half-Way Goals Rollin OT Director Of Special Education Goals Director Of Special Education Goals 1=Demonstrate adherence to instructed precautions during ADL tasks. 2=Patient will verbalize/demonstrate understanding of assistive devices/modifications for ADL. 3=Patient will improve strength/tolerance for activity to enable patient to perform ADL's. Speech Half-Way Goals Half-Way Goals Patient will improve cognitive-communication skills for daily living tasks with moderate assist Comprehension: 5 Expression: 4 Social Interaction: 6 Problem Solvin Memory: 4 AMBROCIO BENNETT Oct 01, 2018 14:15
== END 2018-10-01 12:45 | disposition home or self-care (01) | DRG 65 ==
LOC: EDUNIT# 02:06 → ER 02:09 → ICU 07:02 → 4TH 12:09
PROVIDERS: ADMIT Family Medicine; ATTEND Family Medicine
DX: I63.9 Cerebral infarction, unspecified (principal); I16.9 Hypertensive crisis, unspecified; I67.4 Hypertensive encephalopathy; I69.351 Hemiplegia and hemiparesis following cerebral infarction affecting right dominant side; R47.01 Aphasia; R13.10 Dysphagia, unspecified; F15.10 Other stimulant abuse, uncomplicated; R41.82 Altered mental status, unspecified; F17.210 Nicotine dependence, cigarettes, uncomplicated; Z91.19 Patient's noncompliance with other medical treatment and regimen
CPT/HCPCS: 36415; 51701; 70450; 70496; 70498; 70551; 71045; 80048; 80053; 80061; 80306; 80320; 80329; 81000; 82550; 82553; 82962; 83735; 83880; 84100; 84443; 84703; 85025; 85610; 85730; 93005; 93041; 96361; 96374; 96375; 96376

== ENCOUNTER 2019-01-14 14:00 | Outpatient (RCR) | payer SELFPAY ==
--- NOTE | 2018-10-01 14:34 | NUR ---
Pt is room with visitor, both resting with eyes closed. Her visitor looked at me when I stood in the threshold. I acknowledged that they appeared to be trying to rest. The visitor nodded yes and thanked me when I offered to close the door for privacy.
[~2019-01-14 14:00] MED LIST changes: +ATOR20TA66 PO; +CARV12.52 PO; +CLOP75TA28 PO; +IBUP-2055 PO
== END 2019-01-14 16:00 | disposition home or self-care (01) ==
PROVIDERS: ATTEND Internal Medicine
DX: R47.01 Aphasia (principal); R47.1 Dysarthria and anarthria

== ENCOUNTER 2019-10-29 15:08 | Outpatient (RCR) | payer MEDICARE ==
[~2019-10-29 15:08] MED LIST changes: -FLUO20CA25 PO; +FLUO20CA46 PO; -IBUP-2055 PO; +IBUP-2473 PO
== END 2019-11-12 15:07 | disposition home or self-care (01) ==
PROVIDERS: ATTEND Nurse Practitioner Family
DX: I69.320 Aphasia following cerebral infarction (principal); I69.328 Other speech and language deficits following cerebral infarction

== ENCOUNTER 2019-10-30 05:38 | Outpatient (RCR) | payer MEDICARE | END 2019-10-30 11:32 | disposition home or self-care (01) | LOC: PREOP 05:38 | PROVIDERS: ATTEND Surgery | DX: Z01.818 Encounter for other preprocedural examination (principal) ==

== ENCOUNTER 2019-11-02 10:04 | Day surgery (SDC) | payer MEDICARE ==
[~2019-11-02] VITALS: Ht 175.3 cm; Wt 58.6 kg
[2019-11-02] MEDS ORDERED: LACTATED RINGERS 1,000 ML IV ONE (10:18)
[2019-11-02 10:45] VITALS: BP 171/121
[2019-11-02] MEDS ORDERED: meTOprolol 5 MG/5 ML (LOPRESSOR) VIAL IV ONE (11:00)
--- NOTE | 2019-11-02 11:10 | NUR ---
PATIENT'S CASE CANCELLED PER ANESTHESIA DUE TO ADMITTED RECENT DRUG USE, TO BE RESCHEDULED.
[2019-11-02] MEDS ORDERED: LACTATED RINGERS 1,000 ML IV STA (12:18)
[2019-11-02] MEDS ORDERED: HURRICAINE EXT TUBE (BENZOCAINE) XX PRN (12:30)
== END 2019-11-02 11:10 | disposition home or self-care (01) ==
LOC: ENDO 10:04
PROVIDERS: ATTEND Surgery
DX: R13.14 Dysphagia, pharyngoesophageal phase (principal); R49.0 Dysphonia; Z53.9 Procedure and treatment not carried out, unspecified reason; I10 Essential (primary) hypertension; F17.210 Nicotine dependence, cigarettes, uncomplicated; E66.9 Obesity, unspecified; Z68.1 Body mass index [BMI] 19.9 or less, adult; Z79.82 Long term (current) use of aspirin; Z79.899 Other long term (current) drug therapy; Z20.828 Contact with and (suspected) exposure to other viral communicable diseases
CPT/HCPCS: 84703; U0002; 87635